=== PATIENT | male | born 1940 | race Caucasian/White ===

== ENCOUNTER → 2017-03-25 | Outpatient (CLI) | payer MEDICARE, MEDICAID ==
[~2017-03-25] MED LIST: ADVAIR 250/501 EA INH; AMLODIPINE BESY10 MG PO; AZITHROMYCIN500 M2 PO; B12100 MC1 PO; CLARITIN10 MG PO; COMBIVENT1 AR1 INH; COMBIVENT1 ARO IH; DOXYCYCLINE100 M4 PO; FUROSEMIDE40 MG PO; INHALER; KLOR-CON 1010 ME1 PO; KLOR-CON M1010 MEQ PO; LASIX40 MG PO; LEVAQUIN500 M2 PO; LIDOCAINE VISC100 ML PO; LISINOPRIL20 MG PO; MIRALAX POWDER255 GM PO; MOTRIN800 MG PO; NORVASC5 MG PO; PHARMASSURE FO0.4 MG PO; PREDNICOT10 MG PO; PREDNICOT20 MG PO; PREDNISONE10 MG PO; PRINIVIL20 M1 PO; PROAIR HFA0.09 MG/AC INH; SLOW RELEASE I159 MG PO; STIOLTO RESPIMAT4 GM INH; SYMB160 INH; SYMBICORT1 AE1 INH; VENTOLIN H0.09 MG/AC INH; VENTOLIN HFA INH; VITAMIN D-32000 UNIT PO; ZITHROMAX Z PA250 MG PO; ZOVIRAX400 MG PO
[2017-03-25 08:49] LABS: ALBUMIN 3.3 gm/dl (3.1-4.5); CREATININE 1.92 mg/dL (0.70-1.30); PHOSPHOROUS 3.5 mg/dL (2.5-4.9); POTASSIUM 4.5 mmol/L (3.5-5.1)
== END | disposition home or self-care (01) ==
LOC: LAB 07:54 → US 12:30
PROVIDERS: Internal Medicine
DX: N18.3 Chronic kidney disease, stage 3 (moderate) (principal)

== ENCOUNTER 2017-03-26 08:04 | Inpatient (IN) | payer MEDICARE, MEDICAID ==
[~2017-03-26] VITALS: Ht 167.6 cm; Wt 69.6 kg
--- NOTE | ~2017-03-26 | PR ---
[place], [place] PROGRESS NOTE NAME: JASPER NATION UNIT #: [id number] ROOM: 522 DOCTOR: PRISCILA SALAZAR MD BIRTHDATE: [birth year] DOS: SUBJECTIVE: Jasper Nation who has been admitted to hospital with pneumonia and COPD and hypoxia. The patient is gradually feeling better. He denies any chest pain. Denies any difficulty in breathing. He is on oxygen and he is eating alright and drinking fairly good. No nausea, no vomiting and his CBC today is white count 7700, hemoglobin 7.4, hematocrit 23.6, having hypochromic anemia. Comprehensive metabolic profile today showed creatinine 1.41, GFR 94, chloride 109. Total protein 6.9, albumin 2.5. Other values are normal. OBJECTIVE: VITAL SIGNS: His blood pressure 132/62, pulse 64, respirations 18, temperature 98.2. HEART: Regular. CHEST: Having increased expiration. No crepitation. ABDOMEN: Soft. The patient is gradually improving. PRISCILA SALAZAR MD CM:PNTRANS [id number] PRISCILA SALAZAR MD 03/30/17 1519 interface
--- NOTE | ~2017-03-26 | EKG ---
[place], [place] ELECTROCARDIOGRAM REPORT NAME: JASPER WAGNER UNIT #: [id number] ROOM: 522 DOCTOR: DIPIKA VELASCO MD BIRTHDATE: [birth year] DOS: 03/26/2017 TIME: 09:20:46. RATE AND RHYTHM: Normal sinus rhythm at 97 beats per minute. RI interval 144 milliseconds. QRS duration 87 milliseconds. Corrected QT interval 413 milliseconds. QRS axis 70. IMPRESSION: 1. Normal sinus rhythm. 2. Essentially normal EKG. DIPIKA VELASCO MD CM:EKGRPT:ELECTROCARDIOGRAM REPORT 1000 1227 DIPIKA VELASCO MD
--- NOTE | ~2017-03-26 | PR ---
[place], [place] PROGRESS NOTE NAME: JASPER WAGNER UNIT #: [id number] ROOM: 522 DOCTOR: SARIKA RAMESH MD BIRTHDATE: [birth year] DOS: 03/29/2017 SUBJECTIVE: The patient was seen and examined. He is awake and alert. He is on nasal cannula. He states he is having productive cough and had some shortness of breath last night. He looked fairly comfortable when I had seen him today. He was eating his lunch. He currently denies nausea, vomiting, chest pain or shortness of breath. PHYSICAL EXAMINATION: VITAL SIGNS: Showed temperature of 97.4, pulse 84, respiratory rate 18, blood pressure 140/64. HEENT: Shows no JVD. LUNGS: With diminished breath sounds with occasional rhonchi. HEART: Normal S1, S2. No rub, thrill or gallop. ABDOMEN: Soft, nontender. There is no organomegaly. EXTREMITIES: Showed no edema. SKIN: Showed no rash. LABORATORY DATA: Hemoglobin 8.2, white count of 9.2, platelets of 285. BUN 24, creatinine 1.67, sodium 140, potassium 4.2, CO2 of 21, calcium 8.5, albumin 2.5. Blood cultures from the 25th showed no growth to date. ASSESSMENT AND PLAN: 1. Acute on chronic kidney disease. The patient has a baseline creatinine that appears to be in the middle to upper ones range. His renal function has improved and at baseline. Dose medications for current creatinine clearance. Would avoid nephrotoxic agents. He currently is on an ASHWIN inhibitor. Since his renal function has improved, this is acceptable from a renal standpoint. 2. Anemia. Follow H and H. Transfuse as needed. 3. Hypertension. As mentioned, he is on an ASHWIN inhibitor. This can certainly continue at this point since his creatinine is at baseline. 4. Questionable pneumonia/chronic obstructive pulmonary disease exacerbation. He is on antibiotics per the primary service. Dose for current creatinine clearance. 5. Deep venous thrombosis prophylaxis. Would not recommend Lovenox with chronic kidney disease. Would change to subcutaneous heparin. At this point, there is nothing more to add from renal standpoint. I recommend renal followup as an outpatient in our office with Dr. Miner. We will be available for questions if needed. He is acceptable for discharge at this point from a renal standpoint. [place], [place] PROGRESS NOTE NAME: JASPER WAGNER UNIT #: [id number] ROOM: 522 DOCTOR: DOMITILA BURK,SARIKA Barbosa BIRTHDATE: [birth year] SARIKA RAMESH MD CM:PNTRANS 1232 [id number] SARIKA RAMESH MD 03/29/17 1413 interface
--- NOTE | ~2017-03-26 | PR ---
[place], [place] PROGRESS NOTE [id number] #: [id number] ROOM: 522 DOCTOR: PRISCILA SALAZAR MD BIRTHDATE: [birth year] DOS: SUBJECTIVE: The patient has been admitted to the hospital with pneumonia and sepsis with difficulty in breathing. He is a known case of COPD with emphysema. The patient is feeling fairly good now. He does not have any chest pain. He is on oxygen and he is coughing, still has some cough. There is no pain in the abdomen. No nausea. No vomiting. Eating fairly satisfactorily. His sputum culture and sensitivity showed many white blood cells and epithelial cells, but culture reports so far show normal rl. CBC showed hemoglobin 8.2, hematocrit 25.6, indicating hypochromic anemia. Comprehensive metabolic profile showed creatinine 1.67, GFR 40 and indicating some renal failure. He has been seen by television presenter and cleared for any acute intervention. His stools for guaiac are negative. OBJECTIVE: VITAL SIGNS: His blood pressure is 140/64, pulse 84, respirations 18, temperature 97.4. PRISCILA SALAZAR MD CM:PNTRANS 1253 151 PRISCILA SALAZAR MD 03/29/17 1510 interface
[2017-03-26 08:04] VITALS: BP 123/60
[~2017-03-26 08:04] MED LIST changes: -AZITHROMYCIN500 M2 PO; -SLOW RELEASE I159 MG PO; -STIOLTO RESPIMAT4 GM INH; -SYMB160 INH; -VENTOLIN HFA INH; -VITAMIN D-32000 UNIT PO
[2017-03-26 08:39] LABS: BASO # 0.1 10*3/uL (0.0-0.1); BASO % 0.4 % (0.0-1.0); EOS % 0.1 % (1.0-4.0); HEMATOCRIT 25.8 % (42.0-52.0); LYMPH # 0.7 10*3/uL (1.3-4.4); LYMPH % 3.8 % (27.0-41.0); MEAN CELL VOLUME 92.1 fl (80.0-94.0); MEAN CORPUSCULAR HGB 28.6 pg (27.0-31.0); MEAN PLATELET VOLUME 9.7 fl (9.6-12.3); MONO # 1.3 10*3/uL (0.1-1.0); MONO % 6.7 % (3.0-9.0); NEUT # 17.1 10*3/uL (2.3-7.9); NEUT % 88.1 % (47.0-73.0); PLATELET COUNT AUTOMATED 272 10*3/uL (130-400); RED CELL DISTRI WIDTH 13.5 % (0-14.5); WHITE BLOOD COUNT 19.4 10*3/uL (4.8-10.8)
[2017-03-26 08:48] LABS: ACT PARTIAL THROMBO TIME 30.9 SECONDS (20.8-31.5)
[2017-03-26 08:53] LABS: ALBUMIN 3.1 gm/dl (3.1-4.5); ALKALINE PHOSPHATASE 121 U/L (45-117); BUN 27 mg/dl (7-24); CHLORIDE 104 mmol/L (98-107); CREATININE 2.36 mg/dL (0.70-1.30); LIPASE 67 U/L (73-393); POTASSIUM 4.4 mmol/L (3.5-5.1); SGOT/AST 10 IU/L (3-35); SGPT/ALT 15 U/L (12-78); SODIUM 136 mmol/L (136-145); TOTAL PROTEIN 8.3 gm/dL (6.4-8.2)
[2017-03-26 08:56] LABS: TROPONIN I < 0.015 ng/ml (<0.045)
--- NOTE | 2017-03-26 09:00 | NUR ---
PT ASSISSTED TO SHOWER AND PROVIDED PERMETHRIN CREAM FOR THE MITES.
[2017-03-26 10:50] VITALS: BP 120/50
[2017-03-26 11:00] VITALS: BP 117/42
--- NOTE | 2017-03-26 11:00 | NUR ---
Time: 1100 A 76 year old MALE admitted to 5E under services of DR. KRISTA BURK,DIPIKA. Pt. arrived via stretcher from ER. Chief complaint: ROZ. TREASURE HOLLIS
[2017-03-26] MEDS ORDERED: SYMB160 INH (11:38)
[2017-03-26] MEDS ORDERED: VENTOLIN HFA INH (11:38)
[2017-03-26] MEDS ORDERED: STIOLTO RESPIMAT4 GM INH (11:41)
[2017-03-26] MEDS ORDERED: VITAMIN D-32000 UNIT PO (11:41)
--- NOTE | 2017-03-26 11:47 | NUR ---
MED REC UPDATED AND CORRECTED BY INFORMATION FROM [facility]
[2017-03-26 16:00] VITALS: BP 111/64
[2017-03-26 16:01] LABS: BILIRUBIN NEGATIVE (NEGATIVE); BLOOD TRACE-LYSED (NEGATIVE); CLARITY CLEAR (CLEAR); COLOR YELLOW (YELLOW); GLUCOSE NEGATIVE (NEGATIVE); KETONE NEGATIVE (NEGATIVE); LEUKO ESTERASE NEGATIVE (NEGATIVE); NITRITE NEGATIVE (NEGATIVE); UROBILINOGEN 0.2 E.U./dl (0.2-1.0)
[2017-03-26 16:21] LABS: MUCOUS TRACE; RBC 0-2 rbc/hpf (0-2)
[2017-03-26 20:00] VITALS: BP 124/61
[2017-03-27] VITALS (11 sets, daily range): BP systolic 104–119; BP diastolic 55–65
--- NOTE | 2017-03-27 02:08 | NUR ---
PATIENT RESTING IN BED WITH EYES CLOSED. NO SIGNS OR SYMPTOMS OF DISTRESS NOTED. AROUSES TO VERBAL STIMULI. DENIES COMPLAINTS OF PAIN AT THIS TIME. WILL CONTINUE TO MONITOR. CALL LIGHT IN REACH.
[2017-03-27 06:11] LABS: HEMOGLOBIN 6.2 g/dl (14.0-18.0); MEAN CELL VOLUME 92.2 fl (80.0-94.0); MEAN CORPUSCULAR HGB 28.6 pg (27.0-31.0); MEAN PLATELET VOLUME 10.8 fl (9.6-12.3); PLATELET COUNT AUTOMATED 222 10*3/uL (130-400); RED BLOOD COUNT 2.17 10*6/uL (4.50-5.90); RED CELL DISTRI WIDTH 13.8 % (0-14.5)
[2017-03-27 06:37] LABS: TOTAL CELLS COUNTED 100 #CELLS
[2017-03-27 06:38] LABS: PLATELET SUFFICIENCY NORMAL (NORMAL); POLYCHROMASIA SLIGHT
[2017-03-27 06:46] LABS: ALBUMIN 2.3 gm/dl (3.1-4.5); CREATININE 2.16 mg/dL (0.70-1.30); POTASSIUM 4.5 mmol/L (3.5-5.1); TOTAL PROTEIN 6.1 gm/dL (6.4-8.2)
--- NOTE | 2017-03-27 08:00 | NUR ---
PT RESTING IN BED. RESP-EASY AND REGULAR. PT VOICED USING INCENTIVE SPIROMETER AND FLUTTER. NO C/O AT HTIS TIME. CALL LIGHT IN REACH. SEE SHIFT ASSESSMENT.
--- NOTE | 2017-03-27 08:30 | NUR ---
Technical Translator in to talk to patient. Patient states lives at HOME with HIS GIRLFRIEND. There are 0 steps in the home. Physician: DR VELASCO Pharmacy: [facility] Home health services: NONE Patient's level of ADLs: INDEPENDENT Patient has working utilities: YES DME: NONE Follow-up physician's appointment after d/c: PREFERS TO MAKE HIS OWN APPT Does patient want to access PORTAL?: Discharge plan HOME. JAYLYN PERALTA
--- NOTE | 2017-03-27 08:49 | NUR ---
CALLED DR. RUIZ MADE AWARE PT H&H THIS AM.
--- NOTE | 2017-03-27 10:00 | NUR ---
RESTING IN BED. RESP-EASY AND REGULAR. NO C/O AT THIS TIME. CALL LIGHT IN REACH.
--- NOTE | 2017-03-27 10:30 | NUR ---
PT RESTING IN BED. RESP-EASY AND REGULAR. BLOOD INITIATED CONSENT SIGNED. CALL LIGHT IN REACH.
--- NOTE | 2017-03-27 13:20 | NUR ---
BLOOD INFUSED WITH NO PROBLEM. VSS. NO C/O AT THIS TIME. CALL LIGHT IN REACH.
--- NOTE | 2017-03-27 13:29 | NUR ---
SPOKE WITH DR. VILLALPANDO OFFICE GIRL THEY WILL NOTIFY HIM OF CONSULT.
--- NOTE | 2017-03-27 15:27 | NUR ---
DR. VILLALPANDO CALLED REGARDING CONSULT AWARE.
--- NOTE | 2017-03-27 15:31 | NUR ---
AMBULATORY IN HALLWAY.
[2017-03-27 15:43] LABS: RETICULOCYTE % 1.32 % (0.50-2.50)
[2017-03-27 15:56] LABS: IRON 53 ug/dL (65-175); TOTAL IRON BINDING CAPACITY 223 ug/dl (250-450)
--- NOTE | 2017-03-27 16:00 | NUR ---
PT RESTING IN BED. RESP-EASY AND REGULAR. NO C/O AT THIS TIME. CALL LIGHT IN REACH.
--- NOTE | 2017-03-27 16:31 | NUR ---
DR. OSEI IN TO SEE PT.
[2017-03-28] VITALS: BP 109/52
[2017-03-28 07:17] LABS: BASO % 0.2 % (0.0-1.0); EOS % 0.3 % (1.0-4.0); HEMATOCRIT 24.9 % (42.0-52.0); LYMPH # 1.3 10*3/uL (1.3-4.4); LYMPH % 8.7 % (27.0-41.0); MEAN CELL VOLUME 91.5 fl (80.0-94.0); MEAN CORPUSCULAR HGB 29.4 pg (27.0-31.0); MEAN CORPUSCULAR HGB CONC 32.1 g/dl (33.0-37.0); MEAN PLATELET VOLUME 10.4 fl (9.6-12.3); MONO # 0.9 10*3/uL (0.1-1.0); MONO % 6.4 % (3.0-9.0); NEUT # 12.1 10*3/uL (2.3-7.9); NEUT % 83.4 % (47.0-73.0); NUCLEATED RED BLOOD CELL 0.1 % (0.0-0.0); PLATELET COUNT AUTOMATED 264 10*3/uL (130-400); RED BLOOD COUNT 2.72 10*6/uL (4.50-5.90); RED CELL DISTRI WIDTH 14.5 % (0-14.5); WHITE BLOOD COUNT 14.5 10*3/uL (4.8-10.8)
[2017-03-28 07:48] LABS: ALBUMIN 2.5 gm/dl (3.1-4.5); CREATININE 1.92 mg/dL (0.70-1.30); POTASSIUM 4.2 mmol/L (3.5-5.1); TOTAL PROTEIN 6.8 gm/dL (6.4-8.2)
[2017-03-28 08:00] VITALS: BP 121/61
--- NOTE | 2017-03-28 09:40 | NUR ---
PT STATES HE DOES NOT NORMALLY WEAR OXYGEN, CURRENTLY ON 2L NC O2 SAT 98%, REMOVED PT'S OXYGEN TO SEE HOW HE TOLERATES ON ROOM AIR, PT O2 SAT 97% ON ROOM AIR. DENIES ANY DISTRESS.
--- NOTE | 2017-03-28 10:09 | NUR ---
O2 SAT REMAINS AT 96-97% ON ROOM AIR.
--- NOTE | 2017-03-28 10:47 | NUR ---
PT UP AMBULATING IN HALLS. NO DISTRESS NOTED.
--- NOTE | 2017-03-28 11:15 | NUR ---
IV SITE LEAKING, NEW IV STARTED IN LEFT FOREARM. PT TOLERATED WELL.
--- NOTE | 2017-03-28 15:45 | NUR ---
PT UP AMBULATING IN SESAY, NO DISTRESS NOTED.
[2017-03-28 16:00] VITALS: BP 119/67
[2017-03-28 20:00] VITALS: BP 124/61
--- NOTE | 2017-03-28 20:50 | NUR ---
IN BED AWAKE ALERT AND ORIENTED X3, PLEASANT NO S/S OF DISTRESS. DENIES C/O. WILL CONT TO MONITOR. CALL LIGHT IN REACH.
[2017-03-29] VITALS: BP 130/70
--- NOTE | 2017-03-29 04:18 | NUR ---
IN BED RESTING QUIETLY AT THIS TIME. NOT AWAKENED PER POLICY. WILL CONT TO MONITOR. CALL LIGHT IN REACH.
[2017-03-29 06:27] LABS: BASO % 0.4 % (0.0-1.0); EOS # 0.1 10*3/uL (0.0-0.4); EOS % 1.3 % (1.0-4.0); HEMATOCRIT 25.6 % (42.0-52.0); HEMOGLOBIN 8.2 g/dl (14.0-18.0); LYMPH # 1.4 10*3/uL (1.3-4.4); LYMPH % 15.1 % (27.0-41.0); MEAN CELL VOLUME 92.1 fl (80.0-94.0); MEAN CORPUSCULAR HGB 29.5 pg (27.0-31.0); MEAN PLATELET VOLUME 10.4 fl (9.6-12.3); MONO % 10.4 % (3.0-9.0); NEUT # 6.6 10*3/uL (2.3-7.9); NEUT % 71.2 % (47.0-73.0); PLATELET COUNT AUTOMATED 285 10*3/uL (130-400); RED BLOOD COUNT 2.78 10*6/uL (4.50-5.90); RED CELL DISTRI WIDTH 14.2 % (0-14.5); WHITE BLOOD COUNT 9.2 10*3/uL (4.8-10.8)
[2017-03-29 07:03] LABS: POTASSIUM 4.2 mmol/L (3.5-5.1)
[2017-03-29 07:12] LABS: ALBUMIN 2.5 gm/dl (3.1-4.5); CREATININE 1.67 mg/dL (0.70-1.30); TOTAL PROTEIN 6.9 gm/dL (6.4-8.2)
[2017-03-29 08:00] VITALS: BP 140/64
--- NOTE | 2017-03-29 08:40 | NUR ---
PT STATEING, I WANT HOME OXYGEN,I"LL BUY IT MYSELF , I JUST KNOW THAT I NEED IT. POX 96 ON ROOM AIR WHILE TALKING
[2017-03-29 16:00] VITALS: BP 130/62
[2017-03-30] VITALS: BP 133/63
[2017-03-30 06:26] LABS: BASO # 0.1 10*3/uL (0.0-0.1); BASO % 0.6 % (0.0-1.0); EOS # 0.2 10*3/uL (0.0-0.4); EOS % 1.9 % (1.0-4.0); HEMATOCRIT 23.6 % (42.0-52.0); HEMOGLOBIN 7.4 g/dl (14.0-18.0); LYMPH # 1.4 10*3/uL (1.3-4.4); MEAN CELL VOLUME 91.8 fl (80.0-94.0); MEAN CORPUSCULAR HGB 28.8 pg (27.0-31.0); MEAN CORPUSCULAR HGB CONC 31.4 g/dl (33.0-37.0); MEAN PLATELET VOLUME 10.5 fl (9.6-12.3); MONO # 0.9 10*3/uL (0.1-1.0); MONO % 11.4 % (3.0-9.0); NEUT # 5.2 10*3/uL (2.3-7.9); NEUT % 66.9 % (47.0-73.0); PLATELET COUNT AUTOMATED 279 10*3/uL (130-400); RED BLOOD COUNT 2.57 10*6/uL (4.50-5.90); RED CELL DISTRI WIDTH 14.4 % (0-14.5); WHITE BLOOD COUNT 7.7 10*3/uL (4.8-10.8)
[2017-03-30 06:57] LABS: ALBUMIN 2.5 gm/dl (3.1-4.5); CREATININE 1.41 mg/dL (0.70-1.30); TOTAL PROTEIN 6.2 gm/dL (6.4-8.2)
[2017-03-30 08:00] VITALS: BP 132/62
--- NOTE | 2017-03-30 11:28 | NUR ---
DR SALAZAR IN TO SEE PT, PT AMBULATORY IN HALLS.
[2017-03-30 16:00] VITALS: BP 127/62
[2017-03-31] VITALS: BP 127/62
--- NOTE | 2017-03-31 04:09 | NUR ---
PT. SLEEPING AT THIS TIME, RESPIRATIONS EASY, NON-LABORED; NO SIGNS OF DISTRESS.
[2017-03-31 06:31] LABS: BASO % 0.5 % (0.0-1.0); EOS # 0.2 10*3/uL (0.0-0.4); EOS % 2.9 % (1.0-4.0); HEMATOCRIT 25.5 % (42.0-52.0); LYMPH # 1.4 10*3/uL (1.3-4.4); LYMPH % 17.4 % (27.0-41.0); MEAN CELL VOLUME 93.1 fl (80.0-94.0); MEAN CORPUSCULAR HGB 29.2 pg (27.0-31.0); MEAN CORPUSCULAR HGB CONC 31.4 g/dl (33.0-37.0); MONO # 0.9 10*3/uL (0.1-1.0); MONO % 10.6 % (3.0-9.0); NEUT # 5.4 10*3/uL (2.3-7.9); NEUT % 66.6 % (47.0-73.0); PLATELET COUNT AUTOMATED 292 10*3/uL (130-400); RED BLOOD COUNT 2.74 10*6/uL (4.50-5.90); RED CELL DISTRI WIDTH 14.2 % (0-14.5); WHITE BLOOD COUNT 8.2 10*3/uL (4.8-10.8)
[2017-03-31 07:01] LABS: ALBUMIN 2.6 gm/dl (3.1-4.5); POTASSIUM 4.5 mmol/L (3.5-5.1)
[2017-03-31 07:04] LABS: CREATININE 1.47 mg/dL (0.70-1.30); TOTAL PROTEIN 6.8 gm/dL (6.4-8.2)
--- NOTE | 2017-03-31 07:40 | NUR ---
Alert and oriented x3. Lungs diminished and clear throughout. O2 intact at 2l. Cough noted and productive for white sputum. Denies pain. Ambulatory in room.
[2017-03-31 08:00] VITALS: BP 111/75
[2017-03-31] MEDS ORDERED: AZITHROMYCIN500 M2 PO (12:37)
[2017-03-31] MEDS ORDERED: SLOW RELEASE I159 MG PO (12:37)
--- NOTE | 2017-03-31 13:23 | NUR ---
Discharge instructions reviewed with patient. Patient receptive and verbalizes understanding. Follow-up care arranged. Written instructions given to patient. IAN CALHOUN
--- NOTE | 2017-03-31 13:30 | NUR ---
PT LEFT VIA AMBULATORY WITH DC INSTRUCTIONS AND FOLLOW UP INSTRUCTIONS. AWARE TO FOOD AND NUTRITION PROFESSOR NEW MEDS AT PHARMACY IN [place].
== END 2017-03-31 13:30 | disposition home or self-care (01) | DRG 871 ==
LOC: ED 08:04 → EDHOLD 09:38 → 5E 09:38
PROVIDERS: Family Medicine; Internal Medicine Hospice and Palliative Medicine; ADMIT Internal Medicine
PROC: 30233N1 Transfusion of Nonautologous Red Blood Cells into Peripheral Vein, Percutaneous Approach (ICD-10-PCS; principal; 2017-03-27)
DX: A41.9 Sepsis, unspecified organism (principal); N17.0 Acute kidney failure with tubular necrosis; E87.2 Acidosis; J18.1 Lobar pneumonia, unspecified organism; N18.3 Chronic kidney disease, stage 3 (moderate); F17.210 Nicotine dependence, cigarettes, uncomplicated; D50.9 Iron deficiency anemia, unspecified; J44.0 Chronic obstructive pulmonary disease with (acute) lower respiratory infection; R09.02 Hypoxemia; R65.20 Severe sepsis without septic shock; R73.9 Hyperglycemia, unspecified; R74.8 Abnormal levels of other serum enzymes; N40.0 Benign prostatic hyperplasia without lower urinary tract symptoms; I12.9 Hypertensive chronic kidney disease with stage 1 through stage 4 chronic kidney disease, or unspecified chronic kidney disease; E55.9 Vitamin D deficiency, unspecified; Z71.6 Tobacco abuse counseling; Z98.42 Cataract extraction status, left eye; Z98.41 Cataract extraction status, right eye; Z80.9 Family history of malignant neoplasm, unspecified; Z79.899 Other long term (current) drug therapy

== ENCOUNTER → 2017-04-08 | Outpatient (CLI) | payer MEDICARE, MEDICAID ==
[~2017-04-08] MED LIST changes: +AZITHROMYCIN500 M2 PO; +SLOW RELEASE I159 MG PO; +STIOLTO RESPIMAT4 GM INH; +SYMB160 INH; +VENTOLIN HFA INH; +VITAMIN D-32000 UNIT PO
== END ==
LOC: LAB 15:54
DX: R19.7 Diarrhea, unspecified (principal)

== ENCOUNTER 2017-04-25 19:28 | Inpatient (IN) | payer MEDICARE, MEDICAID ==
[~2017-04-25] VITALS: Ht 188 cm; Wt 67.4 kg
--- NOTE | ~2017-04-25 | CON ---
[place], [place] REPORT OF CONSULTATION NAME: JASPER WAGNER UNIT #: [id number] ROOM: [facility] DOCTOR: JESSICA STRANGE MD,MARGOT BIRTHDATE: [birth year] DOS: 04/29/2017 PULMONARY CRITICAL CARE CONSULTATION EVALUATION The patient was not seen and transferred to another hospital prior to the assessment. MARGOT LOPEZ MD CM:CONSTR:REPORT OF CONSULTATION 1239 04/30/17 2337 interface
--- NOTE | ~2017-04-25 | PR ---
[place], [place] PROGRESS NOTE NAME: JASPER WAGNER UNIT #: [id number] ROOM: [facility] DOCTOR: YAW LENZ DO BIRTHDATE: [birth year] DOS: 04/29/2017 PROCEDURE: Endotracheal intubation. PROCEDURE NOTE: This is a 76-year-old male currently admitted on Dr. Nowak's service and being treated for C. diff colitis. His condition deteriorated and I was consulted by the primary team to assist in emergently intubating the patient to secure his airway. The procedure was performed by resident physician, Dr. Dave Young under my direct supervision. Rapid sequence intubation was performed using succinylcholine and etomidate. A size 7.5 endotracheal tube was inserted in the trachea with direct visualization of the vocal cords. There was good color change on the CO2 detector. Breath sounds were equal bilateral. Chest x-ray was ordered for tube confirmation. There were no complications during the procedure. YAW LENZ DO CM:PNTRANS 1347 1431 YAW LENZ DO 04/29/17 1432 interface
--- NOTE | ~2017-04-25 | PR ---
[place], [place] PROGRESS NOTE NAME: JASPER WAGNER UNIT #: [id number] ROOM: [facility] DOCTOR: DIPIKA VELASCO MD BIRTHDATE: [birth year] DOS: 04/29/2017 SUBJECTIVE: The patient was admitted on 04/25/2017 and was found to have C. diff colitis and sepsis. The patient was being treated for that. He was also found to have pneumonitis. He was being treated with Levaquin and Solu-Medrol. He does have underlying COPD. The patient was under care of hospitalist as I was away. Yesterday in the afternoon, Dr. Syed Cazares called me and told me about the patient that he is stable and he is being treated for C. diff colitis. Today morning, the patient had to be transferred to ICU because suddenly his white blood cell count went from 24,000 to 53,000. Yesterday, I reviewed nurse's notes and the resident had consulted Dr. Barnes yesterday at 3:[address] Tal Franklin, CLAUDIA specialist because her blood pressure had dropped afternoon yesterday. He received a total of about 13 bags of fluid so far as told to me by nurse, Herber. I did review note of Dr. Tal Franklin, CLAUDIA specialist and she had recommended stopping Levaquin and Solu-Medrol. The patient was put on IV Flagyl and p.o. vancomycin. Dr. Trejo saw the patient today morning at 8:00. We did have a detailed discussion on the patient with Dr. Trejo. ____ the resident was also present and Dr. Trejo did not think that patient has toxic megacolon at this point and he did not think he needs surgery. He told us that 50% of such patients might need surgery. Mortality continues to be very high in such cases due to underlying immunocompromised status and also advanced age. The patient has not been making urine and the patient is on IV fluids. A bolus of IV fluids was given as soon as the patient was started on Levophed to keep the mean arterial pressure above 70. The Levophed was going at 10 mcg when last checked. The patient's blood pressure is holding good. He has still not made urine. I was updated on the patient by Joyce in the morning and I reviewed the CAT scan also, which does not show any toxic megacolon. The CAT scan shows pronounced concentric wall thickening of the length of the colon with associated surrounding inflammatory change and moderate abdominal ascites. The overall appearance is worse compared to the prior study. Findings suggest C. diff pseudomembranous colitis in the appropriate clinical setting, small bilateral pleural effusions were also noted. Reviewing the patient's notes, the patient was having some anxiety and also shortness of breath on exertion when he went for CAT scan. He was given Ativan, which relieved his anxiety, but his shortness of breath could be explained from the pleural effusion and also because of the moderate abdominal ascites. I saw the patient at around between 10:45-11:00 and the patient to me looked very sick. The patient was pleasantly confused at this point, but he was able to tell me about his , Trinity Cruz, who is in a prison. It is not possible to talk to his because she is almost deaf on the telephone, we cannot talk to her because she is deaf. Dr. Trejo did recommend 2 units of blood transfusion, which will be given as soon as they are available. [place] 69984, his hemoglobin 9.5 and his platelets 236. ____and he had immature cells in the blood, monocytes, [place], [place] PROGRESS NOTE NAME: JASPER WAGNER UNIT #: [id number] ROOM: [facility] DOCTOR: DIPIKA VELASCO MD BIRTHDATE: [birth year] metamyelocytes. They are all consistent with underlying C. diff colitis. At this point, the patient is being closely observed. His last blood pressure has been above 100, last blood pressure was 100/55 and mean arterial pressure is being maintained over 70. His Villalobos catheter is in place, but there was no urine detected in the Villalobos catheter. All labs and reports were reviewed. H and P was also reviewed. Please see this note in addition to the note already being typed and written by the resident. Please see these notes together. DIPIKA VELASCO MD CM:PNTRANS 1144 1353 DIPIKA VELASCO MD 04/29/17 1354 interface
[2017-04-25 19:58] VITALS: BP 77/34
[2017-04-25 20:22] VITALS: BP 99/50
[2017-04-25 21:03] LABS: ACT PARTIAL THROMBO TIME 26.3 SECONDS (20.8-31.5)
[2017-04-25 21:05] LABS: ALBUMIN 2.4 gm/dl (3.1-4.5); ALKALINE PHOSPHATASE 86 U/L (45-117); BUN 19 mg/dl (7-24); CHLORIDE 105 mmol/L (98-107); CREATININE 2.81 mg/dL (0.70-1.30); POTASSIUM 3.6 mmol/L (3.5-5.1); SGOT/AST 7 IU/L (3-35); SGPT/ALT 7 U/L (12-78); SODIUM 139 mmol/L (136-145); TOTAL PROTEIN 6.4 gm/dL (6.4-8.2)
[2017-04-25 21:12] LABS: TROPONIN I < 0.015 ng/ml (<0.045)
[2017-04-25 21:31] VITALS: BP 100/53
[2017-04-25 22:01] LABS: HEMATOCRIT 31.2 % (42.0-52.0); HEMOGLOBIN 9.4 g/dl (14.0-18.0); MEAN CORPUSCULAR HGB 28.9 pg (27.0-31.0); MEAN CORPUSCULAR HGB CONC 30.1 g/dl (33.0-37.0); MEAN PLATELET VOLUME 10.7 fl (9.6-12.3); PLATELET COUNT AUTOMATED 260 10*3/uL (130-400); RED BLOOD COUNT 3.25 10*6/uL (4.50-5.90); RED CELL DISTRI WIDTH 14.6 % (0-14.5); WHITE BLOOD COUNT 14.5 10*3/uL (4.8-10.8)
[2017-04-25 22:12] LABS: BILIRUBIN NEGATIVE (NEGATIVE); BLOOD 1+ (NEGATIVE); CLARITY SL CLOUDY (CLEAR); COLOR YELLOW (YELLOW); GLUCOSE NEGATIVE (NEGATIVE); KETONE NEGATIVE (NEGATIVE); LEUKO ESTERASE NEGATIVE (NEGATIVE); NITRITE NEGATIVE (NEGATIVE); SPECIFIC GRAVITY >= 1.030 (1.005-1.030); UROBILINOGEN 0.2 E.U./dl (0.2-1.0)
[2017-04-25 22:18] LABS: BACTERIA 4+; HYALINE CAST TNTC; MUCOUS TRACE; WBC 16-20 wbc/hpf (0-5)
[2017-04-25 23:05] VITALS: BP 112/58
--- NOTE | 2017-04-25 23:31 | NUR ---
REPORT GIVEN TO LEEANN CASTILLO
--- NOTE | 2017-04-25 23:36 | NUR ---
MRSA SWAB SENT
[2017-04-25 23:40] VITALS: BP 107/56
--- NOTE | 2017-04-25 23:40 | NUR ---
A 76, admitted to ICCU, under the services of TIARA Wisdom DO with a diagnosis of UTI, ATN, SEVERE SEPSIS, HYPOTENSION. Chief complaint is SOB, WEAKNESS, DIZZINESS, LEGS FEELING HOT, DIARRHEA, AND FALL AT HOME. Patient arrived via stretcher from ER. Monitor applied. Initial assessment completed. Vital signs taken and recorded. TIARA WISDOM DO notified of admission to the unit. Orders received. See assessment for past medical history, medications and allergies. Patient and/or family oriented to unit. [facility] ICCU visitation policy reviewed. Clothing/patient valuable form completed. MANSI BERNARDO
[2017-04-26] MEDS ORDERED: COMBIVENT RESPIM4 GM INH (00:02)
[2017-04-26 02:35] LABS: HEMOGLOBIN 7.8 g/dl (14.0-18.0); MEAN CORPUSCULAR HGB 29.2 pg (27.0-31.0); MEAN CORPUSCULAR HGB CONC 31.6 g/dl (33.0-37.0); MEAN PLATELET VOLUME 10.8 fl (9.6-12.3); PLATELET COUNT AUTOMATED 231 10*3/uL (130-400); RED BLOOD COUNT 2.67 10*6/uL (4.50-5.90); RED CELL DISTRI WIDTH 14.8 % (0-14.5); WHITE BLOOD COUNT 11.1 10*3/uL (4.8-10.8)
[2017-04-26 02:44] LABS: HEMATOCRIT 24.7 % (42.0-52.0); MEAN CELL VOLUME 92.5 fl (80.0-94.0)
[2017-04-26 02:46] LABS: ACT PARTIAL THROMBO TIME 26.7 SECONDS (20.8-31.5)
[2017-04-26 02:55] LABS: ALBUMIN 2.1 gm/dl (3.1-4.5); CREATININE 2.76 mg/dL (0.70-1.30); PHOSPHOROUS 3.4 mg/dL (2.5-4.9); POTASSIUM 3.6 mmol/L (3.5-5.1); TOTAL PROTEIN 5.7 gm/dL (6.4-8.2)
[2017-04-26 02:56] LABS: FREE T4 1.1 ng/dl (0.76-1.46)
[2017-04-26 03:00] LABS: THYROID STIM HORMONE (HS) 0.666 uIU/ml (0.358-4.75)
[2017-04-26 03:10] LABS: BASOPHILS 1 % (0-1); MICROCYTOSIS SLIGHT; PLATELET SUFFICIENCY NORMAL (NORMAL); TOTAL CELLS COUNTED 100 #CELLS
[2017-04-26 03:23] LABS: VITAMIN D, 25-HYDROXY 25.8 ng/mL (30-100)
[2017-04-26 04:00] VITALS: BP 119/59
--- NOTE | 2017-04-26 07:19 | NUR ---
Shift chart check completed.
[2017-04-26 08:00] VITALS: BP 122/60
--- NOTE | 2017-04-26 09:35 | NUR ---
DR FREITAS MADE ROUNDS.
[2017-04-26 12:00] VITALS: BP 109/52
[2017-04-26 16:00] VITALS: BP 106/56
--- NOTE | 2017-04-26 17:00 | NUR ---
PT HAS REFUSED KENDRA WALDRON & MELISSA HE IS AFRAID OF FALLING. ACEPTED LOVENOX
[2017-04-26 20:00] VITALS: BP 123/60
--- NOTE | 2017-04-26 20:01 | NUR ---
STOOL PSPECIMENS SENT FOR TESTING PER ORDERS. PATIENT SAID HE MAY HAVE HAD SCOPES BEFORE BUT HE ISN'T SURE WHERE OR WITH WHO.
--- NOTE | 2017-04-26 22:26 | NUR ---
PATIENT HAD ANOTHER VERY SMALL BLACK TARRY STOOL. COUGH LOOSER THAN EARLIER AND BECOMING MORE FREQUENT. SLIGHTLY TACHY @ 100.
[2017-04-27] VITALS: BP 107/55
--- NOTE | 2017-04-27 01:47 | NUR ---
PATIENT REFUSING BATH.
[2017-04-27 04:00] VITALS: BP 108/57
[2017-04-27 05:53] LABS: CREATININE 2.41 mg/dL (0.70-1.30); PHOSPHOROUS 3.1 mg/dL (2.5-4.9); POTASSIUM 3.5 mmol/L (3.5-5.1)
[2017-04-27 06:03] LABS: BASO % 0.1 % (0.0-1.0); HEMATOCRIT 24.5 % (42.0-52.0); HEMOGLOBIN 7.8 g/dl (14.0-18.0); LYMPH # 0.3 10*3/uL (1.3-4.4); LYMPH % 2.4 % (27.0-41.0); MEAN CELL VOLUME 91.8 fl (80.0-94.0); MEAN CORPUSCULAR HGB 29.2 pg (27.0-31.0); MEAN CORPUSCULAR HGB CONC 31.8 g/dl (33.0-37.0); MEAN PLATELET VOLUME 11.2 fl (9.6-12.3); MONO # 1.1 10*3/uL (0.1-1.0); NEUT # 12.4 10*3/uL (2.3-7.9); NEUT % 89.3 % (47.0-73.0); PLATELET COUNT AUTOMATED 244 10*3/uL (130-400); RED BLOOD COUNT 2.67 10*6/uL (4.50-5.90); RED CELL DISTRI WIDTH 14.8 % (0-14.5); WHITE BLOOD COUNT 13.9 10*3/uL (4.8-10.8)
--- NOTE | 2017-04-27 07:26 | NUR ---
Shift chart check completed.
[2017-04-27 08:00] VITALS: BP 119/64
--- NOTE | 2017-04-27 08:28 | NUR ---
PATIENT UP IN CHAIR & LINEN CHANGED. IVF INFUSING.
--- NOTE | 2017-04-27 08:36 | NUR ---
PATIENT REFUSING KENDRA & SCD HE IS AFRAID OF GETTING TAGNGLED & TRIPPING. LOVENOX ACCEPTED & UP TO BSC & CHAIR FREQ. MOVING LEGS CONTINUING
--- NOTE | 2017-04-27 09:46 | NUR ---
DR FREITAS MADE AWARE OF URINE OUTPUT/ + FOBI & C-DIFF/ AM LABS
--- NOTE | 2017-04-27 10:16 | NUR ---
DR PASTRANA HERE - NO GI CONSULT D/T C-DIFF. MEDICAL TREATMENT ORDERED
[2017-04-27 11:32] VITALS: BP 123/58
--- NOTE | 2017-04-27 14:56 | NUR ---
TRANSFERRED TO 427 VIA RECLINER. REPORT GIVEN
[2017-04-27 16:00] VITALS: BP 111/54
[2017-04-27 20:00] VITALS: BP 101/73
[2017-04-28] VITALS: BP 104/68
[2017-04-28 06:06] LABS: HEMATOCRIT 29.8 % (42.0-52.0); HEMOGLOBIN 9.3 g/dl (14.0-18.0); MEAN CELL VOLUME 92.8 fl (80.0-94.0); MEAN CORPUSCULAR HGB CONC 31.2 g/dl (33.0-37.0); MEAN PLATELET VOLUME 11.3 fl (9.6-12.3); NUCLEATED RED BLOOD CELL 0.1 10*3/uL (0.0-0.0); NUCLEATED RED BLOOD CELL 0.3 % (0.0-0.0); PLATELET COUNT AUTOMATED 292 10*3/uL (130-400); RED BLOOD COUNT 3.21 10*6/uL (4.50-5.90); WHITE BLOOD COUNT 24.2 10*3/uL (4.8-10.8)
[2017-04-28 06:31] LABS: CREATININE 2.77 mg/dL (0.70-1.30); PHOSPHOROUS 4.2 mg/dL (2.5-4.9); TOTAL PROTEIN 5.4 gm/dL (6.4-8.2)
[2017-04-28 07:00] LABS: BURR CELLS FEW; PLATELET SUFFICIENCY NORMAL (NORMAL); POLYCHROMASIA SLIGHT; TOTAL CELLS COUNTED 100 #CELLS
--- NOTE | 2017-04-28 07:08 | NUR ---
Shift chart check completed.
[2017-04-28 08:00] VITALS: BP 131/74
--- NOTE | 2017-04-28 10:38 | NUR ---
Forklift Truck Mechanic in to talk to patient. Patient states lives at home with girlfriend. There are 0 steps in the home. Physician: Dr. Nowak Pharmacy: [facility] Home health services: no Patient's level of ADLs: MINIMAL ASSIST Patient has working utilities: yes DME: cane Follow-up physician's appointment after d/c: will be made by hospitalist nurse director upon discharge Does patient want to access PORTAL?: no Discharge plan home. TERESITA MCMAHAN
[2017-04-28 11:58] VITALS: BP 104/61
--- NOTE | 2017-04-28 14:02 | NUR ---
ECHO AT BEDSIDE
--- NOTE | 2017-04-28 15:39 | NUR ---
NOTIFIED DR VILLALPANDO ANSWERING SERVICE OF NEW CONSULT.
--- NOTE | 2017-04-28 15:42 | NUR ---
NOTIFIED DR HUTCHINSON ANSWERING SERVICE OF NEW CONSULT.
[2017-04-28 16:00] VITALS: BP 99/51
--- NOTE | 2017-04-28 16:08 | NUR ---
DR. HUTCHINSON IN TO SEE PATIENT
--- NOTE | 2017-04-28 16:08 | NUR ---
PHYSICAL THERAPY Pnt undergoing resp therapy treatment on arrival for PT eval this pm. Will attempt eval again tomorrow. Dolores Simmons, PT
--- NOTE | 2017-04-28 16:22 | NUR ---
ASSESSMENT COMPLETE. PT STATE ZOFRAN SOMEWHAT EFFECTIVE. STILL CONTINUES TO COMPLAIN OF ABDOMEN BEING UNCOMFORTABLE, VOMITING HAS STOPPED, DIARRHEA CONTINUES AND NOW HAS SOME BRIGHT RED BLOOD IN STOOL PER PATIENT. ABDOMEN DISTENDED/MORE FIRM SINCE PREVIOUS ASSESSMENT. IV FLUIDS CHANGED TO 1/2 NS. PT STATES NO NEEDS AT THIS TIME. WILL CONTINUE TO MONITOR
--- NOTE | 2017-04-28 19:30 | NUR ---
ASSUMED CARE OF PT AT THIS TIME, RESPS EASY AND NONLABORED WITH NO S/S OF DISTRESS CALL LIGHT WITH IN REACH
[2017-04-28 20:00] VITALS: BP 71/46
--- NOTE | 2017-04-28 21:28 | NUR ---
PT C/O TROUBLE SLEEPING ADN REQUESTED SOMETHING TO HELP WITH SLEEP, ADMINSITERED RESTORIL 15MG PO PRN PER ORDERS WILL MONITOR EFFECTS
--- NOTE | 2017-04-28 21:30 | NUR ---
PT C/O SOB, O2 INTACT, PULSE OX 97-99% PT DENIES CHEST PAIN AT THIS TIME, DENIES N/V, CALL LIGHT WITH IN REACH PALMER CONTINUE TO MONITOR
[2017-04-28 22:09] VITALS: BP 92/56
--- NOTE | 2017-04-28 22:30 | NUR ---
PT RESTING IN BED AT THIS TIME, PT IS AWAKE STATING THAT HE CANT SLEEP, REQUESTING A FAN TO ASSIST WITH SLEEP, FAN LOCATED AT TAKEN TO PTS ROOM
[2017-04-29] VITALS (34 sets, daily range): BP systolic 66–114; BP diastolic 39–94
--- NOTE | 2017-04-29 01:27 | NUR ---
PT C/O BACK PAIN RATING 12/09, REQUESTING ADN ADMINISTERED NORCO PO PRN PER ORDERS. WILL MONITOR EFFECTS, CALL LIGHT WITH IN REACH
--- NOTE | 2017-04-29 03:08 | NUR ---
RESTING IN BED WITH EYES CLOSED RESPS EASY AND NONLABORED WITH NO S/S OF DISTRESS CALL LIGHT WITH IN REACH
--- NOTE | 2017-04-29 04:00 | NUR ---
PT HAVING INCREASED ANXIETY REPORTS DIFFICULTY BREATHING AND INCREASED RESTLESSNESS, 1 X DOSE ATIVAN ORDERED AND ADMINISTERED IVP, WILL MONITOR EFFECTS
--- NOTE | 2017-04-29 04:30 | NUR ---
PT WAS BEING CLEANED UP
[2017-04-29 06:01] LABS: HEMATOCRIT 33.4 % (42.0-52.0); HEMOGLOBIN 10.1 g/dl (14.0-18.0); MEAN CORPUSCULAR HGB 28.1 pg (27.0-31.0); MEAN CORPUSCULAR HGB CONC 30.2 g/dl (33.0-37.0); MEAN PLATELET VOLUME 11.2 fl (9.6-12.3); NUCLEATED RED BLOOD CELL 0.6 10*3/uL (0.0-0.0); NUCLEATED RED BLOOD CELL 1.2 % (0.0-0.0); PLATELET COUNT AUTOMATED 252 10*3/uL (130-400); RED BLOOD COUNT 3.59 10*6/uL (4.50-5.90); RED CELL DISTRI WIDTH 15.4 % (0-14.5)
[2017-04-29 06:10] LABS: CREATININE 4.15 mg/dL (0.70-1.30)
[2017-04-29 06:26] LABS: POTASSIUM 5.5 mmol/L (3.5-5.1)
[2017-04-29 06:29] LABS: BURR CELLS MANY; PLATELET SUFFICIENCY NORMAL (NORMAL); POLYCHROMASIA SLIGHT; TOTAL CELLS COUNTED 100 #CELLS; TOXIC GRANULATION SLIGHT
[2017-04-29 06:30] LABS: WHITE BLOOD COUNT 54.3 10*3/uL (4.8-10.8)
--- NOTE | 2017-04-29 06:41 | NUR ---
CALL PLACED TO DR. PIÑA R/T CRITICAL WBC COUNT, NO NEW ORDERS AT THIS TIME
--- NOTE | 2017-04-29 06:47 | NUR ---
ATIVAN SOMEWHAT EFFECTIVE, PT NO LONGER REPORTS TROUBLE WITH BREATHING, PT STILL HAVING SOME FIDGETING IN BED
--- NOTE | 2017-04-29 06:57 | NUR ---
CALL PLACED TO R/T CONSULT FOR INCREASED WBCS
--- NOTE | 2017-04-29 07:20 | NUR ---
PT RECEIVED IN CCU#[address] SCAN.COLOR POOR.VILLA.02 INTACT. REPORT RECEIVED FROM 4E RN. ABD DISTENDED FIRM.SEE INTERVENTION SCREEN FOR VS.
--- NOTE | 2017-04-29 07:30 | NUR ---
RECEIVED INTO ICCU [address] SCAN. MOANING IN PAIN. ABDOMEN FIRM AND DISTENDED. BP 82/50. PLACED ON 4L NASAL CANNULA. RECTAL TEMP 94. PLACED ON BEAR HUGGER. IV STARTED IN ABELARDO. #16 CYMRAES COUDE PLACED WITH A DROP OF URINE NOTED. 1 LITER NS GIVEN OPEN WIDE.
--- NOTE | 2017-04-29 08:00 | NUR ---
DR CHAVIRA IN TO SEE PT. NEW ORDERS RECEIVED FOR IVFS ,LEVOPHED GTT AND PRBCS. WILL CLOSELY MONITOR.
--- NOTE | 2017-04-29 08:15 | NUR ---
LEVOPHED GTT STARTED AT 4MCG/MIN TO KEEP MAP >70. NO URINE OUTPT NOTED IN TIJERINA CATHETER. IV BOLUS OF FLUIDS INFUSING.
--- NOTE | 2017-04-29 08:44 | NUR ---
PHYSICAL THERAPY PAtient with medical complications and transferred to ICCU, will require new PT orders when appropriate. Thank you fopr this referral. Ariadna reddy,PT
--- NOTE | 2017-04-29 09:00 | NUR ---
LEVOPHED GTT INCREASED TO 6MCG/MIN DUE TO MAP OF ONLY 63.
--- NOTE | 2017-04-29 09:36 | NUR ---
PT CONTINUES TO HAVE ONLY SCANT AMOUNT OF URINE IN TIJERINA. CATHETER IRRIGATED FOR PATENCY. DR SEVILLA IN TO SEE PT AND ORDER FOR ANOTHER IV BOLUS TO BE GIVEN. LEVOPHED GTT CONTINUES AT 6MCG/MIN.
--- NOTE | 2017-04-29 10:02 | NUR ---
Bobcat Driver/Labor in to see patient. Discharge plan undeterminable at this time.
--- NOTE | 2017-04-29 10:04 | NUR ---
DR CHAVIRA IN TO SEE PT. I MADE HIM AWARE OF PT CONTINUING TO HAVE NO URINE OUTPT. BP 86/55 MAP OF 62. LEVOPHED GTT INCREASED TO 8MCG/MIN. BOLUS OF NORMAL SALINE INFUSING.
[2017-04-29 10:25] LABS: HEMATOCRIT 30.1 % (42.0-52.0); HEMOGLOBIN 9.5 g/dl (14.0-18.0); MEAN CELL VOLUME 92.9 fl (80.0-94.0); MEAN CORPUSCULAR HGB 29.3 pg (27.0-31.0); MEAN CORPUSCULAR HGB CONC 31.6 g/dl (33.0-37.0); MEAN PLATELET VOLUME 11.2 fl (9.6-12.3); NUCLEATED RED BLOOD CELL 0.7 10*3/uL (0.0-0.0); NUCLEATED RED BLOOD CELL 1.2 % (0.0-0.0); PLATELET COUNT AUTOMATED 236 10*3/uL (130-400); RED BLOOD COUNT 3.24 10*6/uL (4.50-5.90); RED CELL DISTRI WIDTH 15.3 % (0-14.5)
[2017-04-29 10:28] LABS: WHITE BLOOD COUNT 61.1 10*3/uL (4.8-10.8)
--- NOTE | 2017-04-29 10:31 | NUR ---
DR SEVILLA MADE AWARE OF CRITICAL LAB OF WBC 61.1
[2017-04-29 10:43] LABS: TOTAL CELLS COUNTED 100 #CELLS
[2017-04-29 10:44] LABS: BURR CELLS MANY; PLATELET SUFFICIENCY NORMAL (NORMAL); POLYCHROMASIA SLIGHT; TOXIC GRANULATION SLIGHT; VACUOLATION OF NEUTROPHILS SLIGHT
--- NOTE | 2017-04-29 10:55 | NUR ---
PT'S BLOOD PRESSURE 76/40 WITH MAP OF 52. IV BOLUS INFUSING. LEVOPHED GTT TITRATED UP TO 10MCG/MIN. DR VELASCO AND DR SEVILLA NOTIFIED. DR LOPEZ AND DR VILLALPANDO NOTIFIED OF NEW CONSULTS.
--- NOTE | 2017-04-29 11:12 | NUR ---
DR RODRIGUEZ OFFICE MADE AWARE OF NEW CONSULT STATED THEY WILL HAVE HIM CALL ME BACK.
--- NOTE | 2017-04-29 11:17 | NUR ---
MESSAGE LEFT ON ANSWERING MACHINE OF NEXT OF KIN MIRLANDE MORENO AT [phone] TO CALL US BACK MAHAMED REGARDING PT'S CONDITION.
--- NOTE | 2017-04-29 11:22 | NUR ---
PT STATES HIS NEXT OF KIN MIRLANDE MORENO IS A PT AT [facility]. I CALLED TO TRY TO SPEAK WITH HER BUT THERE WAS NO ANSWER IN HER ROOM.
--- NOTE | 2017-04-29 11:57 | NUR ---
PT'S NIECE MITZY CALLED IN AND WAS GIVEN UPDATE ON PT'S CONDITION. STATED SHE WILL BE IN TO SEE HIM.
--- NOTE | 2017-04-29 12:17 | NUR ---
DR MATA WHOSE IS WORKING WITH NEPHROLOGY IN TO SEE PT AT THIS TIME.
[2017-04-29 12:40] LABS: ABG HCO3 10.2 mmol/l (22-26); ABG O2 SATURATION 93.5 % (95-97); ARTERIAL BLOOD GAS PCO2 28.3 mmHg (35-45); ARTERIAL BLOOD GAS PO2 73.4 mmHg (80-90)
[2017-04-29 12:42] LABS: ABG BASE EXCESS -17.5 mmol/L (-2.0-2.0)
--- NOTE | 2017-04-29 12:45 | NUR ---
DR HUTCHINSON IN TO SEE PT.
[2017-04-29 12:47] LABS: ARTERIAL BLOOD GAS PH 7.169 (7.35-7.45)
--- NOTE | 2017-04-29 13:15 | NUR ---
Infomed consent obtained from family by Dr. SEVILLA for elective intubation. Patient intubated with 7 Bulgarian endotracheal tube X 1 attempts. Patient sedated with ETOMADATE, SUCCIN Respiratory therapy at bedside. Crash cart with emergency drugs available. Endotracheal tube inflated with 8cc's. Lungs auscultated for equality of breath sounds. Tube secured with Tube tamer at 23cm's. at level of LIP. Patient tolerated procedure WELL. Portable chest X-ray obtained and reviewed for tube placement. Patient connected to ventilator CMV mode, 650 tidal volume, 50 FIO2, 7 PEEP, and 0 pressure support. DAIN COPELAND
--- NOTE | 2017-04-29 14:39 | NUR ---
BP 66 SYSTOLIC WITH MAP OF 48. NEOSYNEPHRINE GTT STARTED ALONG WITH LEVOPHED GTT PER DR LOPEZ ORDER. DR SEVILLA PLACING [facility] [place] AT THIS TIME. DR CHAVIRA IN TO SEE PT AND ARRANGEMENTS TO BE MADE TO TRANSFER [facility].
--- NOTE | 2017-04-29 14:56 | NUR ---
RIGHT IJ MLC PLACED BY DR SEVILLA.
[2017-04-29 16:31] LABS: MEAN CELL VOLUME 91.8 fl (80.0-94.0); MEAN CORPUSCULAR HGB 29.9 pg (27.0-31.0); MEAN CORPUSCULAR HGB CONC 32.6 g/dl (33.0-37.0); MEAN PLATELET VOLUME 10.9 fl (9.6-12.3); NUCLEATED RED BLOOD CELL 1.2 10*3/uL (0.0-0.0); NUCLEATED RED BLOOD CELL 1.8 % (0.0-0.0); PLATELET COUNT AUTOMATED 213 10*3/uL (130-400); RED BLOOD COUNT 4.01 10*6/uL (4.50-5.90); RED CELL DISTRI WIDTH 15.3 % (0-14.5)
[2017-04-29 16:32] LABS: HEMATOCRIT 36.8 % (42.0-52.0)
[2017-04-29 16:54] LABS: BURR CELLS MANY; POLYCHROMASIA SLIGHT; TOTAL CELLS COUNTED 100 #CELLS; VACUOLATION OF NEUTROPHILS SLIGHT
[2017-04-29 16:55] LABS: PLATELET SUFFICIENCY NORMAL (NORMAL); TOXIC GRANULATION SLIGHT
[2017-04-29 16:57] LABS: WHITE BLOOD COUNT 64.9 10*3/uL (4.8-10.8)
--- NOTE | 2017-04-29 17:24 | NUR ---
[facility] HERE TO TRANSPORT PT TO [facility]. REPORT GIVEN TO JENSEN AT [facility] AND PT GOING TO [facility] ICU. PT'S MARIANA FORRESTER HERE AT TIME OF TRANSFER AND AWARE OF PT GOING.
== END 2017-04-29 17:24 | disposition short-term general hospital (02) | DRG 871 ==
LOC: ED 19:28 → EDHOLD 22:32 → 4E 22:32 → ICCU 22:50 → 4E 04-27 14:43 → ICCU 04-29 07:08
PROVIDERS: Hospitalist; Internal Medicine; Internal Medicine Critical Care Medicine; Internal Medicine Nephrology; Student in an Organized Health Care Education/Training Program; ADMIT Internal Medicine
PROC: 02HV33Z Insertion of Infusion Device into Superior Vena Cava, Percutaneous Approach (ICD-10-PCS; principal; 2017-04-29)
PROC: B548ZZA Ultrasonography of Superior Vena Cava, Guidance (ICD-10-PCS; principal; 2017-04-29)
PROC: 30233N1 Transfusion of Nonautologous Red Blood Cells into Peripheral Vein, Percutaneous Approach (ICD-10-PCS; principal; 2017-04-29)
PROC: 5A1935Z Respiratory Ventilation, Less than 24 Consecutive Hours (ICD-10-PCS; 2017-04-29)
PROC: 0BH17EZ Insertion of Endotracheal Airway into Trachea, Via Natural or Artificial Opening (ICD-10-PCS; 2017-04-29)
DX: A41.9 Sepsis, unspecified organism (principal); J18.9 Pneumonia, unspecified organism; N17.0 Acute kidney failure with tubular necrosis; E43 Unspecified severe protein-calorie malnutrition; R65.21 Severe sepsis with septic shock; G93.41 Metabolic encephalopathy; A04.72 Enterocolitis due to Clostridium difficile, not specified as recurrent; I13.0 Hypertensive heart and chronic kidney disease with heart failure and stage 1 through stage 4 chronic kidney disease, or unspecified chronic kidney disease; I50.32 Chronic diastolic (congestive) heart failure; J44.0 Chronic obstructive pulmonary disease with (acute) lower respiratory infection; J44.1 Chronic obstructive pulmonary disease with (acute) exacerbation; N39.0 Urinary tract infection, site not specified; Z68.1 Body mass index [BMI] 19.9 or less, adult; N40.0 Benign prostatic hyperplasia without lower urinary tract symptoms; E53.8 Deficiency of other specified B group vitamins; E55.9 Vitamin D deficiency, unspecified; I95.9 Hypotension, unspecified; D50.9 Iron deficiency anemia, unspecified; E86.0 Dehydration; W18.39XA Other fall on same level, initial encounter; N18.3 Chronic kidney disease, stage 3 (moderate); Z72.0 Tobacco use; Z71.6 Tobacco abuse counseling; Z98.42 Cataract extraction status, left eye; Z98.41 Cataract extraction status, right eye; Z80.9 Family history of malignant neoplasm, unspecified; Z83.6 Family history of other diseases of the respiratory system; Z79.899 Other long term (current) drug therapy; Y92.099 Unspecified place in other non-institutional residence as the place of occurrence of the external cause; Y93.89 Activity, other specified; Y99.8 Other external cause status

== ENCOUNTER 2017-05-12 08:25 | Inpatient (IN) | payer MEDICARE, MEDICAID ==
[~2017-05-12] VITALS: Ht 187.9 cm; Wt 70.4 kg
--- NOTE | ~2017-05-12 | PR ---
[place], [place] PROGRESS NOTE NAME: JASPER WAGNER UNIT #: [id number] ROOM: [facility] DOCTOR: JESSICA STRANGE MD,MARGOT BIRTHDATE: [birth year] DOS: 05/19/2017 SUBJECTIVE: He has been noted much more comfortable at this time, resting on the bed. The patient denies symptoms of chest pain. Oxygen supplementation has been currently noted 2 liters nasal cannula. OBJECTIVE: VITAL SIGNS: For the patient this morning, normal temperature, respiratory rate 17, heart rate 86, blood pressure 125/77. Intake for the patient at 1745, the output 1100 mL. Pulse oxygen saturation recorded on nasal cannula 2 liters as 95% saturation. HEENT: No acute change. NECK: Supple. CARDIOVASCULAR: S1, S2 audible. LUNGS: Noted without any wheeze or crackles. ABDOMEN: Soft, nontender. IMPRESSION: The patient with resolving bilateral pleural fluid overload, congestive heart failure, hypoalbuminemia and multiple other causes. PLAN OF MANAGEMENT: Continuation of current therapy, plan of management. Continue nephrology services followup, cardiology followup as well. Physical therapy and occupation therapy. MARGOT LOPEZ MD CM:ALEXANDRU [id number] MARGOT STRANGE MD 05/20/17 0036 interface
--- NOTE | ~2017-05-12 | PR ---
[place], [place] PROGRESS NOTE [id number] UNIT #: [id number] ROOM: 518 DOCTOR: JESSICA STRANGE MD,MARGOT BIRTHDATE: [birth year] DOS: 05/15/2017 SUBJECTIVE: The patient has been noted comfortable at this time without any acute distress. He has not been noted any symptoms of chest pain. The patient's shortness of breath has been noted partially decreased from previous examination. He denies any coughing or any acute chest pain. OBJECTIVE: VITAL SIGNS: Normal temperature, respirations 18, heart rate 96, blood pressure 93/51. Pulse oxygen saturation of 94% saturation recorded. HEENT: Showed no new change. NECK: Supple. CARDIOVASCULAR: S1, S2 audible. LUNGS: Without any wheeze or crackles at present time. ABDOMEN: Soft and nontender. EXTREMITIES: Without any new changes. Edema of the lower extremity was seen. LABORATORY DATA: The ultrasound of the bilateral lower extremity was completed yesterday. It does not show evidence of deep venous thrombosis. CBC: Hemoglobin 7.9, hematocrit 24.7, and platelet count was normal today. CMP this morning, BUN 14 and creatinine 1.40. Sodium 133, potassium 3.4, and chloride 93. CT scan of the chest that was done yesterday was personally reviewed, shows evidence of bilateral moderate-size pleural fluid, area of compression atelectasis secondary to pleural fluid. Trace pericardial effusion was noted. The patient was also noted with significant changes of centrilobular emphysema bilaterally. ____ also reported in the upper portion of the abdomen by the Radiology services. IMPRESSION: 1. The patient who has been currently treated in the hospital. The patient noted with acute congestive heart failure, bilateral pleural effusion as well as hypoalbuminemia protein-calorie malnutrition was also suspected. Compression atelectasis noted. There was no evidence of acute pneumonia noted on the current CT scan of the chest and with current clinical assessment. ____ debility as well. 2. The patient with chronic obstructive pulmonary disease, noted at this time without any acute exacerbation. PLAN OF MANAGEMENT: Treat the patient conservatively with diuretic therapy. If necessary, thoracentesis will be done with ultrasound guidance in case of failure of conservative treatment. Continuation of the bronchodilators at this time. Usual care. All other supportive therapy, plan of management. Continue medical management of C. diff colitis, which seems to be resolving progressively. [place], [place] PROGRESS NOTE NAME: JASPER WAGNER UNIT #: [id number] ROOM: 518 DOCTOR: MARGOT MCKEON MD BIRTHDATE: [birth year] MARGOT LOPEZ MD CM:PNTRANS [id number] MARGOT STRANGE MD 05/15/17 1254 interface
--- NOTE | ~2017-05-12 | PR ---
[place], [place] PROGRESS NOTE NAME: JASPER WAGNER UNIT #: [id number] ROOM: 522 DOCTOR: JESSICA STRANGE MD,MARGOT BIRTHDATE: [birth year] DOS: 05/20/2017 SUBJECTIVE: He has been noted comfortable at this time, transferred to the medical floor. He remains awake and alert at this time. Denies symptoms of chest pain. Shortness of breath has been gradually improving. OBJECTIVE: VITAL SIGNS: For the patient which has been recorded showed the temperature as normal. The respiratory rate of the patient recorded as 18, heart rate 84, blood pressure 132/82. The pulse oxygen saturation of the patient recorded as 95% on 2 liters nasal cannula. HEENT: No acute change. NECK: Supple. CARDIOVASCULAR: S1, S2 audible. LUNGS: Noted without any wheeze or crackles. ABDOMEN: Soft, nontender. LABORATORY DATA: CMP today, BUN 14, creatinine 1.92. IMPRESSION: 1. The patient with gradual and progressive resolution of the acute hypoxic respiratory failure with the pleural fluid as well. 2. Improving acute kidney injury as well. 3. Severe protein-calorie malnutrition status. PLAN OF MANAGEMENT: Continue current conservative treatment at this time as previously in progress. All other supportive therapy, plan of management and care. Usual treatment, other supportive care and therapies. Additional treatment changes made based on progression of illness. MARGOT LOPEZ MD CM:PNTRANS [id number] MARGOT STRANGE MD 05/20/17 1357 interface
--- NOTE | ~2017-05-12 | EKG ---
[place], [place] ELECTROCARDIOGRAM REPORT NAME: JASPER WAGNER UNIT #: [id number] ROOM: 518 DOCTOR: JESSICA STRANGE MD,MARGOT BIRTHDATE: [birth year] DOS: 05/12/2017 ELECTROCARDIOGRAM The electrocardiogram was done on 05/12/2017 at 8:44 a.m. Normal sinus rhythm noted. Heart rate of 93 beats per minute. Otherwise, normal EKG. MARGOT LOPEZ MD CM:EKGRPT:ELECTROCARDIOGRAM REPORT [id number] MARGOT STRANGE MD
--- NOTE | ~2017-05-12 | CON ---
[place], [place] REPORT OF CONSULTATION NAME: JASPER WAGNER UNIT #: [id number] ROOM: [facility] DOCTOR: RADHA HOLLY MD BIRTHDATE: [birth year] DOS: 05/16/2017 HISTORY OF PRESENT ILLNESS: This is a 76-year-old patient who has presented with a chief complaint of anemia and rectal bleed that I have been called for. 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 His white blood cell was 9. His H and H was 9.8 and 30. His C. diff was negative. His INR was 1.1. Comprehensive metabolic panel, electrolyte balance, and liver function tests were normal. C-reactive protein 9.15. BNP 800. He was hypotensive; therefore transferred to ICU. PAST MEDICAL HISTORY: Associated with renal insufficiency, COPD, C. diff history, protein-calorie malnutrition, hypertension history, and congestive heart failure history. PAST SURGICAL HISTORY: Total abdominal colectomy, ileostomy, and cataract. SOCIAL HISTORY: Smoker and nonalcohol user. FAMILY HISTORY: Noncontributory. ALLERGIES: Allergies to no known medications. MEDICATIONS: List has been reviewed. Iron supplementation, metronidazole, vancomycin q. 6 hours, ____ IV form. Other medications reviewed. REVIEW OF SYSTEMS: HEENT: Denies double vision and blurred vision. RESPIRATORY: Denies acute shortness of breath. CARDIOVASCULAR: Denies chest pain. DIGESTIVE SYSTEM: As above RECTAL: Bleed, mucusy jelly. PHYSICAL EXAMINATION: VITAL SIGNS: Stable. HEENT: Head normocephalic and nontraumatic. Mouth and buccal mucosa benign. NECK: Supple. No thyromegaly, no cervical lymphadenopathy. CHEST: Symmetric anatomy, equal expansion, COPD pattern. HEART: Normal sinus rhythm. No gallop, no murmur. ABDOMEN: Soft. No hepato-organomegaly. Green stool in the ileostomy. Bowel sounds present. EXTREMITIES: No cyanosis, no pedal edema. NEUROLOGIC: Alert, oriented to time, place, person. IMPRESSION: Rectal bleed. C. diff negativity status post total colectomy, status post ileostomy, otherwise chronic obstructive pulmonary disease, hypotension, anemia, nicotine dependency, protein malnutrition, congestive heart failure history, otherwise dictated in paragraph of past medical and surgical history. His latest H and H are 7.8 and 24. He is for transfusion of 2 units packed cells. His platelet count is 219. Ultrasound of the abdomen completed, [place], [place] REPORT OF CONSULTATION NAME: JASPER WAGNER UNIT #: [id number] ROOM: [facility] DOCTOR: AVNI BURK,RADHA BIRTHDATE: [birth year] [id number] abdominal ascites in the right and left upper quadrants. The patient is anemic, hemoglobin of 7, 8, and 24. He is for transfusion of 2 units. He is on vancomycin and Flagyl. He has ascites fluid in the right upper quadrant. This could be postop residuals still and could be also multifactorial with his history of complex medical issues. PLAN AND DISCUSSION: Since his C. diff is negative, since he does not have leukocytosis, we are going to treat the rectum with hydrocortisone suppositories 25 mg 1 every day for the next 6 days, and we are continuing supportive management and postop care as far as his hypotension is concerned. I trust that the transfusion blood is going to be also useful in this matter and he is going to be advised to abstain from smoking, and I doubt he is going to be compliant with. His records have been reviewed. Labs reviewed. CT scan of the chest without contrast has been reviewed; pericardial effusion, underlying emphysematous changes, partial abdominal ascites, pleural effusion, all have been recognized. At this stage, supportive management. He is already status post total colectomy and his ileostomy ____ are green. RADHA HOLLY MD CM:CONSTR:REPORT OF CONSULTATION 1539 05/17/17 0008 interface
--- NOTE | ~2017-05-12 | PR ---
[place], [place] PROGRESS NOTE NAME: [facility]AGNER [id number] UNIT #: [id number] ROOM: 518 DOCTOR: JESSICA STRANGE MD,MARGOT BIRTHDATE: [birth year] DOS: 05/16/2017 SUBJECTIVE: He has been sitting on the chair this morning, still complaining of some pain and tingling sensation of the lower extremities, which has been noted better this morning as the patient's SCDs were taken of his extremities. He denies any chest pain, shortness of breath has been noted partially decreased. OBJECTIVE: VITAL SIGNS: They are were noted low grade fever this morning at 8 o'clock 100.4 degree Fahrenheit, respiratory rate 20, heart rate 86, blood pressure 114/48 to 93/50. Intake was 1280, output 503 mL. Pulse oxygen saturation on 3 liters nasal cannula was 97% saturation recorded. HEENT: Examination shows no acute change. NECK: Supple. CARDIOVASCULAR: S1, S2 audible in the lung noted. Decreased breath sounds in the lungs bilaterally. ABDOMEN: Soft, nontender. EXTREMITIES: Shows chronic changes. LABORATORY DATA: The patient has ultrasound of the abdomen done which shows [id number] amount of ascites seen in the right and left upper quadrants. CBC this morning, hemoglobin 7.8, hematocrit 24.3, platelet count normal. WBC count, normal. CMP this morning, BUN 9, creatinine 1.35, CO2 of 34. Potassium 3.2. Albumin 2.5, total protein 5.6. The stool for discharge C. diff toxin yesterday repeated again and that remains negative. IMPRESSION: 1. Bilateral pleural fluid was noted related congestive heart failure or other etiologies multifactorial remain in consideration. Shortness of breath and other symptom were related to that. 2. Severe protein-calorie malnutrition status was noted with physical assessment as well. 3. Status post surgical intervention and total colectomy for the colitis with current ileostomy. PLAN OF MANAGEMENT: Maximum nutrition support. Anemia was noted. The patient might require blood transfusion and the hemoglobin and hematocrit continue to decrease. Conservative management will be continued. The patient's diuretics and the pleural fluid. The etiology ascites may be related to hypoalbuminemia as well or any liver disorder. Other supportive therapy, plan of management and care. Usual treatment and therapies. [place], [place] PROGRESS NOTE NAME: JASPER WAGNER UNIT #: [id number] ROOM: 518 DOCTOR: MARGOT MCKEON MD BIRTHDATE: [birth year] MARGOT LOPEZ MD CM:ALEXANDRU [id number] MARGOT STRANGE MD 05/16/17 1337 interface
--- NOTE | ~2017-05-12 | PR ---
[place], [place] PROGRESS NOTE NAME: JASPER WAGNER UNIT #: [id number] ROOM: [facility] DOCTOR: JESSICA STRANGE MD,MARGOT BIRTHDATE: [birth year] DOS: 05/18/2017 SUBJECTIVE: The patient has been noted comfortable at this time, resting on the bed. Shortness of breath has been continued and gradually improving. There were no symptoms of chest pain or hemoptysis. The patient denies any symptoms of pain of the lower extremities. OBJECTIVE: VITAL SIGNS: For the patient which has been recorded shows the temperature recorded normal, respiratory rate 26-16, heart rate of 96-87, blood pressure 124/73-122/73. Intake for the patient recorded 1200 and output 2150 mL. The output for the patient ____ with 750 mL of urine. A pulse oxygen saturation on 2 liters nasal cannula at 95% saturation recorded. HEENT: Showed no acute change. NECK: Supple. CARDIOVASCULAR: S1, S2 audible. LUNGS: The patient was noted with decreased breaths in the lower portion of the lungs with questionable crackles. There was no wheezing. ABDOMEN: Soft, nontender. EXTREMITIES: Remains unchanged. LABORATORY DATA: Blood cultures, which were done for the patient on 05/12/2017, all reported no bacterial growth. The CMP of this morning, BUN and creatinine was normal. Sodium 134, potassium 2.9, CO2 of 35. CBC this morning, hemoglobin 9.7 and hematocrit 26.6, platelet count was normal. Ultrasound of the chest was personally performed at bedside shows a very small pleural fluid noted in the left side and a small to possible medium pleural fluid was noted in the right pleural space. The lung was noted moving into the field as the fluid was assessed. IMPRESSION: 1. The patient who has been noted with resolving bilateral pleural fluid clinically and radiologic assessment with area of some compression atelectasis lower lungs, there was no evidence of pneumonia. 2. The patient with possible gastrointestinal bleeding. 3. Resolved Clostridium difficile colitis. 4. Severe debility, muscle deconditioning and protein-calorie malnutrition. PLAN OF MANAGEMENT: No changes in the therapy for the patient at this time needs to be done. It would not be safe to do thoracentesis of the right side because of the description as I stated in the ultrasound assessment. The patient is responding to current conservative treatment, diuretic therapy and ____ albumin treatment. Usual care in the meantime to be continued. Supportive therapy, plan of management and other medical treatment, continue to be optimized. [place], [place] PROGRESS NOTE NAME: JASPER WAGNER UNIT #: [id number] ROOM: [facility] DOCTOR: JESSICA STRANGE MD,MARGOT BIRTHDATE: [birth year] MARGOT LOPEZ MD CM:PNWILFRIDO [id number] MARGOT STRANGE MD 05/18/17 1753 interface
--- NOTE | ~2017-05-12 | CON ---
[place], [place] REPORT OF CONSULTATION [id number] UNIT #: [id number] ROOM: 518 DOCTOR: DALLAS MCKEON MDULAM BIRTHDATE: [birth year] DOS: 05/14/2017 The patient was requested by Dr. Harini Nowak. REASON FOR CONSULTATION: To assess the patient for shortness of breath. HISTORY OF PRESENT ILLNESS: This is a 76-year-old white male who had been admitted in this hospital recently. The patient has been hospitalized in 04/2017 and noted with severe sepsis as with the C. diff colitis. He was also noted toxic megacolon, was sent to [facility]. The patient underwent total colectomy with ileostomy performed. The patient in [facility]. The patient has been receiving the vancomycin and other medications orally for the medical management of C. diff colitis. He has been admitted to the hospital. The patient was reporting symptoms of having increased shortness of breath. He was also reported symptoms of productive cough. The sputum expectoration described to be white. The patient was noted very poor historian, unable to give any history. He has been currently lying in the bed. Denies any symptoms of acute shortness of breath. Denies symptoms of coughing, chest pain or hemoptysis. Most of the questions as per the patient could not be answered by the patient. All the history remaining has been obtained for the patient from the past documentation and the current documentation, medical records by the primary care attending and the other physician consults. The patient was also reported as edema of the lower extremity, which has been noted gradual and progressive. He has not been reported any symptoms of fever or chills. There has not been any symptom described for the abdominal pain, nausea, vomiting. The patient has been receiving the IV Lasix. The dose was increased yesterday of the patient to help improve the edema of the lower extremity and suspected congestive heart failure. PAST MEDICAL HISTORY: 1. Noted with a chronic kidney disease with possible superimposed disease. The patient with acute tubular necrosis. 2. Recent Clostridium difficile colitis with toxic megacolon, status post total colectomy. 3. Chronic kidney disease stage 3. 4. History of chronic obstructive pulmonary disease. 5. Congestive heart failure, diastolic dysfunction. 6. Essential hypertension. 7. History of tobacco use for this patient as well. PAST SURGICAL HISTORY: Reported as total abdominal colectomy with ileostomy that was done for this patient in beginning of May 2017 in [facility] for ____ toxic megacolon/pseudomembranous colitis. SOCIAL HISTORY: The patient has been noted living at home. He has been reported history of tobacco use for the patient with the duration described as 60 years. The exact quantity of the tobacco use by the patient was unknown. The patient stated that he is and has 2 children. He denies any work in the ____ or [employer]. [place], [place] REPORT OF CONSULTATION NAME: JASPER WAGNER UNIT #: [id number] ROOM: 518 DOCTOR: MARGOT MCKEON MD BIRTHDATE: [birth year] FAMILY HISTORY: Both parents have been for this patient, exact illnesses for the patient and the ages were not known. The patient at the time of the . HOME MEDICATIONS: The patient reported use of Proventil HFA inhaler, Norvasc, azithromycin, Symbicort, vitamin D, ferrous sulfate, Combivent, Respimat, lisinopril, oral metronidazole and the vancomycin. DRUG ALLERGIES: The drug allergy history was noted no known drug allergies. PHYSICAL EXAMINATION: GENERAL: A 76-year-old male who has been noted quite malnourished, lying in the bed, use of oxygen supplementation 2 liters cannula. Height was recorded as 6 feet 2 inches, weight of 170 pounds, BMI 21.9. VITAL SIGNS: Which are recorded showed the temperature ranges between 99.7 degree Fahrenheit to normal temperature, respiratory rate range between 18-22, heart rate 81, blood pressure 105/59. The pulse oxygen saturation on 4 liter nasal cannula was recorded 98%, previously on 2 liters to 4 liters was recorded 95-97% saturation. HEENT: Head was atraumatic. Loss of muscle mastication. NECK: Supple. CARDIOVASCULAR: S1, S2 audible. LUNGS: The patient was noted with general reduction in the breath sounds bilaterally with scattered expiratory crackles. ABDOMEN: Noted soft. It was flat. Bowel sounds present. Ileostomy present. EXTREMITIES: Extremity was noted with edema. SKIN: Shows no lesions or rashes. MUSCULOSKELETAL: No deformities. CENTRAL NERVOUS SYSTEMS: Cannot be clearly assessed, however, overall reduction of the general strength was noted. LABORATORY DATA: Lactic acid on 05/12/2017 was normal. CBC of the patient on 05/12/2017, hemoglobin 9.8, hematocrit 30.8, platelet count was normal. The PT/INR and PTT normal. CMP on 05/12/2017, BUN and creatinine was normal. ProBNP 847. The albumin was noted as 2.0. Total protein of 5.3 and the LFTs. Troponin 3 sets on the were noted as normal. CBC on 05/13/2017, hemoglobin 7.8, hematocrit 24.2, platelet count normal. WBC count, normal. CMP, BUN and creatinine was normal. Potassium 3.3. The INR were noted as 1.2. Stool for C. diff toxin was noted as negative. These were done to different specimen and . The CBC that was done this morning, hemoglobin 7.9, hematocrit 24.5, WBC count and platelet normal. BMP, normal BUN and creatinine. Sodium 135, potassium 3.4, albumin of 2.3. The review of the radiology data: The chest x-ray was done on admission shows evidence of bilateral pleural effusion was noted with area of basilar atelectasis. The chest x-ray which was done 2-view yesterday was personally reviewed. Changes of hyperinflation noted. Evidence of bilateral pleural fluid was also noted. The chest x-ray, which was done yesterday, 2-view was personally reviewed and it shows evidence of atelectasis, partial of the right lower lobe with associated pleural effusions. Changes of COPD, was still present. [place], [place] REPORT OF CONSULTATION NAME: JASPER WAGNER UNIT #: [id number] ROOM: 518 DO[facility] BIR[facility]: [birth year] IMPRESSION: 1. The patient who has been currently admitted to the hospital noted with symptoms of shortness of breath, most likely related to the current combination of partial atelectasis. The patient's right lower lobe for this patient as well as pleural fluid. Etiology of pleural fluid for the patient would be considered most likely related to the congestive heart failure, muscle deconditioning and currently suspected significant protein-calorie malnutrition status. 2. History of long-term nicotine abuse as well. PLAN OF MANAGEMENT: The patient will be started on incentive spirometry. Continue bronchodilators. There was no suspicion of pneumonia. Continue diuretic therapy with albumin and use to help improve the diuresis. Maximize the respiratory management as well. Repeat chest x-ray in the next couple of days to reassess. Consider bronchoscopy if necessary for further assessment. The endobronchial tree to help maximize his respiratory status management remove any mucus impaction of the major airways. Thank you for allowing me to participate in the care of this patient. MARGOT LOPEZ MD CM:CONSTR:REPORT OF CONSULTATION 0845 05/14/17 1339 interface
--- NOTE | ~2017-05-12 | PR ---
[place], [place] PROGRESS NOTE NAME: JASPER WAGNER UNIT #: [id number] ROOM: [facility] DOCTOR: MARGOT MCKEON MD BIRTHDATE: [birth year] DOS: 05/17/2017 SUBJECTIVE: The patient had been comfortable at this time. The patient transferred to the Intensive Care Unit because the patient developed mild hypertension, also suspected with GI bleeding. He has not been noted symptoms of hemoptysis or any chest pain. OBJECTIVE: VITAL SIGNS: Show normal temperature, respiratory rate of 16-24, heart rate 86, blood pressure of patient recorded as 92/50-102/59. The pulse oxygen saturation of the patient recorded on 2 liters nasal cannula 99% saturation. HEENT: Examination shows no new change. NECK: Supple. CARDIOVASCULAR: S1, S2 audible. LUNGS: Without any wheeze or crackles at this time. Breaths are noted decreased lower portion of the lungs bilaterally. ABDOMEN: Soft, nontender. Ileostomy. EXTREMITIES: The patient was noted without any significant edema. LABORATORY: The patient's CBC today, hemoglobin 8.5 and hematocrit 25.7. The WBC count and platelet count were normal. The BMP of the patient this morning, BUN and creatinine remains normal, potassium 3.3, CO2 33. IMPRESSION: 1. Bilateral pleural fluid for the patient suboptimal diuresis was noted at this time. 2. Anemia. The patient's possibility of gastrointestinal bleeding. 3. Past resolution of Clostridium difficile colitis and also required a total colectomy for this patient at [facility] a few recently. PLAN OF MANAGEMENT: Diuretic therapy to be continued. Assess the patient tomorrow morning with ultrasound for this patient for the pleural fluid progression. The pleural fluid will be noted large enough. If necessary, thoracentesis would be done at the bedside. In the meantime, continue other supportive therapy, plan of management. [place], [place] PROGRESS NOTE NAME: JASPER WAGNER UNIT #: [id number] ROOM: [facility] DOCTOR: MARGOT MCKEON MD BIRTHDATE: [birth year] MARGOT LOPEZ MD CM:PNTRANS [id number] MARGOT STRANGE MD 05/17/17 1539 interface
--- NOTE | ~2017-05-12 | O ---
[place], [place] OPERATIVE NOTE NAME: JASPER WAGNER UNIT #: [id number] ROOM: [facility] DOCTOR: AVNI BURK,RADHA BIRTHDATE: [birth year] DOS: 05/19/2017 INDICATIONS: A 76-year-old patient who presented with chief complaint of persistent rectal bleed, status post total colectomy, status post ileostomy. The patient has been for past several days having yellow-bloody matters per rectum, was concerned if there is a new necrotic segment or fistulization. PROCEDURE: Therefore, today's procedure part of investigation is flexible sigmoidoscopy plus biopsy and photographic series. PREMEDICATION: None. REPORT: After putting the patient in left lateral position and application of lubricant to rectal pouch and digital examination, scope was introduced. Thereafter, under direct visualization, I advanced to about 18 cm. There is yellow matter admixed with blood and ulceration and necrosis in the rectal pouch with a significant concern. Yellow matter of discharge from the rectum was collected and sent for C. diff again and biopsies obtained. Photographic series obtained. Intense proctitis and ulcerations noticed. The patient extubated, tolerated procedure well. IMPRESSION: Flexible sigmoidoscopy plus biopsy. 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 PLAN AND DISCUSSION: I have done a few days of hydrocortisone suppositories. Apparently, it has not been that effective. I am going to use Canasa suppositories 1000 mg 1 b.i.d. while we are waiting for C. diff results. If so, we are going to continue for 2 weeks at least on the same regimen. DIET: Regular. RADHA HOLLY MD CM:OPRECORD:OPERATIVE NOTE [phone] RADHA HOLLY MD 05/19/172238 interface
--- NOTE | ~2017-05-12 | PR ---
[place], [place] PROGRESS NOTE [id number] UN[facility] #: [id number] ROOM: [facility] DOCTOR: MARIE BURK,PRISCILA Patterson BIRTHDATE: [birth year] DOS: SUBJECTIVE: The patient has been admitted to the hospital with sepsis, heart failure, bilateral leg bed, SIRS without infective organ dysfunction, severe protein malnutrition, COPD, essential hypertension and congestive heart failure, C. diff colitis, anemia of chronic disease, BPH, tobacco abuses, COPD with emphysema and vitamin D deficiency. The patient is slowly improving. He is not in any distress. The patient's CBC today showed white count of 7300, hemoglobin 8.6, hematocrit 25.7. Comprehensive metabolic profile shows sodium 135, potassium 3.3, chloride 93, calcium 7.9, total protein 5.2, albumin 2.3. His blood pressure 102/59, pulse is 86, respirations 29, temperature 98.6. The patient has been seen by Dr. Rangel, newswriter, to evaluate for his chronic anemia and possible rectal bleed. IMPRESSION: The patient is having C. diff negative, status post ileostomy, having chronic obstructive pulmonary disease, hypotension, anemia, nicotine dependency, protein malnutrition, congestive heart failure. Otherwise, the patient is stable according to him. The patient has received 2 units of blood transfusion of packed cells. PLAN OF TREATMENT: He is going to treat the patient with rectal hydrocortisone suppositories 25 mg daily for 6 days and continue supportive treatment. PRISCILA SALAZAR MD CM:PNTRANS [id number] PRISCILA SALAZAR MD 05/17/17 1336 interface
[2017-05-12 08:25] VITALS: BP 131/74
[~2017-05-12 08:25] MED LIST changes: +COMBIVENT RESPIM4 GM INH
[2017-05-12 08:55] VITALS: BP 128/76
[2017-05-12 09:16] LABS: BASO % 0.3 % (0.0-1.0); EOS # 0.1 10*3/uL (0.0-0.4); EOS % 0.6 % (1.0-4.0); HEMATOCRIT 30.8 % (42.0-52.0); HEMOGLOBIN 9.8 g/dl (14.0-18.0); LYMPH # 0.6 10*3/uL (1.3-4.4); LYMPH % 6.1 % (27.0-41.0); MEAN CELL VOLUME 92.5 fl (80.0-94.0); MEAN CORPUSCULAR HGB 29.4 pg (27.0-31.0); MEAN CORPUSCULAR HGB CONC 31.8 g/dl (33.0-37.0); MEAN PLATELET VOLUME 11.2 fl (9.6-12.3); MONO # 0.7 10*3/uL (0.1-1.0); MONO % 6.9 % (3.0-9.0); NEUT # 8.3 10*3/uL (2.3-7.9); NEUT % 85.4 % (47.0-73.0); PLATELET COUNT AUTOMATED 291 10*3/uL (130-400); RED BLOOD COUNT 3.33 10*6/uL (4.50-5.90); RED CELL DISTRI WIDTH 17.3 % (0-14.5); WHITE BLOOD COUNT 9.7 10*3/uL (4.8-10.8)
[2017-05-12 09:24] LABS: INTERNATIONAL NORM RATIO 1.1 (2.0-3.5)
[2017-05-12 09:30] LABS: ALKALINE PHOSPHATASE 56 U/L (45-117); BUN 12 mg/dl (7-24); CHLORIDE 103 mmol/L (98-107); CREATININE 1.02 mg/dL (0.70-1.30); LIPASE 381 U/L (73-393); POTASSIUM 3.7 mmol/L (3.5-5.1); SGOT/AST 20 IU/L (3-35); SGPT/ALT 19 U/L (12-78); SODIUM 138 mmol/L (136-145); TOTAL PROTEIN 5.3 gm/dL (6.4-8.2)
[2017-05-12 09:34] LABS: TROPONIN I < 0.015 ng/ml (<0.045)
[2017-05-12 10:38] VITALS: BP 136/74
--- NOTE | 2017-05-12 10:41 | NUR ---
REPORT TO ANNA SOSA AT THIS TIME. PT STABLE AND READY FOR TRANSPORT TO [facility]
[2017-05-12 10:58] VITALS: BP 127/65
--- NOTE | 2017-05-12 10:58 | NUR ---
A 76, admitted to , under the services of Dr. KRISTA BURK[facility] with a diagnosis of ACUTE HEART FAILURE. Chief complaint is SHORTNESS OF BREATH . Patient arrived via stretcher from ER. Monitor applied. Initial assessment completed. Vital signs taken and recorded. See assessment for past medical history, medications and allergies. Patient and/or family oriented to unit. [facility] reviewed. IAN CALHOUN
--- NOTE | 2017-05-12 11:02 | NUR ---
PT STABLE AND WAS TRANSPORTED TO INPATIENT ROOM #518.
[2017-05-12] MEDS ORDERED: NORVASC10 MG PO (11:10)
[2017-05-12] MEDS ORDERED: AZITHROMYCIN500 M2 PO (11:11)
[2017-05-12] MEDS ORDERED: VITAMIN D-32000 UNI1 PO (11:12)
[2017-05-12] MEDS ORDERED: FLAGYL500 MG PO (11:15)
[2017-05-12] MEDS ORDERED: SLOW RELEASE I168 MG PO (11:16)
[2017-05-12] MEDS ORDERED: PROVENTIL HFA6.7 GM INH (11:17)
[2017-05-12] MEDS ORDERED: SYMB160 INH (11:18)
[2017-05-12] MEDS ORDERED: COMBIVENT RESPIM4 GM INH (11:21)
[2017-05-12] MEDS ORDERED: LISINOPRIL20 MG PO (11:22)
[2017-05-12] MEDS ORDERED: VANCOMYCIN250 MG/2.5 R (11:23)
--- NOTE | 2017-05-12 11:30 | NUR ---
I notified Dr. Jimenez that pt had a recent hx of c-diff and that med rec is updated.
--- NOTE | 2017-05-12 12:50 | NUR ---
Dr. Nowak and Dr. Jimenez in and saw pt. I notified them of pt redness to groin area and need for orders.
--- NOTE | 2017-05-12 13:12 | NUR ---
OFFICE STAFF WAS NOTIFIED OF DR. JASPER FAYE. RESPONSE OF NOTIFICATION WAS STATES THEY WILL PAGE THE IAN CRUZ
[2017-05-12 16:00] VITALS: BP 116/67
[2017-05-12 20:00] VITALS: BP 108/54
--- NOTE | 2017-05-12 20:30 | NUR ---
[employer] PER NURSING MEASURE.
--- NOTE | 2017-05-12 23:30 | NUR ---
IN TO SEE PT, PT ALERT ORIENTED AND PLEASANT. NO S/S OF PAIN OR DISTRESS AT THIS TIME. ALL MEDICATIONS TAKEN WITH EASE. ALL NEEDS CURRENTLY MET, ENCOURAGED USE OF CALL LIGHT.
[2017-05-13] VITALS: BP 104/57
--- NOTE | 2017-05-13 02:55 | NUR ---
24 HR chart check completed.
--- NOTE | 2017-05-13 04:00 | NUR ---
PT NOT AWAKENED PER POLICY, RESTING PEACEFULLY IN BED, RESPIRATIONS 20. NO S/S OF PAIN OR DISTRESS. HRR PER CM.
--- NOTE | 2017-05-13 06:00 | NUR ---
AM MEDICATIONS TAKEN WITH EASE. NO S/S OF DISTRESS. IV ALBUMIN RUNNING WITH EASE. IV SITE PATENT, DRESSING DRY AND IN TACT. ENCOURAGED USE OF CALL LIGHT.
[2017-05-13 07:26] LABS: BASO % 0.3 % (0.0-1.0); EOS # 0.1 10*3/uL (0.0-0.4); EOS % 0.7 % (1.0-4.0); HEMOGLOBIN 7.8 g/dl (14.0-18.0); LYMPH # 0.7 10*3/uL (1.3-4.4); MEAN CORPUSCULAR HGB 29.3 pg (27.0-31.0); MEAN CORPUSCULAR HGB CONC 32.2 g/dl (33.0-37.0); MEAN PLATELET VOLUME 11.3 fl (9.6-12.3); MONO # 0.7 10*3/uL (0.1-1.0); MONO % 9.7 % (3.0-9.0); NEUT # 6.1 10*3/uL (2.3-7.9); NEUT % 79.8 % (47.0-73.0); PLATELET COUNT AUTOMATED 241 10*3/uL (130-400); RED BLOOD COUNT 2.66 10*6/uL (4.50-5.90); RED CELL DISTRI WIDTH 17.5 % (0-14.5); WHITE BLOOD COUNT 7.6 10*3/uL (4.8-10.8)
[2017-05-13 07:28] LABS: HEMATOCRIT 24.2 % (42.0-52.0)
--- NOTE | 2017-05-13 07:30 | NUR ---
PT VITALS STABLE. MATT. RESPS:22 MOUTH BREATHING, NON-LABORED. SPO2: 93% ON 3L N/C. HEART SOUNDS ARE NORMAL. LUNGS ARE CLEAR AND DIMINISHED. ABDOMEN IS SOFT-NON DISTENDED WITH BS X4. ILLEOSTOMY SITE DRY AND INTACT. STOMA IS BEEFY RED AND NO SIGNS OF INFECTION AT THIS TIME. CHEF BROILER OR FRY ARE EQUAL BILATERAL AND STRONG. POSITIVE PEDAL PULSES. VERTICAL ABDOMINAL STAPLED INCISION DRY AND INTACT WITH PINK AREAS AROUND MARK AND HAS NO SIGNS OF INFECTION. IV SITE IN LEFT ARM IS INTACT AND PATENT. PITTING EDEMA +3 BILALTERALLY IN LEGS AND FEET AROUND THE ANKLES. SKIN TURGOR IS GOOD. CAPILLARY REFILL<3 SEC. SKIN IS DRY AND INTACT. PT HAS NO COMPLAINTS AT THIS TIME. PLEASANT AND COOPERATIVE. WILL CONTINUE TO ASSESS. [facility]
[2017-05-13 07:39] LABS: CHLORIDE 104 mmol/L (98-107); POTASSIUM 3.3 mmol/L (3.5-5.1); SODIUM 140 mmol/L (136-145)
[2017-05-13 07:53] LABS: ALKALINE PHOSPHATASE 46 U/L (45-117); BUN 11 mg/dl (7-24); CHOLESTEROL 56 mg/dL (<200); CREATININE 1.14 mg/dL (0.70-1.30); HDL CHOLESTEROL 29 mg/dl (40-60); LDL CHOLESTEROL 12 mg/dL (9-159); PHOSPHOROUS 2.9 mg/dL (2.5-4.9); PREALBUMIN 8 mg/dl (20-40); SGOT/AST 12 IU/L (3-35); SGPT/ALT 14 U/L (12-78); TOTAL PROTEIN 4.9 gm/dL (6.4-8.2); TRIGLYCERIDES 73 mg/dl (<150); VLDL CHOLESTEROL 15 mg/dL (6-40)
[2017-05-13 08:00] VITALS: BP 99/61
--- NOTE | 2017-05-13 08:00 | NUR ---
RESTING QUIETLY IN BED, NO C/O NO DISTRESS NOTED. BEING CARED FOR BY STUDENT MOUNTER FLUTES AND PICCOLOS TODAY. WILL CONTINUE TO MONITOR.
[2017-05-13 08:27] LABS: INTERNATIONAL NORM RATIO 1.2 (2.0-3.5)
--- NOTE | 2017-05-13 08:30 | NUR ---
DIRECTOR OF SLEEP VS. PT COMES FROM SNF STAY AT [facility]. WILL CHECK FOR RETURN NEEDS.
[2017-05-13 09:56] LABS: VITAMIN D, 25-HYDROXY 19.5 ng/mL (30-100)
--- NOTE | 2017-05-13 10:00 | NUR ---
HEEL PROTECTORS REAPPLIED AT THIS TIME. PT COMPLAINS OF BEING WORN OUT AND TIRED. PT IS RESTING COMFORTABLY. PLEASANT AND COOPERATIVE. CALL LIGHT IS IN REACH. WILL CONTINUE TO ASSESS. [facility]
--- NOTE | 2017-05-13 10:34 | NUR ---
JASPER WAGNER [id number] Please refer to the physician's history and physical for past medical history, comorbid conditions, and allergies. Diagnosis: ACUTE HEART FAILURE Allen Score: 13,MODERATE RISK WOUND DESCRIPTIONS: Location of the wound: midline abdomen Type of wound: surgical Thickness: Partial Size: 21.0cm x 0.1cm x <0.1cm Tunneling: none Undermining: none Sinus Tract: none Presence of Exudate: Amount: None Color: Red Odor: None Periwound Skin Appearance: Normal Wound edges: approximated with 26 theresa. Theresa are to be removed on 05/15/17. Patient has an appointment with [facility] on 05/15/17. Pain (associated with wound): none at time of assessment How does patient state this happened? Patient stated I had surgery last month. Surface the patient is resting on: Position Pro SKIN PREVENTION RECOMMENDATION: 1. Pressure redistribution support surface as appropriate 2. Elevate heels 3. Remove boots/TEDS every shift and reapply 4. Head of bed 30 degrees as tolerated 5. Assess nutrition and hydration 6. Manage moisture 7. Avoid the use of containment devices while in bed 8. Use absorptive products on surfaces limit layers of linens on bed 9. Turn and reposition every 1-2 hours in bed and every 1 hour in chair as tolerated 10. Weight shifts every 15 minutes while up in chair 11. Offloading with pillows or device to keep heels elevated off bed 12. Monitor skin at least every shift 13. Inspect under medical devices twice a day WOUND TREATMENT RECOMMENDATIONS: Cleanse midline abdomen incision with NSS and apply dsd daily. If patient is still here wound recommend surgery consult for removal of theresa on 05/15/17. Spoke with Dr. Jimenez regarding wound care recommendations.
[2017-05-13 12:00] VITALS: BP 130/57
--- NOTE | 2017-05-13 12:20 | NUR ---
PHYSICAL THERAPY PAtient requests no PT this date. " My legs are too swollen and I will shit all over the floor." Will attempt at a later date as requested. Thank you for this referral. Ariadna Markham,PT
--- NOTE | 2017-05-13 13:11 | NUR ---
PT TAKEN DOWN FOR CHEST X RAY. PT IS STABLE. WILL CONTINUE TO ASSESS. [facility]
--- NOTE | 2017-05-13 13:30 | NUR ---
DR LOPEZ NOTIFIED OF CONSULT.
--- NOTE | 2017-05-13 13:30 | NUR ---
PT CAME BACK FROM CHEST X RAY. PT IS STABLE. RESTING COMFORTABLY. [facility]
[2017-05-13 16:00] VITALS: BP 102/51
[2017-05-13 20:00] VITALS: BP 116/51
[2017-05-14] VITALS: BP 104/53
--- NOTE | 2017-05-14 01:01 | NUR ---
PATIENT RESTING IN BED WITH EYES CLOSED. NO SIGNS OR SYMPTOMS OF DISTRESS NOTED. AROUSES TO VERBAL STIMULI. WILL CONTINUE TO MONITOR. CALL LIGHT IN REACH.
--- NOTE | 2017-05-14 07:30 | NUR ---
MEDICATED PO NORCO FOR C/O PAIN. RATES PAIN 4/10. WILL CONTINUE TO MONITOR. ILEOSTOMY INTACT AND DRAINING DARK LIQUID STOOL. 3RD STOOL FOR CDIFF COLLECTED AND SENT TO LAB. DRESSING TO MID ABDOMEN SURGICAL SITE DRY AND INTACT. SEE SHIFT ASSESSMENT
[2017-05-14 07:52] LABS: BASO % 0.1 % (0.0-1.0); EOS # 0.1 10*3/uL (0.0-0.4); EOS % 1.2 % (1.0-4.0); HEMATOCRIT 24.5 % (42.0-52.0); HEMOGLOBIN 7.9 g/dl (14.0-18.0); LYMPH # 0.8 10*3/uL (1.3-4.4); LYMPH % 11.9 % (27.0-41.0); MEAN CELL VOLUME 92.1 fl (80.0-94.0); MEAN CORPUSCULAR HGB 29.7 pg (27.0-31.0); MEAN CORPUSCULAR HGB CONC 32.2 g/dl (33.0-37.0); MEAN PLATELET VOLUME 11.3 fl (9.6-12.3); MONO # 0.6 10*3/uL (0.1-1.0); MONO % 8.9 % (3.0-9.0); NEUT # 5.3 10*3/uL (2.3-7.9); NEUT % 77.3 % (47.0-73.0); PLATELET COUNT AUTOMATED 243 10*3/uL (130-400); RED BLOOD COUNT 2.66 10*6/uL (4.50-5.90); RED CELL DISTRI WIDTH 17.6 % (0-14.5); WHITE BLOOD COUNT 6.9 10*3/uL (4.8-10.8)
[2017-05-14 08:00] VITALS: BP 108/59
[2017-05-14 08:01] LABS: ALBUMIN 2.3 gm/dl (3.1-4.5); BUN 9 mg/dl (7-24); CHLORIDE 97 mmol/L (98-107); CREATININE 1.24 mg/dL (0.70-1.30); PHOSPHOROUS 3.2 mg/dL (2.5-4.9); POTASSIUM 3.4 mmol/L (3.5-5.1); SGOT/AST 11 IU/L (3-35); SGPT/ALT 14 U/L (12-78); SODIUM 135 mmol/L (136-145)
[2017-05-14 08:02] LABS: ALKALINE PHOSPHATASE 43 U/L (45-117)
--- NOTE | 2017-05-14 08:30 | NUR ---
NO FURTHER C/O OFFERED. RESTING QUIETLY.
--- NOTE | 2017-05-14 11:28 | NUR ---
MEDICATED PO NORCO FOR C/O ABDOMINAL INCISION PAIN.
[2017-05-14 12:00] VITALS: BP 112/64
--- NOTE | 2017-05-14 12:30 | NUR ---
NO FURTHER C/O OFFERED.
--- NOTE | 2017-05-14 14:02 | NUR ---
PHYSICAL THERAPY PAtient evaluated on 5, full evaluation to follow. Continue with PT as per plan of care with fall, max(A) x 2, significant weakness (B)LE, abdominal surgeical inicions, C DIff and acute debility precautions. Will require LTAC versus SNF for impaired mobility. PArient is high complexity via chart review, tests and evalaution: [id number]. Thank you for this rfeferral. Ariadna Combs,PT
--- NOTE | 2017-05-14 14:15 | NUR ---
TO US FOR US LEGS.
[2017-05-14 16:00] VITALS: BP 103/66
--- NOTE | 2017-05-14 16:00 | NUR ---
RESTING QUIETLY NO DISTRESS NOTED. HAD US OF BILATERAL LEGS, WHICH WAS NEGATIVE FOR DVT. WILL CONTINUE TO MONITOR.
[2017-05-14 20:00] VITALS: BP 111/66
--- NOTE | 2017-05-14 23:55 | NUR ---
PATIENT MEDICATED WITH NORCO FOR COMPLAINTS OF BACK PAIN. WILL MONITOR FOR EFFECTIVENESS. CALL LIGHT IN REACH.
[2017-05-15] VITALS: BP 102/56
--- NOTE | 2017-05-15 01:17 | NUR ---
NORCO EFFECTIVE AT THIS TIME. PATIENT RESTING IN BED WITH EYES CLOSED. AROUSES TO VERBAL STIMULI. NO SIGNS OR SYMPTOMS OF DISTRESS NOTED. WILL CONTINUE TO MONITOR. CALL LIGHT IN REACH.
[2017-05-15 07:39] LABS: BASO % 0.2 % (0.0-1.0); EOS # 0.1 10*3/uL (0.0-0.4); EOS % 1.8 % (1.0-4.0); HEMATOCRIT 24.7 % (42.0-52.0); HEMOGLOBIN 7.9 g/dl (14.0-18.0); LYMPH # 0.7 10*3/uL (1.3-4.4); LYMPH % 11.6 % (27.0-41.0); MEAN CELL VOLUME 90.5 fl (80.0-94.0); MEAN CORPUSCULAR HGB 28.9 pg (27.0-31.0); MEAN PLATELET VOLUME 10.7 fl (9.6-12.3); MONO # 0.5 10*3/uL (0.1-1.0); MONO % 8.6 % (3.0-9.0); NEUT # 4.9 10*3/uL (2.3-7.9); NEUT % 77.3 % (47.0-73.0); PLATELET COUNT AUTOMATED 226 10*3/uL (130-400); RED BLOOD COUNT 2.73 10*6/uL (4.50-5.90); RED CELL DISTRI WIDTH 17.2 % (0-14.5); WHITE BLOOD COUNT 6.3 10*3/uL (4.8-10.8)
[2017-05-15 08:00] VITALS: BP 136/69; BP 93/51
[2017-05-15 08:06] LABS: ALBUMIN 2.5 gm/dl (3.1-4.5); POTASSIUM 3.4 mmol/L (3.5-5.1)
[2017-05-15 08:10] LABS: CREATININE 1.4 mg/dL (0.70-1.30); TOTAL PROTEIN 5.5 gm/dL (6.4-8.2)
--- NOTE | 2017-05-15 10:33 | NUR ---
PAIN MED FOR BELLY PAIN
[2017-05-15 12:00] VITALS: BP 102/54
--- NOTE | 2017-05-15 14:44 | NUR ---
PHYSICAL THERAPY Patient was treated at 9:22 am. Patient performed seated ther ex x 15 reps each LE in all planes of movement. Patient said he was too weak to stand or walk. Patient demonstrated decreased endurance while performing ther ex. Patient was left in seated position with call light within reach. SAVAGE LEMA ORE MINER
[2017-05-15 16:00] VITALS: BP 120/60
--- NOTE | 2017-05-15 17:14 | NUR ---
pain pill for ongoing abd pain
[2017-05-15 20:00] VITALS: BP 108/53
[2017-05-16] VITALS (8 sets, daily range): BP systolic 90–129; BP diastolic 48–70
--- NOTE | 2017-05-16 03:55 | NUR ---
RESTING IN BED WITH EYES CLOSED. NO SIGNS OR SYMPTOMS OF DISTRESS NOTED. AROUSES TO VERBAL STIMULI. WILL CONTINUE TO MONITOR. CALL LIGHT IN REACH.
--- NOTE | 2017-05-16 06:47 | NUR ---
MEDICATED WITH NORCO FOR COMPLAINTS OF ABDOMINAL PAIN. WILL MONITOR FOR EFFECTIVENESS. CALL LIGHT IN REACH.
[2017-05-16 07:35] LABS: BASO % 0.3 % (0.0-1.0); EOS # 0.1 10*3/uL (0.0-0.4); HEMATOCRIT 24.3 % (42.0-52.0); HEMOGLOBIN 7.8 g/dl (14.0-18.0); LYMPH # 0.5 10*3/uL (1.3-4.4); LYMPH % 8.7 % (27.0-41.0); MEAN CELL VOLUME 88.7 fl (80.0-94.0); MEAN CORPUSCULAR HGB 28.5 pg (27.0-31.0); MEAN CORPUSCULAR HGB CONC 32.1 g/dl (33.0-37.0); MEAN PLATELET VOLUME 10.8 fl (9.6-12.3); MONO # 0.5 10*3/uL (0.1-1.0); MONO % 7.8 % (3.0-9.0); NEUT # 4.8 10*3/uL (2.3-7.9); NEUT % 81.7 % (47.0-73.0); PLATELET COUNT AUTOMATED 219 10*3/uL (130-400); RED BLOOD COUNT 2.74 10*6/uL (4.50-5.90); WHITE BLOOD COUNT 5.9 10*3/uL (4.8-10.8)
[2017-05-16 07:55] LABS: ALBUMIN 2.5 gm/dl (3.1-4.5); ALKALINE PHOSPHATASE 49 U/L (45-117); BUN 9 mg/dl (7-24); CHLORIDE 92 mmol/L (98-107); CREATININE 1.35 mg/dL (0.70-1.30); POTASSIUM 3.2 mmol/L (3.5-5.1); SGOT/AST 12 IU/L (3-35); SGPT/ALT 13 U/L (12-78); SODIUM 134 mmol/L (136-145); TOTAL PROTEIN 5.6 gm/dL (6.4-8.2)
--- NOTE | 2017-05-16 08:57 | NUR ---
Patient from [facility] skilled stay, can go when medically stable for discharge.
--- NOTE | 2017-05-16 10:11 | NUR ---
PATIENT'S ORTHOSTATIC BP RESULTS GIVEN TO . PATIENT VERY SOB AT THIS TIME. PATIENT IN RECLINER WITH FEET ELEVATED AT THIS TIME, ALARM ACTIVE.
--- NOTE | 2017-05-16 13:20 | NUR ---
DR BEE NOTIFIED ABOUT BLOODY MUCOUS COMING FROM RECTUM. TOLD TO MONITOR HIM CLOSELY.
--- NOTE | 2017-05-16 13:46 | NUR ---
DR HOLLY CALLED AND MADE AWARE OF HIS CONSULT FOR BLOOD FROM PATIENTS [facility].
--- NOTE | 2017-05-16 14:11 | NUR ---
PHYSICAL THERAPY Jasper seen this AM and said no therapy and jay got my food coming. Will check back later today. JASPER MEDINA TUBE TRAILER FILLER.
--- NOTE | 2017-05-16 14:14 | NUR ---
PHYSICAL THERAPY Stopped back this PM and Jasper just got back in bed, said that he is done for the night and not going to get up. That was at 1:50 PM. JASPER MEDINA CASE PICKER.
--- NOTE | 2017-05-16 14:55 | NUR ---
RECIEVED FROM [facility] VIA BED AND REPORT RECIEVED FROM [facility] NURSES.
--- NOTE | 2017-05-16 15:03 | NUR ---
PATIENT TRANSFERRED TO ICU BED 6. REPORT GIVEN TO NURSE.
--- NOTE | 2017-05-16 15:05 | NUR ---
PHYSICAL THERAPY PAtient transferred to ICCU, will require new orders when medically apprprpiate. Thank you. Ariadna Hartman,PT PHYSICAL THERAPY CO-SIGN I approve of the Phyical Therapy notes written above. ARIADNA HARTMAN PT
[2017-05-16 21:29] LABS: BASO % 0.3 % (0.0-1.0); EOS # 0.1 10*3/uL (0.0-0.4); EOS % 1.4 % (1.0-4.0); HEMATOCRIT 25.7 % (42.0-52.0); HEMOGLOBIN 8.6 g/dl (14.0-18.0); LYMPH # 0.8 10*3/uL (1.3-4.4); LYMPH % 11.4 % (27.0-41.0); MEAN CELL VOLUME 87.7 fl (80.0-94.0); MEAN CORPUSCULAR HGB 29.4 pg (27.0-31.0); MEAN CORPUSCULAR HGB CONC 33.5 g/dl (33.0-37.0); MEAN PLATELET VOLUME 10.1 fl (9.6-12.3); MONO # 0.8 10*3/uL (0.1-1.0); MONO % 10.3 % (3.0-9.0); NEUT # 5.6 10*3/uL (2.3-7.9); NEUT % 76.2 % (47.0-73.0); PLATELET COUNT AUTOMATED 205 10*3/uL (130-400); RED BLOOD COUNT 2.93 10*6/uL (4.50-5.90); RED CELL DISTRI WIDTH 16.4 % (0-14.5); WHITE BLOOD COUNT 7.3 10*3/uL (4.8-10.8)
[2017-05-17] VITALS (7 sets, daily range): BP systolic 92–128; BP diastolic 50–72
--- NOTE | 2017-05-17 03:30 | NUR ---
PATIENT HAD COMPLAINT OF HIS BACK HURTING AND MAKING IT HARDER FOR HIM TO BREATH. PATIENT WAS ADJUSTED FOR COMFORT, REFUSED PAIN PILL. PATIENT ALSO DUE FOR BREATHING TX, WILL AWAIT RESP FOR TX AND REASSESS PATIENT. AT THIS TIME PATIENT IS MORE COMFORTABLE, BREATHING EASIER. WILL CONTINUE TO MONITOR.
--- NOTE | 2017-05-17 05:00 | NUR ---
PATIENT HAS COMPLAINT OF BACK PAIN, NORCO WAS GIVEN. WILL MONITOR AND REASSESS.
[2017-05-17 06:04] LABS: BASO % 0.3 % (0.0-1.0); EOS # 0.1 10*3/uL (0.0-0.4); EOS % 2.2 % (1.0-4.0); HEMATOCRIT 25.7 % (42.0-52.0); HEMOGLOBIN 8.5 g/dl (14.0-18.0); LYMPH # 0.8 10*3/uL (1.3-4.4); LYMPH % 13.7 % (27.0-41.0); MEAN CORPUSCULAR HGB 29.1 pg (27.0-31.0); MEAN CORPUSCULAR HGB CONC 33.1 g/dl (33.0-37.0); MEAN PLATELET VOLUME 11.2 fl (9.6-12.3); MONO # 0.7 10*3/uL (0.1-1.0); MONO % 11.5 % (3.0-9.0); NEUT # 4.2 10*3/uL (2.3-7.9); NEUT % 71.8 % (47.0-73.0); PLATELET COUNT AUTOMATED 217 10*3/uL (130-400); RED BLOOD COUNT 2.92 10*6/uL (4.50-5.90); RED CELL DISTRI WIDTH 16.7 % (0-14.5); WHITE BLOOD COUNT 5.8 10*3/uL (4.8-10.8)
[2017-05-17 06:16] LABS: ALBUMIN 2.3 gm/dl (3.1-4.5); ALKALINE PHOSPHATASE 49 U/L (45-117); BUN 11 mg/dl (7-24); CHLORIDE 93 mmol/L (98-107); CREATININE 1.16 mg/dL (0.70-1.30); POTASSIUM 3.3 mmol/L (3.5-5.1); SGOT/AST 14 IU/L (3-35); SGPT/ALT 12 U/L (12-78); SODIUM 135 mmol/L (136-145); TOTAL PROTEIN 5.2 gm/dL (6.4-8.2)
--- NOTE | 2017-05-17 07:44 | NUR ---
Shift chart check completed.24 HR chart check completed.
--- NOTE | 2017-05-17 07:44 | NUR ---
Shift chart check completed.24 HR chart check completed.
--- NOTE | 2017-05-17 09:12 | NUR ---
DR HOLLY CALLED, UPDATED ON RED MUCOUS/TISSUE DRAINAGE FROM [facility] AND CURRENT H/H. NO NEW ORDERS RECEIVED.
--- NOTE | 2017-05-17 09:46 | NUR ---
ON ASSESSMENT PATIENT IS ALERT, ORIENTED BUT LISTLESS. HE C/O OF A SORE MOUTH. HE ATE CHOCOLATE PUDDING ONLY FOR BREAKFAST. HE IS INCONTINENT OF URINE AT ALL TIMES AND HE HAD RED MUCUS/TISSUE FROM RECTUM. HIS ILEOSTOMY HAS DARK GREEN/BROWN STOOL IN THE BAG.
--- NOTE | 2017-05-17 12:02 | NUR ---
DR SALAZAR IN TO VISIT. EARLIER A CONDOM CATHETER WAS APPLIED TO TRY TO CONTAIN URINE AND THIS HAS BEEN EFFECTIVE.
--- NOTE | 2017-05-17 15:22 | NUR ---
COLOSTOMY BAG BURPED FOR LARGE AMOUNT OF AIR AND EXPLANATIONS TO PT ABOUT "HOW DOES THAT HAPPEN?"
--- NOTE | 2017-05-17 18:23 | NUR ---
PT TURNED, REPOSITIONED TO EAT. LARGE AMOUNT OF BLOODY MUCUS/TISSUE FOUND IN DIAPER. CONDOM CATHETER REAPPLIED.
--- NOTE | 2017-05-18 00:10 | NUR ---
RESTORIL AT 2115 PER PT REQUEST FOR SLEEP APPEARS SOMEWHAT EFFECTIVE...PT DOZING AT INTERVALS. AWAKE NOW WATCHING TV.
--- NOTE | 2017-05-18 02:40 | NUR ---
NORCO GIVEN AT 0120 FOR GENERALIZED PAIN NOT EFFECTIVE. PT WANTED UP TO RECLINER CHAIR. UP WITH ASSIST OF 2... PT DID VERY WELL WITH TRANSFER TO CHAIR. BELONGINGS AND CALL LIGHT IN REACH.
[2017-05-18 03:39] VITALS: BP 119/69
[2017-05-18 04:42] LABS: BASO % 0.5 % (0.0-1.0); EOS # 0.2 10*3/uL (0.0-0.4); EOS % 2.7 % (1.0-4.0); HEMATOCRIT 29.6 % (42.0-52.0); HEMOGLOBIN 9.7 g/dl (14.0-18.0); LYMPH # 0.9 10*3/uL (1.3-4.4); LYMPH % 14.8 % (27.0-41.0); MEAN CELL VOLUME 89.2 fl (80.0-94.0); MEAN CORPUSCULAR HGB 29.2 pg (27.0-31.0); MEAN CORPUSCULAR HGB CONC 32.8 g/dl (33.0-37.0); MEAN PLATELET VOLUME 10.6 fl (9.6-12.3); MONO # 0.6 10*3/uL (0.1-1.0); NEUT # 4.3 10*3/uL (2.3-7.9); NEUT % 71.5 % (47.0-73.0); PLATELET COUNT AUTOMATED 251 10*3/uL (130-400); RED BLOOD COUNT 3.32 10*6/uL (4.50-5.90); RED CELL DISTRI WIDTH 16.6 % (0-14.5)
[2017-05-18 05:10] LABS: ALBUMIN 2.7 gm/dl (3.1-4.5); ALKALINE PHOSPHATASE 58 U/L (45-117); BUN 10 mg/dl (7-24); CHLORIDE 91 mmol/L (98-107); CREATININE 1.25 mg/dL (0.70-1.30); POTASSIUM 2.9 mmol/L (3.5-5.1); SGOT/AST 12 IU/L (3-35); SGPT/ALT 14 U/L (12-78); SODIUM 134 mmol/L (136-145); TOTAL PROTEIN 6.1 gm/dL (6.4-8.2)
--- NOTE | 2017-05-18 06:33 | NUR ---
CONDOM CATHETER CONTINUES TO WORK AND BRIEF IS DRY. PT REMAINS UP IN RECLINER.
--- NOTE | 2017-05-18 07:26 | NUR ---
Shift chart check completed.
--- NOTE | 2017-05-18 07:44 | NUR ---
PATIENT COMPLAINING OF BLADDER PAIN - CATHETER DRAINING WELL. NORCO GIVEN FOR DISCOMFORT
[2017-05-18 08:00] VITALS: BP 122/73
--- NOTE | 2017-05-18 08:37 | NUR ---
RETURNED FROM RADIOLOGY WITH NURSE
--- NOTE | 2017-05-18 08:50 | NUR ---
PATIENT REFUSING KENDRA/SCD AT THIS TIME. HEP LOCK SECURE & PATENT. PATIENT BACK TO BED AFTER RETURNING FROM RADIOLOGY PER HIS REQUEST. NC3L IN PLACE.
--- NOTE | 2017-05-18 10:12 | NUR ---
[place] CATHETER SECURE DRAINING STRAW URINE. ILEOSTOMY BAG HAS GREEN/BROWN DRAINAGE.
--- NOTE | 2017-05-18 10:33 | NUR ---
DR SALAZAR CALLED AND MESSAGE LEFT. DIAPER CHANGED AFTER NASTY BLOODY/MUCOUSY/SLIMEY DRAINAGE. GAULDING CONTINUES. HYYDROGUARD INFUSING.
--- NOTE | 2017-05-18 10:55 | NUR ---
DR SALAZAR HERE AND ORDERS RECEIVED. DR SALAZAR UNABLE TO PUT ORDERS IN SO ORDERS ENTERED FOR HIM.
[2017-05-18 12:00] VITALS: BP 124/72
--- NOTE | 2017-05-18 14:02 | NUR ---
DIAPER AGAIN CHANGED AFTER INCONTINENT OF URINE. GAULDING IMPROVED BUT REMAINS TO BILAT INNER GROIN & BUTTOCK AREA.
[2017-05-18 16:00] VITALS: BP 126/74
--- NOTE | 2017-05-18 16:36 | NUR ---
NO CHNAGES TO MED REC - PATIENT UNAWARE OF ANY OF HIS MEDS STILL REFUSING KENDRA WALDRON/SCD
--- NOTE | 2017-05-18 18:00 | NUR ---
DIAPER CHANGED AFTER WET. SCANT DRAINAGE FROM RECTAL STUMP. PER THE PATIENT THERE HAS BEEN NO FURTHER PELVIC OR BACK PAIN SINCE THE CONDOM CATHETER WAS REMOVED/FELL OFF. HEP LOCK REMAINS SECURE & PATENT TO [facility].
--- NOTE | 2017-05-18 18:21 | NUR ---
PATIENT ENCOURAGED TO WEAR SCD ONLY FOR A WHILE BUT HE DEMANDS THEY BE REMOVED BEFORE BED OR MAYBE SOONER.
--- NOTE | 2017-05-18 18:51 | NUR ---
PATIENT CALLED NURSE IN TO SAY HE WAS TOO HOT & WANTED COVERS REMOVED. RN ENCOURAGED HIM TO PUSH THE COVERS TO THE SIDE. AGAIN REMINDED HIM THAT IF HE WANTS TO GO HOME HE WILL HAVE TO WORK TO BECOME INDEPENDENT. PT REQUESTED PAIN PILL FOR LOWER PELVIC & BACK PAIN. MEDICATED WITH NORCO. THEN THE PATIENT WANTED PULLED UP 2 RN'S PULLED HIM UP IN BED. THEN PATIENT DEMANDED SCD BE REMOVED. EDEMA VISIBLY PRESENT
[2017-05-18 20:00] VITALS: BP 123/70
--- NOTE | 2017-05-18 20:21 | NUR ---
Shift chart check completed.24 HR chart check completed. On assessment patient alert, oriented, states "I'm getting better". He is watching TV. I offered him a bath and/or to get out of bed and he declined both. His brief is intact. Urinal in reach. Water and call light in reach. Ileostomy bag patent drk green/brown drainage and gas.
--- NOTE | 2017-05-18 23:44 | NUR ---
PT MEDICATED WITH RESTORIL FOR SLEEP PER HIS REQUEST. TURNED, INCONTINENT BRIEF CHANGED WITH ARGENIS CARE. STILL IRRITATED. SCROTUM SMALLER THAN YESTERDAY. POSITIONED FOR COMFORT.
[2017-05-19] VITALS (7 sets, daily range): BP systolic 96–129; BP diastolic 50–77
--- NOTE | 2017-05-19 00:44 | NUR ---
EYES CLOSED, RESPIRATIONS EASY. APPEARS TO BE SLEEPING SINCE EARLIER RESTORIL.
[2017-05-19 05:35] LABS: ALBUMIN 2.7 gm/dl (3.1-4.5); BUN 9 mg/dl (7-24); CHLORIDE 92 mmol/L (98-107); CREATININE 1.37 mg/dL (0.70-1.30); POTASSIUM 3.7 mmol/L (3.5-5.1); SGOT/AST 12 IU/L (3-35); SGPT/ALT 14 U/L (12-78); SODIUM 134 mmol/L (136-145); TOTAL PROTEIN 5.7 gm/dL (6.4-8.2)
[2017-05-19 05:36] LABS: ALKALINE PHOSPHATASE 64 U/L (45-117)
[2017-05-19 06:38] LABS: BASO % 0.6 % (0.0-1.0); EOS # 0.2 10*3/uL (0.0-0.4); EOS % 3.1 % (1.0-4.0); HEMATOCRIT 26.3 % (42.0-52.0); HEMOGLOBIN 8.7 g/dl (14.0-18.0); LYMPH # 0.7 10*3/uL (1.3-4.4); LYMPH % 12.4 % (27.0-41.0); MEAN CELL VOLUME 89.8 fl (80.0-94.0); MEAN CORPUSCULAR HGB 29.7 pg (27.0-31.0); MEAN CORPUSCULAR HGB CONC 33.1 g/dl (33.0-37.0); MEAN PLATELET VOLUME 10.5 fl (9.6-12.3); MONO # 0.7 10*3/uL (0.1-1.0); MONO % 12.4 % (3.0-9.0); NEUT # 3.8 10*3/uL (2.3-7.9); NEUT % 71.1 % (47.0-73.0); PLATELET COUNT AUTOMATED 255 10*3/uL (130-400); RED BLOOD COUNT 2.93 10*6/uL (4.50-5.90); RED CELL DISTRI WIDTH 16.4 % (0-14.5); WHITE BLOOD COUNT 5.4 10*3/uL (4.8-10.8)
--- NOTE | 2017-05-19 07:33 | NUR ---
Shift chart check completed.
--- NOTE | 2017-05-19 09:13 | NUR ---
NORCO GIVEN FOR GEN BACK PAIN. UP TO CHAIR USING WALKER AND PATIENT DID MUCH BETTER THAN YESTERDAY. NC2L IN PLACE AFTER UP TO CHAIR. PULSE OX DROPPED TO 90% WITH JUST GETTING UP TO THE CHAIR & MORE WINDED BUT SATS BACK TO 93% ON NC2L. STILL REFUSING BATH & KENDRA/SCD. WILL ATTEMPT AGAIN LATER
--- NOTE | 2017-05-19 09:39 | NUR ---
DR JESSICA KRISHNAN.
--- NOTE | 2017-05-19 10:15 | NUR ---
BACK TO BED PER PT REQUEST AFTER FEELING DIZZY BUT BLOOD PRESSURE STABLE. LISINOPRIL HELD PRESSURE IS LOWER THAN PRIOR. REFUSING KENDRA/SCD.
--- NOTE | 2017-05-19 11:15 | NUR ---
PHYSICAL THERAPY Jasper seen this AM 1:1 for his physical therapy session. Jasper said that he just got back in bed from being up in his bedside chair, didnot want back up right now. Talked pt into act Ex to bilateral LE of SLR, heel slides, quad sets, ankle pumps, hip ABD/ADD, working to Pt tolerance cueing for each Ex, Pt on 2 L o2 at this time. Well stop back after lunch and get in transfer and gait with wheeled walker. JASPER MEDINA LEASE ADMINISTRATION ANALYST.
--- NOTE | 2017-05-19 14:59 | NUR ---
PATIENT HAD ANOTHER VERY ALRGE DISCHARGE OF RED, SLIMEY, STRINGY SOMETHING FROM RECTAL STUMP. CALL PLACED TO DR HOLLY.
--- NOTE | 2017-05-19 15:13 | NUR ---
PHYSICAL THERAPY Patient was seen 1:1 for therapy visit this pm supine in bed with continuos O2-2L via NC and c/o's mild abdominal discomfort that comes and goes throughtout the day. Patient needed a little encouragement for active participation and transfered sup to sit EOB Mod A x 1. Patient tolerated EOB sit , SBA x 1 prior to completing several sit to stand transfers with use of wh walker support, tolerating 30-45 seconds prior to quick onset of fatigue with R UE shakes. Patient also ambulated with wh walker 5-6 steps along bedside, Min A x 1, demonstrating Poor upright posture and c/o of increased dizziness. Patient returned to supine in bed and remained with call light, tray table and telephone. Patient educated on benefits of sitting upright in bedside chair for all meals and agreed to with nursing assist as able. Will continue per POC to improve functional mobility as tolerated, with total treatment time 20 minutes. Myles Hobson, GRAIN MILLER HELPER
--- NOTE | 2017-05-19 17:46 | NUR ---
PATIENT IS IN SURGERY FOR RECTAL STUMP EXAM WITH THE SCOPE.
--- NOTE | 2017-05-19 17:59 | NUR ---
SPOKE WITH DR HOLLY S/P SCOPE - PATIENT RETURNED VIA BED
--- NOTE | 2017-05-19 18:11 | NUR ---
PATIENT EATING DINNER S/P SCOPE - POST OP ORDERS RECEIVED FROM DR HOLLY
--- NOTE | 2017-05-19 19:40 | NUR ---
Shift chart check completed.24 HR chart check completed.
--- NOTE | 2017-05-19 20:19 | NUR ---
ON ASSESSMENT PATIENT HAD BEEN SLEEPING, EASILY AROUSED. NO VOICED COMPLAINTS OF PAIN. ENCOURAGED TO EAT NUTRITIOUS SNACKS. OFFERED BATH/SCD'S AND HE DECLINED. ASSISTED HIM TO A COMFORTABLE POSITION. ILEOSTOMY INTACT WITH GREEN/BROWN MUSHY BM/GAS. DRESSING INTACT TO MIDLINE INCISION. BILATERAL LOWER LEG EDEMA CONTINUES. SEE ALL APPROPRIATE INTERVENTIONS.
--- NOTE | 2017-05-19 22:37 | NUR ---
PT REQUESTED MEDS AND "GO TO SLEEP". RESTORIL FOR SLEEP AND HIS 0000 MEDS GIVEN. ARGENIS CARE/DRY BRIEF APPLIED. NOTHING FROM RECTAL STUMP IN DIAPER. ATTEMPTED SOME EDUCATION ABOUT SELF ILEOSTOMY CARE. HE SAID "I HAVE PEOPLE TO TAKE CARE OF THAT". ASSISTED TO POSITION OF COMFORT.
--- NOTE | 2017-05-19 23:28 | NUR ---
EYES CLOSED, RESPIRATIONS UNLABORED, APPEARS TO BE SLEEPING SINCE EARLIER RESTORIL.
[2017-05-20] VITALS: BP 101/60
--- NOTE | 2017-05-20 06:11 | NUR ---
TURNED, ARGENIS CARE, NEW BRIEF APPLIED.
[2017-05-20 06:15] LABS: BASO % 0.4 % (0.0-1.0); EOS # 0.2 10*3/uL (0.0-0.4); EOS % 4.3 % (1.0-4.0); HEMATOCRIT 26.6 % (42.0-52.0); HEMOGLOBIN 8.6 g/dl (14.0-18.0); LYMPH # 0.8 10*3/uL (1.3-4.4); LYMPH % 15.1 % (27.0-41.0); MEAN CELL VOLUME 90.5 fl (80.0-94.0); MEAN CORPUSCULAR HGB 29.3 pg (27.0-31.0); MEAN CORPUSCULAR HGB CONC 32.3 g/dl (33.0-37.0); MEAN PLATELET VOLUME 10.4 fl (9.6-12.3); MONO # 0.6 10*3/uL (0.1-1.0); MONO % 11.7 % (3.0-9.0); NEUT # 3.5 10*3/uL (2.3-7.9); NEUT % 67.7 % (47.0-73.0); PLATELET COUNT AUTOMATED 254 10*3/uL (130-400); RED BLOOD COUNT 2.94 10*6/uL (4.50-5.90); RED CELL DISTRI WIDTH 16.5 % (0-14.5); WHITE BLOOD COUNT 5.2 10*3/uL (4.8-10.8)
[2017-05-20 06:21] LABS: ALBUMIN 2.8 gm/dl (3.1-4.5); CREATININE 1.92 mg/dL (0.70-1.30); TOTAL PROTEIN 6.1 gm/dL (6.4-8.2)
--- NOTE | 2017-05-20 06:57 | NUR ---
TRANSFERRED IN STABLE CONDITION VIA BED, ON TELEMETRY TO 522. TEACHER'S AIDE AWARE HE IS THERE, WITH CALL LIGHT IN REACH. WILL GIVE REPORT TO DAYLIGHT SHIFT AFTER 7AM.
--- NOTE | 2017-05-20 07:29 | NUR ---
Patient came from [facility], can return when medically stable for discharge
--- NOTE | 2017-05-20 07:30 | NUR ---
ALERT AND ORIENTED X3. VITAL SIGNS STABLE. MATT. LUNG SOUNDS DIMINISHED, OTHER SINGLETARY CLEAR. HEART SOUNDS NORMAL. SKIN TURGOR GOOD, CAPILLARY REFILL LESS THAN 3. ABDOMEN SOFT, NON TENDER. BOWEL SOUNDS X4. WOUND DRESSING TO ABDOMEN CLEAN DRY AND INTACT, IV SITE LEFT ANTECUBITAL CLEAN DRY AND INTACT. ILIOSTOMY CLEAN, DRY AND INTACT. WILL CONTINUE TO ASSESS. [facility]ET FELIX [facility]
[2017-05-20 08:00] VITALS: BP 132/82
--- NOTE | 2017-05-20 09:30 | NUR ---
CHANGED ILIOSTOMY BAG DUE TO DRAINAGE, CLEANED WITH WARM SOAPY WATER. STOMA RED AND BEEFY. BAG HAD MEDIUM AMOUNT OF GREEENISH/BROWN MUSHY BM. PATIENT TOLERATED WELL. CHANGED ABDOMINAL DRESSING, CLEANED WITH NORMAL SALINE USING ASEPTIC TECHNIQUE, APPLIED DRESSING. PATIENT TOLERATED WELL. HARPREET FELIX [facility]
--- NOTE | 2017-05-20 11:13 | NUR ---
PT OFF FLOOR...SATX NOT GIVEN AT THIS TIME
--- NOTE | 2017-05-20 11:21 | NUR ---
PT STILL OFF FLOOR...SA NOT GIVEN
--- NOTE | 2017-05-20 11:42 | NUR ---
PATIENT COMPLAINT OF BACK PAIN RATING PAIN AN 8 ON SCALE OF 1 TO 10. ADMINISTERED NORCO 5/325MG 1 TAB P0. WILL CONTINUE TO ASSESS. [facility]
[2017-05-20 12:00] VITALS: BP 110/60
[2017-05-20] MEDS ORDERED: VANCOMYCIN250 MG/2.5 R (12:40)
[2017-05-20] MEDS ORDERED: MIDODRINE HCL5 M1 PO (12:40)
[2017-05-20] MEDS ORDERED: CANASA1000 MG R (12:40)
[2017-05-20] MEDS ORDERED: NATURE'S BLEND F1 MG PO (12:40)
--- NOTE | 2017-05-20 12:59 | NUR ---
PHYSICAL THERAPY Jasper was seen this AM 1:1 for his physical therapy session. Pt moved out of ICCU to 522-1 now. Pt supine in bed this visit. Transfer supine/sit MIN A X 1, sitting balance CG X 1, X 4 min no LOB. Sit/stand and up on wheeled walker for standing balance and marching in place X 2, wit one sitting rest, MOD A X 1. Then sit/stand and pivot into his bedside chair MOD A X 1, and was SOB with this. Pt on 2 L o2 and HR 108 when sitting, Pt with call light and his phone. Went over Ex to bilateral LE in sitting and Jasper said that he is doing them. JASPER MEDINA GAS ENGINE OPERATOR COMPRESSORS.
--- NOTE | 2017-05-20 13:05 | NUR ---
PHYSICAL THERAPY Back this PM to see Mr Nation, Pt was up in his bedside chair and said that he wanted to get back in bed, that his back was hurting him. Transfer sit/stand and up on the count on three with MOD A X 1, and up on wheeled walker for standing balance MOD A X 1, then pivot and stand at bedside to tolerance and getting SOB with this. Jasper back supine in bed on 2 L o2 and just wanting to rest. JASPER MEDINA ROOMING HOUSE INSPECTOR.
--- NOTE | 2017-05-20 13:28 | NUR ---
REPORT CALLED TO MARTI NORMAN LPN AT [facility]. [facility]
--- NOTE | 2017-05-20 13:52 | NUR ---
Patient is being discharged to [facility] transportation scheduled for 2:30 with [facility]. NH and nursing notified.
[2017-05-20] MEDS ORDERED: VANCOMYCIN250 MG/2.5 PO ×2 (14:01→14:02)
--- NOTE | 2017-05-20 14:06 | NUR ---
PATIENT AWAITING DISCHARGE TO [facility] BY [facility], REPORT WAS CALLED TO THE RECEIVING NURSE AT THE FACILITY BY PSYCHIATRIC CLINICAL NURSE SPECIALIST. PAINTING TECHNICIAN SCHEDULED FOR 30 MIN. FROM NOW.
--- NOTE | 2017-05-20 14:52 | NUR ---
PATIENT DISCHARGED TO [facility].
--- NOTE | 2017-05-21 09:29 | NUR ---
PHYSICAL THERAPY PATIENT DISCHARGED YESTERDAY TO [facility]. SAVAGE LEMA NEUROBIOLOGIST
--- NOTE | 2017-05-22 17:13 | NUR ---
PHYSICAL THERAPY CO-SIGN I approve of the Phyical Therapy notes written above. DAYAN LAZARO
== END 2017-05-20 15:04 | disposition other institution (70) | DRG 871 ==
LOC: ED 08:25 → EDHOLD 09:49 → 5E 09:49 → ICCU 09:49 → 5E 10:01 → ICCU 05-16 14:04 → 5E 05-20 06:42
PROVIDERS: Emergency Medicine; Hospitalist; ADMIT Internal Medicine
PROC: 30233N1 Transfusion of Nonautologous Red Blood Cells into Peripheral Vein, Percutaneous Approach (ICD-10-PCS; principal; 2017-05-16)
PROC: 0DBP8ZX Excision of Rectum, Via Natural or Artificial Opening Endoscopic, Diagnostic (ICD-10-PCS; 2017-05-19)
DX: A41.9 Sepsis, unspecified organism (principal); E43 Unspecified severe protein-calorie malnutrition; J96.01 Acute respiratory failure with hypoxia; J81.1 Chronic pulmonary edema; I50.31 Acute diastolic (congestive) heart failure; A04.72 Enterocolitis due to Clostridium difficile, not specified as recurrent; E87.3 Alkalosis; N17.9 Acute kidney failure, unspecified; J90 Pleural effusion, not elsewhere classified; K51.211 Ulcerative (chronic) proctitis with rectal bleeding; I13.0 Hypertensive heart and chronic kidney disease with heart failure and stage 1 through stage 4 chronic kidney disease, or unspecified chronic kidney disease; E88.09 Other disorders of plasma-protein metabolism, not elsewhere classified; R73.9 Hyperglycemia, unspecified; E87.6 Hypokalemia; E55.9 Vitamin D deficiency, unspecified; E53.8 Deficiency of other specified B group vitamins; N18.3 Chronic kidney disease, stage 3 (moderate); J44.9 Chronic obstructive pulmonary disease, unspecified; D63.8 Anemia in other chronic diseases classified elsewhere; N40.0 Benign prostatic hyperplasia without lower urinary tract symptoms; Z72.0 Tobacco use; Z93.2 Ileostomy status; Z79.2 Long term (current) use of antibiotics; Z79.899 Other long term (current) drug therapy; Z98.42 Cataract extraction status, left eye; Z98.41 Cataract extraction status, right eye; Z83.6 Family history of other diseases of the respiratory system; Z80.9 Family history of malignant neoplasm, unspecified; Z90.49 Acquired absence of other specified parts of digestive tract; Z68.21 Body mass index [BMI] 21.0-21.9, adult

== ENCOUNTER 2017-05-22 11:01 | Emergency (ER) | payer MEDICARE, MEDICAID ==
[~2017-05-22] VITALS: Ht 187.9 cm; Wt 68.0 kg
[~2017-05-22 11:01] MED LIST changes: +CANASA1000 MG R; +FLAGYL500 MG PO; +MIDODRINE HCL5 M1 PO; +NATURE'S BLEND F1 MG PO; +NORVASC10 MG PO; +PROVENTIL HFA6.7 GM INH; +SLOW RELEASE I168 MG PO; +VANCOMYCIN250 MG/2.5 PO; +VANCOMYCIN250 MG/2.5 R; +VITAMIN D-32000 UNI1 PO
[2017-05-22 11:40] LABS: BASO % 0.8 % (0.0-1.0); EOS # 0.2 10*3/uL (0.0-0.4); EOS % 3.2 % (1.0-4.0); HEMATOCRIT 28.1 % (42.0-52.0); HEMOGLOBIN 8.9 g/dl (14.0-18.0); LYMPH # 0.8 10*3/uL (1.3-4.4); LYMPH % 16.1 % (27.0-41.0); MEAN CELL VOLUME 92.7 fl (80.0-94.0); MEAN CORPUSCULAR HGB 29.4 pg (27.0-31.0); MEAN CORPUSCULAR HGB CONC 31.7 g/dl (33.0-37.0); MEAN PLATELET VOLUME 9.8 fl (9.6-12.3); MONO # 0.5 10*3/uL (0.1-1.0); MONO % 9.7 % (3.0-9.0); NEUT # 3.3 10*3/uL (2.3-7.9); NEUT % 69.4 % (47.0-73.0); PLATELET COUNT AUTOMATED 322 10*3/uL (130-400); RED BLOOD COUNT 3.03 10*6/uL (4.50-5.90); RED CELL DISTRI WIDTH 16.2 % (0-14.5); WHITE BLOOD COUNT 4.7 10*3/uL (4.8-10.8)
[2017-05-22 11:57] LABS: ALBUMIN 2.9 gm/dl (3.1-4.5); CREATININE 1.73 mg/dL (0.70-1.30); POTASSIUM 4.1 mmol/L (3.5-5.1); TOTAL PROTEIN 6.6 gm/dL (6.4-8.2)
== END 2017-05-22 15:09 | disposition home or self-care (01) ==
LOC: ED 11:01
PROVIDERS: Physician Assistant
DX: Z48.01 Encounter for change or removal of surgical wound dressing (principal); Z79.899 Other long term (current) drug therapy; Z90.49 Acquired absence of other specified parts of digestive tract

== ENCOUNTER 2017-05-23 19:59 | Inpatient (IN) | payer MEDICARE, MEDICAID ==
[~2017-05-23] VITALS: Ht 188 cm; Wt 70.5 kg
--- NOTE | ~2017-05-23 | EKG ---
[place], [place] ELECTROCARDIOGRAM REPORT NAME: JASPER WAGNER UNIT #: [id number] ROOM: 425 DOCTOR: PELON BURK,MITCH BIRTHDATE: [birth year] DOS: 05/23/2017 TIME: 2028 hours. IMPRESSION: 1. Sinus rhythm. 2. Short ND interval. MITCH BIRD MD CM:EKGRPT:ELECTROCARDIOGRAM REPORT 1022 [id number] MITCH BIRD MD
[2017-05-23 20:18] VITALS: BP 104/74
[2017-05-23 20:28] LABS: BASO % 0.5 % (0.0-1.0); EOS # 0.1 10*3/uL (0.0-0.4); EOS % 2.2 % (1.0-4.0); LYMPH # 1.1 10*3/uL (1.3-4.4); LYMPH % 19.2 % (27.0-41.0); MEAN CELL VOLUME 92.7 fl (80.0-94.0); MEAN CORPUSCULAR HGB 28.8 pg (27.0-31.0); MEAN PLATELET VOLUME 9.1 fl (9.6-12.3); MONO # 0.5 10*3/uL (0.1-1.0); MONO % 9.1 % (3.0-9.0); NEUT % 68.1 % (47.0-73.0); PLATELET COUNT AUTOMATED 321 10*3/uL (130-400); RED BLOOD COUNT 3.13 10*6/uL (4.50-5.90); RED CELL DISTRI WIDTH 16.2 % (0-14.5); WHITE BLOOD COUNT 5.8 10*3/uL (4.8-10.8)
[2017-05-23 20:38] LABS: ACT PARTIAL THROMBO TIME 24.2 SECONDS (20.8-31.5)
[2017-05-23 20:45] LABS: ALBUMIN 2.9 gm/dl (3.1-4.5); ALKALINE PHOSPHATASE 108 U/L (45-117); BUN 13 mg/dl (7-24); CHLORIDE 97 mmol/L (98-107); CREATININE 1.37 mg/dL (0.70-1.30); POTASSIUM 3.9 mmol/L (3.5-5.1); SGOT/AST 14 IU/L (3-35); SGPT/ALT 16 U/L (12-78); SODIUM 134 mmol/L (136-145); TOTAL PROTEIN 6.8 gm/dL (6.4-8.2)
[2017-05-23 20:46] LABS: TROPONIN I < 0.015 ng/ml (<0.045)
[2017-05-23 22:04] VITALS: BP 140/57
[2017-05-23 22:14] LABS: BILIRUBIN NEGATIVE (NEGATIVE); BLOOD NEGATIVE (NEGATIVE); CLARITY SL CLOUDY (CLEAR); COLOR YELLOW (YELLOW); GLUCOSE NEGATIVE (NEGATIVE); KETONE NEGATIVE (NEGATIVE); LEUKO ESTERASE NEGATIVE (NEGATIVE); NITRITE NEGATIVE (NEGATIVE); PH 5.5 (5.0-9.0); UROBILINOGEN 0.2 E.U./dl (0.2-1.0)
[2017-05-23 22:21] LABS: BACTERIA TRACE; RBC 0-2 rbc/hpf (0-2); WBC 0-2 wbc/hpf (0-5)
--- NOTE | 2017-05-23 23:26 | NUR ---
REPORT CALLED TO FOURTH FLOOR
[2017-05-23 23:36] VITALS: BP 124/87
--- NOTE | 2017-05-23 23:36 | NUR ---
A 76, admitted to , under the services of YAW Ramon DO with a diagnosis of COPD EXACERBATION, SEPSIS, PNEUMONIA. Chief complaint is SHORTNESS OF BREATH WHILE LAYING DOWN AT HOME. Patient arrived via ambulance from ER. Monitor applied. Initial assessment completed. Vital signs taken and recorded. YAW RAMON DO notified of admission to the unit. Orders received. See assessment for past medical history, medications and allergies. Patient and/or family oriented to unit. [facility] visitation policy reviewed. Clothing/patient valuable form completed. JULI GUERRERO
[2017-05-24] VITALS: BP 124/87
--- NOTE | 2017-05-24 01:20 | NUR ---
NOTIFIED OF PTS INCOMPLETE MED REC AND WOUNDS/RASH. SAID HE WOULD PUT ORDERS IN FOR WOUNDS/RASH.
--- NOTE | 2017-05-24 02:00 | NUR ---
WOUND DRESSING APPLIED PER ORDERS. PT TOLERATED WELL.
--- NOTE | 2017-05-24 03:37 | NUR ---
TALKED TO REGARDING NEED FOR TIJERINA ORDER. SAID HE WOULD PUT AN ORDER IN FOR IT.
--- NOTE | 2017-05-24 05:04 | NUR ---
24HR CHART CHECK COMPLETED.
--- NOTE | 2017-05-24 06:30 | NUR ---
PT IN BED, LIGHTS ON, WATCHING TV. TIJERINA INTACT. FLUIDS GOING. NO DISTRESS NOTED. PT VOICES NO COMPLAINTS AT THIS TIME. VITALS STABLE. CALL LIGHT WITHIN REACH.
[2017-05-24 07:07] LABS: BASO % 0.3 % (0.0-1.0); HEMOGLOBIN 7.9 g/dl (14.0-18.0); LYMPH # 0.3 10*3/uL (1.3-4.4); LYMPH % 9.6 % (27.0-41.0); MEAN CELL VOLUME 92.6 fl (80.0-94.0); MEAN CORPUSCULAR HGB 29.3 pg (27.0-31.0); MEAN CORPUSCULAR HGB CONC 31.6 g/dl (33.0-37.0); MONO # 0.1 10*3/uL (0.1-1.0); MONO % 1.7 % (3.0-9.0); NEUT # 2.6 10*3/uL (2.3-7.9); NEUT % 87.7 % (47.0-73.0); PLATELET COUNT AUTOMATED 304 10*3/uL (130-400); WHITE BLOOD COUNT 2.9 10*3/uL (4.8-10.8)
[2017-05-24 07:14] LABS: ACT PARTIAL THROMBO TIME 24.1 SECONDS (20.8-31.5)
[2017-05-24 07:37] LABS: ALBUMIN 2.5 gm/dl (3.1-4.5); ALKALINE PHOSPHATASE 98 U/L (45-117); BUN 13 mg/dl (7-24); CHLORIDE 98 mmol/L (98-107); POTASSIUM 3.6 mmol/L (3.5-5.1); SODIUM 136 mmol/L (136-145)
[2017-05-24 07:39] LABS: CREATININE 1.33 mg/dL (0.70-1.30); PHOSPHOROUS 3.2 mg/dL (2.5-4.9); SGOT/AST 13 IU/L (3-35); SGPT/ALT 16 U/L (12-78); TOTAL PROTEIN 5.8 gm/dL (6.4-8.2)
[2017-05-24 08:00] VITALS: BP 124/64
--- NOTE | 2017-05-24 08:00 | NUR ---
RESTING QUIETLY NO C/O NO DISTRESS NOTED. STATES HE FEELS BETTER. SEE SHIFT ASSESSMENT.
[2017-05-24] MEDS ORDERED: TRAMADOL HCL50 MG PO (09:06)
[2017-05-24] MEDS ORDERED: LASIX20 MG PO (09:06)
--- NOTE | 2017-05-24 09:36 | NUR ---
JASPER WAGNER [id number] Please refer to the physician's history and physical for past medical history, comorbid conditions, and allergies. Diagnosis: COPD EXAC SEPSIS PNEUMONITIS Allen Score: 20,LOW OR NO RISK WOUND DESCRIPTIONS: Location of the wound: MID ABDOMEN Thickness: Partial Size: 1.5CM X 1.3CM X 0.1CM Tunneling: NONE Undermining: NONE Sinus Tract: NONE Presence of Exudate: Serous Amount: Light Color: Red Odor: None Periwound Skin Appearance: Normal Wound edges: APPROXIMATED Pain (associated with wound): PATIENT DENIED AT TIME OF ASSESSMENT How does patient state this happened? PATIENT IS UNSURE HOW THIS HAPPENED. PATIENT STATES HE HAS HAD THIS AREA "MAYBE A MONTH IF THAT." PATIENT STATES HE JUST WANTS IT COVERED AND TO LET IT HEAL ON ITS OWN. DISCUSSED TREATMENT WITH PATIENT AND PATIENT AGREED WITH RECOMMENDATIONS BELOW. Surface the patient is resting on: Isoflex SKIN PREVENTION RECOMMENDATION: 1. Pressure redistribution support surface as appropriate 2. Elevate heels 3. Remove boots/TEDS every shift and reapply 4. Head of bed 30 degrees as tolerated 5. Assess nutrition and hydration 6. Manage moisture 7. Avoid the use of containment devices while in bed 8. Use absorptive products on surfaces limit layers of linens on bed 9. Turn and reposition every 1-2 hours in bed and every 1 hour in chair as tolerated 10. Weight shifts every 15 minutes while up in chair 11. Offloading with pillows or device to keep heels elevated off bed 12. Monitor skin at least every shift 13. Inspect under medical devices twice a day WOUND TREATMENT RECOMMENDATIONS: CLEANSE ABD WOUND WITH NS. APPLY SUREPREP TO PERIWOUND AND ALLOW TO DRY. COVER WITH 2X2 AND SECURE WITH TAPE. DR. REED MADE AWARE OF WOUND CARE RECOMMENDATION
--- NOTE | 2017-05-24 11:00 | NUR ---
UP IN CHAIR IN ROOM, TOLERATED WELL.
[2017-05-24 12:00] VITALS: BP 128/72
--- NOTE | 2017-05-24 14:00 | NUR ---
BACK TO BED WITH ONE ASSIST. TOLERATED WELL.
[2017-05-24 16:00] VITALS: BP 124/86
--- NOTE | 2017-05-24 16:09 | NUR ---
MEDICATED TYLENOL 2 TABS FOR C/O GENERALIZED DISCOMFORT.
[2017-05-25] VITALS: BP 127/79
[2017-05-25 06:50] LABS: HEMATOCRIT 23.9 % (42.0-52.0); HEMOGLOBIN 7.7 g/dl (14.0-18.0); LYMPH # 0.6 10*3/uL (1.3-4.4); LYMPH % 8.2 % (27.0-41.0); MEAN CELL VOLUME 90.2 fl (80.0-94.0); MEAN CORPUSCULAR HGB 29.1 pg (27.0-31.0); MEAN CORPUSCULAR HGB CONC 32.2 g/dl (33.0-37.0); MEAN PLATELET VOLUME 9.8 fl (9.6-12.3); MONO # 0.2 10*3/uL (0.1-1.0); MONO % 2.4 % (3.0-9.0); NEUT # 6.7 10*3/uL (2.3-7.9); NEUT % 88.5 % (47.0-73.0); PLATELET COUNT AUTOMATED 330 10*3/uL (130-400); RED BLOOD COUNT 2.65 10*6/uL (4.50-5.90); RED CELL DISTRI WIDTH 16.3 % (0-14.5); WHITE BLOOD COUNT 7.6 10*3/uL (4.8-10.8)
[2017-05-25 07:18] LABS: BUN 17 mg/dl (7-24); CHLORIDE 100 mmol/L (98-107); CREATININE 1.31 mg/dL (0.70-1.30); PHOSPHOROUS 3.3 mg/dL (2.5-4.9); POTASSIUM 3.7 mmol/L (3.5-5.1); SODIUM 137 mmol/L (136-145)
[2017-05-25 08:00] VITALS: BP 128/64
--- NOTE | 2017-05-25 08:00 | NUR ---
RESTING QUIETLY NO C/O NO DISTRESS NOTED. STATES HE FEELS MUCH BETTER. ILEOSTOMY INTACT WITH MUSHY STOOL. TIJERINA PATENT FOR YELLOW URINE. SEE SHIFT ASSESSMENT.
[2017-05-25 12:00] VITALS: BP 119/81
[2017-05-25 16:00] VITALS: BP 126/72
[2017-05-25 20:00] VITALS: BP 139/66
--- NOTE | 2017-05-25 20:00 | NUR ---
ASSUMED CARE OF PATIENT. ASSESSMENT COMPLETE. RESTING IN BED. NO VOICED COMPLAINTS. CALL LIGHT IN REACH. WILL CONTINUE TO MONITOR.
--- NOTE | 2017-05-25 23:43 | NUR ---
MEDICATED WITH PRN RESTORIL FOR HELP TO SLEEP.
[2017-05-26] VITALS: BP 143/70
--- NOTE | 2017-05-26 02:41 | NUR ---
SLEEPING. RESO EASY AND NONLABORED ON ROOM AIR. NO DISTRESS NOTED. CM INTACT. CALL LIGHT IN REACH. WILL CONTINUE TO MONITOR.
[2017-05-26 06:15] LABS: HEMATOCRIT 24.7 % (42.0-52.0); HEMOGLOBIN 7.7 g/dl (14.0-18.0); MEAN CELL VOLUME 90.1 fl (80.0-94.0); MEAN CORPUSCULAR HGB 28.1 pg (27.0-31.0); MEAN CORPUSCULAR HGB CONC 31.2 g/dl (33.0-37.0); MEAN PLATELET VOLUME 9.9 fl (9.6-12.3); PLATELET COUNT AUTOMATED 351 10*3/uL (130-400); RED BLOOD COUNT 2.74 10*6/uL (4.50-5.90); RED CELL DISTRI WIDTH 16.7 % (0-14.5); WHITE BLOOD COUNT 9.2 10*3/uL (4.8-10.8)
[2017-05-26 06:22] LABS: BUN 20 mg/dl (7-24); CHLORIDE 102 mmol/L (98-107); CREATININE 1.26 mg/dL (0.70-1.30); PHOSPHOROUS 2.6 mg/dL (2.5-4.9); POTASSIUM 3.8 mmol/L (3.5-5.1); SODIUM 139 mmol/L (136-145)
[2017-05-26 06:56] LABS: PLATELET SUFFICIENCY NORMAL (NORMAL); TOTAL CELLS COUNTED 100 #CELLS
[2017-05-26 08:00] VITALS: BP 138/89
--- NOTE | 2017-05-26 08:30 | NUR ---
Patient resting quietly with no c/o discomfort. Respirations easy and regular. Vital signs stable. No overt distress. ALONDRA REAVES R
[2017-05-26] MEDS ORDERED: PREDNISONE10 MG PO (11:47)
[2017-05-26] MEDS ORDERED: LEVOFLOXACIN500 MG PO (11:47)
[2017-05-26 12:00] VITALS: BP 136/71
--- NOTE | 2017-05-26 12:41 | NUR ---
TIJERINA REMOVED PER ORDERS.
--- NOTE | 2017-05-26 12:49 | NUR ---
PT REFUSED PNEUMONIA VACCINE.
--- NOTE | 2017-05-26 13:09 | NUR ---
REPORT CALLED TO CATHERINE HARTMAN [facility].
--- NOTE | 2017-05-26 13:12 | NUR ---
REFUSED WOUND DISCHARGE PHOTO.
--- NOTE | 2017-05-26 13:32 | NUR ---
Discharge instructions reviewed with patient/family. Patient receptive and verbalizes understanding. Follow-up care arranged. Written instructions given to patient/family. ALONDRA REAVES
== END 2017-05-26 13:32 | disposition home or self-care (01) | DRG 871 ==
LOC: ED 19:59 → EDHOLD 22:16 → 4E 22:39
PROVIDERS: Family Medicine; Internal Medicine Nephrology; Student in an Organized Health Care Education/Training Program; ADMIT Emergency Medicine
DX: A41.9 Sepsis, unspecified organism (principal); J18.9 Pneumonia, unspecified organism; E43 Unspecified severe protein-calorie malnutrition; I13.0 Hypertensive heart and chronic kidney disease with heart failure and stage 1 through stage 4 chronic kidney disease, or unspecified chronic kidney disease; E87.8 Other disorders of electrolyte and fluid balance, not elsewhere classified; I50.32 Chronic diastolic (congestive) heart failure; N13.30 Unspecified hydronephrosis; E87.1 Hypo-osmolality and hyponatremia; R18.8 Other ascites; J44.0 Chronic obstructive pulmonary disease with (acute) lower respiratory infection; J44.1 Chronic obstructive pulmonary disease with (acute) exacerbation; N13.4 Hydroureter; Z68.1 Body mass index [BMI] 19.9 or less, adult; J98.11 Atelectasis; N18.3 Chronic kidney disease, stage 3 (moderate); D72.810 Lymphocytopenia; E55.9 Vitamin D deficiency, unspecified; D50.9 Iron deficiency anemia, unspecified; E53.8 Deficiency of other specified B group vitamins; N40.1 Benign prostatic hyperplasia with lower urinary tract symptoms; R33.8 Other retention of urine; Z93.2 Ileostomy status; Z90.49 Acquired absence of other specified parts of digestive tract; Z98.42 Cataract extraction status, left eye; Z98.41 Cataract extraction status, right eye; Z87.891 Personal history of nicotine dependence; Z82.5 Family history of asthma and other chronic lower respiratory diseases; Z79.899 Other long term (current) drug therapy

== ENCOUNTER 2017-05-27 15:41 | Inpatient (IN) | payer MEDICARE, MEDICAID ==
[~2017-05-27] VITALS: Ht 188 cm; Wt 71.2 kg
--- NOTE | ~2017-05-27 | CON ---
[place], [place] REPORT OF CONSULTATION NAME: JASPER WAGNER UNIT #: [id number] ROOM: 522 DOCTOR: MITCH BIRD MD BIRTHDATE: [birth year] DOS: 05/27/2017 REASON FOR VISIT: Borderline elevation of troponin. HISTORY OF PRESENT ILLNESS: The patient is a 76-year-old gentleman with history of COPD, anemia, chronic kidney disease, colostomy, presented to the Emergency Room for shortness of breath with exertion as well as foreign body in the rectum. He noted a sudden onset shortness of breath and felt all over the body, inside the chest wall and the lungs. He was in the hospital, recently was discharged for similar symptoms. He denied any chest pain, palpitations or dizziness. No nausea, vomiting, diarrhea. No constipation, no fever or chills, no headaches, no neurologic symptoms. No blurry vision or double vision. No hematuria or dysuria. REVIEW OF SYSTEMS: Review of the 8 systems negative except as mentioned above. PAST MEDICAL HISTORY: Chronic kidney disease, anemia, BPH, hypertension, diastolic heart failure, vitamin D deficiency. PAST SURGICAL HISTORY: History of colectomy with ileostomy and cataract surgery. SOCIAL HISTORY: The patient does not drink and does not use illicit drugs. He was a former smoker, quit recently. FAMILY HISTORY: Father from unknown causes. Mother from unknown causes and age. ALLERGIES: No known drug allergies. HOME MEDICATIONS: Reviewed. PHYSICAL EXAMINATION: VITAL SIGNS: Blood pressure 128/73, pulse 98, respirations 20. Weight 68.2 kilos. BMI 19.3. GENERAL: Alert, comfortable, in no acute distress. HEENT: Pupils are round and equal. No jaundice. Tongue was moist and pharynx was clear. NECK: Supple. No distended neck veins. No carotid bruit. CHEST: Symmetrical, nontender. LUNGS: Few scattered rhonchi, diminished at bases. HEART: Regular rhythm, no S3, grade 1/6 systolic murmur. ABDOMEN: Bowel sounds normal. The patient has ileostomy in the right lower quadrant. RECTAL: Deferred. EXTREMITIES: Showed no edema. Distal pulses are palpable. SKIN: Warm and dry. No cyanosis, no clubbing. REVIEW OF THE DIAGNOSTIC TESTS: EKG showed normal sinus rhythm, supraventricular ectopy. Hemoglobin 8.3. Creatinine 1.24, potassium 3.8. [place], [place] REPORT OF CONSULTATION NAME: JASPER WAGNER UNIT #: [id number] ROOM: 522 DOCTOR: PELON BURK,MITCH BIRTHDATE: [birth year] Troponins are 0.1, 0.10, 0.11. BNP 847. IMPRESSION: 1. Borderline elevation of troponin, possibly due to underlying chronic kidney disease and also chronic obstructive pulmonary disease exacerbation. The patient denies any chest pain. EKG showed no ischemic changes. 2. Chronic diastolic heart failure. 3. Chronic kidney disease. 4. Anemia. 5. Chronic obstructive pulmonary disease. 6. History of colectomy with ileostomy. 7. Mild mitral regurgitation. 8. Small pericardial effusion. Echo from ____ reviewed. RECOMMENDATIONS: Blood pressure and heart rate are stable. He denies any chest pain. His breathing is much better. Continue his current cardiac medications including aspirin and beta blockers. Consider adding statins. Clinically, does not look like CHF, hence hold on any diuresis at this time. No further cardiac testing at this time. Consider outpatient stress test versus stress test prior to discharge. There is no family at bedside at the time of my examination. The patient is asking if he can get physical therapy to improve his strength in the lower extremities. MITCH BIRD MD CM:CONSTR:REPORT OF CONSULTATION 0115 05/30/17 0600 interface
--- NOTE | ~2017-05-27 | EKG ---
[place], [place] ELECTROCARDIOGRAM REPORT NAME: JASPER WAGNER UNIT #: [id number] ROOM: 522 DOCTOR: PELON BURK,MITCH BIRTHDATE: [birth year] DOS: 05/27/2017 TIME: 1630 hours. IMPRESSION: 1. Sinus rhythm. 2. Supraventricular ectopy. 3. Normal QT interval. MITCH BIRD MD CM:EKGRPT:ELECTROCARDIOGRAM REPORT 1350 1544 MITCH BIRD MD
[~2017-05-27 15:41] MED LIST changes: +LASIX20 MG PO; +LEVOFLOXACIN500 MG PO; +TRAMADOL HCL50 MG PO
[2017-05-27 15:50] VITALS: BP 149/94
[2017-05-27 16:53] LABS: BASO % 0.1 % (0.0-1.0); EOS % 0.3 % (1.0-4.0); LYMPH # 1.2 10*3/uL (1.3-4.4); LYMPH % 12.2 % (27.0-41.0); MEAN CELL VOLUME 90.7 fl (80.0-94.0); MEAN PLATELET VOLUME 9.6 fl (9.6-12.3); MONO % 10.8 % (3.0-9.0); NEUT # 7.1 10*3/uL (2.3-7.9); NEUT % 74.2 % (47.0-73.0); PLATELET COUNT AUTOMATED 381 10*3/uL (130-400); RED BLOOD COUNT 3.55 10*6/uL (4.50-5.90); RED CELL DISTRI WIDTH 16.7 % (0-14.5); WHITE BLOOD COUNT 9.6 10*3/uL (4.8-10.8)
[2017-05-27 16:55] LABS: HEMATOCRIT 32.2 % (42.0-52.0); HEMOGLOBIN 10.3 g/dl (14.0-18.0)
[2017-05-27 16:56] VITALS: BP 150/87
[2017-05-27 17:08] LABS: ALBUMIN 3.2 gm/dl (3.1-4.5); ALKALINE PHOSPHATASE 152 U/L (45-117); BUN 24 mg/dl (7-24); CHLORIDE 99 mmol/L (98-107); CREATININE 1.32 mg/dL (0.70-1.30); LIPASE 469 U/L (73-393); POTASSIUM 3.9 mmol/L (3.5-5.1); SGOT/AST 51 IU/L (3-35); SGPT/ALT 54 U/L (12-78); SODIUM 136 mmol/L (136-145); TOTAL PROTEIN 7.4 gm/dL (6.4-8.2)
[2017-05-27 17:14] LABS: ACT PARTIAL THROMBO TIME 21.1 SECONDS (20.8-31.5)
[2017-05-27 17:51] VITALS: BP 160/88
[2017-05-27 19:51] LABS: BILIRUBIN NEGATIVE (NEGATIVE); BLOOD 3+ (NEGATIVE); CLARITY SL CLOUDY (CLEAR); COLOR YELLOW (YELLOW); GLUCOSE NEGATIVE (NEGATIVE); KETONE NEGATIVE (NEGATIVE); LEUKO ESTERASE NEGATIVE (NEGATIVE); NITRITE NEGATIVE (NEGATIVE); UROBILINOGEN 0.2 E.U./dl (0.2-1.0)
[2017-05-27 19:58] LABS: BACTERIA 2+; EPITHELIAL CELLS 0-2; RBC TNTC rbc/hpf (0-2)
[2017-05-27 22:00] VITALS: BP 143/81
[2017-05-27 22:10] VITALS: BP 158/74
[2017-05-28] VITALS: BP 127/64
[2017-05-28 06:19] LABS: HEMATOCRIT 26.5 % (42.0-52.0); HEMOGLOBIN 8.3 g/dl (14.0-18.0); MEAN CELL VOLUME 90.4 fl (80.0-94.0); MEAN CORPUSCULAR HGB 28.3 pg (27.0-31.0); MEAN CORPUSCULAR HGB CONC 31.3 g/dl (33.0-37.0); MEAN PLATELET VOLUME 10.1 fl (9.6-12.3); PLATELET COUNT AUTOMATED 318 10*3/uL (130-400); RED BLOOD COUNT 2.93 10*6/uL (4.50-5.90); RED CELL DISTRI WIDTH 16.7 % (0-14.5); WHITE BLOOD COUNT 5.6 10*3/uL (4.8-10.8)
[2017-05-28 06:43] LABS: CHLORIDE 103 mmol/L (98-107); POTASSIUM 3.8 mmol/L (3.5-5.1); SODIUM 138 mmol/L (136-145)
[2017-05-28 06:48] LABS: ACT PARTIAL THROMBO TIME 22.1 SECONDS (20.8-31.5)
[2017-05-28 06:53] LABS: ALBUMIN 2.6 gm/dl (3.1-4.5); ALKALINE PHOSPHATASE 130 U/L (45-117); BUN 26 mg/dl (7-24); CREATININE 1.24 mg/dL (0.70-1.30); PHOSPHOROUS 3.2 mg/dL (2.5-4.9); SGOT/AST 35 IU/L (3-35); SGPT/ALT 42 U/L (12-78); TOTAL PROTEIN 6.1 gm/dL (6.4-8.2)
[2017-05-28 07:08] LABS: TOTAL CELLS COUNTED 100 #CELLS
[2017-05-28 07:09] LABS: PLATELET SUFFICIENCY NORMAL (NORMAL); POLYCHROMASIA SLIGHT
[2017-05-28 08:00] VITALS: BP 128/73
[2017-05-28 12:00] VITALS: BP 125/57
[2017-05-28 16:00] VITALS: BP 131/70
[2017-05-28 20:00] VITALS: BP 133/70
[2017-05-29] VITALS: BP 110/77
[2017-05-29 08:00] VITALS: BP 128/62
[2017-05-29 12:00] VITALS: BP 117/68
[2017-05-29] MEDS ORDERED: PREDNISONE10 MG PO (16:22)
[2017-05-29] MEDS ORDERED: DOXYCYCLINE100 M3 PO (16:22)
[2017-05-29] MEDS ORDERED: TRAMADOL HCL50 MG PO ×2 (16:22→16:36)
[2017-05-29] MEDS ORDERED: METOPROLOL SUCC25 M2 PO (16:22)
[2017-05-29] MEDS ORDERED: LISINOPRIL10 M1 PO (16:22)
[2017-05-29] MEDS ORDERED: OXYGEN NAS (16:28)
== END 2017-05-29 18:56 | disposition home or self-care (01) | DRG 190 ==
LOC: ED 15:41 → 5E 20:12 → EDHOLD 20:12 → 5E 20:44
PROVIDERS: Emergency Medicine; Family Medicine
DX: J44.1 Chronic obstructive pulmonary disease with (acute) exacerbation (principal); E43 Unspecified severe protein-calorie malnutrition; I31.3 Pericardial effusion (noninflammatory); I50.32 Chronic diastolic (congestive) heart failure; N13.30 Unspecified hydronephrosis; I13.0 Hypertensive heart and chronic kidney disease with heart failure and stage 1 through stage 4 chronic kidney disease, or unspecified chronic kidney disease; T18.5XXA Foreign body in anus and rectum, initial encounter; Z68.1 Body mass index [BMI] 19.9 or less, adult; D50.9 Iron deficiency anemia, unspecified; N40.0 Benign prostatic hyperplasia without lower urinary tract symptoms; E55.9 Vitamin D deficiency, unspecified; E53.8 Deficiency of other specified B group vitamins; X58.XXXA Exposure to other specified factors, initial encounter; R74.0 Nonspecific elevation of levels of transaminase and lactic acid dehydrogenase [LDH]; I34.0 Nonrheumatic mitral (valve) insufficiency; Z51.5 Encounter for palliative care; Z66 Do not resuscitate; N18.3 Chronic kidney disease, stage 3 (moderate); Z98.42 Cataract extraction status, left eye; Z90.49 Acquired absence of other specified parts of digestive tract; Z98.41 Cataract extraction status, right eye; Z87.891 Personal history of nicotine dependence; Z80.9 Family history of malignant neoplasm, unspecified; Z83.6 Family history of other diseases of the respiratory system; Z93.2 Ileostomy status; Z84.89 Family history of other specified conditions; Z79.899 Other long term (current) drug therapy; Y93.89 Activity, other specified; Y92.89 Other specified places as the place of occurrence of the external cause; Y99.8 Other external cause status; Z93.3 Colostomy status

== ENCOUNTER 2017-06-12 15:32 | Emergency (ER) | payer MEDICARE, MEDICAID ==
[~2017-06-12] VITALS: Ht 187.9 cm; Wt 68.0 kg
[~2017-06-12 15:32] MED LIST changes: +DOXYCYCLINE100 M3 PO; +LISINOPRIL10 M1 PO; +METOPROLOL SUCC25 M2 PO; +OXYGEN NAS
== END 2017-06-12 16:22 | disposition left against medical advice (07) ==
LOC: ED 15:32
DX: Z53.21 Procedure and treatment not carried out due to patient leaving prior to being seen by health care provider (principal)

== ENCOUNTER → 2017-06-13 | Outpatient (CLI) | payer MEDICARE, MEDICAID ==
[2017-06-13] VITALS (10 sets, daily range): BP systolic 103–162; BP diastolic 63–89
[2017-06-13 14:42] LABS: HEMATOCRIT 26.1 % (42.0-52.0); HEMOGLOBIN 8.1 g/dl (14.0-18.0)
== END | disposition home or self-care (01) ==
LOC: TRNFUSION 13:30
PROVIDERS: Internal Medicine
DX: I11.0 Hypertensive heart disease with heart failure (principal); I50.33 Acute on chronic diastolic (congestive) heart failure; J44.1 Chronic obstructive pulmonary disease with (acute) exacerbation; J15.9 Unspecified bacterial pneumonia; D50.9 Iron deficiency anemia, unspecified; N18.9 Chronic kidney disease, unspecified

== ENCOUNTER 2017-06-21 14:17 | Inpatient (IN) | payer MEDICARE, MEDICAID ==
[~2017-06-21] VITALS: Ht 188 cm; Wt 63.6 kg
[2017-06-21] VITALS (9 sets, daily range): BP systolic 89–136; BP diastolic 51–106
--- NOTE | ~2017-06-21 | EKG ---
[place], [place] ELECTROCARDIOGRAM REPORT NAME: JASPER WAGNER UNIT #: [id number] ROOM: 529 DOCTOR: PELON BURK,MITCH BIRTHDATE: [birth year] DOS: 06/21/2017 TIME: 1433. IMPRESSION: 1. Sinus rhythm. 2. Right atrial enlargement. 3. Borderline ST-T changes. 4. Normal QT interval. MITCH BIRD MD CM:EKGRPT:ELECTROCARDIOGRAM REPORT 1508 2348 MITCH BIRD MD
--- NOTE | ~2017-06-21 | WRIGHTHP ---
[place], [place] PATIENT HISTORY AND PHYSICAL EXAM NAME: JASPER WAGNER [facility] #: [id number] UNIT #: [id number] ROOM: 529 DOCTOR: PRISCILA SALAZAR MD BIRTHDATE: [birth year] DOS: 06/21/2017 HISTORY OF PRESENT ILLNESS: The patient is a resident of the [facility] and having severe COPD with emphysema and depending on oxygen continuous and he developed some difficulty in breathing yesterday and was brought to emergency department from where he is admitted to hospital and he has also developed renal failure. PAST MEDICAL HISTORY: The patient has a past history of acute COPD, depended on oxygen, anemia, BPH, C. 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 PAST SURGICAL HISTORY: The patient has past history of cataract surgery and total colectomy. SOCIAL HISTORY: The patient is single. He used to smoke quite excessively before, but does not smoke now and he does not drink any alcohol. MEDICATIONS: He is at present taking Ultram 50 mg 8 hours p.r.n., oxygen, ____ 5 mg every 8 hour and folic acid 1 mg daily. ALLERGIES: There is no known allergy. CODE STATUS: Do not resuscitate. The patient has been seen by clinical academic allergist today because his chronic renal failure is getting worse. According to his suggestion, patient's acute kidney injury on chronic kidney disease due to renal ischemia, severe hyperkalemia, metabolic acidosis and hypertension. He has advised hold and closely monitor blood pressure and hold his amiodarone. PHYSICAL EXAMINATION: GENERAL: At present, the patient is feeling quite comfortable, conscious, alert and oriented, not in any distress. VITAL SIGNS: His blood pressure 124/54, pulse 93, respirations 22, temperature 98.3 and his oxygen with O2 is 96%. HEENT: His ENT examination unremarkable. No glandular enlargement. NECK: Trachea is central. NECK: Veins are not distended. HEART: Regular, no murmur. LUNGS: Increased expiration with occasional wheezing. No crepitation. ABDOMEN: Soft. Liver and spleen not enlarged. No area of tenderness, ____ ileostomy function very well. EXTREMITIES: No edema of leg. NEUROLOGIC: No neurological deficit observed. LABORATORY DATA: His CBC showed hemoglobin 10.8, hematocrit 33.6 showing [place], [place] PATIENT HISTORY AND PHYSICAL EXAM NAME: JASPER WAGNER UNIT #: [id number] ROOM: 529 DOCTOR: PRISCILA SALAZAR MD BIRTHDATE: [birth year] hypochromic anemia, which is due to chronic kidney disease. Lactic acid is normal. Comprehensive metabolic profile shows glucose 110, BUN 86, creatinine 4.05. GFR 15 indicating renal failure. Sodium 133, potassium 7.6 and chloride 109. The patient has already been seen by clinical academic allergist, Dr. Hale and has advised changes some of his statement. Chest x-ray is normal. Urine examination is showing 1+ bacteria, otherwise normal. CT of the abdomen shows diffuse bladder wall thickening. This may indicate cystitis correlate clinical and consider other evaluation and urine culture did not grow any bacteria. The patient is being treated at present with folic acid and vitamin D 2000 units daily, IV fluid, aerosol treatment with albuterol, tramadol 50 mg 8 hours p.r.n., lactated ringer IV solution, zolpidem 5 mg daily, ____ 1 gram daily and the patient is showing improvement. 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 PRISCILA SALAZAR MD CM:HISPHYS:PATIENT HISTORY AND PHYSICAL EXAMINATION 1200 1459 PRISCILA SALAZAR MD 06/23/17 0644 interface
[2017-06-21 14:35] LABS: BASO # 0.1 10*3/uL (0.0-0.1); BASO % 0.6 % (0.0-1.0); EOS # 0.6 10*3/uL (0.0-0.4); HEMATOCRIT 33.6 % (42.0-52.0); HEMOGLOBIN 10.8 g/dl (14.0-18.0); LYMPH # 1.1 10*3/uL (1.3-4.4); LYMPH % 11.7 % (27.0-41.0); MEAN CELL VOLUME 93.3 fl (80.0-94.0); MEAN CORPUSCULAR HGB CONC 32.1 g/dl (33.0-37.0); MEAN PLATELET VOLUME 9.8 fl (9.6-12.3); MONO # 1.1 10*3/uL (0.1-1.0); MONO % 11.4 % (3.0-9.0); NEUT # 6.7 10*3/uL (2.3-7.9); NEUT % 69.9 % (47.0-73.0); PLATELET COUNT AUTOMATED 315 10*3/uL (130-400); RED CELL DISTRI WIDTH 17.6 % (0-14.5); WHITE BLOOD COUNT 9.5 10*3/uL (4.8-10.8)
[2017-06-21 14:53] LABS: ALBUMIN 3.3 gm/dl (3.1-4.5); ALKALINE PHOSPHATASE 140 U/L (45-117); BUN 86 mg/dl (7-24); CHLORIDE 109 mmol/L (98-107); CREATININE 4.05 mg/dL (0.70-1.30); SGOT/AST 13 IU/L (3-35); SGPT/ALT 17 U/L (12-78); SODIUM 133 mmol/L (136-145)
[2017-06-21 15:01] LABS: POTASSIUM 7.6 mmol/L (3.5-5.1); TROPONIN I < 0.015 ng/ml (<0.045)
[2017-06-21 16:16] LABS: BILIRUBIN NEGATIVE (NEGATIVE); BLOOD 2+ (NEGATIVE); CLARITY CLOUDY (CLEAR); COLOR YELLOW (YELLOW); GLUCOSE NEGATIVE (NEGATIVE); KETONE NEGATIVE (NEGATIVE); LEUKO ESTERASE 3+ (NEGATIVE); NITRITE NEGATIVE (NEGATIVE); SPECIFIC GRAVITY 1.025 (1.005-1.030); UROBILINOGEN 0.2 E.U./dl (0.2-1.0)
[2017-06-21 16:28] LABS: BACTERIA 1+; WBC TNTC wbc/hpf (0-5); YEAST TRACE
[2017-06-21] MEDS ORDERED: AMBIEN5 MG PO (18:41)
[2017-06-21] MEDS ORDERED: COZAAR100 MG PO (18:41)
[2017-06-21] MEDS ORDERED: K-TAB10 MEQ PO (18:45)
[2017-06-21 20:04] LABS: CREATININE 3.64 mg/dL (0.70-1.30)
[2017-06-21 20:16] LABS: POTASSIUM 6.3 mmol/L (3.5-5.1)
[2017-06-22 04:05] VITALS: BP 93/46
[2017-06-22 06:16] LABS: ALBUMIN 2.6 gm/dl (3.1-4.5); CREATININE 3.04 mg/dL (0.70-1.30); PHOSPHOROUS 6.2 mg/dL (2.5-4.9)
[2017-06-22 08:00] VITALS: BP 124/54
[2017-06-22 12:00] VITALS: BP 112/45
[2017-06-22 16:00] VITALS: BP 102/48
[2017-06-22 20:00] VITALS: BP 109/51
[2017-06-23] VITALS: BP 93/47
[2017-06-23 08:00] VITALS: BP 115/57
[2017-06-23 09:59] LABS: ALBUMIN 2.5 gm/dl (3.1-4.5); CREATININE 1.71 mg/dL (0.70-1.30); POTASSIUM 5.2 mmol/L (3.5-5.1)
[2017-06-23 12:00] VITALS: BP 121/71
[2017-06-23 16:00] VITALS: BP 115/50
[2017-06-23 20:00] VITALS: BP 123/65
[2017-06-24] VITALS: BP 126/57
[2017-06-24 07:01] LABS: BASO # 0.1 10*3/uL (0.0-0.1); BASO % 1.2 % (0.0-1.0); EOS # 0.4 10*3/uL (0.0-0.4); EOS % 6.2 % (1.0-4.0); HEMATOCRIT 28.2 % (42.0-52.0); HEMOGLOBIN 9.2 g/dl (14.0-18.0); LYMPH # 1.5 10*3/uL (1.3-4.4); LYMPH % 21.9 % (27.0-41.0); MEAN CELL VOLUME 92.5 fl (80.0-94.0); MEAN CORPUSCULAR HGB 30.2 pg (27.0-31.0); MEAN CORPUSCULAR HGB CONC 32.6 g/dl (33.0-37.0); MEAN PLATELET VOLUME 10.7 fl (9.6-12.3); MONO # 0.9 10*3/uL (0.1-1.0); MONO % 13.4 % (3.0-9.0); NEUT # 3.8 10*3/uL (2.3-7.9); NEUT % 56.3 % (47.0-73.0); PLATELET COUNT AUTOMATED 314 10*3/uL (130-400); RED BLOOD COUNT 3.05 10*6/uL (4.50-5.90); RED CELL DISTRI WIDTH 17.6 % (0-14.5); WHITE BLOOD COUNT 6.8 10*3/uL (4.8-10.8)
[2017-06-24 07:33] LABS: POTASSIUM 4.9 mmol/L (3.5-5.1)
[2017-06-24 07:42] LABS: ALBUMIN 2.5 gm/dl (3.1-4.5); CREATININE 1.4 mg/dL (0.70-1.30); PHOSPHOROUS 2.7 mg/dL (2.5-4.9); TOTAL PROTEIN 6.2 gm/dL (6.4-8.2)
[2017-06-24 08:00] VITALS: BP 140/81
[2017-06-24 12:05] LABS: BILIRUBIN NEGATIVE (NEGATIVE); BLOOD 1+ (NEGATIVE); CLARITY SL CLOUDY (CLEAR); COLOR YELLOW (YELLOW); GLUCOSE NEGATIVE (NEGATIVE); KETONE NEGATIVE (NEGATIVE); LEUKO ESTERASE NEGATIVE (NEGATIVE); NITRITE NEGATIVE (NEGATIVE); SPECIFIC GRAVITY 1.015 (1.005-1.030); UROBILINOGEN 0.2 E.U./dl (0.2-1.0)
[2017-06-24 12:39] LABS: BACTERIA 1+; RBC 16-20 rbc/hpf (0-2); YEAST 1+
[2017-06-24 17:25] VITALS: BP 142/78
[2017-06-24 20:00] VITALS: BP 150/80
[2017-06-25] VITALS: BP 132/87
[2017-06-25 06:38] LABS: ALBUMIN 2.6 gm/dl (3.1-4.5); BUN 19 mg/dl (7-24); CHLORIDE 101 mmol/L (98-107); CREATININE 1.24 mg/dL (0.70-1.30); PHOSPHOROUS 2.9 mg/dL (2.5-4.9); POTASSIUM 4.6 mmol/L (3.5-5.1); SODIUM 138 mmol/L (136-145)
[2017-06-25 08:00] VITALS: BP 135/70
[2017-06-25 12:00] VITALS: BP 139/90
[2017-06-25 17:18] VITALS: BP 134/73
== END 2017-06-25 16:00 | disposition home or self-care (01) | DRG 871 ==
LOC: ED 14:17 → 5E 17:33 → ICCU 17:33 → 5E 06-22 13:58
PROVIDERS: Emergency Medicine; Internal Medicine; Internal Medicine Nephrology
DX: A41.9 Sepsis, unspecified organism (principal); N17.0 Acute kidney failure with tubular necrosis; I50.30 Unspecified diastolic (congestive) heart failure; I13.0 Hypertensive heart and chronic kidney disease with heart failure and stage 1 through stage 4 chronic kidney disease, or unspecified chronic kidney disease; N18.4 Chronic kidney disease, stage 4 (severe); N30.00 Acute cystitis without hematuria; N28.0 Ischemia and infarction of kidney; J43.9 Emphysema, unspecified; E87.5 Hyperkalemia; R65.20 Severe sepsis without septic shock; N40.0 Benign prostatic hyperplasia without lower urinary tract symptoms; Z66 Do not resuscitate; R09.02 Hypoxemia; E78.5 Hyperlipidemia, unspecified; E86.9 Volume depletion, unspecified; Z93.2 Ileostomy status; Z79.899 Other long term (current) drug therapy; Z90.49 Acquired absence of other specified parts of digestive tract; Z98.42 Cataract extraction status, left eye; Z98.41 Cataract extraction status, right eye; Z87.891 Personal history of nicotine dependence; Z83.6 Family history of other diseases of the respiratory system; Z99.81 Dependence on supplemental oxygen; Z82.49 Family history of ischemic heart disease and other diseases of the circulatory system

== ENCOUNTER → 2017-09-23 | Outpatient (CLI) | payer MEDICARE, MEDICAID ==
[~2017-09-23] MED LIST changes: +AMBIEN5 MG PO; +COZAAR100 MG PO; +K-TAB10 MEQ PO
[2017-09-23 10:33] LABS: BASO # 0.1 10*3/uL (0.0-0.1); BASO % 1.2 % (0.0-1.0); EOS # 0.3 10*3/uL (0.0-0.4); EOS % 4.2 % (1.0-4.0); HEMATOCRIT 39.9 % (42.0-52.0); HEMOGLOBIN 12.7 g/dl (14.0-18.0); LYMPH # 1.4 10*3/uL (1.3-4.4); LYMPH % 18.5 % (27.0-41.0); MEAN CELL VOLUME 96.6 fl (80.0-94.0); MEAN CORPUSCULAR HGB 30.8 pg (27.0-31.0); MEAN CORPUSCULAR HGB CONC 31.8 g/dl (33.0-37.0); MEAN PLATELET VOLUME 10.4 fl (9.6-12.3); MONO # 0.8 10*3/uL (0.1-1.0); NEUT % 65.7 % (47.0-73.0); PLATELET COUNT AUTOMATED 269 10*3/uL (130-400); RED BLOOD COUNT 4.13 10*6/uL (4.50-5.90); RED CELL DISTRI WIDTH 13.1 % (0-14.5); WHITE BLOOD COUNT 7.6 10*3/uL (4.8-10.8)
[2017-09-23 10:59] LABS: CREATININE 1.54 mg/dL (0.70-1.30); POTASSIUM 4.3 mmol/L (3.5-5.1)
== END | disposition home or self-care (01) ==
LOC: LAB 09:12
DX: E43 Unspecified severe protein-calorie malnutrition (principal); D64.9 Anemia, unspecified; Z90.49 Acquired absence of other specified parts of digestive tract

== ENCOUNTER → 2017-09-29 | Day surgery (SDC) | payer MEDICARE, MEDICAID ==
[2017-09-23 10:00] VITALS: BP 122/76
[~2017-09-29] VITALS: Ht 185.4 cm; Wt 68.0 kg
[~2017-09-29] MED LIST changes: +MORPHINE SU2 MG/1 M1 IJ; +PROAIR HFA8.5 GM INH; +TPN; +WOUND VAC; +[UNRECOGNIZED DRUG - REMARK]
[2017-09-29 07:46] VITALS: BP 169/82
[2017-09-29 08:15] VITALS: BP 107/74
[2017-09-29 08:30] VITALS: BP 160/90
[2017-09-29 08:44] VITALS: BP 162/85
== END | disposition home or self-care (01) ==
LOC: SDC 09-23 09:30
DX: A04.72 Enterocolitis due to Clostridium difficile, not specified as recurrent (principal); Z90.49 Acquired absence of other specified parts of digestive tract; D64.9 Anemia, unspecified; J44.9 Chronic obstructive pulmonary disease, unspecified; E43 Unspecified severe protein-calorie malnutrition; I50.30 Unspecified diastolic (congestive) heart failure; F17.210 Nicotine dependence, cigarettes, uncomplicated; Z79.899 Other long term (current) drug therapy; I13.0 Hypertensive heart and chronic kidney disease with heart failure and stage 1 through stage 4 chronic kidney disease, or unspecified chronic kidney disease; N18.9 Chronic kidney disease, unspecified; K64.8 Other hemorrhoids; Z93.3 Colostomy status

== ENCOUNTER 2017-10-07 02:29 | Inpatient (IN) | payer MEDICARE, MEDICAID ==
[2017-10-03 08:29] VITALS: BP 124/66
[2017-10-03 09:41] LABS: BASO # 0.1 10*3/uL (0.0-0.1); BASO % 1.3 % (0.0-1.0); EOS # 0.4 10*3/uL (0.0-0.4); EOS % 5.6 % (1.0-4.0); HEMOGLOBIN 11.9 g/dl (14.0-18.0); LYMPH # 1.4 10*3/uL (1.3-4.4); LYMPH % 17.1 % (27.0-41.0); MEAN CELL VOLUME 97.7 fl (80.0-94.0); MEAN CORPUSCULAR HGB 30.6 pg (27.0-31.0); MEAN CORPUSCULAR HGB CONC 31.3 g/dl (33.0-37.0); MEAN PLATELET VOLUME 10.5 fl (9.6-12.3); MONO % 12.2 % (3.0-9.0); NEUT % 63.3 % (47.0-73.0); PLATELET COUNT AUTOMATED 242 10*3/uL (130-400); RED BLOOD COUNT 3.89 10*6/uL (4.50-5.90); RED CELL DISTRI WIDTH 12.8 % (0-14.5); WHITE BLOOD COUNT 7.9 10*3/uL (4.8-10.8)
[2017-10-03 10:06] LABS: CREATININE 1.45 mg/dL (0.70-1.30); POTASSIUM 4.4 mmol/L (3.5-5.1)
[2017-10-03 15:30] VITALS: BP 137/69
[2017-10-07] VITALS (11 sets, daily range): BP systolic 94–207; BP diastolic 50–104
[~2017-10-07] VITALS: Ht 187.9 cm; Wt 74.8 kg
--- NOTE | ~2017-10-07 | PR ---
[place], [place] PROGRESS NOTE NAME: JASPER WAGNER UNIT #: [id number] ROOM: [facility] DOCTOR: PRISCILA SALAZAR MD BIRTHDATE: [birth year] DOS: 10/27/2017 SUBJECTIVE: The patient has been admitted to ICU and has been there for many days due to disruption of the abdominal wound with leakage of the intestinal anastomosis. The patient is recovering very slowly, but yesterday when they turned overall around, he had a lot of pussy discharge come in the wound VAC and having some pain in the belly and he will be seen by surgeon today to assess about that. His comprehensive metabolic profile today shows glucose 114, BUN 31, calcium 8.2, magnesium 2.2, total protein 6.2, albumin 1.4, alkaline phosphatase 303, albumin is 14. CBC showed white count 10,600, hemoglobin 8.9, hematocrit 28.8. Urine culture shows E. coli infection, which is sensitive to med and the patient is on this medicine right now. Blood culture and sensitivity did not grow any bacteria. OBJECTIVE: VITAL SIGNS: His blood pressure is 132/74, pulse 86, respirations 18, temperature is 98.7. CHEST: Clear. No crepitation. HEART: Regular. ABDOMEN: Somewhat tender. PRISCILA SALAZAR MD CM:PNTRANS [phone] PRISCILA SALAZAR MD 11/20/17 0741 interface
--- NOTE | ~2017-10-07 | PR ---
[place], [place] PROGRESS NOTE NAME: JASPER WAGNER UNIT #: [id number] ROOM: 411 DOCTOR: PRISCILA SALAZAR MD BIRTHDATE: [birth year] DOS: SUBJECTIVE: The patient has been admitted to hospital for reversal of ileostomy. He is progressing, getting better. He has passed some flatus, but he has not passed any bowel movement. He is not having any pain in abdomen, tolerating liquids fairly good. No distention of the abdomen. Bowel sounds are present. OBJECTIVE: CHEST: Clear. HEART: Regular. VITAL SIGNS: Temperature 98.2, pulse 88, respirations 18, blood pressure is 161/77, pulse oximetry is 97. PLAN: The patient is encouraged to be little bit ambulatory, more active, which will help his bowel movement and he is progressing satisfactorily. PRISCILA SALAZAR MD CM:PNTRANS [phone] PRISCILA SALAZAR MD 10/13/17 0143 interface
--- NOTE | ~2017-10-07 | PROC NOTE ---
[place], [place] PROCEDURE NOTE NAME: JASPER WAGNER UNIT #: [id number] ROOM: [facility] [place] DOCTOR: JESSICA STRANGE MD,MARGOT BIRTHDATE: [birth year] DOS: 10/16/2017 BRONCHOSCOPY PROCEDURE: Bronchoscopy. PREOPERATIVE DIAGNOSIS: Pneumonia. POSTOPERATIVE DIAGNOSES: Copious amount of thick purulent secretion present with mucus impaction in the left endobronchial tree. The right endobronchial tree noted clear. PROCEDURE DESCRIPTION: Consent was obtained from the patient and family members. The patient was already sedated with intravenous Diprivan. Procedure was performed in negative pressure room in the Intensive Care Unit. Addition 5 mg Versed for the patient noted for sedation. The oxygen supplementation increased to 100% during the procedure. The fiberoptic bronchoscope was advanced to the endotracheal tube lower part of trachea, which was noted with endotracheal tube about 3 cm above the everett level. Mild redness of the lower portion of trachea noted. Right upper, right middle, right lower bronchi noted are patent. The patient noted moderate amount of thick secretion, which was also noted purulent in the left main stem bronchus and lower lobe bronchi. Mucous impaction noted in the left lower lobe bronchi. All secretions were suctioned out with the help of normal saline wash, sent for culture. Procedure well tolerated by the patient without difficulty. Postoperative findings will be discussed with patient's family members once the patient recovers the effect of acute sedation. No immediate changes in the treatment of this patient would be needed. MARGOT LOPEZ MD CM:PROCNOTE:PROCEDURE NOTE [id number] MARGOT STRANGE MD
--- NOTE | ~2017-10-07 | PR ---
[place], [place] PROGRESS NOTE NAME: JASPER WAGNER UNIT #: [id number] ROOM: [facility] DOCTOR: JESSICA STRANGE MD,MARGOT BIRTHDATE: [birth year] DOS: 10/20/2017 PULMONARY FOLLOWUP SUBJECTIVE: He has been noted comfortable at this time using the BiPAP and the use of the BiPAP has been decreased from yesterday. He has been maintaining good oxygen saturation nasal cannula. This morning, noted off the BiPAP. Using oxygen supplementation. Denies symptoms of chest pain. He has not reported any abdominal pain. Still noted edema of lower extremity. He was started Lasix yesterday as well. REVIEW OF SYSTEMS: Limited review of systems could be performed. At this time, current overall status. He has been getting TPN administration for the nutrition support and he kept n.p.o. otherwise. PHYSICAL EXAMINATION: VITAL SIGNS: Low grade fever noted as 100.4 degree Fahrenheit. Respiratory rate range between 17-21, heart rate of 97-91, blood pressure 100/47-115/56. Pulse oxygen saturation recorded the BiPAP on 3 liters nasal cannula 98% saturation. Intake is 3167 mL, output was total of 2590 mL with a fluid balance of 577 mL. Urinary output noted as oral 1600 mL. HEENT: Head was atraumatic. Eyes nonicterus. NG tube in place. NECK: Supple. CARDIOVASCULAR: S1, S2 audible. LUNGS: Noted [id number] decreased breath sounds in the lungs bilaterally. ABDOMEN: Soft, status post surgery. EXTREMITIES: Still show 1-2+ pitting edema of upper and lower extremities. MUSCULOSKELETAL: No acute deformities. CENTRAL NERVOUS SYSTEM: The patient currently appeared to be nonfocal. Generalized weakness and fatigue. IMPRESSION: 1. Acute pneumonia with gram-negative infection. The patient is currently treated with antibiotics. 2. Peripheral edema secondary to hypoalbuminemia and protein calorie malnutrition. 3. Resolving acute postoperative hypoxic respiratory failure gradually. 4. Status post abdominal surgery. The patient with further medical management of the anastomosis dehiscence and reanastomosis with exploratory laparotomy. 5. Peripheral edema. 6. Hypoalbuminemia. PLAN OF MANAGEMENT: Continuation of the bronchodilators, oxygen supplementation. Nutrition support for the TPN. Continue current antibiotics. Usual care, all other supportive plan of management to be continued. Bedside physical therapy. Other supportive plan of treatment and care. Usual medical management and the plan of care. [place], [place] PROGRESS NOTE NAME: JASPER WAGNER UNIT #: [id number] ROOM: [facility] DOCTOR: JESSICA STRANGE MD,MARGOT BIRTHDATE: [birth year] MARGOT LOPEZ MD CM:PNTRANS [id number] MARGOT STRANGE MD 10/21/17 0410 interface
--- NOTE | ~2017-10-07 | PR ---
[place], [place] PROGRESS NOTE NAME: JASPER WAGNER UNIT #: [id number] ROOM: [facility] DOCTOR: JESSICA STRANGE MD,MARGOT BIRTHDATE: [birth year] DOS: 10/17/2017 SUBJECTIVE: The patient remains on mechanical ventilation at this time. He has been planned for wound VAC placement to be done by Dr. Trejo today. He has been continued on mechanical ventilation at this time. The patient has not been reported any symptoms of hemodynamic instability. The abdominal drain for the patient noted drainage of the fluid. He has not been noted any respiratory changes, continue mechanical ventilation, assist control, volume control, sedation was continued for the patient with use of the Diprivan and combination with Versed. The patient sedation has been decreased, the patient has been noted to be awake. The patient nodding his head gently with some questions, but not noted with the fully following vocal commands. He has been started on CPAP of 5, pressure support of 10, on mechanical ventilation, tidal volume for the patient recorded at the bedside about 450-550 mL, rate of about 12-18. The patient was continued with current mechanical ventilator support and sedation was completely discontinued later on as well. OBJECTIVE: VITAL SIGNS: For the patient, which were recorded showed low grade fever of 100.3-99.8 degree Fahrenheit, respiratory 12-17, heart rate 102-93, blood pressure 144/87-123/58. The pulse oxygen saturation of the patient recorded on 30% oxygen, 96% saturation. HEENT: Head was atraumatic. Eyes nonicterus. The patient remained orally intubated, orogastric NG tube in place. NECK: Supple. CARDIOVASCULAR: S1, S2 audible. LUNGS: Noted without any wheezing or crackles at present time. ABDOMEN: Noted soft, status post surgery. EXTREMITIES: The patient noted without any acute edema. MUSCULOSKELETAL: Noted without any acute deformities. CENTRAL NERVOUS SYSTEM: For the patient noted at this time, awake. SKIN: Visible skin: No lesions or rashes. LABORATORY DATA: Culture of the endotracheal aspirate for the patient noted with a growth of Enterobacter cloacae for this patient and Citrobacter species. Both were noted sensitive to the Rocephin. The Gram stain of the bronchial washing yesterday, many white blood cells, many gram-negative bacilli, few gram-positive cocci with heavy gram-negative bacilli growth noted 2 different species, pending identification and sensitivity mostly suspected the same as they were noted in the recent endotracheal aspirate culture from 10/15/2017. The arterial blood gas today, pH of 7.42, pCO2 of 36, pO2 98.7 on 30% oxygen. CMP of this morning for the patient's glucose 116, BUN normal, creatinine normal. Albumin of 1.3. Total protein of 5.4. IMPRESSION: 1. The patient with acute respiratory failure, which has been noted with 2 gram-negative isolation with strong consideration for the acute pneumonia involving the left lower lobe will be considered based on the bronchial washing assessment, purulent secretion noted in the left lower lobe. 2. Status post revision of the previous anastomosis, which has been noted [place], [place] PROGRESS NOTE NAME: JASPER WAGNER UNIT #: [id number] ROOM: [facility] DOCTOR: JESSICA STRANGE MD,MARGOT BIRTHDATE: [birth year] dehiscence. 3. The patient with protein calorie malnutrition as well. 4. Mild tachycardia for the patient as well. 5. Status post blood, past history of Clostridium difficile colitis with subtotal colectomy as well. 4. The patient with history of chronic obstructive pulmonary disease, which does not seem to have an acute exacerbation at the present time. PLAN OF MANAGEMENT: Proceed with the placement of the wound VAC. Continue the patient with CPAP for the patient as tolerated. Once the wound VAC was completed, the patient could be done with sedation switching the patient, assist control mode, he will be started back on CPAP. If the patient tolerated that he will be continued on that mode of mechanical ventilation for 2 hours. Possible consideration of liberation from mechanical ventilation. Antibiotic, the patient has been already started on Rocephin, which should get a coverage for the patient current gram-negative infection. However, the dose for the patient will be changed to 2 gram for patient because treated for infection. Got a good serum level coverage. The bronchodilator for the patient to be continued as well. Usual treatment with supportive plan of therapy, DVT prophylaxis as well. Nutrition support with TPN as well. All other supportive plan of management, surgical followup for the postsurgical care for the patient has already done by Dr. Trejo. Total time in pulmonary critical care evaluation and management was 36 minutes. MARGOT LOPEZ MD CM:PNTRANS [phone] MARGOT STRANGE MD 10/18/17 0152 interface
--- NOTE | ~2017-10-07 | PR ---
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 His vital signs are stable. He has history of hypertension, COPD, emphysema and had cancer and he is improving, but very, very slowly. PRISCILA SALAZAR MD CM:PNTRANS 22 [phone] PRISCILA SALAZAR MD 10/18/172134 interface
--- NOTE | ~2017-10-07 | PR ---
[place], [place] PROGRESS NOTE NAME: JASPER WAGNER UNIT #: [id number] ROOM: [facility] DOCTOR: JESSICA STRANGE MD,MARGOT BIRTHDATE: [birth year] DOS: 10/26/2017 PULMONARY PROGRESS NOTE SUBJECTIVE: The patient has been noted comfortable, complaining of some insomnia at night time would like to have some sleeping pill ordered. Denies symptoms of coughing, sputum expectoration, or chest pain. The wound VAC remains in place. PHYSICAL EXAMINATION: VITAL SIGNS: The temperature of the patient noted normal in the last 24 hours, respiratory rate 14-16, heart rate 87-80, and blood pressure 140/60-132/60. Pulse oxygen saturation noted on 3 liters is 95% saturation. HEENT: On examination, no acute change. NECK: Supple. CARDIOVASCULAR: S1, S2 is audible. LUNGS: Noted without any wheeze or crackles. ABDOMEN: Soft, nontender. EXTREMITIES: No edema. LABORATORY DATA: Culture of the blood noted no bacterial growth. Urine culture, 50,000 colonies forming units were noted with VRE. IMPRESSION AND PLAN: 1. Vancomycin-resistant Enterococcus isolation from the urine, most likely colonization rather to infection. There were signs of acute sepsis at this time. 2. Acute pneumonia, which has been improving. 3. Gram-negative infection, treated with Rocephin with 2 more days of antibiotic will be initiated after today. MARGOT LOPEZ MD CM:PNTRANS [phone] MARGOT STRANGE MD 10/27/17 0133 interface
--- NOTE | ~2017-10-07 | PR ---
[place], [place] PROGRESS NOTE NAME: JASPER WAGNER UNIT #: [id number] ROOM: [facility] DOCTOR: JESSICA STRANGE MD,MARGOT BIRTHDATE: [birth year] DOS: 10/31/2017 SUBJECTIVE: The patient has been noted comfortable at this time, stable without any acute distress. Denies symptoms of chest pain, coughing or any sputum expectoration. He has not reported any symptoms of abdominal pain. His wound VAC has been changed today by Dr. Trejo. He denies symptoms of hemoptysis. Denies any pain of the lower extremities. Denies any symptoms of nausea or vomiting today. The remaining review of systems were reviewed. They were noted all negative. OBJECTIVE: VITAL SIGNS: For the patient, which was recorded shows the temperature noted as normal, respiratory rate 16, heart rate 80, blood pressure 110/60. Pulse oxygen saturation of the patient recorded on 2 liters nasal cannula 97% saturation. HEENT: Examination shows head was atraumatic. Eyes nonicterus. NECK: Supple. CARDIOVASCULAR: S1, S2 is audible. LUNGS: The patient with noted decreased breath sounds in the right lower portion of the lung. ABDOMEN: Soft, status post surgery. Bowel sounds present. EXTREMITIES: The patient noted without any acute edema visible. SKIN: No lesions or rashes. MUSCULOSKELETAL SYMPTOMS: Without any acute deformities. LABORATORY DATA: CBC of the patient this morning, WBC count normal, hemoglobin 8.0, hematocrit 25.6, platelet count 479,000. Urine culture showed moderate growth of yeast. CMP for this patient was noted with BUN 30, creatinine was normal, potassium was normal. The chest x-ray of the patient 1 view, which was done this morning for the patient was reviewed and it shows improving pleural fluid, which was noted smaller. At the left side, there were no pleural fluid noted. The right pleural fluid seemed to be decreased. IMPRESSION: 1. The patient noted with good response with the use of diuretic with stable acute respiratory failure at this time. 2. Status post abdominal surgery for the patient and currently has a wound in the abdomen, which has been managed as well by Dr. Trejo. 3. Improving protein-calorie malnutrition. PLAN OF THERAPY: Continuation of current plan of management. The patient on bronchodilators. The patient has been currently monitored closely for nutrition support by Dr. Trejo and adjustment of the TPN will be done since the patient has been ordered the oral fluid intake. [place], [place] PROGRESS NOTE NAME: JASPER WAGNER UNIT #: [id number] ROOM: [facility] DOCTOR: JESSICA STRANGE MD,MARGOT BIRTHDATE: [birth year] MARGOT LOPEZ MD CM:PNTRANS [phone] MARGOT STRANGE MD 10/31/17 1320 interface
--- NOTE | ~2017-10-07 | PR ---
[place], [place] PROGRESS NOTE NAME: JASPER WAGNER UNIT #: [id number] ROOM: [facility] DOCTOR: MARGOT MCKEON MD BIRTHDATE: [birth year] DOS: 10/27/2017 SUBJECTIVE: He has been noted comfortable at this time without any acute distress. Denies symptoms of coughing, sputum expectoration, and shortness of breath. Denies symptoms of chest pain or any hemoptysis. OBJECTIVE: VITAL SIGNS: For the patient which were recorded, showed the temperature noted as normal. The respiratory recorded as 18, heart rate of 86, blood pressure 123/74. HEENT: Examination shows head was atraumatic. Eyes nonicterus. NECK: Supple. CARDIOVASCULAR: S1, S2 is audible. LUNGS: The patient was noted without any wheezing or crackles at the present time. ABDOMEN: Soft, status post-surgery. EXTREMITIES: The patient without any acute edema. LABORATORY DATA: The patient's CBC today, hemoglobin 8.9, hematocrit 28.8, WBC count normal and platelets of 472,000. CMP this morning, the patient BUN 31, creatinine was normal. Prealbumin of 14. IMPRESSION: 1. The patient with improving protein calorie malnutrition with stable acute respiratory failure with current oxygen supplementation. 2. Status post abdominal surgery for dehiscence of the previous anastomosis repair. PLAN OF MANAGEMENT: No changes from the pulmonary standpoint, the patient has been noted stable. Continue oxygen supplementation with the current level to maintain pulse ox 92% or greater. Other postoperative care for this patient as well. Incentive spirometry as tolerated. Usual care and other medical management. [place], [place] PROGRESS NOTE NAME: JASPER WAGNER UNIT #: [id number] ROOM: [facility] DOCTOR: MARGOT MCKEON MD BIRTHDATE: [birth year] MARGOT LOPEZ MD CM:PNTRANS [phone] MARGOT STRANGE MD 10/27/17 2326 interface
--- NOTE | ~2017-10-07 | PR ---
[place], [place] PROGRESS NOTE NAME: JASPER WAGNER UNIT #: [id number] ROOM: [facility] DOCTOR: JESSICA STRANGE MD,MARGOT BIRTHDATE: [birth year] DOS: 10/22/2017 SUBJECTIVE: The patient has been noted comfortable at this time, has not used the BiPAP. He has been using the oxygen supplementation this morning nasal cannula, couple of liters, noted fully awake and alert. Denies symptoms of coughing, sputum expectoration. Edema of the extremities has been improving. OBJECTIVE: VITAL SIGNS: Temperature low grade 100.6-99.2 degrees Fahrenheit, respirations 17-18, heart rate 98, blood pressure 142/68. The pulse oxygen saturation with the patient on 2 L is 95% saturation. HEENT: Head was atraumatic. Eyes nonicterus. NECK: Supple. CARDIOVASCULAR: S1, S2 is audible. LUNGS: The patient was noted without any wheezing or crackles. ABDOMEN: Soft, nontender. Bowel sounds present. EXTREMITIES: Noted without any acute edema, clubbing, or cyanosis. LABORATORY DATA: Prealbumin level of the patient noted as 10 today. IMPRESSION: The patient is improving, protein calorie malnutrition improving, edema is improving progressively. PLAN OF MANAGEMENT: Discontinue the BiPAP since the patient is not using it. His respiratory status is improving. Continue management of the acute pneumonia for the patient with antibiotics for gram-negative infection. MARGOT LOPEZ MD CM:PNTRANS [phone] MARGOT STRANGE MD 10/23/17 0219 interface
--- NOTE | ~2017-10-07 | PR ---
[place], [place] PROGRESS NOTE NAME: JASPER WAGNER UNIT #: [id number] ROOM: [facility]- DOCTOR: PRISCILA SALAZAR MD BIRTHDATE: [birth year] DOS: 10/11/2017 SUBJECTIVE: The patient has been admitted to hospital for closure of his colostomy and this is his 5th day. He has not passed his bowel movement. He denies having any flatus, but on examination, his abdomen seems to be soft and he is having very good bowel sounds. OBJECTIVE: CHEST: Clear. HEART: Regular. ABDOMEN: Soft. VITAL SIGNS: Stable. Otherwise, he is feeling fairly good. PLAN: I am going to give him some Fleet anemia, may be that will have to move his bowels since he has not had any bowel movement for the last 5 days. PRISCILA SALAZAR MD CM:PNTRANS [id number] PRISCILA SALAZAR MD 11/20/17 0739 interface
--- NOTE | ~2017-10-07 | PR ---
[place], [place] PROGRESS NOTE NAME: JASPER WAGNER UNIT #: [id number] ROOM: [facility] DOCTOR: JESSICA STRANGE MD,MARGOT BIRTHDATE: [birth year] DOS: 10/19/2017 PULMONARY FOLLOWUP SUBJECTIVE: He has been noted comfortable at this time, successfully liberated from mechanical ventilator, starting the BiPAP that has been used by the patient most of the time. TPN was continued for the patient as well for the main nutritional support. He is n.p.o. after the current surgery in the abdomen. The patient has been monitored closely by Dr. Trejo for that. He was noted with persistent peripheral edema. OBJECTIVE: VITAL SIGNS: Normal temperature, respiratory rate 18, heart rate 97, blood pressure 153/80. Pulse oxygen saturation on 30% oxygen 98% saturation. HEENT: Head was atraumatic. Eyes nonicterus. NECK: Supple. CARDIOVASCULAR: S1, S2 is audible. LUNGS: The patient was noted without any wheezing or crackles at the present time. ABDOMEN: Soft, status post surgery. EXTREMITIES: Shows edema. LABORATORY DATA: BMP today: BUN 23, creatinine was normal. Albumin of 1.1. The arterial blood gas on CPAP; pH of 7.41, pCO2 37, pO2 145, 40% oxygen prior to liberation from mechanical ventilation. IMPRESSION: 1. The patient with acute pneumonia with 2 gram-negative infections, which is responding to treatment with use of intravenous Rocephin. 2. Acute postoperative respiratory failure, status post successful liberation from mechanical ventilator. 3. Acute pneumonia as well. 4. Status post abdominal surgery. 5. Peripheral edema. PLAN OF MANAGEMENT: The patient will be started on Lasix 40 mg daily for the next 3 days. Monitoring the electrolytes closely. Continue other supportive therapy, plan of management and care. Additional treatment changes will be made based on progression of illness. The BiPAP could be used intermittently during the day, couple hours on and couple hours off for this patient and continue at nighttime. Continue abdominal wound management for this patient and postsurgical care by Dr. Trejo. Continue TPN. [place], [place] PROGRESS NOTE NAME: JASPER WGANER UNIT #: [id number] ROOM: [facility] DOCTOR: MARGOT MCKEON MD BIRTHDATE: [birth year] MARGOT LOPEZ MD CM:ALEXANDRU [id number] MARGOT STRANGE MD 10/19/17 2239 interface
--- NOTE | ~2017-10-07 | PR ---
[place], [place] PROGRESS NOTE NAME: JASPER WAGNER UNIT #: [id number] ROOM: [facility] DOCTOR: JESSICA STRANGE MD,MARGOT BIRTHDATE: [birth year] DOS: 10/23/2017 SUBJECTIVE: He has been noted comfortable at this time, but noted with acute distress. The patient this morning with an anxiety attack and panic attacks resulting in tachycardia and uncontrolled hypertension. The patient was given some pain medication and other resulting in resolution of the current acute symptoms evaluation, palpation and tachycardia. His oxygen supplementation noted from 2-4 L nasal cannula this morning. Low grade fever was noted. He has not noted any symptoms of chest pain, coughing or sputum expectoration. The patient has not noted symptoms of abdominal pain. There are symptoms of nausea or vomiting. The patient has been noted with current wound VAC on the abdomen. The patient with recent surgery as well. He has not reported any symptoms of hemoptysis. There were no symptoms of pain or edema of the lower extremities. The remaining systems were reviewed, they were noted all negative. OBJECTIVE: VITAL SIGNS: For the patient was noted at temperature as normal. The respiratory rate of 21 noted 37 previously, high of 46. Blood pressure 189/110, 8 a.m. and then later on noted blood pressure of 107/56. Heart rate went down to 83 and respiratory rate was recorded as 18. The pulse oxygen saturation of the patient was noted on 4 L nasal cannula 96%, saturation on 3 L was noted as 86% earlier. HEENT: Examination shows head was atraumatic. Eyes nonicterus. NECK: Supple. CARDIOVASCULAR: S1, S2 is audible. LUNGS: The patient was noted without any wheeze or crackles at the present time. ABDOMEN: Soft, nontender. Status post surgery. EXTREMITIES: Without any acute edema. MUSCULOSKELETAL: No acute deformities. CENTRAL NERVOUS SYSTEM: Nonfocal. LABORATORY DATA: Arterial blood gas this morning 4 L, pH of 7.38, pCO2 of 46, pO2 of 119 was noted this morning. Chest x-ray was also done for this patient, left lung appeared to be clear. Area of some atelectasis interval development in the right lower lobe as a new finding. IMPRESSION: 1. The patient was noted with current acute worsening of the respiratory status with acute respiratory failure with area of atelectasis noted at the right lower lobe, with possibility of mucus impaction would be considered likely. 2. Current panic attack resultant tachycardia seemed to be better as well. 3. Status post abdominal surgery for the medical management dehiscence of the previous anastomosis after reversal of ileostomy was noted stable. 4. Acute pneumonia, which has been treated, in the lungs with gram-negative infection, with the use of the Rocephin. PLAN OF TREATMENT: Continue TPN for the patient, bronchodilators, oxygen supplementation and the intravenous antibiotic. The patient had Rocephin, close monitor for interval development of any new infection including pneumonia if it [place], [place] PROGRESS NOTE NAME: JASPER WAGNER UNIT #: [id number] ROOM: [facility] DOCTOR: JESSICA STRANGE MD,MARGOT BIRTHDATE: [birth year] developed would be monitored. Continue conservative treatment with incentive spirometer for medical management of current atelectasis. If the symptoms are noted progressive or worsening of the respiratory status, certainly consider fiberoptic bronchoscopy as well. MARGOT LOPEZ MD CM:PNTRANS [id number] MARGOT STRANGE MD 10/23/17 1406 interface
--- NOTE | ~2017-10-07 | PR ---
[place], [place] PROGRESS NOTE NAME: JASPER WAGNER UNIT #: [id number] ROOM: [facility] DOCTOR: JESSICA STRANGE MD,MARGOT BIRTHDATE: [birth year] DOS: 10/21/2017 SUBJECTIVE: The patient was noted comfortable at this time using the oxygen supplementation this morning, using the BiPAP as ordered for the patient at nighttime. The patient has not been reported any symptoms of chest pain. Cough has been noted at that time for the patient, which is minimal. He does not have any major episodes of coughing post-liberation from mechanical ventilator. He has not been noted any edema or pain of the lower extremity. Edema of the lower extremity and the upper extremities are noted decreased for this patient with diuretics. The patient denies symptoms of headache. He was noted bed bound. Remaining systems were reviewed, they were noted all negative. PHYSICAL EXAMINATION: VITAL SIGNS: For the patient temperature noted to gradual afebrile status. The patient with a high temperature 99 degree Fahrenheit, respiration 18-20, heart rate 94-89, blood pressure is 147/68-133/64. The pulse oxygen saturation 3 liters nasal cannula 97% saturation with the BiPAP with the same saturation of oxygen. HEENT: Examination shows head was atraumatic. Eyes nonicterus. NECK: Supple. CARDIOVASCULAR: S1, S2 is audible. LUNGS: Noted [id number] decreased breath sounds bilaterally. ABDOMEN: Status post surgery. MUSCULOSKELETAL: Without any deformities. EXTREMITIES: Noted resolving edema of the lower extremities. VISIBLE SKIN: No abnormal lesions or rashes. LABORATORY DATA: CBC today: WBC count 10.9, hemoglobin 8.7 and hematocrit 28.2, platelet count 285,000. The CMP of the patient this morning, BUN 23, creatinine was normal, glucose 111. Total protein of 3.3. IMPRESSION: Status post abdominal surgery with wound dehiscence, currently getting TPN for nutritional support resolving acute respiratory failure, status post liberation from mechanical ventilator, acute pneumonia. The patient with gram-negative infection as well. Protein-calorie malnutrition as well. PLAN OF MANAGEMENT:. Continue TPN and diuretic as needed. Monitoring any peripheral edema. Repeat prealbumin level tomorrow for the patient to assess the improvement in nutritional status. Continue oxygen supplementation, bronchodilators and others plan of management as well. Continue postoperative surgical management with Dr. Trejo. In general, the patient has been noted stable at the present time. [place], [place] PROGRESS NOTE NAME: JASPER WAGNER UNIT #: [id number] ROOM: [facility] DOCTOR: JESSICA STRANGE MD,MARGOT BIRTHDATE: [birth year] MARGOT LOPEZ MD CM:ALEXANDRU [id number] MARGOT STRANGE MD 10/22/17 1032 interface
--- NOTE | ~2017-10-07 | PR ---
[place], [place] PROGRESS NOTE NAME: JASPER WAGNER UNIT #: [id number] ROOM: [facility] DOCTOR: JESSICA STRANGE MD,MARGOT BIRTHDATE: [birth year] DOS: 10/16/2017 SUBJECTIVE: The patient is seen and examined on 10/16/2009. Remains on mechanical ventilator, sedated with the use of intravenous Diprivan and p.r.n. use of Versed, which was also given intravenous push for this patient x 5 mg q.1h. He has not been noted any acute hemodynamic instability. The endotracheal secretions noted small amount for this patient, which has been suctioned out by the respiratory and the nursing staff. The patient was planned for bronchoscopy done today as well. He had not been noted any coughing after the current intubation and mechanical ventilation. The fever was noted low grade in the last 24 hours. He has been getting TPN administration for surgery as well. OBJECTIVE: VITAL SIGNS: Which has been recorded patient last 12 hours shows the high temperature noted as 100.5 degree Fahrenheit, respiratory rate of 12-16, heart rate of 92-101. The blood pressure of 94/42-115/49. HEENT: The patient remains orally intubated. The NG tube was noted in place. NECK: Supple. CARDIOVASCULAR: S1, S2 is audible. LUNGS: The patient was noted without any wheezing or crackle. Breaths are noted [id number] decreased bilaterally. ABDOMEN: Soft, status post surgery. Bowel sounds absent. CENTRAL NERVOUS SYSTEM: Currently, the patient sedated. SKIN: No lesions or rashes. MUSCULOSKELETAL: Not noted any acute deformities. LABORATORY DATA: CMP of the patient that was done for the patient on 10/16/2017, glucose 114, BUN normal, creatinine was normal. Prealbumin noted as 7. Albumin 1.3, total protein of 5.8. The culture of the endotracheal aspirate of the patient from yesterday noted heavy growth of gram-negative bacilli. Gram stain showed many white blood cells, moderate epithelial cells, many gram-negative bacilli and gram-positive cocci in clusters. CBC, WBC count was 12.7. Hemoglobin 8, hematocrit of 25.8 with normal platelets. Chest x-ray of the patient that was done this morning was reviewed. Endotracheal tube was noted appropriately positioned. No acute pulmonary infiltration was noted at the present time. The arterial blood gas that was done this morning of the patient assist control, volume control mechanical ventilation 35% oxygen, pH of 7.38, BUN 37, creatinine of 115. IMPRESSION: 1. The patient ____ status post exploratory laparotomy for the management decision of his previous anastomosis. The patient has been noted worsening of the ileostomy. 2. Gram-negative bacilli isolation with acute tracheobronchitis noted. There was no gross evidence of pneumonia noted in the chest x-ray. Low grade fever noted for the patient secondary to current acute infection. 3. The patient with history of chronic obstructive pulmonary disease without any acute exacerbation. 4. Severe protein-calorie malnutrition. [place], [place] PROGRESS NOTE NAME: JASPER WAGNER UNIT #: [id number] ROOM: [facility] DOCTOR: MARGOT MCKEON MD BIRTHDATE: [birth year] PLAN OF TREATMENT: Continue TPN administration with the nutrition support for close monitoring of the patient. Fluid overload for the patient will be given because of the TPN administration and other fluids administration. Continuation of the bronchodilator. Proceed with fibrobronchoscopy. Continue sedation and pain management. Usual care. Surgical followup of the patient to be continued as well per Dr. Trejo. Other supportive therapy, plan of management ____ patient to be made based on the progression of the illness and after bronchoscopy. Total time for pulmonary critical evaluation and management excluding any billable procedure was 33 minutes. MARGOT LOPEZ MD CM:PNTRANS [id number] MARGOT STRANGE MD 10/16/17 1723 interface
--- NOTE | ~2017-10-07 | PR ---
[place], [place] PROGRESS NOTE NAME: JASPER WAGNER UNIT #: [id number] ROOM: [facility] DOCTOR: PRISCILA SALAZAR MD BIRTHDATE: [birth year] DOS: 10/19/2017 SUBJECTIVE: The patient has been admitted to the ICU for complication of his surgery. He is progressively getting better and he is on BiPAP now. He is alert today and he is talking to me and expressing desire home, but I explained it will take time before he will be able to go home because he is very weak and he is on wound VAC and also on respirator but he is stable and improving. OBJECTIVE: HEART: Sounds are normal. LUNGS: Showing occasional wheeze. No crepitation. ABDOMEN: With wound VAC and he is having small amount of discharge coming out of it and he is having NG tube suction, which shows 50 mL drainage not too much and his bowel sounds are absent and he has not passed any bowel movement. VITAL SIGNS: His blood pressure 100/50, oxygen on BiPAP is 99, respiration is 18 and his heart rate is 95. The patient is showing slow progress. LABORATORY DATA: His comprehensive metabolic profile today shows glucose 110, calcium 7.8, magnesium 2.3, total protein 4.8, albumin 1.1 and alkaline phosphatase 130. It is quite satisfactory. His arterial blood gases show pH of 7.4, pCO2 of 37.6, pO2 is 145, O2 saturation 98.8. Blood culture did not grow any bacteria. PRISCILA SALAZAR MD CM:PNTRANS [phone] [id number] PRISCILA SALAZAR MD 11/20/17 0737 interface
--- NOTE | ~2017-10-07 | PR ---
[place], [place] PROGRESS NOTE NAME: JASPER WAGNER UNIT #: [id number] ROOM: [facility] DOCTOR: MARIE BURK,PRISCILA Patterson BIRTHDATE: [birth year] DOS: 10/26/2017 SUBJECTIVE: The patient is admitted to ICU and has been there for many days due to dehiscence of the abdominal wound. His wound dressing was changed yesterday under analgesia and the wound is closing slowly, but it is much improved as compared to before. The patient is very active and alert today. He is talking to me very nicely. His diet has been increased to clear liquid diet and he is needing breathing treatment regularly. Urine culture and sensitivity did grow moderate gram-positive cocci and comprehensive metabolic profile shows BUN 30, calcium 7.9, total protein 5.8, albumin 1.3, alkaline phosphatase is 261. The patient is on hyperalimentation and he is showing some progress for improvement. OBJECTIVE: VITAL SIGNS: Blood pressure 128/58, pulse 60, respirations 14, temperature 99. PRISCILA SALAZAR MD CM:PNTRANS [id number] PRISCILA SALAZAR MD 11/20/17 0740 interface
--- NOTE | ~2017-10-07 | PR ---
[place], [place] PROGRESS NOTE NAME: JASPER WAGNER UNIT #: [id number] ROOM: [facility] DOCTOR: MARGOT MCKEON MD BIRTHDATE: [birth year] DOS: 10/24/2017 SUBJECTIVE: He has been noted comfortable at this time, resting in the bed, using oxygen supplementation with 4 liters nasal cannula. The patient was noted with low-grade fever. He has not been noted with any symptoms of chest pain, coughing or any sputum expectoration. He was still getting the intravenous Rocephin with previously diagnosed acute pneumonia with a gram-negative infection. OBJECTIVE: VITAL SIGNS: Temperature 100.7 degrees fahrenheit, T-max noted, respiratory 19-28, heart rate 87-75, blood pressure 130/64-134/66. The pulse oxygen saturation on 3 liters nasal cannula was recorded 97% saturation. HEENT: Head was atraumatic. Eyes nonicterus. NECK: Supple. CARDIOVASCULAR: S1, S2 is audible. LUNGS: The patient was noted without any wheezing. Crackles best noted mildly diminished bilaterally. ABDOMEN: Soft, nontender. LABORATORY DATA: Catheter tip, which was removed yesterday was noted no bacterial growth at this time. CMP: BUN 30, creatinine was normal. CBC; normal WBC count, hemoglobin 8.1, platelet count was normal. Chest x-ray that was done yesterday was noted with right internal jugular vein in place. The patient noted with [id number] right pleural fluid. IMPRESSION: 1. Right pleural fluid with area of atelectasis with a stable acute respiratory failure with hypoxia. 2. Abdominal wound with recent surgery of the wound, dehiscence of the anastomosis of the colon. PLAN OF MANAGEMENT: No changes in the plan of management. Continue to monitor the respiratory status closely with all other supportive plan of therapy to be continued as in progress. Usual care, other supportive plan of treatment and care. [place], [place] PROGRESS NOTE NAME: JASPER WAGNER UNIT #: [id number] ROOM: [facility] DOCTOR: MARGOT MCKEON MD BIRTHDATE: [birth year] MARGOT LOPEZ MD CM:PNTRANS 1626 MARGOT STRANGE MD 10/25/17 0016 interface
--- NOTE | ~2017-10-07 | PR ---
[place], [place] PROGRESS NOTE NAME: JASPER WAGNER UNIT #: [id number] ROOM: [facility] DOCTOR: JESSICA STRANGE MD,MARGOT BIRTHDATE: [birth year] DOS: 10/28/2017 SUBJECTIVE: The patient noted comfortable at this time without any acute distress. He has been comfortably resting on the bed. Using oxygen supplementation nasal cannula. Denies symptoms of coughing or sputum expectoration. OBJECTIVE: VITAL SIGNS: For the patient, which have been recorded shows normal temperature, respiratory rate of 24, heart rate 91, blood pressure 163/87, pulse oxygen saturation on 2 liters nasal cannula 97% saturation. HEENT: No acute change. CARDIOVASCULAR: S1, S2 audible. LUNGS: Without any wheeze or crackles. ABDOMEN: Status post surgery, wound VAC in place. EXTREMITIES: Without any acute edema. IMPRESSION: The patient was stable with the respiratory status at this time with oxygen supplementation, requiring 2 liters, status post surgery, is doing well at the present time. PLAN OF MANAGEMENT: No changes from the pulmonary standpoint. Titrate oxygen supplementation to maintain pulse oxygen saturation 90% or greater. Continue nutrition support for the patient, status post postsurgical care. The patient does not require any use of the BiPAP at the present time or other intervention. MARGOT LOPEZ MD CM:PNTRANS [id number] MARGOT STRANGE MD 10/28/17 1431 interface
--- NOTE | ~2017-10-07 | PR ---
[place], [place] PROGRESS NOTE NAME: JASPER WAGNER UNIT #: [id number] ROOM: [facility] DOCTOR: JESSICA STRANGE MD,MARGOT BIRTHDATE: [birth year] DOS: 10/18/2017 PULMONARY CRITICAL CARE, EVALUATION, AND MANAGEMENT SUBJECTIVE: The patient did not tolerate the CPAP motor mechanical ventilation after the patient was started sedation for the insertion of the wound VAC. The patient was switched back to assist control, volume control, and mechanical ventilation that was continued for the next 24 hours. The TPN was continued intravenously for the nutritional support. Sedation has been discontinued. Again this morning, patient noted to be awake, opening his eyes, and only nodding his head with the vocal commands. He has been not noted with any excessive secretion production from endotracheal tube. Hemodynamically, the patient remains stable as well. The mechanical ventilation was continued with the same amount of oxygen supplementation as previously as 30% of oxygen. No changes in the oxygen was noted as well. The patient was kept n.p.o. after current surgery of the dehiscence of the anastomosis and reexploration of exploratory laparotomy. PHYSICAL EXAMINATION: VITAL SIGNS: Vital signs of the patient was noted with a temperature of 99.5 degree Fahrenheit, normal temperature, respiratory rate 20, heart rate 106-87, and blood pressure 141/87-140/69. Intake for the patient was recorded as intake of 5,220 mL and output was 4,250 mL. The first drain output was noted as 1,250 mL and the drain output was 200 mL. ____ 975 mL recorded. The pulse ox saturation on 30% oxygen is 98% saturation noted initially on the CPAP motor mechanical ventilation, currently later on the T-Bar. HEENT: On examination, the patient remained orally intubated. Head was atraumatic. Eyes nonicterus. NECK: Supple. NG tube in place. CARDIOVASCULAR SYSTEM: S1, S2 is audible. LUNGS: The patient was noted without any wheezing or crackles at present time. Breaths are noted mildly diminished bilaterally. ABDOMEN: Noted soft and nontender. EXTREMITIES: The patient was noted with mild edema. CENTRAL NERVOUS SYSTEM: The patient was noted awake. MUSCULOSKELETAL: Without acute deformities. SKIN: No lesions or rashes. LABORATORY DATA: The culture of the bronchial washing of the patient of 10/16/2017 was noted with Citrobacter freundii as well as Citrobacter and other species Amalonaticus, both were noted sensitive to the Rocephin, which is already being administered. The CMP for the patient that was done this morning, BUN 20 and creatinine was normal. Sodium 135. Alkaline phosphatase 131. CBC of the patient this morning, hemoglobin 8.5 and hematocrit 26.0, WBC count normal. Platelet count was normal. Blood culture, no bacterial growth. The arterial blood gas for this morning, pH of 7.51, pCO2 of 27, pO2 of 95 on pressure control mechanical ventilation with 30% oxygen. IMPRESSION: 1. The patient who has been noted with acute pneumonia, gram-negative infection [place], [place] PROGRESS NOTE NAME: JASPER WAGNER UNIT #: [id number] ROOM: [facility] DOCTOR: JESSICA STRANGE MD,MARGOT BIRTHDATE: [birth year] at this time. 2. Status post ____ of the abdomen. Further medical management of the current dehiscence of the previous anastomosis after the previous ileostomy. 3. Acute pneumonia as well. 4. Severe protein-calorie malnutrition status as well. 5. History of chronic obstructive pulmonary disease without evidence of acute exacerbation. 6. Finding of some fluid overload as well. PLAN OF MANAGEMENT: The patient was started on T-Bar try for 30 minutes. At this time, the patient was noted currently stable without any distress or tachypnea currently; but, try will be continued for additional 30 minutes with arterial blood gas repeated. If they noted adequate, the patient will be considered liberation of mechanical ventilation and use his BiPAP after that. Continuation of the bronchodilators and oxygen supplementation. Consider limiting the fluid use at this time as well. Diuretic will be added for fluid accumulation of edema. Continue postoperative surgical care. Continue current antibiotics Rocephin 2 gram IV daily for medical and gram-negative infection and pneumonia. Usual care, other supportive therapy, plan of management, and other treatments. Additional treatment changes will be made based on progression of the illness. Total time in pulmonary critical evaluation and management today was noted as 40 minutes. MARGOT LOPEZ MD CM:PNTRANS 1520 [id number] MARGOT STRANGE MD 10/19/17 0025 interface
--- NOTE | ~2017-10-07 | PR ---
[place], [place] PROGRESS NOTE NAME: JASPER WAGNER UNIT #: [id number] ROOM: [facility] DOCTOR: MARIE BURK,PRISCILA Patterson BIRTHDATE: [birth year] DOS: SUBJECTIVE: The patient has been admitted to the hospital and is having complication of destruction due to the leak in the anastomoses and he is having very protracted and slow healing of his abdominal wall disruption and he is having wound VAC in place. 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 He having some right pleural effusion, abdominal wound with recent surgery and wound dehiscence of the anastomosis of the colon. His CBC today showed white count 9400, hemoglobin 8.5, hematocrit 2.86. His routine culture from the catheter tip did not grow any bacteria. Comprehensive metabolic profile shows BUN 30, calcium 7.9, total protein 5.8, albumin 1.3, alkaline phosphatase 61. He is on hyperalimentation and is showing good progress with nutrition. OBJECTIVE: VITAL SIGNS: Blood pressure 155/87, pulse 95, respirations 28, temperature 98.8. ASSESSMENT: The patient is showing slow recovery. PRISCILA SALAZAR MD CM:PNTRANS [id number] PRISCILA SALAZAR MD 10/25/17 2009 interface
--- NOTE | ~2017-10-07 | PR ---
[place], [place] PROGRESS NOTE NAME: JASPER WAGNER UNIT #: [id number] ROOM: [facility] DOCTOR: MARGOT MCKEON MD BIRTHDATE: [birth year] DOS: 10/25/2017 SUBJECTIVE: He has been noted comfortable, resting on the bed with conscious sedation. The patient's wound VAC was changed today by Dr. Trejo. The patient has not been noted any symptoms of acute chest pain or distress. The oxygen supplementation continued with nasal cannula. OBJECTIVE: VITAL SIGNS: For the patient this morning, normal temperature, respiratory rate 24, heart rate 83, blood pressure 156/79. Pulse ox saturation on 3 liters nasal cannula 99% saturation recorded. HEENT: No new change. NECK: Supple. CARDIOVASCULAR: S1, S2 audible. LUNGS: Noted without any wheeze or crackles. ABDOMEN: Soft, status post surgery, wound VAC in place. EXTREMITIES: Without any acute edema. LABORATORY DATA: BMP: BUN 30, creatinine was normal. The cultures of the tip of the catheter were noted negative for any bacterial growth. CBC: Normal WBC count and platelet count mildly elevated 408 and hemoglobin 8.5. IMPRESSION: 1. Acute pneumonia, which has been improving clinically and progressively, received 7 days of IV Rocephin. 2. Question of urinary tract infection was colonization of gram-positive organisms. 3. Status post abdominal surgery. 4. Acute respiratory failure, which has been improving. PLAN AND MANAGEMENT: Additional 3 days of antibiotic will be used for the patient for the current acute pneumonia with gram-negative organism. Continue with the therapy, plan of management and care. Additional treatment changes to be made based on progression of the illness. [place], [place] PROGRESS NOTE NAME: JASPER WAGNER UNIT #: [id number] ROOM: [facility] DOCTOR: MARGOT MCKEON MD BIRTHDATE: [birth year] MARGOT LOPEZ MD CM:PNTRANS [id number] 36 MARGOT STRANGE MD 10/25/172235 interface
--- NOTE | ~2017-10-07 | CON ---
[place], [place] REPORT OF CONSULTATION NAME: JASPER WAGNER UNIT #: [id number] ROOM: [facility] DOCTOR: JESSICA STRANGE MD,MARGOT BIRTHDATE: [birth year] DOS: 10/15/2017 PULMONARY CRITICAL CARE EVALUATION AND MANAGEMENT REASON FOR CONSULTATION: To assess the patient for current acute postoperative respiratory failure and coughing. 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 The patient has been admitted to the hospital. The patient was treated for COPD and other problems previously as well. He has been noted reversal of the colostomy that was done by Dr. Trejo previously. The patient's surgery was completed. He has been noted with dehiscence of the wound with feculent drainage from the previous incisions. The patient has been taken back to the surgery again yesterday. The patient has been noted with excessive coughing, which resulted in the wound dehiscence and the disruption of the anastomosis. Surgery was completed, exploratory laparotomy. The patient has peritoneal lavage done, repair of the small bowel, transection in the distal ileum as well as bilateral rectus release, component separation for abdominal wall, repair of the incision for dehiscence, and sigmoidoscopy was completed. The patient has been kept on mechanical ventilator because of severe coughing noted previously to prevent recurrence of the dehiscence of the wound with current surgery. The patient has been currently noted on mechanical ventilation and was hospitalized since 10/07/2017. The patient has been noted some secretion production, which was taken to the endotracheal tube. He was continued on assist control, volume control mechanical ventilation post-surgery. He had not been able to give me history. All the history record is actually review of the medical record of the current hospitalization as well as my past review of the medical record, which was noted from previous admission and hospitalization. The patient was last time assessed during admission in 05/2017. PAST MEDICAL HISTORY: Noted for: 1. History of chronic kidney disease stage 3. 2. 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 3. History of acute kidney injury, resolved previously. 4. Chronic obstructive pulmonary disease. 5. Congestive heart failure with diastolic dysfunction. 6. Essential hypertension. 7. Past tobacco use. PAST SURGICAL HISTORY: 1. Total abdominal colectomy with ileostomy in 05/2017. 2. Reversal of the ileostomy, which was done during this admission in 09/2017. 3. Wound dehiscence requiring reexploration of the abdomen and repair of the anastomosis and multiple other interventions done on 10/14/2017. SOCIAL HISTORY: The patient lived at home previously. He has never been noted [place], [place] REPORT OF CONSULTATION NAME: JASPER WAGNER UNIT #: [id number] ROOM: [facility] DOCTOR: MARGOT MCKEON MD BIRTHDATE: [birth year] history of alcohol use or illicit drug use. He has noted past tobacco use for 60 years. He is and has 2 children. FAMILY HISTORY: Both parents have been . The details were unknown. CURRENT MEDICATIONS: Administered noted use of TPN, DuoNeb q. 4 hours, Reglan, lactated Ringer's solution, midazolam 5 mg q. 1 hour p.r.n. for sedation, and Diprivan infusion. DRUG ALLERGIES: The patient noted no known drug allergies. PHYSICAL EXAMINATION: GENERAL: A 76-year-old male who has been currently intubated on mechanical ventilator. Height is 6 feet 2 inches, weight of 165 pounds, BMI 21. VITAL SIGNS: Normal temperature, respiratory rate recorded as 12-14 at this time, heart rate 90-85, blood pressure 100/51-90/45. The intake for the patient was recorded as 3900 mL, output of 1675 mL. Total urine output 975 mL. The drain #1 with 500 mL output and NG tube 160 mL. Pulse oxygen saturation noted on 30% oxygen at 98% saturation. HEENT: The patient orally intubated. NG tube in place. Head was atraumatic. NECK: Supple. CARDIOVASCULAR: S1 and S2 were audible. LUNGS: Noted with [id number] decreased breath sounds bilaterally. There were no wheezing or crackles. Breaths are noted generally diminished bilaterally. ABDOMEN: Status post surgery. Bowel sounds are absent. CENTRAL NERVOUS SYSTEM: The patient is currently sedated. MUSCULOSKELETAL: No current deformities. LABORATORY DATA: Chest x-ray done yesterday shows endotracheal tube noted about 6 cm above the everett level. NG tube were noted in the stomach. The multilumen catheter was noted in place with the right internal jugular venous approach with the tip in the superior vena cava. There was no acute pulmonary infiltration or pleural fluid that was seen. IMPRESSION: 1. The patient has been noted with excessive coughing, most likely related to underlying chronic obstructive pulmonary disease with bronchitis and mucous impaction very likely. 2. Wound dehiscence was also noted, which has been currently treated. 3. History of ____ protein-calorie malnutrition. 4. Status post reversal of the ileostomy as well. 5. Relatively high riding endotracheal tube. 6. Mild respiratory acidosis secondary to chronic obstructive pulmonary disease. PLAN OF TREATMENT: Continue bronchodilators at this time. Steroids not be needed. Continue TPN administration. Other surgical intervention. Ventilator bundle management. Start Peridex rinse for the ventilator bundle management. Other supportive therapy, plan of management and care as in progress would be [place], [place] REPORT OF CONSULTATION NAME: JASPER WAGNER UNIT #: [id number] ROOM: [facility] DOCTOR: MARGOT MCKEON MD BIRTHDATE: [birth year] continued. Usual treatment, all other supportive plan of therapy and care as well. Additional treatment changes to be made for this patient based on the progression of the illness. Usual care, other therapy, plan of management. Optimize the nutrition status. Obtain the prealbumin level in the morning. Endotracheal tube will be ____ 2.5 cm to keep it at the appropriate level of positioning. Keep the patient n.p.o. Other supportive therapy, plan of management at this time as well as in progress. Usual care. Additional treatment changes will be made based on progression of the illness. Assessment and management was discussed with Dr. Trejo. Total time pulmonary critical care evaluation and management was 32 minutes. MARGOT LOPEZ MD CM:CONSTR:REPORT OF CONSULTATION 1572 10/15/17 529 interface
--- NOTE | ~2017-10-07 | PR ---
[place], [place] PROGRESS NOTE NAME: JASPER WAGNER UNIT #: [id number] ROOM: [facility] DOCTOR: JESSICA STRANGE MD,MARGOT BIRTHDATE: [birth year] DOS: 10/29/2017 PULMONARY PROGRESS NOTE SUBJECTIVE: The patient was noted at this time lying in the bed, using oxygen supplementation with nasal cannula. Denies symptoms of chest pain. Denies any symptoms of cough. The patient does not report any symptoms of shortness of breath at rest. Denies symptoms of hemoptysis. He has been noted with intermittent vomiting, which has been reported since last night. He has not been able to eat any food. The patient denies symptoms of abdominal pain. Denies any pain of the lower extremities. The remaining systems were reviewed, they were noted all negative. OBJECTIVE: VITAL SIGNS: For the patient which have been recorded showed the temperature noted as normal at 99.6 degrees Fahrenheit, respiratory rate 20-24, heart rate 89-100, blood pressure 157/78-169/82. Pulse oxygen saturation of the patient on 4-liter nasal cannula is 95% saturation. HEENT: Head was atraumatic. Eyes nonicterus. NECK: Supple. CARDIOVASCULAR: S1, S2 is audible. LUNGS: Decreased breaths are noted in the lower portion of the lungs. There were no wheezes or crackles heard. ABDOMEN: Status post surgery. EXTREMITIES: Without acute edema. MUSCULOSKELETAL: Without any acute deformities. CENTRAL NERVOUS SYSTEM: No focal deficit. LABORATORY DATA: CBC this morning: WBC count 12.2, hemoglobin 9.2, hematocrit 29.7, platelet count was 585,000. CMP this morning: BUN 32, creatinine was normal. AST was 36, alkaline phosphatase of 316. IMAGING DATA: Chest x-ray that I ordered for the patient this morning, personally reviewed, shows evidence of bilateral pleural fluid with a large pleural fluid in the right and smaller on the left side. Multi-lumen catheter tip was noted in the superior vena cava. There was no evidence of gross consolidation or infiltration. An infiltration if present with the current pleural fluid right side cannot be completely excluded. IMPRESSION: 1. The patient with acute hypoxic respiratory failure, interval development of bilateral pleural fluid, multifactorial secondary to hypoalbuminemia with protein-calorie malnutrition, use of TPN with fluid overload. 2. Low-grade fever. 3. 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 Possibility of colonization has been considered. PLAN OF THERAPY: No changes in the plan of care from pulmonary standpoint, except starting the patient on Lasix 40 mg daily for the next 3 days to help improve the current fluid retention. Continue oxygen supplementation to [place], [place] PROGRESS NOTE NAME: JASPER WAGNER UNIT #: [id number] ROOM: [facility] DOCTOR: JESSICA STRANGE MD,MARGOT BIRTHDATE: [birth year] maintain pulse ox at 92% or greater. Continue post-surgical care. Other supportive plan of therapy and care management. Usual treatment, other supportive plan of care. MARGOT LOPEZ MD CM:PNTRANS [id number] MARGOT STRANGE MD 10/29/17 1443 interface
--- NOTE | ~2017-10-07 | PR ---
[place], [place] PROGRESS NOTE NAME: JASPER WAGNER UNIT #: [id number] ROOM: [facility]- DOCTOR: JESSICA STRANGE MD,MARGOT BIRTHDATE: [birth year] DOS: 10/30/2017 SUBJECTIVE: The patient was noted comfortable at this time without acute distress, resting on the bed. He was ordered Lasix yesterday. The patient was noted with adequate diuresis. He had not been noted any symptoms of chest pain, cough or wheezing. OBJECTIVE: VITAL SIGNS: Normal temperature, respiratory rate 18, heart rate 93, blood pressure 143/68. Pulse oxygen saturation on 3 liters 97% saturation. HEENT: Head was atraumatic. Eye nonicterus. NECK: Supple. CARDIOVASCULAR: S1, S2 audible. LUNGS: Decreased breaths in the lower portion of the lungs. There was no wheezing. ABDOMEN: Status post surgery. EXTREMITIES: Without acute edema. LABORATORY DATA: CMP this morning noted with BUN 31, creatinine was normal. CBC this morning, WBC count 11.5, hemoglobin ____, platelet 138,000. IMPRESSION: 1. Bilateral pleural fluid overload, currently treated with the Lasix. 2. Stable acute respiratory failure, decreased oxygen requirement. PLAN OF TREATMENT: Continue diuretic for the next couple of days. Bronchodilator to be continued. Repeat chest x-ray in the morning. Other supportive therapy, plan of management and care plan. Usual treatment, other supportive plan of therapy and care. MARGOT LOPEZ MD CM:PNTRANS [id number] MARGOT STRANGE MD 10/30/17 1235 interface
[~2017-10-07 02:29] MED LIST changes: -MORPHINE SU2 MG/1 M1 IJ; -PROAIR HFA8.5 GM INH; -TPN; -WOUND VAC; -[UNRECOGNIZED DRUG - REMARK]
[2017-10-07 16:15] LABS: BASO % 0.4 % (0.0-1.0); EOS % 0.1 % (1.0-4.0); HEMATOCRIT 38.2 % (42.0-52.0); HEMOGLOBIN 12.2 g/dl (14.0-18.0); LYMPH # 0.6 10*3/uL (1.3-4.4); LYMPH % 5.4 % (27.0-41.0); MEAN CELL VOLUME 95.5 fl (80.0-94.0); MEAN CORPUSCULAR HGB 30.5 pg (27.0-31.0); MEAN CORPUSCULAR HGB CONC 31.9 g/dl (33.0-37.0); MEAN PLATELET VOLUME 10.6 fl (9.6-12.3); MONO # 0.6 10*3/uL (0.1-1.0); MONO % 5.5 % (3.0-9.0); NEUT % 88.3 % (47.0-73.0); PLATELET COUNT AUTOMATED 222 10*3/uL (130-400); RED CELL DISTRI WIDTH 12.7 % (0-14.5); WHITE BLOOD COUNT 11.3 10*3/uL (4.8-10.8)
[2017-10-07 16:24] LABS: ACT PARTIAL THROMBO TIME 26.5 SECONDS (20.8-31.5); INTERNATIONAL NORM RATIO 0.9 (2.0-3.5)
[2017-10-07 16:31] LABS: ALBUMIN 2.8 gm/dl (3.1-4.5); CREATININE 1.43 mg/dL (0.70-1.30); PHOSPHOROUS 3.8 mg/dL (2.5-4.9); TOTAL PROTEIN 6.8 gm/dL (6.4-8.2)
[2017-10-07] MEDS ORDERED: NATURE'S BLEND F1 MG PO (17:54)
[2017-10-07] MEDS ORDERED: SYMB160 INH (17:58)
[2017-10-07] MEDS ORDERED: VITAMIN D-32000 UNIT PO (17:59)
[2017-10-07] MEDS ORDERED: TRAMADOL HCL50 MG PO (17:59)
[2017-10-07] MEDS ORDERED: AMBIEN5 MG PO (18:00)
[2017-10-07] MEDS ORDERED: PROAIR HFA8.5 GM INH (18:03)
[2017-10-07] MEDS ORDERED: COMBIVENT RESPIM4 GM INH (18:05)
[2017-10-07 18:42] LABS: BILIRUBIN NEGATIVE (NEGATIVE); BLOOD TRACE-INTACT (NEGATIVE); CLARITY CLEAR (CLEAR); COLOR YELLOW (YELLOW); GLUCOSE NEGATIVE (NEGATIVE); KETONE NEGATIVE (NEGATIVE); LEUKO ESTERASE NEGATIVE (NEGATIVE); NITRITE NEGATIVE (NEGATIVE); PH 5.5 (5.0-9.0); UROBILINOGEN 0.2 E.U./dl (0.2-1.0)
[2017-10-07 19:02] LABS: BACTERIA TRACE
[2017-10-08] VITALS: BP 112/49
[2017-10-08 04:00] VITALS: BP 116/48
[2017-10-08 04:27] LABS: BASO % 0.1 % (0.0-1.0); HEMOGLOBIN 10.6 g/dl (14.0-18.0); LYMPH # 0.9 10*3/uL (1.3-4.4); MEAN CELL VOLUME 96.2 fl (80.0-94.0); MEAN CORPUSCULAR HGB 30.9 pg (27.0-31.0); MEAN CORPUSCULAR HGB CONC 32.1 g/dl (33.0-37.0); MEAN PLATELET VOLUME 9.9 fl (9.6-12.3); MONO # 1.2 10*3/uL (0.1-1.0); MONO % 6.5 % (3.0-9.0); NEUT # 16.6 10*3/uL (2.3-7.9); NEUT % 88.1 % (47.0-73.0); PLATELET COUNT AUTOMATED 217 10*3/uL (130-400); RED BLOOD COUNT 3.43 10*6/uL (4.50-5.90); WHITE BLOOD COUNT 18.8 10*3/uL (4.8-10.8)
[2017-10-08 04:56] LABS: ALBUMIN 2.4 gm/dl (3.1-4.5); CREATININE 1.46 mg/dL (0.70-1.30); PHOSPHOROUS 4.2 mg/dL (2.5-4.9)
[2017-10-08 04:57] LABS: POTASSIUM 5.2 mmol/L (3.5-5.1)
[2017-10-08 08:00] VITALS: BP 118/54
[2017-10-08 11:57] VITALS: BP 134/66
[2017-10-08 16:00] VITALS: BP 137/92
[2017-10-08 20:00] VITALS: BP 141/65
[2017-10-09] VITALS: BP 136/80
[2017-10-09 04:00] VITALS: BP 132/60
[2017-10-09 05:11] LABS: BASO # 0.1 10*3/uL (0.0-0.1); BASO % 0.5 % (0.0-1.0); EOS # 0.1 10*3/uL (0.0-0.4); EOS % 0.6 % (1.0-4.0); HEMATOCRIT 30.9 % (42.0-52.0); HEMOGLOBIN 9.5 g/dl (14.0-18.0); LYMPH # 1.1 10*3/uL (1.3-4.4); LYMPH % 9.4 % (27.0-41.0); MEAN CELL VOLUME 97.8 fl (80.0-94.0); MEAN CORPUSCULAR HGB 30.1 pg (27.0-31.0); MEAN CORPUSCULAR HGB CONC 30.7 g/dl (33.0-37.0); MEAN PLATELET VOLUME 10.6 fl (9.6-12.3); MONO # 0.9 10*3/uL (0.1-1.0); MONO % 7.5 % (3.0-9.0); NEUT # 9.2 10*3/uL (2.3-7.9); NEUT % 81.5 % (47.0-73.0); PLATELET COUNT AUTOMATED 207 10*3/uL (130-400); RED BLOOD COUNT 3.16 10*6/uL (4.50-5.90); RED CELL DISTRI WIDTH 13.1 % (0-14.5); WHITE BLOOD COUNT 11.3 10*3/uL (4.8-10.8)
[2017-10-09 06:44] LABS: ALBUMIN 2.3 gm/dl (3.1-4.5); ALKALINE PHOSPHATASE 92 U/L (45-117); BUN 19 mg/dl (7-24); CHLORIDE 110 mmol/L (98-107); CREATININE 1.29 mg/dL (0.70-1.30); PHOSPHOROUS 2.8 mg/dL (2.5-4.9); SGOT/AST 15 IU/L (3-35); SGPT/ALT 6 U/L (12-78); SODIUM 141 mmol/L (136-145); TOTAL PROTEIN 5.7 gm/dL (6.4-8.2)
[2017-10-09 06:53] LABS: POTASSIUM 4.1 mmol/L (3.5-5.1)
[2017-10-09 08:00] VITALS: BP 145/72
[2017-10-09 12:00] VITALS: BP 129/73
[2017-10-09 16:00] VITALS: BP 158/86
[2017-10-09 20:00] VITALS: BP 157/74
[2017-10-10] VITALS: BP 139/69
[2017-10-10 05:34] LABS: BUN 12 mg/dl (7-24); CHLORIDE 109 mmol/L (98-107); CREATININE 0.99 mg/dL (0.70-1.30); PHOSPHOROUS 2.4 mg/dL (2.5-4.9); POTASSIUM 3.8 mmol/L (3.5-5.1); SGOT/AST 15 IU/L (3-35); SGPT/ALT 9 U/L (12-78); SODIUM 141 mmol/L (136-145); TOTAL PROTEIN 5.7 gm/dL (6.4-8.2)
[2017-10-10 05:35] LABS: ALKALINE PHOSPHATASE 86 U/L (45-117)
[2017-10-10 06:10] LABS: BASO # 0.1 10*3/uL (0.0-0.1); BASO % 0.7 % (0.0-1.0); EOS # 0.4 10*3/uL (0.0-0.4); HEMATOCRIT 29.5 % (42.0-52.0); HEMOGLOBIN 8.9 g/dl (14.0-18.0); LYMPH % 11.9 % (27.0-41.0); MEAN CELL VOLUME 99.3 fl (80.0-94.0); MEAN CORPUSCULAR HGB CONC 30.2 g/dl (33.0-37.0); MEAN PLATELET VOLUME 10.9 fl (9.6-12.3); MONO # 0.7 10*3/uL (0.1-1.0); NEUT # 5.9 10*3/uL (2.3-7.9); NEUT % 73.2 % (47.0-73.0); PLATELET COUNT AUTOMATED 200 10*3/uL (130-400); RED BLOOD COUNT 2.97 10*6/uL (4.50-5.90); RED CELL DISTRI WIDTH 13.3 % (0-14.5)
[2017-10-10 08:00] VITALS: BP 149/72
[2017-10-10 12:00] VITALS: BP 151/77
[2017-10-10 16:00] VITALS: BP 115/60
[2017-10-10 20:00] VITALS: BP 143/73
[2017-10-11] VITALS: BP 124/58
[2017-10-11 06:19] LABS: BASO % 0.6 % (0.0-1.0); EOS # 0.4 10*3/uL (0.0-0.4); EOS % 5.5 % (1.0-4.0); HEMATOCRIT 31.4 % (42.0-52.0); HEMOGLOBIN 9.8 g/dl (14.0-18.0); LYMPH # 0.7 10*3/uL (1.3-4.4); LYMPH % 10.7 % (27.0-41.0); MEAN CELL VOLUME 97.2 fl (80.0-94.0); MEAN CORPUSCULAR HGB 30.3 pg (27.0-31.0); MEAN CORPUSCULAR HGB CONC 31.2 g/dl (33.0-37.0); MEAN PLATELET VOLUME 10.5 fl (9.6-12.3); MONO # 0.6 10*3/uL (0.1-1.0); MONO % 9.2 % (3.0-9.0); NEUT # 5.1 10*3/uL (2.3-7.9); NEUT % 73.6 % (47.0-73.0); PLATELET COUNT AUTOMATED 226 10*3/uL (130-400); RED BLOOD COUNT 3.23 10*6/uL (4.50-5.90); RED CELL DISTRI WIDTH 13.2 % (0-14.5); WHITE BLOOD COUNT 6.9 10*3/uL (4.8-10.8)
[2017-10-11 06:27] LABS: BUN 7 mg/dl (7-24); CHLORIDE 106 mmol/L (98-107); POTASSIUM 3.3 mmol/L (3.5-5.1); SODIUM 138 mmol/L (136-145)
[2017-10-11 06:32] LABS: ALKALINE PHOSPHATASE 93 U/L (45-117); PHOSPHOROUS 2.3 mg/dL (2.5-4.9); SGOT/AST 9 IU/L (3-35); TOTAL PROTEIN 6.1 gm/dL (6.4-8.2)
[2017-10-11 06:55] LABS: SGPT/ALT 7 U/L (12-78)
[2017-10-11 12:00] VITALS: BP 152/78
[2017-10-11 16:00] VITALS: BP 134/91
[2017-10-11 20:00] VITALS: BP 152/80
[2017-10-12] VITALS: BP 152/74
[2017-10-12 08:00] VITALS: BP 161/77
[2017-10-12 12:00] VITALS: BP 150/78
[2017-10-12 16:00] VITALS: BP 153/74
[2017-10-12 20:00] VITALS: BP 164/73
[2017-10-13] VITALS: BP 125/86
[2017-10-13 08:00] VITALS: BP 172/80
[2017-10-13 12:00] VITALS: BP 152/82
[2017-10-13 16:00] VITALS: BP 147/70
[2017-10-13 20:00] VITALS: BP 92/55
[2017-10-14 00:36] VITALS: BP 156/86
[2017-10-14 06:56] LABS: BASO % 0.6 % (0.0-1.0); EOS # 0.2 10*3/uL (0.0-0.4); EOS % 3.2 % (1.0-4.0); HEMATOCRIT 30.9 % (42.0-52.0); HEMOGLOBIN 9.9 g/dl (14.0-18.0); LYMPH # 0.7 10*3/uL (1.3-4.4); MEAN CELL VOLUME 94.8 fl (80.0-94.0); MEAN CORPUSCULAR HGB 30.4 pg (27.0-31.0); MEAN PLATELET VOLUME 10.4 fl (9.6-12.3); MONO # 0.5 10*3/uL (0.1-1.0); MONO % 10.4 % (3.0-9.0); NEUT # 3.6 10*3/uL (2.3-7.9); NEUT % 72.6 % (47.0-73.0); PLATELET COUNT AUTOMATED 260 10*3/uL (130-400); RED BLOOD COUNT 3.26 10*6/uL (4.50-5.90); RED CELL DISTRI WIDTH 12.8 % (0-14.5)
[2017-10-14 07:26] LABS: ALKALINE PHOSPHATASE 125 U/L (45-117); BUN 6 mg/dl (7-24); CHLORIDE 101 mmol/L (98-107); CREATININE 0.97 mg/dL (0.70-1.30); PHOSPHOROUS 2.2 mg/dL (2.5-4.9); SGOT/AST 20 IU/L (3-35); SGPT/ALT 8 U/L (12-78); SODIUM 138 mmol/L (136-145); TOTAL PROTEIN 5.6 gm/dL (6.4-8.2)
[2017-10-14 08:00] VITALS: BP 129/74
[2017-10-14 12:30] VITALS: BP 190/100
[2017-10-14 13:20] LABS: ABG BASE EXCESS -1.3 mmol/L (-2.0-2.0); ABG HCO3 25.2 mmol/l (22-26); ABG O2 SATURATION 97.9 % (95-97); ARTERIAL BLOOD GAS PCO2 50.9 mmHg (35-45); ARTERIAL BLOOD GAS PH 7.31 (7.35-7.45)
[2017-10-14 16:00] VITALS: BP 109/59
[2017-10-14 17:08] LABS: ABG BASE EXCESS -0.6 mmol/L (-2.0-2.0); ABG HCO3 24.9 mmol/l (22-26); ABG O2 SATURATION 98.2 % (95-97); ARTERIAL BLOOD GAS PCO2 46.3 mmHg (35-45); ARTERIAL BLOOD GAS PH 7.347 (7.35-7.45)
[2017-10-14 20:00] VITALS: BP 114/60
[2017-10-14 22:00] VITALS: BP 108/56
[2017-10-15] VITALS (15 sets, daily range): BP systolic 89–119; BP diastolic 45–60
[2017-10-15 05:36] LABS: ALBUMIN 1.5 gm/dl (3.1-4.5); BILIRUBIN, DIRECT 0.1 mg/dL (0.0-0.2); BUN 13 mg/dl (7-24); CHLORIDE 104 mmol/L (98-107); CREATININE 1.09 mg/dL (0.70-1.30); PHOSPHOROUS 1.8 mg/dL (2.5-4.9); POTASSIUM 3.6 mmol/L (3.5-5.1); SGOT/AST 12 IU/L (3-35); SODIUM 136 mmol/L (136-145); TOTAL PROTEIN 4.8 gm/dL (6.4-8.2)
[2017-10-15 05:38] LABS: ALKALINE PHOSPHATASE 93 U/L (45-117); PREALBUMIN 7 mg/dl (20-40)
[2017-10-15 05:46] LABS: SGPT/ALT < 6 U/L (12-78)
[2017-10-15 05:55] LABS: HEMATOCRIT 28.9 % (42.0-52.0); HEMOGLOBIN 9.1 g/dl (14.0-18.0); MEAN CORPUSCULAR HGB 30.2 pg (27.0-31.0); MEAN CORPUSCULAR HGB CONC 31.5 g/dl (33.0-37.0); MEAN PLATELET VOLUME 10.8 fl (9.6-12.3); PLATELET COUNT AUTOMATED 253 10*3/uL (130-400); RED BLOOD COUNT 3.01 10*6/uL (4.50-5.90); RED CELL DISTRI WIDTH 12.8 % (0-14.5)
[2017-10-15 06:47] LABS: PLATELET SUFFICIENCY NORMAL (NORMAL); TOTAL CELLS COUNTED 100 #CELLS
[2017-10-15 07:35] LABS: ABG HCO3 24.1 mmol/l (22-26); ABG O2 SATURATION 97.9 % (95-97); ARTERIAL BLOOD GAS PCO2 44.5 mmHg (35-45); ARTERIAL BLOOD GAS PH 7.353 (7.35-7.45)
[2017-10-16] VITALS (12 sets, daily range): BP systolic 91–136; BP diastolic 42–70
[2017-10-16 06:12] LABS: ALBUMIN 1.3 gm/dl (3.1-4.5); ALKALINE PHOSPHATASE 92 U/L (45-117); BUN 19 mg/dl (7-24); CHLORIDE 109 mmol/L (98-107); CREATININE 1.06 mg/dL (0.70-1.30); PHOSPHOROUS 3.1 mg/dL (2.5-4.9); PREALBUMIN 7 mg/dl (20-40); SGOT/AST 17 IU/L (3-35); SGPT/ALT 7 U/L (12-78); TOTAL PROTEIN 4.8 gm/dL (6.4-8.2)
[2017-10-16 06:16] LABS: SODIUM 137 mmol/L (136-145)
[2017-10-16 06:19] LABS: POTASSIUM 4.8 mmol/L (3.5-5.1)
[2017-10-16 06:33] LABS: BASO % 0.3 % (0.0-1.0); EOS # 0.3 10*3/uL (0.0-0.4); EOS % 2.5 % (1.0-4.0); HEMATOCRIT 25.8 % (42.0-52.0); LYMPH # 1.1 10*3/uL (1.3-4.4); LYMPH % 8.8 % (27.0-41.0); MEAN CELL VOLUME 96.3 fl (80.0-94.0); MEAN CORPUSCULAR HGB 29.9 pg (27.0-31.0); MEAN PLATELET VOLUME 10.6 fl (9.6-12.3); MONO # 1.2 10*3/uL (0.1-1.0); MONO % 9.6 % (3.0-9.0); NEUT # 9.8 10*3/uL (2.3-7.9); NEUT % 77.3 % (47.0-73.0); PLATELET COUNT AUTOMATED 261 10*3/uL (130-400); RED BLOOD COUNT 2.68 10*6/uL (4.50-5.90); RED CELL DISTRI WIDTH 13.2 % (0-14.5); WHITE BLOOD COUNT 12.7 10*3/uL (4.8-10.8)
[2017-10-16 07:54] LABS: ABG BASE EXCESS -2.2 mmol/L (-2.0-2.0); ABG HCO3 21.7 mmol/l (22-26); ABG O2 SATURATION 98.5 % (95-97); ARTERIAL BLOOD GAS PCO2 37.3 mmHg (35-45); ARTERIAL BLOOD GAS PH 7.387 (7.35-7.45)
[2017-10-16 16:16] LABS: ABG BASE EXCESS -2.1 mmol/L (-2.0-2.0); ABG HCO3 22.6 mmol/l (22-26); ABG O2 SATURATION 98.5 % (95-97); ARTERIAL BLOOD GAS PCO2 41.5 mmHg (35-45); ARTERIAL BLOOD GAS PH 7.357 (7.35-7.45)
[2017-10-17] VITALS (17 sets, daily range): BP systolic 88–144; BP diastolic 40–95
[2017-10-17 06:41] LABS: BASO % 0.2 % (0.0-1.0); EOS # 0.3 10*3/uL (0.0-0.4); EOS % 2.5 % (1.0-4.0); HEMATOCRIT 25.8 % (42.0-52.0); HEMOGLOBIN 8.1 g/dl (14.0-18.0); LYMPH # 1.1 10*3/uL (1.3-4.4); LYMPH % 7.9 % (27.0-41.0); MEAN CELL VOLUME 95.9 fl (80.0-94.0); MEAN CORPUSCULAR HGB 30.1 pg (27.0-31.0); MEAN CORPUSCULAR HGB CONC 31.4 g/dl (33.0-37.0); MEAN PLATELET VOLUME 10.8 fl (9.6-12.3); MONO # 1.1 10*3/uL (0.1-1.0); MONO % 7.9 % (3.0-9.0); NEUT # 11.1 10*3/uL (2.3-7.9); NEUT % 79.9 % (47.0-73.0); PLATELET COUNT AUTOMATED 255 10*3/uL (130-400); RED BLOOD COUNT 2.69 10*6/uL (4.50-5.90); RED CELL DISTRI WIDTH 13.6 % (0-14.5); WHITE BLOOD COUNT 13.9 10*3/uL (4.8-10.8)
[2017-10-17 06:54] LABS: ALBUMIN 1.3 gm/dl (3.1-4.5); ALKALINE PHOSPHATASE 126 U/L (45-117); BUN 21 mg/dl (7-24); CHLORIDE 105 mmol/L (98-107); CREATININE 1.11 mg/dL (0.70-1.30); PHOSPHOROUS 3.4 mg/dL (2.5-4.9); POTASSIUM 4.9 mmol/L (3.5-5.1); SGOT/AST 17 IU/L (3-35); SODIUM 137 mmol/L (136-145); TOTAL PROTEIN 5.3 gm/dL (6.4-8.2)
[2017-10-17 06:57] LABS: SGPT/ALT < 6 U/L (12-78)
[2017-10-17 07:24] LABS: ABG BASE EXCESS -0.5 mmol/L (-2.0-2.0); ABG HCO3 23.2 mmol/l (22-26); ABG O2 SATURATION 98.3 % (95-97); ARTERIAL BLOOD GAS PCO2 36.1 mmHg (35-45); ARTERIAL BLOOD GAS PH 7.424 (7.35-7.45); ARTERIAL BLOOD GAS PO2 98.7 mmHg (80-90)
[2017-10-17 16:08] LABS: ACID FAST SPEC PROCESSING Concentration (.)
[2017-10-18] VITALS (9 sets, daily range): BP systolic 100–164; BP diastolic 50–87
[2017-10-18 05:47] LABS: BASO % 0.3 % (0.0-1.0); EOS # 0.3 10*3/uL (0.0-0.4); EOS % 2.6 % (1.0-4.0); HEMOGLOBIN 8.5 g/dl (14.0-18.0); LYMPH % 9.5 % (27.0-41.0); MEAN CORPUSCULAR HGB CONC 32.7 g/dl (33.0-37.0); MEAN PLATELET VOLUME 10.4 fl (9.6-12.3); MONO # 0.9 10*3/uL (0.1-1.0); MONO % 8.7 % (3.0-9.0); NEUT % 77.4 % (47.0-73.0); NUCLEATED RED BLOOD CELL 0.2 % (0.0-0.0); PLATELET COUNT AUTOMATED 262 10*3/uL (130-400); RED BLOOD COUNT 2.83 10*6/uL (4.50-5.90); RED CELL DISTRI WIDTH 13.8 % (0-14.5); WHITE BLOOD COUNT 10.3 10*3/uL (4.8-10.8)
[2017-10-18 06:04] LABS: ALBUMIN 1.2 gm/dl (3.1-4.5); ALKALINE PHOSPHATASE 131 U/L (45-117); BUN 20 mg/dl (7-24); CHLORIDE 103 mmol/L (98-107); CREATININE 1.05 mg/dL (0.70-1.30); PHOSPHOROUS 3.9 mg/dL (2.5-4.9); POTASSIUM 4.4 mmol/L (3.5-5.1); SGOT/AST 20 IU/L (3-35); SODIUM 135 mmol/L (136-145); TOTAL PROTEIN 5.1 gm/dL (6.4-8.2)
[2017-10-18 06:09] LABS: MEAN CELL VOLUME 91.9 fl (80.0-94.0)
[2017-10-18 06:30] LABS: SGPT/ALT < 6 U/L (12-78)
[2017-10-18 08:00] LABS: ABG BASE EXCESS -0.7 mmol/L (-2.0-2.0); ABG HCO3 21.6 mmol/l (22-26); ARTERIAL BLOOD GAS PCO2 27.2 mmHg (35-45); ARTERIAL BLOOD GAS PH 7.511 (7.35-7.45); ARTERIAL BLOOD GAS PO2 95.9 mmHg (80-90)
[2017-10-18 13:53] LABS: ABG BASE EXCESS -0.5 mmol/L (-2.0-2.0); ABG HCO3 23.3 mmol/l (22-26); ABG O2 SATURATION 98.8 % (95-97); ARTERIAL BLOOD GAS PCO2 37.6 mmHg (35-45); ARTERIAL BLOOD GAS PH 7.412 (7.35-7.45)
[2017-10-19] VITALS (8 sets, daily range): BP systolic 107–153; BP diastolic 50–80
[2017-10-19 05:47] LABS: ALBUMIN 1.1 gm/dl (3.1-4.5); ALKALINE PHOSPHATASE 130 U/L (45-117); BUN 23 mg/dl (7-24); CHLORIDE 104 mmol/L (98-107); CREATININE 0.88 mg/dL (0.70-1.30); PHOSPHOROUS 3.3 mg/dL (2.5-4.9); POTASSIUM 3.5 mmol/L (3.5-5.1); SGOT/AST 17 IU/L (3-35); SODIUM 139 mmol/L (136-145); TOTAL PROTEIN 4.8 gm/dL (6.4-8.2)
[2017-10-19 05:49] LABS: SGPT/ALT < 6 U/L (12-78)
[2017-10-20] VITALS (15 sets, daily range): BP systolic 102–149; BP diastolic 47–75
[2017-10-20 06:11] LABS: BASO # 0.1 10*3/uL (0.0-0.1); BASO % 0.6 % (0.0-1.0); EOS # 0.4 10*3/uL (0.0-0.4); HEMATOCRIT 24.8 % (42.0-52.0); HEMOGLOBIN 7.6 g/dl (14.0-18.0); LYMPH # 0.8 10*3/uL (1.3-4.4); LYMPH % 8.9 % (27.0-41.0); MEAN CELL VOLUME 95.8 fl (80.0-94.0); MEAN CORPUSCULAR HGB 29.3 pg (27.0-31.0); MEAN CORPUSCULAR HGB CONC 30.6 g/dl (33.0-37.0); MEAN PLATELET VOLUME 10.4 fl (9.6-12.3); MONO # 0.9 10*3/uL (0.1-1.0); MONO % 10.3 % (3.0-9.0); NEUT # 6.3 10*3/uL (2.3-7.9); NEUT % 73.8 % (47.0-73.0); PLATELET COUNT AUTOMATED 285 10*3/uL (130-400); RED BLOOD COUNT 2.59 10*6/uL (4.50-5.90); WHITE BLOOD COUNT 8.6 10*3/uL (4.8-10.8)
[2017-10-20 06:47] LABS: CHLORIDE 101 mmol/L (98-107); POTASSIUM 3.3 mmol/L (3.5-5.1); SODIUM 139 mmol/L (136-145)
[2017-10-20 06:54] LABS: ALKALINE PHOSPHATASE 272 U/L (45-117); BILIRUBIN, DIRECT 0.2 mg/dL (0.0-0.2); BUN 20 mg/dl (7-24); PHOSPHOROUS 3.5 mg/dL (2.5-4.9); SGOT/AST 43 IU/L (3-35); SGPT/ALT 21 U/L (12-78)
[2017-10-21] VITALS (12 sets, daily range): BP systolic 114–149; BP diastolic 44–73
[2017-10-21 06:01] LABS: BASO # 0.1 10*3/uL (0.0-0.1); BASO % 0.5 % (0.0-1.0); EOS # 0.4 10*3/uL (0.0-0.4); EOS % 3.7 % (1.0-4.0); HEMATOCRIT 28.2 % (42.0-52.0); HEMOGLOBIN 8.7 g/dl (14.0-18.0); LYMPH % 8.7 % (27.0-41.0); MEAN CELL VOLUME 95.6 fl (80.0-94.0); MEAN CORPUSCULAR HGB 29.5 pg (27.0-31.0); MEAN CORPUSCULAR HGB CONC 30.9 g/dl (33.0-37.0); MEAN PLATELET VOLUME 10.6 fl (9.6-12.3); MONO # 1.2 10*3/uL (0.1-1.0); MONO % 11.4 % (3.0-9.0); NEUT # 8.2 10*3/uL (2.3-7.9); NEUT % 74.7 % (47.0-73.0); PLATELET COUNT AUTOMATED 285 10*3/uL (130-400); RED BLOOD COUNT 2.95 10*6/uL (4.50-5.90); WHITE BLOOD COUNT 10.9 10*3/uL (4.8-10.8)
[2017-10-21 06:20] LABS: ALBUMIN 1.1 gm/dl (3.1-4.5); ALKALINE PHOSPHATASE 308 U/L (45-117); BUN 23 mg/dl (7-24); CHLORIDE 103 mmol/L (98-107); CREATININE 0.96 mg/dL (0.70-1.30); PHOSPHOROUS 3.3 mg/dL (2.5-4.9); POTASSIUM 3.3 mmol/L (3.5-5.1); SGOT/AST 37 IU/L (3-35); SGPT/ALT 26 U/L (12-78); SODIUM 141 mmol/L (136-145); TOTAL PROTEIN 5.2 gm/dL (6.4-8.2)
[2017-10-22] VITALS (12 sets, daily range): BP systolic 130–156; BP diastolic 63–80
[2017-10-22 05:52] LABS: BASO # 0.1 10*3/uL (0.0-0.1); BASO % 0.5 % (0.0-1.0); EOS # 0.6 10*3/uL (0.0-0.4); EOS % 5.8 % (1.0-4.0); HEMATOCRIT 30.3 % (42.0-52.0); HEMOGLOBIN 9.4 g/dl (14.0-18.0); LYMPH # 0.9 10*3/uL (1.3-4.4); LYMPH % 7.9 % (27.0-41.0); MEAN CELL VOLUME 96.8 fl (80.0-94.0); MEAN PLATELET VOLUME 10.4 fl (9.6-12.3); MONO # 0.9 10*3/uL (0.1-1.0); MONO % 8.4 % (3.0-9.0); NEUT # 8.4 10*3/uL (2.3-7.9); NEUT % 76.3 % (47.0-73.0); PLATELET COUNT AUTOMATED 332 10*3/uL (130-400); RED BLOOD COUNT 3.13 10*6/uL (4.50-5.90); RED CELL DISTRI WIDTH 13.9 % (0-14.5)
[2017-10-22 06:57] LABS: ALBUMIN 1.2 gm/dl (3.1-4.5); ALKALINE PHOSPHATASE 322 U/L (45-117); BUN 24 mg/dl (7-24); CHLORIDE 100 mmol/L (98-107); POTASSIUM 3.6 mmol/L (3.5-5.1); SGOT/AST 51 IU/L (3-35); SGPT/ALT 33 U/L (12-78); SODIUM 146 mmol/L (136-145); TOTAL PROTEIN 5.7 gm/dL (6.4-8.2)
[2017-10-23] VITALS (12 sets, daily range): BP systolic 107–189; BP diastolic 48–110
[2017-10-23 05:31] LABS: ALBUMIN 1.2 gm/dl (3.1-4.5); ALKALINE PHOSPHATASE 286 U/L (45-117); BUN 28 mg/dl (7-24); CHLORIDE 105 mmol/L (98-107); CREATININE 0.78 mg/dL (0.70-1.30); PHOSPHOROUS 2.9 mg/dL (2.5-4.9); POTASSIUM 3.9 mmol/L (3.5-5.1); SGOT/AST 31 IU/L (3-35); SGPT/ALT 29 U/L (12-78); SODIUM 140 mmol/L (136-145); TOTAL PROTEIN 5.4 gm/dL (6.4-8.2)
[2017-10-23 06:20] LABS: BASO # 0.1 10*3/uL (0.0-0.1); BASO % 0.6 % (0.0-1.0); EOS # 0.4 10*3/uL (0.0-0.4); EOS % 4.2 % (1.0-4.0); HEMATOCRIT 28.1 % (42.0-52.0); HEMOGLOBIN 8.6 g/dl (14.0-18.0); LYMPH # 0.9 10*3/uL (1.3-4.4); LYMPH % 8.3 % (27.0-41.0); MEAN CELL VOLUME 96.6 fl (80.0-94.0); MEAN CORPUSCULAR HGB 29.6 pg (27.0-31.0); MEAN CORPUSCULAR HGB CONC 30.6 g/dl (33.0-37.0); MEAN PLATELET VOLUME 11.1 fl (9.6-12.3); MONO # 0.9 10*3/uL (0.1-1.0); MONO % 8.2 % (3.0-9.0); NEUT # 8.1 10*3/uL (2.3-7.9); NEUT % 77.5 % (47.0-73.0); PLATELET COUNT AUTOMATED 334 10*3/uL (130-400); RED BLOOD COUNT 2.91 10*6/uL (4.50-5.90); RED CELL DISTRI WIDTH 13.7 % (0-14.5); WHITE BLOOD COUNT 10.4 10*3/uL (4.8-10.8)
[2017-10-23 07:53] LABS: ABG BASE EXCESS 2.1 mmol/L (-2.0-2.0); ABG HCO3 26.8 mmol/l (22-26); ABG O2 SATURATION 98.1 % (95-97); ARTERIAL BLOOD GAS PCO2 46.4 mmHg (35-45); ARTERIAL BLOOD GAS PH 7.384 (7.35-7.45)
[2017-10-23 18:48] LABS: BILIRUBIN NEGATIVE (NEGATIVE); BLOOD TRACE-INTACT (NEGATIVE); CLARITY SL CLOUDY (CLEAR); COLOR YELLOW (YELLOW); GLUCOSE NEGATIVE (NEGATIVE); KETONE NEGATIVE (NEGATIVE); LEUKO ESTERASE NEGATIVE (NEGATIVE); NITRITE NEGATIVE (NEGATIVE); PH 6.5 (5.0-9.0); UROBILINOGEN 0.2 E.U./dl (0.2-1.0)
[2017-10-23 19:03] LABS: BACTERIA TRACE
[2017-10-24] VITALS (11 sets, daily range): BP systolic 104–162; BP diastolic 45–79
[2017-10-24 05:23] LABS: BASO # 0.1 10*3/uL (0.0-0.1); BASO % 0.6 % (0.0-1.0); EOS # 0.3 10*3/uL (0.0-0.4); EOS % 3.4 % (1.0-4.0); HEMOGLOBIN 8.1 g/dl (14.0-18.0); LYMPH % 10.4 % (27.0-41.0); MEAN CELL VOLUME 95.9 fl (80.0-94.0); MEAN CORPUSCULAR HGB 29.9 pg (27.0-31.0); MEAN CORPUSCULAR HGB CONC 31.2 g/dl (33.0-37.0); MEAN PLATELET VOLUME 11.3 fl (9.6-12.3); MONO % 10.4 % (3.0-9.0); NEUT # 7.2 10*3/uL (2.3-7.9); NEUT % 74.1 % (47.0-73.0); PLATELET COUNT AUTOMATED 356 10*3/uL (130-400); RED BLOOD COUNT 2.71 10*6/uL (4.50-5.90); WHITE BLOOD COUNT 9.8 10*3/uL (4.8-10.8)
[2017-10-24 05:52] LABS: ALBUMIN 1.2 gm/dl (3.1-4.5); ALKALINE PHOSPHATASE 282 U/L (45-117); BUN 30 mg/dl (7-24); CHLORIDE 107 mmol/L (98-107); CREATININE 0.82 mg/dL (0.70-1.30); PHOSPHOROUS 2.9 mg/dL (2.5-4.9); POTASSIUM 3.9 mmol/L (3.5-5.1); SGOT/AST 45 IU/L (3-35); SGPT/ALT 41 U/L (12-78); SODIUM 141 mmol/L (136-145); TOTAL PROTEIN 5.3 gm/dL (6.4-8.2)
[2017-10-25] VITALS (12 sets, daily range): BP systolic 121–156; BP diastolic 58–87
[2017-10-25 06:03] LABS: BASO # 0.1 10*3/uL (0.0-0.1); BASO % 0.7 % (0.0-1.0); EOS # 0.7 10*3/uL (0.0-0.4); EOS % 7.3 % (1.0-4.0); HEMATOCRIT 27.2 % (42.0-52.0); HEMOGLOBIN 8.5 g/dl (14.0-18.0); LYMPH # 1.2 10*3/uL (1.3-4.4); LYMPH % 12.3 % (27.0-41.0); MEAN CELL VOLUME 97.1 fl (80.0-94.0); MEAN CORPUSCULAR HGB 30.4 pg (27.0-31.0); MEAN CORPUSCULAR HGB CONC 31.3 g/dl (33.0-37.0); MEAN PLATELET VOLUME 11.6 fl (9.6-12.3); MONO % 10.3 % (3.0-9.0); NEUT # 6.4 10*3/uL (2.3-7.9); PLATELET COUNT AUTOMATED 408 10*3/uL (130-400); WHITE BLOOD COUNT 9.4 10*3/uL (4.8-10.8)
[2017-10-25 06:38] LABS: ALBUMIN 1.3 gm/dl (3.1-4.5); BUN 30 mg/dl (7-24); CHLORIDE 106 mmol/L (98-107); POTASSIUM 4.3 mmol/L (3.5-5.1); SODIUM 140 mmol/L (136-145)
[2017-10-25 06:43] LABS: ALKALINE PHOSPHATASE 261 U/L (45-117); CREATININE 0.74 mg/dL (0.70-1.30); PHOSPHOROUS 3.7 mg/dL (2.5-4.9); SGOT/AST 33 IU/L (3-35); SGPT/ALT 34 U/L (12-78); TOTAL PROTEIN 5.8 gm/dL (6.4-8.2)
[2017-10-26] VITALS (12 sets, daily range): BP systolic 117–146; BP diastolic 52–88
[2017-10-27] VITALS (8 sets, daily range): BP systolic 117–184; BP diastolic 51–89
[2017-10-27 06:01] LABS: BASO # 0.1 10*3/uL (0.0-0.1); BASO % 0.6 % (0.0-1.0); EOS # 0.3 10*3/uL (0.0-0.4); EOS % 3.2 % (1.0-4.0); HEMATOCRIT 28.8 % (42.0-52.0); HEMOGLOBIN 8.9 g/dl (14.0-18.0); LYMPH # 0.8 10*3/uL (1.3-4.4); LYMPH % 7.6 % (27.0-41.0); MEAN CELL VOLUME 96.3 fl (80.0-94.0); MEAN CORPUSCULAR HGB 29.8 pg (27.0-31.0); MEAN CORPUSCULAR HGB CONC 30.9 g/dl (33.0-37.0); MEAN PLATELET VOLUME 11.3 fl (9.6-12.3); MONO # 0.9 10*3/uL (0.1-1.0); MONO % 8.2 % (3.0-9.0); NEUT # 8.4 10*3/uL (2.3-7.9); PLATELET COUNT AUTOMATED 472 10*3/uL (130-400); RED BLOOD COUNT 2.99 10*6/uL (4.50-5.90); RED CELL DISTRI WIDTH 14.1 % (0-14.5); WHITE BLOOD COUNT 10.6 10*3/uL (4.8-10.8)
[2017-10-27 06:33] LABS: CHLORIDE 107 mmol/L (98-107); POTASSIUM 4.8 mmol/L (3.5-5.1); SODIUM 139 mmol/L (136-145)
[2017-10-27 06:42] LABS: ALBUMIN 1.4 gm/dl (3.1-4.5); ALKALINE PHOSPHATASE 300 U/L (45-117); BUN 31 mg/dl (7-24); CREATININE 0.81 mg/dL (0.70-1.30); PHOSPHOROUS 3.1 mg/dL (2.5-4.9); SGOT/AST 49 IU/L (3-35); SGPT/ALT 56 U/L (12-78); TOTAL PROTEIN 6.2 gm/dL (6.4-8.2)
[2017-10-27 06:56] LABS: PREALBUMIN 14 mg/dl (20-40)
[2017-10-28] VITALS: BP 133/69
[2017-10-28 04:00] VITALS: BP 144/75
[2017-10-28 06:25] LABS: BASO # 0.1 10*3/uL (0.0-0.1); BASO % 0.6 % (0.0-1.0); EOS # 0.4 10*3/uL (0.0-0.4); EOS % 4.6 % (1.0-4.0); HEMATOCRIT 27.3 % (42.0-52.0); HEMOGLOBIN 8.4 g/dl (14.0-18.0); LYMPH # 0.9 10*3/uL (1.3-4.4); LYMPH % 9.5 % (27.0-41.0); MEAN CELL VOLUME 95.8 fl (80.0-94.0); MEAN CORPUSCULAR HGB 29.5 pg (27.0-31.0); MEAN CORPUSCULAR HGB CONC 30.8 g/dl (33.0-37.0); MEAN PLATELET VOLUME 11.4 fl (9.6-12.3); MONO % 10.4 % (3.0-9.0); NEUT # 6.9 10*3/uL (2.3-7.9); NEUT % 73.6 % (47.0-73.0); PLATELET COUNT AUTOMATED 504 10*3/uL (130-400); RED BLOOD COUNT 2.85 10*6/uL (4.50-5.90); RED CELL DISTRI WIDTH 13.8 % (0-14.5); WHITE BLOOD COUNT 9.3 10*3/uL (4.8-10.8)
[2017-10-28 06:34] LABS: PHOSPHOROUS 3.2 mg/dL (2.5-4.9); POTASSIUM 4.5 mmol/L (3.5-5.1)
[2017-10-28 08:00] VITALS: BP 163/87
[2017-10-28 12:00] VITALS: BP 176/97
[2017-10-28 16:00] VITALS: BP 151/81
[2017-10-28 20:00] VITALS: BP 169/82
[2017-10-29] VITALS (7 sets, daily range): BP systolic 125–157; BP diastolic 67–78
[2017-10-29 05:02] LABS: BASO # 0.1 10*3/uL (0.0-0.1); BASO % 0.5 % (0.0-1.0); EOS # 0.1 10*3/uL (0.0-0.4); EOS % 0.8 % (1.0-4.0); HEMATOCRIT 29.7 % (42.0-52.0); HEMOGLOBIN 9.2 g/dl (14.0-18.0); LYMPH # 0.9 10*3/uL (1.3-4.4); LYMPH % 7.7 % (27.0-41.0); MEAN CELL VOLUME 95.2 fl (80.0-94.0); MEAN CORPUSCULAR HGB 29.5 pg (27.0-31.0); MEAN PLATELET VOLUME 11.3 fl (9.6-12.3); MONO # 1.1 10*3/uL (0.1-1.0); MONO % 9.1 % (3.0-9.0); NEUT # 9.8 10*3/uL (2.3-7.9); PLATELET COUNT AUTOMATED 585 10*3/uL (130-400); RED BLOOD COUNT 3.12 10*6/uL (4.50-5.90); RED CELL DISTRI WIDTH 13.9 % (0-14.5); WHITE BLOOD COUNT 12.2 10*3/uL (4.8-10.8)
[2017-10-29 05:19] LABS: ALBUMIN 1.7 gm/dl (3.1-4.5); ALKALINE PHOSPHATASE 316 U/L (45-117); BUN 32 mg/dl (7-24); CHLORIDE 105 mmol/L (98-107); CREATININE 0.95 mg/dL (0.70-1.30); PHOSPHOROUS 3.7 mg/dL (2.5-4.9); POTASSIUM 4.1 mmol/L (3.5-5.1); SGOT/AST 36 IU/L (3-35); SGPT/ALT 60 U/L (12-78); SODIUM 138 mmol/L (136-145); TOTAL PROTEIN 6.9 gm/dL (6.4-8.2)
[2017-10-29 14:56] LABS: BILIRUBIN NEGATIVE (NEGATIVE); BLOOD 1+ (NEGATIVE); CLARITY SL CLOUDY (CLEAR); COLOR YELLOW (YELLOW); GLUCOSE NEGATIVE (NEGATIVE); KETONE NEGATIVE (NEGATIVE); LEUKO ESTERASE TRACE (NEGATIVE); NITRITE NEGATIVE (NEGATIVE); UROBILINOGEN 0.2 E.U./dl (0.2-1.0)
[2017-10-29 15:48] LABS: YEAST 3+
[2017-10-30] VITALS: BP 123/75
[2017-10-30 04:00] VITALS: BP 106/50
[2017-10-30 05:03] LABS: BASO # 0.1 10*3/uL (0.0-0.1); BASO % 0.6 % (0.0-1.0); EOS # 0.1 10*3/uL (0.0-0.4); HEMOGLOBIN 8.5 g/dl (14.0-18.0); LYMPH # 0.9 10*3/uL (1.3-4.4); LYMPH % 7.6 % (27.0-41.0); MEAN CELL VOLUME 95.4 fl (80.0-94.0); MEAN CORPUSCULAR HGB CONC 31.5 g/dl (33.0-37.0); MEAN PLATELET VOLUME 10.8 fl (9.6-12.3); MONO % 9.1 % (3.0-9.0); NEUT # 9.3 10*3/uL (2.3-7.9); NEUT % 81.1 % (47.0-73.0); PLATELET COUNT AUTOMATED 538 10*3/uL (130-400); RED BLOOD COUNT 2.83 10*6/uL (4.50-5.90); RED CELL DISTRI WIDTH 13.9 % (0-14.5); WHITE BLOOD COUNT 11.5 10*3/uL (4.8-10.8)
[2017-10-30 05:21] LABS: ALBUMIN 1.6 gm/dl (3.1-4.5); ALKALINE PHOSPHATASE 267 U/L (45-117); BUN 31 mg/dl (7-24); CHLORIDE 103 mmol/L (98-107); CREATININE 0.96 mg/dL (0.70-1.30); POTASSIUM 4.2 mmol/L (3.5-5.1); SGOT/AST 26 IU/L (3-35); SGPT/ALT 45 U/L (12-78); SODIUM 138 mmol/L (136-145); TOTAL PROTEIN 6.4 gm/dL (6.4-8.2)
[2017-10-30 08:00] VITALS: BP 143/68
[2017-10-30 12:00] VITALS: BP 142/72
[2017-10-30 16:00] VITALS: BP 103/40
[2017-10-30 20:00] VITALS: BP 101/48
[2017-10-31] VITALS: BP 110/45
[2017-10-31 04:00] VITALS: BP 110/56
[2017-10-31 05:21] LABS: ALBUMIN 1.6 gm/dl (3.1-4.5); ALKALINE PHOSPHATASE 240 U/L (45-117); BUN 30 mg/dl (7-24); CHLORIDE 104 mmol/L (98-107); CREATININE 0.95 mg/dL (0.70-1.30); PHOSPHOROUS 3.3 mg/dL (2.5-4.9); POTASSIUM 3.8 mmol/L (3.5-5.1); SGOT/AST 31 IU/L (3-35); SGPT/ALT 44 U/L (12-78); SODIUM 137 mmol/L (136-145); TOTAL PROTEIN 6.2 gm/dL (6.4-8.2)
[2017-10-31 05:57] LABS: BASO # 0.1 10*3/uL (0.0-0.1); BASO % 0.7 % (0.0-1.0); EOS # 0.4 10*3/uL (0.0-0.4); EOS % 5.1 % (1.0-4.0); HEMATOCRIT 25.6 % (42.0-52.0); LYMPH # 1.6 10*3/uL (1.3-4.4); LYMPH % 18.7 % (27.0-41.0); MEAN CELL VOLUME 95.9 fl (80.0-94.0); MEAN CORPUSCULAR HGB CONC 31.3 g/dl (33.0-37.0); MEAN PLATELET VOLUME 11.8 fl (9.6-12.3); MONO # 1.1 10*3/uL (0.1-1.0); MONO % 13.5 % (3.0-9.0); NEUT # 5.1 10*3/uL (2.3-7.9); NEUT % 61.2 % (47.0-73.0); PLATELET COUNT AUTOMATED 479 10*3/uL (130-400); RED BLOOD COUNT 2.67 10*6/uL (4.50-5.90); RED CELL DISTRI WIDTH 14.1 % (0-14.5); WHITE BLOOD COUNT 8.3 10*3/uL (4.8-10.8)
[2017-10-31 08:00] VITALS: BP 110/60
[2017-10-31 12:00] VITALS: BP 118/46
[2017-10-31] MEDS ORDERED: WOUND VAC (14:02)
[2017-10-31] MEDS ORDERED: [UNRECOGNIZED DRUG - REMARK] (14:02)
[2017-10-31] MEDS ORDERED: TPN (14:24)
[2017-10-31 16:00] VITALS: BP 109/57
[2017-10-31 20:00] VITALS: BP 117/57
[2017-11-01] VITALS: BP 124/55
[2017-11-01 03:41] VITALS: BP 124/57
[2017-11-01 08:00] VITALS: BP 138/60
[2017-11-01] MEDS ORDERED: MORPHINE SU2 MG/1 M1 IJ (10:06)
[2017-11-01 12:00] VITALS: BP 124/54
[2017-11-27 12:07] LABS: ACID FAST CULTURE Negative (.)
== END 2017-11-01 12:24 | DRG 329 ==
LOC: SDC 02:29 → ICCU 10:08 → 4E 10:08 → ICCU 14:48 → 4E 10-09 21:06 → ICCU 10-14 10:44
PROVIDERS: Internal Medicine; Internal Medicine Critical Care Medicine; Obstetrics & Gynecology; Student in an Organized Health Care Education/Training Program
PROC: 0WQF0ZZ Repair Abdominal Wall, Open Approach (ICD-10-PCS; principal; 2017-10-07)
PROC: 0BH17EZ Insertion of Endotracheal Airway into Trachea, Via Natural or Artificial Opening (ICD-10-PCS; principal; 2017-10-07)
PROC: 0WJP4ZZ Inspection of Gastrointestinal Tract, Percutaneous Endoscopic Approach (ICD-10-PCS; principal; 2017-10-07)
PROC: 0DQB0ZZ Repair Ileum, Open Approach (ICD-10-PCS; principal; 2017-10-07)
PROC: 0WUF07Z Supplement Abdominal Wall with Autologous Tissue Substitute, Open Approach (ICD-10-PCS; 2017-10-14)
PROC: 0DBB0ZZ Excision of Ileum, Open Approach (ICD-10-PCS; 2017-10-14)
PROC: 0BC48ZZ Extirpation of Matter from Right Upper Lobe Bronchus, Via Natural or Artificial Opening Endoscopic (ICD-10-PCS; 2017-10-16)
PROC: 0BC78ZZ Extirpation of Matter from Left Main Bronchus, Via Natural or Artificial Opening Endoscopic (ICD-10-PCS; 2017-10-16)
PROC: 0BCB8ZZ Extirpation of Matter from Left Lower Lobe Bronchus, Via Natural or Artificial Opening Endoscopic (ICD-10-PCS; 2017-10-16)
PROC: 0BC38ZZ Extirpation of Matter from Right Main Bronchus, Via Natural or Artificial Opening Endoscopic (ICD-10-PCS; 2017-10-16)
PROC: 0BC58ZZ Extirpation of Matter from Right Middle Lobe Bronchus, Via Natural or Artificial Opening Endoscopic (ICD-10-PCS; 2017-10-16)
PROC: 0BC88ZZ Extirpation of Matter from Left Upper Lobe Bronchus, Via Natural or Artificial Opening Endoscopic (ICD-10-PCS; 2017-10-16)
PROC: 0BC68ZZ Extirpation of Matter from Right Lower Lobe Bronchus, Via Natural or Artificial Opening Endoscopic (ICD-10-PCS; 2017-10-16)
PROC: 5A1935Z Respiratory Ventilation, Less than 24 Consecutive Hours (ICD-10-PCS; 2017-10-17)
PROC: 30233N1 Transfusion of Nonautologous Red Blood Cells into Peripheral Vein, Percutaneous Approach (ICD-10-PCS; 2017-10-17)
PROC: 5A09457 Assistance with Respiratory Ventilation, 24-96 Consecutive Hours, Continuous Positive Airway Pressure (ICD-10-PCS; 2017-10-18)
PROC: 02HV33Z Insertion of Infusion Device into Superior Vena Cava, Percutaneous Approach (ICD-10-PCS; 2017-10-23)
PROC: B548ZZA Ultrasonography of Superior Vena Cava, Guidance (ICD-10-PCS; 2017-10-23)
DX: Z43.2 Encounter for attention to ileostomy (principal); E43 Unspecified severe protein-calorie malnutrition; J96.01 Acute respiratory failure with hypoxia; J15.6 Pneumonia due to other Gram-negative bacteria; K65.9 Peritonitis, unspecified; E87.2 Acidosis; I95.9 Hypotension, unspecified; E87.5 Hyperkalemia; E83.39 Other disorders of phosphorus metabolism; E87.8 Other disorders of electrolyte and fluid balance, not elsewhere classified; I13.0 Hypertensive heart and chronic kidney disease with heart failure and stage 1 through stage 4 chronic kidney disease, or unspecified chronic kidney disease; J44.0 Chronic obstructive pulmonary disease with (acute) lower respiratory infection; I50.32 Chronic diastolic (congestive) heart failure; T81.30XA Disruption of wound, unspecified, initial encounter; N18.3 Chronic kidney disease, stage 3 (moderate); E55.9 Vitamin D deficiency, unspecified; D50.9 Iron deficiency anemia, unspecified; E53.8 Deficiency of other specified B group vitamins; R31.29 Other microscopic hematuria; N40.0 Benign prostatic hyperplasia without lower urinary tract symptoms; E87.6 Hypokalemia; Y83.2 Surgical operation with anastomosis, bypass or graft as the cause of abnormal reaction of the patient, or of later complication, without mention of misadventure at the time of the procedure; B37.9 Candidiasis, unspecified; F17.201 Nicotine dependence, unspecified, in remission; E16.2 Hypoglycemia, unspecified; Z98.890 Other specified postprocedural states; Y92.89 Other specified places as the place of occurrence of the external cause; Z53.31 Laparoscopic surgical procedure converted to open procedure; Z68.21 Body mass index [BMI] 21.0-21.9, adult

== ENCOUNTER → 2017-12-11 | Outpatient (CLI) | payer MEDICARE, MEDICAID ==
[~2017-12-11] MED LIST changes: +DULE1ARO INH; +FLOMAX0.4 MG PO; +GOOD NEIGHBOR P20 MG PO; +MIRTAZAPINE7.5 MG PO; +MORPHINE SU2 MG/1 M1 IJ; +PROAIR HFA8.5 GM INH; +TPN; +WOUND VAC; +[UNRECOGNIZED DRUG - REMARK]
== END | disposition home or self-care (01) ==
LOC: WOUNDCARE 01:48
DX: T81.89XA Other complications of procedures, not elsewhere classified, initial encounter (principal); N18.4 Chronic kidney disease, stage 4 (severe); Z87.891 Personal history of nicotine dependence; Z98.49 Cataract extraction status, unspecified eye; Y83.8 Other surgical procedures as the cause of abnormal reaction of the patient, or of later complication, without mention of misadventure at the time of the procedure; Y92.89 Other specified places as the place of occurrence of the external cause

== ENCOUNTER → 2017-12-18 | Outpatient (CLI) | payer MEDICARE, MEDICAID | END | disposition home or self-care (01) | LOC: WOUNDCARE 04:05 | DX: T81.89XD Other complications of procedures, not elsewhere classified, subsequent encounter (principal); N18.4 Chronic kidney disease, stage 4 (severe); Z87.891 Personal history of nicotine dependence; Z98.49 Cataract extraction status, unspecified eye; Y83.8 Other surgical procedures as the cause of abnormal reaction of the patient, or of later complication, without mention of misadventure at the time of the procedure ==

== ENCOUNTER → 2017-12-25 | Outpatient (CLI) | payer MEDICARE, MEDICAID | END | disposition home or self-care (01) | LOC: WOUNDCARE 01:47 | DX: T81.89XD Other complications of procedures, not elsewhere classified, subsequent encounter (principal); N18.4 Chronic kidney disease, stage 4 (severe); Z87.891 Personal history of nicotine dependence; Z98.49 Cataract extraction status, unspecified eye; Y83.8 Other surgical procedures as the cause of abnormal reaction of the patient, or of later complication, without mention of misadventure at the time of the procedure ==

== ENCOUNTER → 2018-01-08 | Outpatient (CLI) | payer MEDICARE, MEDICAID | END | disposition home or self-care (01) | LOC: WOUNDCARE 04:40 | DX: T81.89XD Other complications of procedures, not elsewhere classified, subsequent encounter (principal); N18.4 Chronic kidney disease, stage 4 (severe); Z98.49 Cataract extraction status, unspecified eye; Z87.891 Personal history of nicotine dependence; Y83.8 Other surgical procedures as the cause of abnormal reaction of the patient, or of later complication, without mention of misadventure at the time of the procedure ==

== ENCOUNTER → 2018-02-05 | Outpatient (CLI) | payer MEDICARE, MEDICAID | END | disposition home or self-care (01) | LOC: WOUNDCARE 05:16 | DX: T81.89XD Other complications of procedures, not elsewhere classified, subsequent encounter (principal); N18.4 Chronic kidney disease, stage 4 (severe); E55.9 Vitamin D deficiency, unspecified; Z87.891 Personal history of nicotine dependence; Y83.8 Other surgical procedures as the cause of abnormal reaction of the patient, or of later complication, without mention of misadventure at the time of the procedure ==

== ENCOUNTER → 2018-02-12 | Outpatient (CLI) | payer MEDICARE, MEDICAID | END | disposition home or self-care (01) | LOC: WOUNDCARE 03:36 | DX: T81.89XD Other complications of procedures, not elsewhere classified, subsequent encounter (principal); E55.9 Vitamin D deficiency, unspecified; N18.4 Chronic kidney disease, stage 4 (severe); Z87.891 Personal history of nicotine dependence; Y83.8 Other surgical procedures as the cause of abnormal reaction of the patient, or of later complication, without mention of misadventure at the time of the procedure ==

== ENCOUNTER → 2018-02-19 | Outpatient (CLI) | payer MEDICARE, MEDICAID | END | disposition home or self-care (01) | LOC: WOUNDCARE 03:43 | DX: T81.89XD Other complications of procedures, not elsewhere classified, subsequent encounter (principal); L92.9 Granulomatous disorder of the skin and subcutaneous tissue, unspecified; E55.9 Vitamin D deficiency, unspecified; N18.4 Chronic kidney disease, stage 4 (severe); Z87.891 Personal history of nicotine dependence; Y83.8 Other surgical procedures as the cause of abnormal reaction of the patient, or of later complication, without mention of misadventure at the time of the procedure ==

== ENCOUNTER → 2018-02-26 | Outpatient (CLI) | payer MEDICARE, MEDICAID | END | disposition home or self-care (01) | LOC: WOUNDCARE 00:34 | DX: T81.89XD Other complications of procedures, not elsewhere classified, subsequent encounter (principal); L92.8 Other granulomatous disorders of the skin and subcutaneous tissue; E55.9 Vitamin D deficiency, unspecified; N18.4 Chronic kidney disease, stage 4 (severe); Z87.891 Personal history of nicotine dependence; Y83.8 Other surgical procedures as the cause of abnormal reaction of the patient, or of later complication, without mention of misadventure at the time of the procedure ==

== ENCOUNTER → 2018-03-05 | Outpatient (CLI) | payer MEDICARE, MEDICAID | END | disposition home or self-care (01) | LOC: WOUNDCARE 04:46 | DX: T81.89XD Other complications of procedures, not elsewhere classified, subsequent encounter (principal); L92.8 Other granulomatous disorders of the skin and subcutaneous tissue; N18.4 Chronic kidney disease, stage 4 (severe); E55.9 Vitamin D deficiency, unspecified; Z87.891 Personal history of nicotine dependence; Y83.8 Other surgical procedures as the cause of abnormal reaction of the patient, or of later complication, without mention of misadventure at the time of the procedure ==

== ENCOUNTER → 2018-03-12 | Outpatient (CLI) | payer MEDICARE, MEDICAID | END | disposition home or self-care (01) | LOC: WOUNDCARE 03:34 | DX: T81.89XD Other complications of procedures, not elsewhere classified, subsequent encounter (principal); S31.105D Unspecified open wound of abdominal wall, periumbilic region without penetration into peritoneal cavity, subsequent encounter; L92.9 Granulomatous disorder of the skin and subcutaneous tissue, unspecified; E55.9 Vitamin D deficiency, unspecified; N18.4 Chronic kidney disease, stage 4 (severe); Z87.891 Personal history of nicotine dependence; Y83.8 Other surgical procedures as the cause of abnormal reaction of the patient, or of later complication, without mention of misadventure at the time of the procedure ==

== ENCOUNTER → 2018-03-19 | Outpatient (CLI) | payer MEDICARE, MEDICAID | END | disposition home or self-care (01) | LOC: WOUNDCARE 02:45 | DX: T81.89XD Other complications of procedures, not elsewhere classified, subsequent encounter (principal); L92.9 Granulomatous disorder of the skin and subcutaneous tissue, unspecified; N18.4 Chronic kidney disease, stage 4 (severe); E55.9 Vitamin D deficiency, unspecified; Z87.891 Personal history of nicotine dependence; Y83.8 Other surgical procedures as the cause of abnormal reaction of the patient, or of later complication, without mention of misadventure at the time of the procedure ==

== ENCOUNTER → 2018-04-02 | Outpatient (CLI) | payer MEDICARE | END | disposition home or self-care (01) | LOC: WOUNDCARE 03:27 | DX: T81.89XD Other complications of procedures, not elsewhere classified, subsequent encounter (principal); L92.9 Granulomatous disorder of the skin and subcutaneous tissue, unspecified; N18.3 Chronic kidney disease, stage 3 (moderate); E55.9 Vitamin D deficiency, unspecified; Z87.891 Personal history of nicotine dependence; Y83.8 Other surgical procedures as the cause of abnormal reaction of the patient, or of later complication, without mention of misadventure at the time of the procedure ==

== ENCOUNTER → 2018-04-30 | Outpatient (CLI) | payer MEDICARE | END | disposition home or self-care (01) | LOC: WOUNDCARE 01:22 | DX: T81.89XD Other complications of procedures, not elsewhere classified, subsequent encounter (principal); L92.9 Granulomatous disorder of the skin and subcutaneous tissue, unspecified; N18.4 Chronic kidney disease, stage 4 (severe); E55.9 Vitamin D deficiency, unspecified; Z87.891 Personal history of nicotine dependence; Y83.8 Other surgical procedures as the cause of abnormal reaction of the patient, or of later complication, without mention of misadventure at the time of the procedure ==

== ENCOUNTER 2019-01-22 10:52 | Inpatient (IN) | payer MEDICARE ==
[~2019-01-22] VITALS: Ht 188 cm; Wt 72.7 kg
--- NOTE | ~2019-01-22 | PR ---
[place], [place] PROGRESS NOTE NAME: JASPER WAGNER UNIT #: [id number] ROOM: 402 DOCTOR: JESSICA STRANGE MD,MARGOT BIRTHDATE: [birth year] DOS: 01/29/2019 PULMONARY PROGRESS NOTE SUBJECTIVE: He has been doing very well at this time, continued to show reduction and improvement of respiratory symptoms, resolution of coughing, shortness of breath, and wheezing. He had been assessed for home oxygen need yesterday. Needing oxygen supplementation 2 liters nasal cannula, which has been arranged prior to discharge. OBJECTIVE: VITAL SIGNS: For the patient recorded normal temperature, respiratory rate 18, heart rate 88, blood pressure 122/67 this morning. Pulse oxygen saturation on 2 liters nasal cannula 94% saturation at rest yesterday on room air was noted 88%. HEENT: Examination shows no acute change. CARDIOVASCULAR: S1, S2 audible. LUNGS: Without any wheezing or crackle. Breath sound noted mildly diminished bilaterally. ABDOMEN: Soft, nontender. Bowel sounds present. EXTREMITIES: No new change. IMPRESSION: Stable respiratory status, resolving. The patient is progressing gradually with current medical management. PLAN OF THERAPY: No changes in the plan of care at this time will be necessary. Discharge planning has already been made for the patient. Tobacco cessation was addressed again with the patient as an outpatient. MARGOT LOPEZ MD CM:PNTRANS [phone] MARGOT STRANGE MD 01/29/19 1325 interface
--- NOTE | ~2019-01-22 | PR ---
[place], [place] PROGRESS NOTE NAME: JASPER WAGNER UNIT #: [id number] ROOM: 402 DOCTOR: MARGOT MCKEON MD BIRTHDATE: [birth year] DOS: 01/28/2019 SUBJECTIVE: The patient has been noted comfortable at this time, resting on the bed. He reporting reduction of symptoms of coughing and wheezing. Shortness of breath is still noted as the patient walked from the bed to the bathroom. He has been using oxygen supplement this morning of assessment. PHYSICAL EXAMINATION: GENERAL: The patient is comfortably resting, sitting on the bed this morning, eating his breakfast, using oxygen supplementation via nasal cannula. VITAL SIGNS: Normal temperature, respiratory rate 20, heart rate 60, blood pressure 156/89. Pulse oxygen saturation recorded as 95% saturation on 2 liters nasal cannula. HEENT: Examination shows head was atraumatic. Eyes nonicterus. NECK: Supple. CARDIOVASCULAR: S1, S2 audible. LUNGS: Decreased breath sounds, questionable wheezing, no crackles. ABDOMEN: Soft, nontender. Bowel sounds present. EXTREMITIES: No new change. LABORATORY DATA: CBC today; WBC count 12.3, hemoglobin 9.5, platelet count was normal. IMPRESSION: The patient with gradual and progressive resolution of acute hypoxic respiratory failure with exacerbation of chronic obstructive pulmonary disease, acute debility, still noted with symptoms of shortness of breath with exertion. PLAN OF MANAGEMENT: Discontinue Solu-Medrol. Start the patient on oral tapering prednisone. Assessment for the need of home oxygen supplementation prior to discharge would be recommended. The patient should also get an outpatient physical therapy and occupation therapy as well. Other additional treatment changes recommended based on progression of his illness. Tobacco cessation and abstinence was still recommended. [place], [place] PROGRESS NOTE NAME: JASPER WAGNER UNIT #: [id number] ROOM: 402 DOCTOR: MARGOT MCKEON MD BIRTHDATE: [birth year] MARGOT LOPEZ MD CM:PNTRANS [id number] MARGOT STRANGE MD 01/28/19 1007 interface
--- NOTE | ~2019-01-22 | CON ---
[place], [place] REPORT OF CONSULTATION NAME: JASPER WAGNER UNIT #: [id number] ROOM: 402 DOCTOR: JESSICA STRANGE MDMARGOT BIRTHDATE: [birth year] DOS: 01/26/2019 PULMONARY CONSULTATION, EVALUATION AND MANAGEMENT CONSULTATION REQUESTED BY: Dr. Harini Nowak. REASON FOR CONSULTATION: For assessment of acute exacerbation of COPD. HISTORY OF PRESENT ILLNESS: This is a 78-year-old white male patient with longstanding history of COPD, presented to the hospital as he has been noted with symptoms including shortness breath, which are occurring for the past 3 days. The patient has been noted with progressive increase of shortness of breath. He has contacted the ambulance for assessment. The patient has been noted with pulse ox saturation at home, has 87% and he has not noted and dependent on the oxygen in the home settings. He was brought to the hospital, started on supplemental oxygen. The patient has been assessed and currently hospitalized for the medical management of acute exacerbation of COPD. He has been also complaining of symptoms of increased chest congestion, wheezing with current symptoms with tightness in the chest. He had been currently admitted to the hospital for that. This morning was seen has been reported partial reduction of the respiratory symptoms, but still complaining of symptoms of shortness of breath with some wheezing and cough. REVIEW OF SYSTEMS: CONSTITUTIONAL: Fatigue and tiredness reported. Denies symptoms of fever or chills. EYES: Denies any burning, redness, or tenderness. EARS, NOSE, THROAT SYMPTOMS: Denies sore throat, hoarseness, otalgia, postnasal drainage or epistaxis. GASTROINTESTINAL: Denies any dysphagia, nausea, vomiting, diarrhea, abdominal pain, hematemesis, melena, hematochezia, or abnormal weight loss. CARDIOVASCULAR: Denies any pain of the lower extremities, any edema symptoms of angina. MUSCULOSKELETAL: No acute joint pain, redness, or tenderness. SKIN: No lesions or rashes reported. CENTRAL NERVOUS SYSTEM: General weakness and fatigue were noted, but there were no symptoms of seizures or tingling sensation of the extremities. Remaining systems were reviewed, they were noted all negative. PAST MEDICAL HISTORY: The patient was known with history of: 1. Known for chronic obstructive pulmonary disease. 2. Prolonged hospitalization for C. diff colitis over a year ago. 3. Previous history of pneumonia in 2018. 4. Toxic megacolon, requiring colectomy in [facility]. 5. Chronic kidney disease stage 3. 6. Acute congestive heart failure with preserved ejection fraction. 7. Essential hypertension. 8. Tobacco dependence. [place], [place] REPORT OF CONSULTATION NAME: JASPER WAGNER UNIT #: [id number] ROOM: 402 DOCTOR: MARGOT MCKEON MD BIRTHDATE: [birth year] PAST SURGICAL HISTORY: 1. Total abdominal colectomy with ileostomy in 05/2017 for toxic megacolon. 2. Reversal of ileostomy, which was done previously. 3. Wound dehiscence infection, which has resolved. 4. Therapeutic bronchoscopy. SOCIAL HISTORY: The patient lives at home. Denies any history of alcohol use or illicit drug use. , has 2 children. Tobacco use was noted as a teenager about a pack of cigarettes per day or more previously. Currently smoking half a pack of cigarettes per day. FAMILY HISTORY: The patient's both parents have been . CURRENT MEDICATIONS: Administered during this hospitalization were noted as use of amlodipine, ferrous sulfate, vitamin D, folic acid, Lovenox for DVT prophylaxis, Solu-Medrol 80 mg b.i.d., DuoNeb q. 4 hours, Lasix, Rocephin, Zithromax, and some other medications. DRUG ALLERGIES: No known drug allergies. PHYSICAL EXAMINATION: GENERAL: This is a 78-year-old male patient who has been noted currently awake and alert without any acute distress, thinly built. Height of 6 feet 2 inches, weight 160 pounds, BMI 20.5. VITAL SIGNS: Normal temperature in the last 48 hours, respiratory rate range between 18-20, heart rate of 89-97, blood pressure 151/69-135/70. Pulse oxygen saturation on 2 liters nasal cannula was 93% saturation. An 87% saturation oxygen reported upon assessment at home by the EMS. HEENT: Examination shows head was atraumatic. Eyes nonicterus. NECK: Supple. CARDIOVASCULAR: S1, S2 is audible. LUNGS: Noted diffuse general reduction of breath sound, decreased air exchange. There were no crackles, rhonchi, or wheezing. ABDOMEN: Soft, flat, nontender, and bowel sounds present. EXTREMITIES: Loss of muscle mass without any edema, clubbing or cyanosis. MUSCULOSKELETAL: Without acute deformities. SKIN: Noted dryness of the skin. CENTRAL NERVOUS SYSTEM: Cranial nerves 2-12 intact. Generalized weakness was noted. LABORATORY DATA: CBC on admission on 01/22/2019, WBC count normal, hemoglobin 8.3, platelet count normal. PT, PTT noted normal. On 01/22/2019, BMP was noted 791. CMP of 01/22/2019 as potassium 3.4. AST, ALT was normal. Lactic acid was 1.2. Arterial blood gas on 01/22/2019, pH of 7.39, pCO2 of 47, pO2 73.6. The blood culture on 01/22/2019, showed no bacterial growth. CMP in 24 hours, BUN 28, creatinine 1.50, glucose 139. Albumin 2.6. Culture of the sputum on 01/24/2019, noted normal rl. Gram stain reported as few epithelial cells, few gram-positive cocci in pairs and clusters, moderate white blood cells. CBC of this morning, WBC count 13.7, hemoglobin 9.5, platelet count recorded as 276, normal. BMP that was done yesterday, BUN 33, creatinine 1.41. Troponin on [place], [place] REPORT OF CONSULTATION NAME: JASPER WAGNER UNIT #: [id number] ROOM: [facility] DOCTOR: JESSICA STRANGE MD,[facility] BIRTHDATE: [birth year] admission, 3 sets were noted all negative. Arterial blood gas in the Emergency Room on admission 8 liters, pH of 7.39, pCO2 of 47, pO2 of 73.6. Chest x-ray does not show any acute pulmonary infiltration. CT scan of the chest done as a CTA protocol on admission was noted without any evidence of acute pulmonary embolism. There was no evidence of pulmonary embolism. Paraseptal emphysema noted in the upper lungs. In addition to that scarring noted in the upper lung and pleural thickening in both the apical areas. There were no discrete pulmonary nodules or lung masses were seen. There was no lymphadenopathy seen. Small hiatal hernia was visible. IMPRESSION: 1. The patient will be currently admitted to the hospital noted with symptoms and findings with acute hypoxemic respiratory failure resulting from acute exacerbation of chronic obstructive pulmonary disease. 2. Acute kidney injury superimposed chronic kidney disease staging intravascular volume depletion and prerenal would be considered very likely. 3. Acute bronchitis as well. There was no evidence of pneumonia. 4. Chronic nicotine dependence was also noted in the history. PLAN OF MANAGEMENT: The patient dose of Solu-Medrol will be decreased since he has been noted with symptomatic improvement at this time as well as with the physical examination. Continue the bronchodilators, which will be changed to albuterol sulfate for the medical management of COPD [place] [facility] Monitor kidney function and other illnesses. Anemia was also noted, most likely chronic disease, which has been investigated by the primary care physician. Other additional treatment changes will be made based on progression of the illness. Deep venous thrombosis prophylaxis as well. Other additional treatment changes will be recommended based on progression of illness. Counseling about tobacco cessation was done. Use of nicotine replacement patches could be utilized if necessary to overcome nicotine withdrawal. For the past 4 days of hospitalization, he had not been reporting any of such cravings. MARGOT LOPEZ MD CM:CONSTR:REPORT OF CONSULTATION 1230 01/26/19 2725 interface
--- NOTE | ~2019-01-22 | PR ---
[place], [place] PROGRESS NOTE NAME: JASPER WAGNER UNIT #: [id number] ROOM: 402 DOCTOR: MARGOT MCKEON MD BIRTHDATE: [birth year] DOS: 01/27/2019 PULMONARY PROGRESS NOTE SUBJECTIVE: The patient was seen and examined on 01/27/2019 reported reduction in symptoms of shortness of breath from yesterday. Denies symptoms of chest pain. Coughing has been subsiding. There were no symptoms of hemoptysis. There were no reported chest pain. PHYSICAL EXAMINATION: GENERAL: The patient was resting comfortably. The patient sitting on the bed this morning. VITAL SIGNS: Normal temperature, respiratory rate 16, heart rate 98, blood pressure 164/90. Pulse oxygen saturation at rest on room air was 99% saturation recorded. HEENT: Examination shows head was atraumatic. Eyes nonicterus. NECK: Supple. CARDIOVASCULAR: S1, S2 is audible. LUNGS: Noted with general reduction in the breath sounds with mild expiratory wheezing, no crackles. ABDOMEN: Soft, nontender. Bowel sounds present. EXTREMITIES: The patient was noted without any acute edema. MUSCULOSKELETAL: Without any acute deformities. LABORATORY DATA: Culture of the sputum was noted as normal rl. BMP that was done this morning, BUN 34, creatinine 1.30. IMPRESSION: Progressive resolution and improvement noted in acute hypoxic respiratory failure with improving acute exacerbation of chronic obstructive pulmonary disease. Improving acute kidney injury with history of chronic kidney disease. PLAN OF MANAGEMENT: Decrease the Solu-Medrol dose to 40 mg b.i.d. today. Consider for home discharge in the next 24 hours depending on further improvement in the respiratory status and symptoms. Discontinuation of the IV antibiotic. Switching the patient on oral antibiotics. If the symptoms persist, the patient already completed 5 days course of antibiotics. [place], [place] PROGRESS NOTE NAME: JASPER WAGNER UNIT #: [id number] ROOM: 402 DOCTOR: MARGOT MCKEON MD BIRTHDATE: [birth year] MARGOT LOPEZ MD CM:PNTRANS [id number] MARGOT STRANGE MD 01/27/19 1251 interface
--- NOTE | ~2019-01-22 | EKG ---
[place], [place] ELECTROCARDIOGRAM REPORT NAME: JASPER WAGNER UNIT #: [id number] ROOM: 402 DOCTOR: GILDA DRAFT REPORT BIRTHDATE: [birth year] [facility] [place] Test Date: 2019-01-22 Test Time: 16:40:58 Pat Name: JASPER WAGNER Department: Room: 402 Gender: M Cage Maker: Karina Snowden : 1940 Requested By: JR GAMEZ Order Number: [id number] Reading MD: Nicholas Charles Measurements Intervals [place] Rate: 93 P: 86 MT: 153 QRS: 61 QRSD: 94 T: 70 QT: 384 QTc: 478 Interpretive Statements Sinus rhythm Left atrial enlargement Borderline prolonged QT interval Baseline wander in lead(s) V6 Compared to ECG 01/27/2018 17:52:16 ST (T wave) deviation no longer present Electronically Signed On 01-23-2019 12:30:16 PDT by Nicholas Charles CM:EKGRPT:ELECTROCARDIOGRAM REPORT [id number] 1230 JR VO DRAFT REPORT JR GAMEZ MD
--- NOTE | ~2019-01-22 | EKG ---
[place], [place] ELECTROCARDIOGRAM REPORT NAME: JASPER WAGNER UNIT #: [id number] ROOM: 402 DOCTOR: GILDA DRAFT REPORT BIRTHDATE: [birth year] [facility] Test Date: 2019-01-22 Test Time: 14:01:34 Pat Name: JASPER WAGNER Department: Room: 402 Gender: M Piano Tuner: Karina Snowden : 1940 Requested By: JR GAMEZ Order Number: [id number] Reading MD: Nicholas Charles Measurements Intervals [place] Rate: 86 P: 72 CA: 183 QRS: 65 QRSD: 96 T: 72 QT: 432 QTc: 517 Interpretive Statements Sinus rhythm Consider left atrial enlargement Prolonged QT interval Compared to ECG 01/27/2018 17:52:16 Prolonged QT interval now present ST (T wave) deviation no longer present Electronically Signed On 01-23-2019 12:28:44 PDT by Nicholas Charles CM:EKGRPT:ELECTROCARDIOGRAM REPORT 1401 1228 JR VO DRAFT REPORT JR GAMEZ MD
--- NOTE | ~2019-01-22 | EKG ---
[place], [place] ELECTROCARDIOGRAM REPORT NAME: JASPER WAGNER UNIT #: [id number] ROOM: 402 DOCTOR: GILDA DRAFT REPORT BIRTHDATE: [birth year] [facility] Test Date: 2019-01-22 Test Time: 10:58:14 Pat Name: JASPER WAGNER Department: Room: 402 Gender: M Recoating Machine Operator: : 1940 Requested By: JR GAMEZ Order Number: [id number] Reading MD: Nicholas Charles Measurements Intervals [place] Rate: 91 P: 89 CT: 149 QRS: 67 QRSD: 89 T: 74 QT: 373 QTc: 459 Interpretive Statements Sinus rhythm LAE, consider biatrial enlargement Minimal ST depression, anterolateral leads Baseline wander in lead(s) V3 Compared to ECG 01/27/2018 17:52:16 No significant changes Electronically Signed On 01-23-2019 12:26:19 PDT by Nicholas Charles CM:EKGRPT:ELECTROCARDIOGRAM REPORT [id number] 1226 JR VO DRAFT REPORT JR GAMEZ MD
[2019-01-22 11:05] VITALS: BP 148/83
[2019-01-22 11:20] LABS: BASO # 0.1 10*3/uL (0.0-0.1); EOS # 0.2 10*3/uL (0.0-0.4); EOS % 2.1 % (1.0-4.0); HEMATOCRIT 27.9 % (42.0-52.0); HEMOGLOBIN 8.3 g/dl (14.0-18.0); LYMPH # 1.2 10*3/uL (1.3-4.4); LYMPH % 12.8 % (27.0-41.0); MEAN CELL VOLUME 78.8 fl (80.0-94.0); MEAN CORPUSCULAR HGB 23.4 pg (27.0-31.0); MEAN CORPUSCULAR HGB CONC 29.7 g/dl (33.0-37.0); MEAN PLATELET VOLUME 10.4 fl (9.6-12.3); MONO # 0.7 10*3/uL (0.1-1.0); MONO % 7.1 % (3.0-9.0); NEUT # 7.1 10*3/uL (2.3-7.9); NEUT % 76.7 % (47.0-73.0); PLATELET COUNT AUTOMATED 306 10*3/uL (130-400); RED BLOOD COUNT 3.54 10*6/uL (4.50-5.90); RED CELL DISTRI WIDTH 18.4 % (0-14.5); WHITE BLOOD COUNT 9.2 10*3/uL (4.8-10.8)
[2019-01-22 11:31] LABS: ACT PARTIAL THROMBO TIME 24.9 SECONDS (20.0-32.1); INTERNATIONAL NORM RATIO 0.9 (2.0-3.5)
[2019-01-22 11:39] LABS: ALBUMIN 2.9 gm/dl (3.1-4.5); ALKALINE PHOSPHATASE 131 U/L (45-117); BUN 13 mg/dl (7-24); CHLORIDE 104 mmol/L (98-107); CREATININE 1.22 mg/dL (0.70-1.30); POTASSIUM 3.4 mmol/L (3.5-5.1); SGOT/AST 11 IU/L (3-35); SGPT/ALT 11 U/L (12-78); SODIUM 139 mmol/L (136-145)
[2019-01-22 11:47] LABS: RETICULOCYTE % 1.08 % (0.50-2.50)
[2019-01-22 11:47] LABS: TROPONIN I < 0.015 ng/ml (<0.045)
[2019-01-22 11:48] LABS: ABG BASE EXCESS 3.3 mmol/L (-2.0-2.0); ABG HCO3 28.3 mmol/l (22-26); ABG O2 SATURATION 96.7 % (95-97); ARTERIAL BLOOD GAS PCO2 47.3 mmHg (35-45); ARTERIAL BLOOD GAS PH 7.392 (7.35-7.45); ARTERIAL BLOOD GAS PO2 73.6 mmHg (80-90)
[2019-01-22 11:56] VITALS: BP 148/83
[2019-01-22 12:01] LABS: IRON 16 ug/dL (65-175); TOTAL IRON BINDING CAPACITY 305 ug/dl (250-450)
[2019-01-22] MEDS ORDERED: VITAMIN D-32000 UNI1 PO (12:12)
[2019-01-22] MEDS ORDERED: AMBIEN10 M1 PO (12:12)
[2019-01-22 12:53] VITALS: BP 140/70
--- NOTE | 2019-01-22 12:53 | NUR ---
A 78, admitted to , under the services of DIPIKA Reddy MD with a diagnosis of COPD EXACERBATION. Chief complaint is SHORTNESS OF BREATH. Patient arrived via ambulance from ER. Monitor applied. Initial assessment completed. Vital signs taken and recorded. DIPIKA REDDY MD notified of admission to the unit. Orders received. See assessment for past medical history, medications and allergies. Patient and/or family oriented to unit. [facility] visitation policy reviewed. Clothing/patient valuable form completed. JULES RUST
[2019-01-22] MEDS ORDERED: COMBIVENT RESPIM4 GM INH (13:03)
--- NOTE | 2019-01-22 13:30 | NUR ---
ORDERS RECEIVED FROM DR. VELASCO TO CONTINUE HOME MEDS, WELL FOR NEW MEDS DOCUMENTED IN MEDICATIONS SCREEN AND LABS.
[2019-01-22 16:00] VITALS: BP 145/65
[2019-01-22 20:00] VITALS: BP 123/69
--- NOTE | 2019-01-22 22:00 | NUR ---
Hep Lock discontinued. Site symptomatic. Pressure applied. Sterile dressing applied. IV started left antecubital with #20 angiocath after 1 attempts. The IV site was prepped with Chloraprep. Heparin lock attached. Sterile dressing applied. Patient tolerated precedure well. Procedure performed according to [facility] policy & procedure. IAN POSADAS
[2019-01-23] VITALS (7 sets, daily range): BP systolic 117–147; BP diastolic 56–73
--- NOTE | 2019-01-23 03:42 | NUR ---
24 HR. CHART CHECK COMPLETE.
--- NOTE | 2019-01-23 19:38 | NUR ---
PATIENT IS RESTING IN BED WITH EASY AND REGULAR RESPERS ON 2L VIA NC. ASSESSMENT IS COMPLETE WITH NO C/O OR S/S OF DISTRESS NOTED AT THIS TIME. BED IS LOW, LOCKED, AND CALL LIGHT IS WITHIN REACH. WILL CONTINUE TO MONITOR.
[2019-01-24 06:52] LABS: ALBUMIN 2.6 gm/dl (3.1-4.5); CREATININE 1.5 mg/dL (0.70-1.30)
[2019-01-24 06:55] LABS: TOTAL PROTEIN 6.3 gm/dL (6.4-8.2)
[2019-01-24 08:00] VITALS: BP 138/76; BP 160/70
[2019-01-24 12:00] VITALS: BP 153/76; BP 153/78
[2019-01-24 16:00] VITALS: BP 135/87
[2019-01-24 19:09] LABS: BILIRUBIN NEGATIVE (NEGATIVE); BLOOD 1+ (NEGATIVE); CLARITY SL CLOUDY (CLEAR); COLOR YELLOW (YELLOW); GLUCOSE NEGATIVE (NEGATIVE); KETONE NEGATIVE (NEGATIVE); LEUKO ESTERASE TRACE (NEGATIVE); NITRITE NEGATIVE (NEGATIVE); SPECIFIC GRAVITY 1.025 (1.005-1.030); UROBILINOGEN 0.2 E.U./dl (0.2-1.0)
[2019-01-24 20:00] VITALS: BP 151/80
--- NOTE | 2019-01-24 23:55 | NUR ---
IV started right wrist with #22 protective cath after 1 attempts. Site prepped with Chloroprep. Sterile dressing applied. Patient tolerated procedure well. IV infusing at cc/hr. ANIYA GOODE
[2019-01-25] VITALS (19 sets, daily range): BP systolic 140–173; BP diastolic 66–90
--- NOTE | 2019-01-25 04:35 | NUR ---
NOTIFIED OF BP 170/84 MANUALLY & HR 110S PER CM. NEW ORDER RECEIVED FOR PO CLONIDINE 0.1 MG. ALSO DISCUSSED NS@100 ML/HR.
[2019-01-25 06:53] LABS: HEMATOCRIT 22.5 % (42.0-52.0); MEAN CELL VOLUME 77.6 fl (80.0-94.0); MEAN CORPUSCULAR HGB 24.1 pg (27.0-31.0); MEAN CORPUSCULAR HGB CONC 31.1 g/dl (33.0-37.0); MEAN PLATELET VOLUME 10.5 fl (9.6-12.3); PLATELET COUNT AUTOMATED 262 10*3/uL (130-400); RED CELL DISTRI WIDTH 18.6 % (0-14.5); WHITE BLOOD COUNT 15.4 10*3/uL (4.8-10.8)
[2019-01-25 07:24] LABS: POTASSIUM 4.2 mmol/L (3.5-5.1)
[2019-01-25 07:26] LABS: CREATININE 1.41 mg/dL (0.70-1.30)
[2019-01-25 07:36] LABS: PLATELET SUFFICIENCY NORMAL (NORMAL); SCHISTOCYTES FEW; TARGET CELLS FEW; TOTAL CELLS COUNTED 100 #CELLS
[2019-01-25 07:38] LABS: MICROCYTOSIS SLIGHT
--- NOTE | 2019-01-25 09:00 | NUR ---
Double Corner Cutter in to talk to patient. Patient states lives at home with his niece. There are 2 steps in the home. Physician: Dr. Foreign Nowak Pharmacy: [facility] Home health services: none Patient's level of ADLs: MINIMAL ASSIST Patient has working utilities: yes DME: cane Follow-up physician's appointment after d/c: he prefers to make his own follow up appt after discharge Does patient want to access PORTAL?: no Discharge plan discussed with patient. He lives at home with his niece. She is independent in his ADLs and ambulates with a cane. Discussed home health care services and he denies any home needs at this time. When medically stable he will be discharged to home. His niece will provide transportation on discharge. TERESITA MCMAHAN
--- NOTE | 2019-01-25 10:31 | NUR ---
PATIENT C/O SOB. POX 96% VIA 2LNC. PATIENT STATES HE WAS JUST UP IN THE BATHROOM. PT SOB WITH MINIMAL EXERTION. RESPIRATORY PAGED AT THIS TIME REGARDING BREATHING TREATMENT. WILL MONITOR. CALL LIGHT WITHIN REACH.
--- NOTE | 2019-01-25 11:00 | NUR ---
ASSUMED CARE FOR THIS PT AT THIS TIME. PT RESTING QIETLY IN BED. NO S/S OF DISTRESS NOTED. CALL LIGHT IN REACH.
--- NOTE | 2019-01-25 12:45 | NUR ---
PT HR TACHY IN 130'S. PT AMBULATED TO BR. PT STATES THAT HE GETS EXTREMELY SOB W/VERY MINIMAL EXERTION. O2 VIA NC ON AT THIS TIME. PT SITTING ON SIDE OF BED AT PRESENT TIME. DENIES NEED FOR BREATHING TX. CALL LIGHT IN REACH.
--- NOTE | 2019-01-25 12:50 | NUR ---
Dr. LOPEZ consulted for SOB W/EXERTION, COPD.. MIMI ARTEAGA
[2019-01-25 13:47] LABS: TOTAL IRON BINDING CAPACITY 284 ug/dl (250-450)
[2019-01-25 13:58] LABS: IRON 17 ug/dL (65-175)
--- NOTE | 2019-01-25 14:57 | NUR ---
BLOOD TRANSFUSION INITIATED AT THIS TIME. S/S OF TRANSFUSION REACTIONS TO NOTIFY NURSE OF REVIEWED W/PT. PT TOLERATING TRANSFUSION W/OUT DIFF AT THIS TIME. WILL CONTINUE TO MONITOR.
--- NOTE | 2019-01-25 17:08 | NUR ---
DR. VELASCO NOTIFIED OF PT'S ELEVATED BP. ADVISED TO CALL DR. VILLAVICENCIO FOR ORDERS.
--- NOTE | 2019-01-25 17:10 | NUR ---
DR. VILLAVICENCIO NOTIFIED OF PT'S ELEVATED BP. AMLODIPINE 5MG PO X1 NOW THEN DAILY AND D/C CONTINUOUS IVF.
--- NOTE | 2019-01-25 22:17 | NUR ---
PT STATES THAT HIS SOB IS MUCH IMPROVED. PT RESTING QUIETLY IN BED. NO S/S OF RESP DISTRESS NOTED.
[2019-01-26] VITALS: BP 128/68
[2019-01-26 00:29] LABS: BASO % 0.1 % (0.0-1.0); HEMATOCRIT 30.2 % (42.0-52.0); HEMOGLOBIN 9.5 g/dl (14.0-18.0); LYMPH # 0.7 10*3/uL (1.3-4.4); LYMPH % 5.2 % (27.0-41.0); MEAN CELL VOLUME 79.1 fl (80.0-94.0); MEAN CORPUSCULAR HGB 24.9 pg (27.0-31.0); MEAN CORPUSCULAR HGB CONC 31.5 g/dl (33.0-37.0); MEAN PLATELET VOLUME 10.7 fl (9.6-12.3); MONO # 0.7 10*3/uL (0.1-1.0); MONO % 4.9 % (3.0-9.0); NEUT # 12.2 10*3/uL (2.3-7.9); NEUT % 88.9 % (47.0-73.0); NUCLEATED RED BLOOD CELL 0.1 % (0.0-0.0); PLATELET COUNT AUTOMATED 276 10*3/uL (130-400); RED BLOOD COUNT 3.82 10*6/uL (4.50-5.90); RED CELL DISTRI WIDTH 17.7 % (0-14.5); WHITE BLOOD COUNT 13.7 10*3/uL (4.8-10.8)
--- NOTE | 2019-01-26 01:56 | NUR ---
24 HR chart check completed.
[2019-01-26 08:00] VITALS: BP 135/70
--- NOTE | 2019-01-26 09:00 | NUR ---
Jewelry Drilling Machine Operator in to see patient. No new needs or request at this time. He denies any home needs. When medically stable he will be discharged to home.
[2019-01-26 12:00] VITALS: BP 112/66; BP 118/78
[2019-01-26 13:15] LABS: BUN 30 mg/dl (7-24); CHLORIDE 107 mmol/L (98-107); CREATININE 1.33 mg/dL (0.70-1.30); POTASSIUM 3.8 mmol/L (3.5-5.1); SODIUM 141 mmol/L (136-145)
[2019-01-26 16:00] VITALS: BP 137/69
[2019-01-26 20:00] VITALS: BP 172/80
--- NOTE | 2019-01-26 22:43 | NUR ---
24 HOUR CHART CHECK DONE
[2019-01-27] VITALS: BP 160/82
[2019-01-27 07:04] LABS: BUN 34 mg/dl (7-24); CHLORIDE 106 mmol/L (98-107); POTASSIUM 4.3 mmol/L (3.5-5.1); SODIUM 141 mmol/L (136-145)
[2019-01-27 08:00] VITALS: BP 164/90
[2019-01-27 12:00] VITALS: BP 160/80
--- NOTE | 2019-01-27 13:21 | NUR ---
DR. VILLAVICENCIO HERE TO SEE PATIENT
[2019-01-27 16:00] VITALS: BP 154/75
[2019-01-27 20:00] VITALS: BP 153/76
[2019-01-28] VITALS: BP 156/89
--- NOTE | 2019-01-28 01:29 | NUR ---
24 HR chart check completed.
[2019-01-28 08:00] VITALS: BP 160/84
--- NOTE | 2019-01-28 08:00 | NUR ---
BEDSIDE REPORT RECIEVED. PT AWAKE ALERT AND ORIENTED. NO STATED COMPLAINTS. NO S/S OF PAIN OR DISTRESS AT THIS TIME. RESPIRATIONS EASY AND REGULAR, NO SOB NOTED ON 2L NC. BED IN LOWEST LOCKED POSITION AND CALL LIGHT WITHIN REACH. WILL CONTINUE TO MONIOR.
[2019-01-28 09:47] LABS: BASO % 0.1 % (0.0-1.0); HEMATOCRIT 31.2 % (42.0-52.0); HEMOGLOBIN 9.5 g/dl (14.0-18.0); LYMPH # 1.2 10*3/uL (1.3-4.4); LYMPH % 9.6 % (27.0-41.0); MEAN CELL VOLUME 80.8 fl (80.0-94.0); MEAN CORPUSCULAR HGB 24.6 pg (27.0-31.0); MEAN CORPUSCULAR HGB CONC 30.4 g/dl (33.0-37.0); MEAN PLATELET VOLUME 10.3 fl (9.6-12.3); MONO # 0.8 10*3/uL (0.1-1.0); MONO % 6.2 % (3.0-9.0); NEUT # 10.1 10*3/uL (2.3-7.9); NEUT % 82.7 % (47.0-73.0); NUCLEATED RED BLOOD CELL 0.2 % (0.0-0.0); PLATELET COUNT AUTOMATED 258 10*3/uL (130-400); RED BLOOD COUNT 3.86 10*6/uL (4.50-5.90); RED CELL DISTRI WIDTH 18.8 % (0-14.5); WHITE BLOOD COUNT 12.3 10*3/uL (4.8-10.8)
[2019-01-28 10:01] LABS: BUN 34 mg/dl (7-24); CHLORIDE 103 mmol/L (98-107); POTASSIUM 4.8 mmol/L (3.5-5.1); SODIUM 140 mmol/L (136-145)
[2019-01-28 12:00] VITALS: BP 155/75
--- NOTE | 2019-01-28 12:15 | NUR ---
ASSESSED FOR HOME O2 FOLLOWS: SAT 95% WITH 2L/M APPLIED AT REST HR 86 BP 149/75 SAT 88% RA AT REST SAT 91% WITH 2L/M REAPPLIED AT REST SAT 88% WITH 2L/M NC APPLIED DURING AMBULATION SAT 90-91% WITH 3L/M NC APPLIED DURING AMBULATION SAT 95% WITH 2L/M APPLIED DURING RECOVERY HR 86 BP 174/78 RN AND WILL BE INFORMED.
[2019-01-28 16:00] VITALS: BP 129/63
--- NOTE | 2019-01-28 16:31 | NUR ---
IN TO ROOM. PATIENT AWAKE, ALERT AND ORIENTED. SITTING UP IN BED RECIEVING A BREATHING TREATMENT. NO STATED COMPLAINTS AND NO REQUESTS OR NEEDS THIS TIME. NO SOB NOTED. NO S/S OF DISTRESS AND DENIES PAIN. BED IN LOWEST LOCKED POSITION AND CALL LIGHT WITHIN REACH. WILL CONTINUE TO MONITOR.
[2019-01-28] MEDS ORDERED: PREDNISONE10 MG PO (16:44)
[2019-01-28] MEDS ORDERED: OXYGEN NAS (16:45)
--- NOTE | 2019-01-28 16:50 | NUR ---
PT QUALIFIED FOR HOME OXYGEN. RT CALLED DR VELASCO AND NOTIFIED HIM OF O2 QUALIFICATION FOR PT. RT TRIED TO CALL RADHA TO SEE WHAT HOMECARE SHE WOULD PERFER AND HER PHONE WAS DISCONNECTED.
--- NOTE | 2019-01-28 19:27 | NUR ---
PATIENT WILL D/C TOMORROW AFTER ARRANGEMENTS FOR HOME O2 ARE SET UP. DR. VELASCO AWARE.
[2019-01-28 20:00] VITALS: BP 154/75
--- NOTE | 2019-01-28 23:45 | NUR ---
PATIENT RESTING IN BED. NO COMPLAINTS AT THIS TIME. 2LNC INTACT. PATIENT STATES HE STILL GETS SOB WITH EXERTION. BREATHING IS EASY AND REGULAR AT REST. DENIES ANY NEEDS. CALL LIGHT WITHIN REACH, WILL MONITOR
[2019-01-29] VITALS: BP 136/75
--- NOTE | 2019-01-29 01:26 | NUR ---
24 HR chart check completed.
[2019-01-29 08:00] VITALS: BP 122/67
[2019-01-29] MEDS ORDERED: OXYGEN NAS (09:51)
[2019-01-29 12:00] VITALS: BP 155/69
--- NOTE | 2019-01-29 13:30 | NUR ---
Discharge instructions reviewed with patient/family. Patient receptive and verbalizes understanding. Follow-up care arranged. Written instructions given to patient/family. CATALINO NUNEZ
== END 2019-01-29 13:30 | disposition home or self-care (01) | DRG 189 ==
LOC: ED 10:52 → 4E 12:12 → EDHOLD 12:12 → 4E 12:21
PROVIDERS: Emergency Medicine; Internal Medicine Nephrology; ADMIT Internal Medicine
PROC: 30233N1 Transfusion of Nonautologous Red Blood Cells into Peripheral Vein, Percutaneous Approach (ICD-10-PCS; principal; 2019-01-25)
DX: J96.01 Acute respiratory failure with hypoxia (principal); J44.1 Chronic obstructive pulmonary disease with (acute) exacerbation; N17.9 Acute kidney failure, unspecified; I13.0 Hypertensive heart and chronic kidney disease with heart failure and stage 1 through stage 4 chronic kidney disease, or unspecified chronic kidney disease; I50.32 Chronic diastolic (congestive) heart failure; J44.0 Chronic obstructive pulmonary disease with (acute) lower respiratory infection; D50.9 Iron deficiency anemia, unspecified; N40.0 Benign prostatic hyperplasia without lower urinary tract symptoms; N18.3 Chronic kidney disease, stage 3 (moderate); J20.9 Acute bronchitis, unspecified; E55.9 Vitamin D deficiency, unspecified; L98.8 Other specified disorders of the skin and subcutaneous tissue; F17.210 Nicotine dependence, cigarettes, uncomplicated; N28.1 Cyst of kidney, acquired; N14.1 Nephropathy induced by other drugs, medicaments and biological substances; T50.8X5A Adverse effect of diagnostic agents, initial encounter; Y92.238 Other place in hospital as the place of occurrence of the external cause; Z90.49 Acquired absence of other specified parts of digestive tract; Z99.81 Dependence on supplemental oxygen; Z98.42 Cataract extraction status, left eye; Z98.41 Cataract extraction status, right eye; Z80.8 Family history of malignant neoplasm of other organs or systems; Z82.5 Family history of asthma and other chronic lower respiratory diseases; Z79.899 Other long term (current) drug therapy; Z71.6 Tobacco abuse counseling; Z87.01 Personal history of pneumonia (recurrent)

== ENCOUNTER 2019-02-06 18:42 | Inpatient (IN) | payer MEDICARE ==
[~2019-02-06] VITALS: Ht 188 cm; Wt 82.6 kg
[~2019-02-06 18:42] MED LIST changes: +AMBIEN10 M1 PO
[2019-02-06 18:48] VITALS: BP 139/81
--- NOTE | 2019-02-06 18:53 | NUR ---
Pt placed on NIV 15/ per doctor's orders. Patient states he is breathing better, SPO2: 97% on 0.35 FIO2
[2019-02-06 19:09] LABS: HEMATOCRIT 32.3 % (42.0-52.0); HEMOGLOBIN 9.9 g/dl (14.0-18.0); MEAN CORPUSCULAR HGB 25.1 pg (27.0-31.0); MEAN CORPUSCULAR HGB CONC 30.7 g/dl (33.0-37.0); MEAN PLATELET VOLUME 10.5 fl (9.6-12.3); PLATELET COUNT AUTOMATED 224 10*3/uL (130-400); RED BLOOD COUNT 3.94 10*6/uL (4.50-5.90); RED CELL DISTRI WIDTH 21.1 % (0-14.5); WHITE BLOOD COUNT 26.8 10*3/uL (4.8-10.8)
--- NOTE | 2019-02-06 19:13 | NUR ---
REPORT GIVEN TO MUNICIPAL CLERK RN.
[2019-02-06 19:15] LABS: ABG BASE EXCESS 7.8 mmol/L (-2.0-2.0); ABG HCO3 31.2 mmol/l (22-26); ABG O2 SATURATION 97.2 % (95-97); ARTERIAL BLOOD GAS PCO2 39.2 mmHg (35-45); ARTERIAL BLOOD GAS PH 7.512 (7.35-7.45)
[2019-02-06 19:20] LABS: ACT PARTIAL THROMBO TIME 26.7 SECONDS (20.0-32.1)
[2019-02-06 19:36] LABS: BASOPHILS 1 % (0-1); TOTAL CELLS COUNTED 100 #CELLS
[2019-02-06 19:37] LABS: PLATELET SUFFICIENCY NORMAL (NORMAL)
[2019-02-06 19:44] VITALS: BP 105/62
[2019-02-06 19:52] LABS: ALBUMIN 2.6 gm/dl (3.1-4.5); ALKALINE PHOSPHATASE 90 U/L (45-117); BUN 17 mg/dl (7-24); CHLORIDE 98 mmol/L (98-107); CREATININE 1.26 mg/dL (0.70-1.30); POTASSIUM 3.9 mmol/L (3.5-5.1); SGOT/AST 6 IU/L (3-35); SGPT/ALT 16 U/L (12-78); SODIUM 136 mmol/L (136-145); TOTAL PROTEIN 6.3 gm/dL (6.4-8.2)
[2019-02-06 19:53] LABS: TROPONIN I < 0.015 ng/ml (<0.045)
[2019-02-06 20:31] VITALS: BP 102/60
--- NOTE | 2019-02-06 20:44 | NUR ---
Pt taken off of NIV to 3LNC, which patient wears at home. SPO2: 97% Pt has no complaints at this time.
--- NOTE | 2019-02-06 21:12 | NUR ---
MED REC UPDATED WITH PT AT BEDSIDE.
[2019-02-06 21:50] VITALS: BP 138/64; BP 156/68
--- NOTE | 2019-02-06 21:50 | NUR ---
A 78, admitted to , under the services of DIPIKA Reddy MD with a diagnosis of resp failure/hypoxia. Chief complaint is sob. Patient arrived via ambulatory from ER. Monitor applied. Initial assessment completed. Vital signs taken and recorded. DIPIKA REDDY MD notified of admission to the unit. Orders received. See assessment for past medical history, medications and allergies. Patient and/or family oriented to unit. [facility] visitation policy reviewed. Clothing/patient valuable form completed. MIMI ARTEAGA
[2019-02-06] MEDS ORDERED: AMBIEN5 MG PO (22:33)
[2019-02-07] VITALS: BP 142/70
[2019-02-07 06:17] LABS: HEMATOCRIT 28.5 % (42.0-52.0); HEMOGLOBIN 8.7 g/dl (14.0-18.0); MEAN CELL VOLUME 81.2 fl (80.0-94.0); MEAN CORPUSCULAR HGB 24.8 pg (27.0-31.0); MEAN CORPUSCULAR HGB CONC 30.5 g/dl (33.0-37.0); PLATELET COUNT AUTOMATED 212 10*3/uL (130-400); RED BLOOD COUNT 3.51 10*6/uL (4.50-5.90); RED CELL DISTRI WIDTH 21.3 % (0-14.5); WHITE BLOOD COUNT 17.1 10*3/uL (4.8-10.8)
--- NOTE | 2019-02-07 06:43 | NUR ---
24 HR chart check completed.
[2019-02-07 06:44] LABS: OVALOCYTES FEW; PLATELET SUFFICIENCY NORMAL (NORMAL); SCHISTOCYTES FEW; TOTAL CELLS COUNTED 100 #CELLS
[2019-02-07 06:46] LABS: ALBUMIN 2.2 gm/dl (3.1-4.5); ALKALINE PHOSPHATASE 82 U/L (45-117); BUN 23 mg/dl (7-24); CHLORIDE 99 mmol/L (98-107); CREATININE 1.32 mg/dL (0.70-1.30); POTASSIUM 4.2 mmol/L (3.5-5.1); SGOT/AST 8 IU/L (3-35); SGPT/ALT 14 U/L (12-78); SODIUM 137 mmol/L (136-145); TOTAL PROTEIN 5.7 gm/dL (6.4-8.2)
[2019-02-07 08:00] VITALS: BP 140/70
[2019-02-07 12:00] VITALS: BP 124/58
[2019-02-07 16:00] VITALS: BP 143/67
[2019-02-07 20:00] VITALS: BP 140/65
--- NOTE | 2019-02-07 23:00 | NUR ---
ASSUMED CARE FOR THIS PT AT THIS TIME. PT RESTING QUIETLY IN BED. PT STATES HIS SOB HAS IMPROVED GREATLY. LCTA DIMINISHED T/O. REMAINS ON 3LNC. CALL LIGHT IN REACH.
[2019-02-08] VITALS: BP 142/59
[2019-02-08 08:00] VITALS: BP 145/78
--- NOTE | 2019-02-08 09:16 | NUR ---
PHYSICAL THERAPY Nursing screen received and chart reviewed. Recommend PT evaluation if decline in functional mobility presents. Thank you. Kristine Kirby,PT,DPT.
--- NOTE | 2019-02-08 10:30 | NUR ---
Product Development Consultant in to talk to patient. Patient states lives at home with his niece. There are 2 steps in the home. Physician: Dr. Foreign Nowak Pharmacy: [facility] Home health services: none Patient's level of ADLs: MINIMAL ASSIST Patient has working utilities: yes DME: cane, O2 @ 3L nc, portable O2, c-pap, O2 supplier unknown Follow-up physician's appointment after d/c: he prefers to make his own follow up appt after discharge Does patient want to access PORTAL?: no Discharge plan discussed with patient. He lives at home with his niece. She is independent in his ADLs and ambulates with a cane. Discussed home health care services and he denies any home needs at this time. When medically stable he will be discharged to home. His niece will provide transportation on discharge. TERESITA MCMAHAN
[2019-02-08 12:00] VITALS: BP 132/50
[2019-02-08 16:00] VITALS: BP 146/72
--- NOTE | 2019-02-08 16:59 | NUR ---
PT IS SITTING UP IN BED RESTING. NO COMPLAINTS AT THIS TIME. CALL LIGHT WITHIN REACH.
[2019-02-08 20:00] VITALS: BP 147/69
[2019-02-09] VITALS: BP 133/80
[2019-02-09 06:24] LABS: HEMATOCRIT 24.3 % (42.0-52.0); HEMOGLOBIN 7.5 g/dl (14.0-18.0); MEAN CELL VOLUME 81.5 fl (80.0-94.0); MEAN CORPUSCULAR HGB 25.2 pg (27.0-31.0); MEAN CORPUSCULAR HGB CONC 30.9 g/dl (33.0-37.0); MEAN PLATELET VOLUME 11.3 fl (9.6-12.3); PLATELET COUNT AUTOMATED 222 10*3/uL (130-400); RED BLOOD COUNT 2.98 10*6/uL (4.50-5.90); RED CELL DISTRI WIDTH 21.6 % (0-14.5); WHITE BLOOD COUNT 19.5 10*3/uL (4.8-10.8)
[2019-02-09 06:34] LABS: CREATININE 1.45 mg/dL (0.70-1.30); POTASSIUM 5.4 mmol/L (3.5-5.1)
[2019-02-09 07:32] LABS: PLATELET SUFFICIENCY NORMAL (NORMAL); SCHISTOCYTES FEW; TOTAL CELLS COUNTED 100 #CELLS
[2019-02-09 08:00] VITALS: BP 160/78
--- NOTE | 2019-02-09 10:30 | NUR ---
Product Applications Scientist in to see patient. No new needs or request at this time. He denies any home needs. When medically stable he will be discharged to home.
[2019-02-09 12:00] VITALS: BP 159/83
[2019-02-09 16:00] VITALS: BP 169/78
[2019-02-09 20:00] VITALS: BP 153/84
[2019-02-10] VITALS: BP 156/76
--- NOTE | 2019-02-10 04:26 | NUR ---
24 HR chart check completed.
--- NOTE | 2019-02-10 04:34 | NUR ---
Patient sleeping. Respirations relaxed and easy. Siderails up 2. [place] on. CAROLINA KAMARA
[2019-02-10 06:11] LABS: HEMATOCRIT 24.4 % (42.0-52.0); HEMOGLOBIN 7.4 g/dl (14.0-18.0); MEAN CELL VOLUME 82.2 fl (80.0-94.0); MEAN CORPUSCULAR HGB 24.9 pg (27.0-31.0); MEAN CORPUSCULAR HGB CONC 30.3 g/dl (33.0-37.0); MEAN PLATELET VOLUME 10.9 fl (9.6-12.3); PLATELET COUNT AUTOMATED 208 10*3/uL (130-400); RED BLOOD COUNT 2.97 10*6/uL (4.50-5.90); RED CELL DISTRI WIDTH 21.6 % (0-14.5); WHITE BLOOD COUNT 12.9 10*3/uL (4.8-10.8)
[2019-02-10 06:30] LABS: CREATININE 1.27 mg/dL (0.70-1.30)
[2019-02-10 07:25] LABS: PLATELET SUFFICIENCY NORMAL (NORMAL); SCHISTOCYTES FEW; TOTAL CELLS COUNTED 100 #CELLS
[2019-02-10 08:00] VITALS: BP 154/90
--- NOTE | 2019-02-10 11:18 | NUR ---
DR. LOPEZ NOTIFIED OF CONSULT.
[2019-02-10 12:00] VITALS: BP 161/77
[2019-02-10 16:00] VITALS: BP 160/82
[2019-02-10 20:00] VITALS: BP 168/78
--- NOTE | 2019-02-10 21:56 | NUR ---
NOTIFIED DR. YOUSIF OF PATIENTS BLOOD PRESSURE,168/78. SEE NEW ORDERS.
--- NOTE | 2019-02-10 23:10 | NUR ---
Patient IV symptomatic, arm swelling. IV taken out. IV started right antecubital with #22 protective cath after 1 attempts. Site prepped with Chloroprep. Sterile dressing applied. Patient tolerated procedure well. ALONDRA VARNER
--- NOTE | 2019-02-10 23:13 | NUR ---
PATIENT BEING TAKEN DOWN FOR CT AT THIS TIME.
[2019-02-11] VITALS: BP 157/76
[2019-02-11 06:53] LABS: HEMATOCRIT 24.5 % (42.0-52.0); HEMOGLOBIN 7.6 g/dl (14.0-18.0); MEAN CELL VOLUME 81.7 fl (80.0-94.0); MEAN CORPUSCULAR HGB 25.3 pg (27.0-31.0); MEAN PLATELET VOLUME 11.1 fl (9.6-12.3); PLATELET COUNT AUTOMATED 230 10*3/uL (130-400); RED CELL DISTRI WIDTH 21.6 % (0-14.5)
[2019-02-11 07:27] LABS: PLATELET SUFFICIENCY NORMAL (NORMAL); POLYCHROMASIA SLIGHT; TOTAL CELLS COUNTED 100 #CELLS
[2019-02-11 07:28] LABS: CHLORIDE 104 mmol/L (98-107); POTASSIUM 4.5 mmol/L (3.5-5.1); SODIUM 140 mmol/L (136-145)
--- NOTE | 2019-02-11 07:30 | NUR ---
Shift chart check completed.
[2019-02-11 07:38] LABS: BUN 38 mg/dl (7-24); CREATININE 1.18 mg/dL (0.70-1.30)
[2019-02-11 12:00] VITALS: BP 147/67
[2019-02-11 16:00] VITALS: BP 130/58
[2019-02-11 20:00] VITALS: BP 157/63
--- NOTE | 2019-02-11 23:45 | NUR ---
PATIENT AWAKE, RESTING IN BED. RESPIRATIONS EASY, NON LABORED. NO COMPLAINTS VOICED AT THIS TIME. WILL CONTINUE TO MONITOR.
[2019-02-12] VITALS: BP 130/69
--- NOTE | 2019-02-12 03:45 | NUR ---
PATIENT RESTING IN BED. NO SIGNS OF DISTRESS, RESPIRATIONS EASY, NON LABORED. OXYGEN ON. BED IN LOWEST POSITON, CALL LIGHT WITHIN REACH. TWO BED RAILS UP. WILL CONTINUE TO MONITOR.
--- NOTE | 2019-02-12 03:49 | NUR ---
24 HR chart check completed.
[2019-02-12 08:00] VITALS: BP 124/60
--- NOTE | 2019-02-12 09:00 | NUR ---
It Application Support Analyst in to see patient. No new needs or request at this time. Discussed home health care services and he denies any home needs at this time. When medically stable he will be discharged to home.
[2019-02-12 12:00] VITALS: BP 118/54
[2019-02-12 16:00] VITALS: BP 105/80
[2019-02-12 20:00] VITALS: BP 133/55
[2019-02-12] MEDS ORDERED: AMBIEN5 MG PO (22:45)
[2019-02-13] VITALS: BP 138/62
[2019-02-13 08:00] VITALS: BP 130/68
[2019-02-13 12:00] VITALS: BP 148/63
[2019-02-13 16:00] VITALS: BP 130/69
[2019-02-13 20:00] VITALS: BP 146/68
[2019-02-14 00:19] VITALS: BP 140/68
[2019-02-14 06:35] LABS: CREATININE 1.27 mg/dL (0.70-1.30)
[2019-02-14 06:44] LABS: HEMATOCRIT 23.5 % (42.0-52.0); HEMOGLOBIN 7.2 g/dl (14.0-18.0); MEAN CELL VOLUME 83.3 fl (80.0-94.0); MEAN CORPUSCULAR HGB 25.5 pg (27.0-31.0); MEAN CORPUSCULAR HGB CONC 30.6 g/dl (33.0-37.0); MEAN PLATELET VOLUME 10.8 fl (9.6-12.3); PLATELET COUNT AUTOMATED 281 10*3/uL (130-400); RED BLOOD COUNT 2.82 10*6/uL (4.50-5.90); WHITE BLOOD COUNT 11.1 10*3/uL (4.8-10.8)
[2019-02-14 08:00] VITALS: BP 130/52
[2019-02-14 08:01] LABS: PLATELET SUFFICIENCY NORMAL (NORMAL); TOTAL CELLS COUNTED 100 #CELLS
[2019-02-14 08:02] LABS: POLYCHROMASIA SLIGHT
[2019-02-14 12:00] VITALS: BP 143/69
[2019-02-14 16:18] VITALS: BP 129/61
[2019-02-14 20:00] VITALS: BP 136/58
--- NOTE | 2019-02-14 20:10 | NUR ---
PT RESTING IN BED. NO C/O AT THIS TIME. CALL LIGHT IN REACH. SEE SHIFT ASSESSMENT.
--- NOTE | 2019-02-14 22:00 | NUR ---
TOLERATED ROUTINE MED WITH NO PROBLEM. REQUESTING SLEEPING PILL. MEDICATED WITH AMBIEN PO PER PRN ORDER, SEE EMAR. CALL LIGHT IN REACH.
[2019-02-15] VITALS: BP 143/63
--- NOTE | 2019-02-15 00:35 | NUR ---
SLEEPING IN BED. RESP-EASY AND REGULAR. OXYGEN IN USE. NO C/O AT THIS TIME. CALL LIGHT IN REACH. SEE SHIFT ASSESSMENT.
--- NOTE | 2019-02-15 03:27 | NUR ---
24 HR chart check completed.
--- NOTE | 2019-02-15 03:28 | NUR ---
24 HR chart check completed.
--- NOTE | 2019-02-15 04:00 | NUR ---
SLEEPING IN BED. RESP-EASY AND REGULAR. CALL LIGHT IN REACH.
--- NOTE | 2019-02-15 06:00 | NUR ---
SLEEPING IN BED. RESP-EASY AND REGULAR. CALL LIGHT IN REACH.
[2019-02-15 07:09] VITALS: BP 155/79
--- NOTE | 2019-02-15 09:59 | NUR ---
Discussed discharge planning with Dr. Nowak. Per Dr. Nowak patient "yes most likely" will be discharged today.
[2019-02-15 12:11] VITALS: BP 150/69
[2019-02-15] MEDS ORDERED: PREDNISONE10 MG PO (15:49)
[2019-02-15] MEDS ORDERED: DOXYCYCLINE100 M3 PO (15:49)
[2019-02-15] MEDS ORDERED: Nystatin 100,000 UNI PO (16:38)
--- NOTE | 2019-02-15 17:08 | NUR ---
Discharge instructions reviewed with patient/family. Patient receptive and verbalizes understanding. Follow-up care arranged. Written instructions given to patient/family. PILAR VILLASENOR
== END 2019-02-15 17:08 | disposition home or self-care (01) | DRG 871 ==
LOC: ED 18:42 → 5E 21:09 → EDHOLD 21:09 → 5E 21:42
PROVIDERS: Emergency Medicine; Emergency Medicine Emergency Medical Services; Internal Medicine; Internal Medicine Nephrology; ADMIT Internal Medicine
PROC: 5A09357 Assistance with Respiratory Ventilation, Less than 24 Consecutive Hours, Continuous Positive Airway Pressure (ICD-10-PCS; principal; 2019-02-06)
DX: A41.9 Sepsis, unspecified organism (principal); J18.1 Lobar pneumonia, unspecified organism; J96.22 Acute and chronic respiratory failure with hypercapnia; J96.21 Acute and chronic respiratory failure with hypoxia; I13.0 Hypertensive heart and chronic kidney disease with heart failure and stage 1 through stage 4 chronic kidney disease, or unspecified chronic kidney disease; J44.1 Chronic obstructive pulmonary disease with (acute) exacerbation; I50.32 Chronic diastolic (congestive) heart failure; B37.0 Candidal stomatitis; J44.0 Chronic obstructive pulmonary disease with (acute) lower respiratory infection; J98.11 Atelectasis; R65.10 Systemic inflammatory response syndrome (SIRS) of non-infectious origin without acute organ dysfunction; F51.01 Primary insomnia; N40.0 Benign prostatic hyperplasia without lower urinary tract symptoms; R10.31 Right lower quadrant pain; N18.3 Chronic kidney disease, stage 3 (moderate); D50.9 Iron deficiency anemia, unspecified; E55.9 Vitamin D deficiency, unspecified; Z90.49 Acquired absence of other specified parts of digestive tract; Z87.01 Personal history of pneumonia (recurrent); Z98.42 Cataract extraction status, left eye; Z98.41 Cataract extraction status, right eye; Z87.891 Personal history of nicotine dependence; Z80.8 Family history of malignant neoplasm of other organs or systems; Z82.5 Family history of asthma and other chronic lower respiratory diseases; Z79.899 Other long term (current) drug therapy

== ENCOUNTER 2019-03-08 12:15 | Inpatient (IN) | payer MEDICARE ==
[~2019-03-08] VITALS: Ht 187.9 cm; Wt 69.2 kg
[~2019-03-08 12:15] MED LIST changes: +Nystatin 100,000 UNI PO
[2019-03-08 12:16] VITALS: BP 133/101
[2019-03-08 12:38] LABS: BASO % 0.4 % (0.0-1.0); EOS # 0.1 10*3/uL (0.0-0.4); EOS % 0.7 % (1.0-4.0); HEMATOCRIT 29.8 % (42.0-52.0); HEMOGLOBIN 8.9 g/dl (14.0-18.0); LYMPH # 1.2 10*3/uL (1.3-4.4); LYMPH % 11.2 % (27.0-41.0); MEAN CORPUSCULAR HGB 24.8 pg (27.0-31.0); MEAN CORPUSCULAR HGB CONC 29.9 g/dl (33.0-37.0); MONO % 9.5 % (3.0-9.0); NEUT # 8.3 10*3/uL (2.3-7.9); NEUT % 76.5 % (47.0-73.0); PLATELET COUNT AUTOMATED 309 10*3/uL (130-400); RED BLOOD COUNT 3.59 10*6/uL (4.50-5.90); RED CELL DISTRI WIDTH 20.4 % (0-14.5); WHITE BLOOD COUNT 10.8 10*3/uL (4.8-10.8)
[2019-03-08 12:47] LABS: ACT PARTIAL THROMBO TIME 25.1 SECONDS (20.0-32.1); INTERNATIONAL NORM RATIO 0.9 (2.0-3.5)
[2019-03-08 12:57] LABS: ALBUMIN 3.3 gm/dl (3.1-4.5); ALKALINE PHOSPHATASE 92 U/L (45-117); BUN 20 mg/dl (7-24); CHLORIDE 97 mmol/L (98-107); CREATININE 1.62 mg/dL (0.70-1.30); POTASSIUM 3.9 mmol/L (3.5-5.1); SGOT/AST 11 IU/L (3-35); SGPT/ALT 17 U/L (12-78); SODIUM 133 mmol/L (136-145)
[2019-03-08 13:00] VITALS: BP 132/90
[2019-03-08 13:06] LABS: TROPONIN I < 0.015 ng/ml (<0.045)
[2019-03-08 14:45] VITALS: BP 122/74
[2019-03-08 15:30] VITALS: BP 155/64
--- NOTE | 2019-03-08 15:30 | NUR ---
A 78, admitted to , under the services of DIPIKA Reddy MD with a diagnosis of COPD EXACERBATION. Chief complaint is SOB. Patient arrived via bed from ER. Monitor applied. Initial assessment completed. Vital signs taken and recorded. DIPIKA REDDY MD notified of admission to the unit. Orders received. See assessment for past medical history, medications and allergies. Patient and/or family oriented to unit. [facility] visitation policy reviewed. Clothing/patient valuable form completed. JAVIER PERALTA
[2019-03-08 15:43] VITALS: BP 155/64
[2019-03-08 20:00] VITALS: BP 110/58
--- NOTE | 2019-03-08 21:32 | NUR ---
RESTORIL GIVEN PER ORDER FOR COMPLAINTS OF INSOMNIA. WILL MONITOR EFFECTIVIVENESS.
--- NOTE | 2019-03-08 22:34 | NUR ---
RESTORIL EFFECTIVE, PT SLEEPING
[2019-03-09] VITALS (9 sets, daily range): BP systolic 118–142; BP diastolic 52–75
[2019-03-09 06:28] LABS: MEAN CELL VOLUME 84.2 fl (80.0-94.0); MEAN CORPUSCULAR HGB 24.9 pg (27.0-31.0); MEAN CORPUSCULAR HGB CONC 29.6 g/dl (33.0-37.0); MEAN PLATELET VOLUME 10.8 fl (9.6-12.3); PLATELET COUNT AUTOMATED 242 10*3/uL (130-400); RED BLOOD COUNT 2.73 10*6/uL (4.50-5.90); RED CELL DISTRI WIDTH 20.4 % (0-14.5); WHITE BLOOD COUNT 5.8 10*3/uL (4.8-10.8)
--- NOTE | 2019-03-09 06:30 | NUR ---
DR MUELLER NOTIFIED OF CRITICAL HEMOGLOBIN OF 6.8.
[2019-03-09 06:31] LABS: HEMOGLOBIN 6.8 g/dl (14.0-18.0)
[2019-03-09 06:48] LABS: ALBUMIN 2.3 gm/dl (3.1-4.5); POTASSIUM 3.9 mmol/L (3.5-5.1)
[2019-03-09 06:54] LABS: CREATININE 1.58 mg/dL (0.70-1.30); PHOSPHOROUS 2.9 mg/dL (2.5-4.9)
[2019-03-09 07:11] LABS: TOTAL CELLS COUNTED 100 #CELLS
[2019-03-09 07:17] LABS: PLATELET SUFFICIENCY NORMAL (NORMAL); POLYCHROMASIA SLIGHT
--- NOTE | 2019-03-09 07:49 | NUR ---
SPOKE WITH BLOOD BANK, STATES 2 UNITS OF BLOOD ARE READY FOR PT.
--- NOTE | 2019-03-09 08:00 | NUR ---
BLOOD CONSENT SIGNED AND ON PT CHART.
--- NOTE | 2019-03-09 08:50 | NUR ---
FIRST UNIT BLOOD HUNG ORDERED
--- NOTE | 2019-03-09 11:27 | NUR ---
DR. HOLLY NOTIFIED OF CONSULT. EGD/COLO ORDERED FOR IN AM
[2019-03-09 12:08] LABS: RETICULOCYTE % 1.46 % (0.50-2.50)
--- NOTE | 2019-03-09 12:43 | NUR ---
Shaker Tender in to talk to patient. Patient states lives at HOME with MARIANA. There are OUTSIDE steps in the home. Physician: KRISTA Pharmacy: [facility] health services: NONE Patient's level of ADLs: MINIMAL ASSIST Patient has working utilities: YES DME: CANE, OXYGEN, PORTABLE TANKS Follow-up physician's appointment after d/c: PT PREFERS TO MAKE OWN APPOINTMENT AFTER DISCHARGE Does patient want to access PORTAL?: NO Discharge plan PT LIVES AT HOME WITH HIS MARIANA. STATES HE WILL RETURN HOME ON DISCHARGE WITH NO NEW NEEDS AT THIS TIME. WILL CONTINUE TO FOLLOW. WILL CASTRO VE A RIDE HOME PER PT.. MAYUR GOODE
--- NOTE | 2019-03-09 14:13 | NUR ---
Patient educated in Occupational Therapy and Occupational Therapy evaluation offered this date.Patient reports that he "can walk to bathroom and perform all self care" and that he "lives with his niece. Patient declined any further OT at this time. Discharge OT referral per patient's request. Thank you. Rajni Rueda OTR/annie
[2019-03-09 14:29] LABS: HEMATOCRIT 25.7 % (42.0-52.0)
--- NOTE | 2019-03-09 18:06 | NUR ---
PHYSICAL THERAPY PT SCREEN COMPLETED TODAY ON LEVEL 5: PATIENT IS (I) IN ROOM WITHOUT ASSISTIVE DEVICE AND NO PT SERVICES ARE INDICATED AT THIS TIME. THANK YOU FOR REFERRAL ASAF CARDENAS PT
--- NOTE | 2019-03-09 20:53 | NUR ---
WORKING ON 2ND BOTTLE OF MIRALAX AND POWERADE. LOOSE STOOLS PER PT. CURRENTLY SITTING IN BED. NO VOICED COMPLAINTS.
[2019-03-10] VITALS (8 sets, daily range): BP systolic 94–143; BP diastolic 45–83
--- NOTE | 2019-03-10 05:50 | NUR ---
PATIENT GIVEN FLEET ENEMA. TOLERATED OKAY. PATIENT USING BEDSIDE COMMODE. DARK LIQUID STOOL OUT. WILL CONTINUE TO MONITOR.
[2019-03-10 07:16] LABS: HEMATOCRIT 26.9 % (42.0-52.0); HEMOGLOBIN 8.2 g/dl (14.0-18.0); MEAN CELL VOLUME 85.9 fl (80.0-94.0); MEAN CORPUSCULAR HGB 26.2 pg (27.0-31.0); MEAN CORPUSCULAR HGB CONC 30.5 g/dl (33.0-37.0); MEAN PLATELET VOLUME 10.8 fl (9.6-12.3); PLATELET COUNT AUTOMATED 280 10*3/uL (130-400); RED BLOOD COUNT 3.13 10*6/uL (4.50-5.90); RED CELL DISTRI WIDTH 20.3 % (0-14.5); WHITE BLOOD COUNT 14.2 10*3/uL (4.8-10.8)
[2019-03-10 07:40] LABS: OVALOCYTES FEW; PLATELET SUFFICIENCY NORMAL (NORMAL); POLYCHROMASIA SLIGHT; ROULEAUX SLIGHT; SCHISTOCYTES FEW; TOTAL CELLS COUNTED 100 #CELLS
--- NOTE | 2019-03-10 07:45 | NUR ---
TAP WATER ENEMA GIVEN PER POLICY. PATIENT STILL HAVING LIQUID BROWN STOOL. WILL CONTINUE TO MONITOR.
[2019-03-10 07:55] LABS: ALBUMIN 2.6 gm/dl (3.1-4.5); ALKALINE PHOSPHATASE 70 U/L (45-117); BUN 21 mg/dl (7-24); CHLORIDE 105 mmol/L (98-107); CREATININE 1.34 mg/dL (0.70-1.30); POTASSIUM 3.8 mmol/L (3.5-5.1); SGOT/AST 12 IU/L (3-35); SGPT/ALT 15 U/L (12-78); SODIUM 138 mmol/L (136-145); TOTAL PROTEIN 6.3 gm/dL (6.4-8.2)
--- NOTE | 2019-03-10 11:54 | NUR ---
PATIENT OFF FLOOR FOR SCHEDULED PROCEDURE.
--- NOTE | 2019-03-10 12:27 | NUR ---
PT CONTINUES TO SAY HE WILL RETURN HOME WITH NEICE AND WILL HAVE NO NEEDS. WILL CONTINUE TO FOLLOW.
--- NOTE | 2019-03-10 14:33 | NUR ---
PATIENT RETURNED TO ROOM. IV ATB'S INFUSING PER ORDER.
--- NOTE | 2019-03-10 16:33 | NUR ---
IN TO SEE PATIENT.
[2019-03-11] VITALS: BP 117/54
--- NOTE | 2019-03-11 01:58 | NUR ---
Patient sleeping. Respirations relaxed and easy. No signs of distress. Siderails up . [place] on. CAROLINA KAMARA
[2019-03-11 06:41] LABS: HEMATOCRIT 25.9 % (42.0-52.0); HEMOGLOBIN 7.7 g/dl (14.0-18.0); MEAN CELL VOLUME 85.8 fl (80.0-94.0); MEAN CORPUSCULAR HGB 25.5 pg (27.0-31.0); MEAN CORPUSCULAR HGB CONC 29.7 g/dl (33.0-37.0); MEAN PLATELET VOLUME 10.4 fl (9.6-12.3); PLATELET COUNT AUTOMATED 267 10*3/uL (130-400); RED BLOOD COUNT 3.02 10*6/uL (4.50-5.90); RED CELL DISTRI WIDTH 20.7 % (0-14.5); WHITE BLOOD COUNT 9.9 10*3/uL (4.8-10.8)
[2019-03-11 06:55] LABS: ALBUMIN 2.3 gm/dl (3.1-4.5); ALKALINE PHOSPHATASE 61 U/L (45-117); BUN 21 mg/dl (7-24); CHLORIDE 110 mmol/L (98-107); CREATININE 1.34 mg/dL (0.70-1.30); POTASSIUM 3.9 mmol/L (3.5-5.1); SGOT/AST 7 IU/L (3-35); SGPT/ALT 13 U/L (12-78); SODIUM 142 mmol/L (136-145); TOTAL PROTEIN 5.5 gm/dL (6.4-8.2)
[2019-03-11 07:15] LABS: BURR CELLS FEW; OVALOCYTES FEW; PLATELET SUFFICIENCY NORMAL (NORMAL); TARGET CELLS FEW; TOTAL CELLS COUNTED 100 #CELLS
[2019-03-11 08:00] VITALS: BP 140/68
--- NOTE | 2019-03-11 08:40 | NUR ---
IN TO SEE PATIENT.
[2019-03-11 12:00] VITALS: BP 135/57
--- NOTE | 2019-03-11 13:09 | NUR ---
PT CONTINUES TO DENY NEEDS AT HOME ON DISCHARGE. WILL CONTINUE TO FOLLOW.
[2019-03-11 16:00] VITALS: BP 145/71
[2019-03-11 20:00] VITALS: BP 148/62
--- NOTE | 2019-03-11 21:12 | NUR ---
INFORMED PHARMACY THE AMBIEN 5 MG WAS NOT SCANNING.
[2019-03-12] VITALS (7 sets, daily range): BP systolic 132–161; BP diastolic 66–82
--- NOTE | 2019-03-12 01:45 | NUR ---
Patient sleeping. Respirations relaxed and easy. Siderails up . [place] on. CAROLINA KAMARA
--- NOTE | 2019-03-12 03:06 | NUR ---
24 HOUR CHART CHECK COMPLETE.
[2019-03-12 06:36] LABS: HEMATOCRIT 25.1 % (42.0-52.0); HEMOGLOBIN 7.3 g/dl (14.0-18.0); MEAN CELL VOLUME 88.7 fl (80.0-94.0); MEAN CORPUSCULAR HGB 25.8 pg (27.0-31.0); MEAN CORPUSCULAR HGB CONC 29.1 g/dl (33.0-37.0); MEAN PLATELET VOLUME 10.6 fl (9.6-12.3); NUCLEATED RED BLOOD CELL 0.3 % (0.0-0.0); PLATELET COUNT AUTOMATED 263 10*3/uL (130-400); RED BLOOD COUNT 2.83 10*6/uL (4.50-5.90); RED CELL DISTRI WIDTH 21.2 % (0-14.5); WHITE BLOOD COUNT 9.4 10*3/uL (4.8-10.8)
[2019-03-12 06:56] LABS: BUN 20 mg/dl (7-24); CHLORIDE 108 mmol/L (98-107); CREATININE 1.33 mg/dL (0.70-1.30); SODIUM 141 mmol/L (136-145)
[2019-03-12 08:08] LABS: OVALOCYTES FEW; PLATELET SUFFICIENCY NORMAL (NORMAL); SCHISTOCYTES FEW; TOTAL CELLS COUNTED 100 #CELLS
[2019-03-12 08:09] LABS: POLYCHROMASIA SLIGHT; ROULEAUX SLIGHT; TARGET CELLS FEW
--- NOTE | 2019-03-12 11:59 | NUR ---
PT STATES HE WILL RETURN HOME WITH MITZY PEÑA ON DISCHARGE. WILL CONTINUE TO FOLLOW.
[2019-03-12 12:27] LABS: BILIRUBIN NEGATIVE (NEGATIVE); BLOOD NEGATIVE (NEGATIVE); CLARITY CLEAR (CLEAR); COLOR YELLOW (YELLOW); GLUCOSE NEGATIVE (NEGATIVE); KETONE NEGATIVE (NEGATIVE); LEUKO ESTERASE NEGATIVE (NEGATIVE); NITRITE NEGATIVE (NEGATIVE); UROBILINOGEN 0.2 E.U./dl (0.2-1.0)
[2019-03-12 12:45] LABS: MUCOUS TRACE
[2019-03-12 17:57] LABS: HEMATOCRIT 32.9 % (42.0-52.0); HEMOGLOBIN 10.1 g/dl (14.0-18.0)
[2019-03-13] VITALS: BP 131/62
[2019-03-13 06:37] LABS: HEMATOCRIT 28.5 % (42.0-52.0); HEMOGLOBIN 8.8 g/dl (14.0-18.0); MEAN CORPUSCULAR HGB 26.3 pg (27.0-31.0); MEAN CORPUSCULAR HGB CONC 30.9 g/dl (33.0-37.0); MEAN PLATELET VOLUME 10.2 fl (9.6-12.3); NUCLEATED RED BLOOD CELL 0.3 % (0.0-0.0); PLATELET COUNT AUTOMATED 250 10*3/uL (130-400); RED BLOOD COUNT 3.35 10*6/uL (4.50-5.90); RED CELL DISTRI WIDTH 20.3 % (0-14.5); WHITE BLOOD COUNT 10.4 10*3/uL (4.8-10.8)
[2019-03-13 06:52] LABS: MEAN CELL VOLUME 85.1 fl (80.0-94.0)
[2019-03-13 07:05] LABS: ALBUMIN 2.3 gm/dl (3.1-4.5); ALKALINE PHOSPHATASE 67 U/L (45-117); BUN 21 mg/dl (7-24); CHLORIDE 106 mmol/L (98-107); CREATININE 1.29 mg/dL (0.70-1.30); POTASSIUM 3.5 mmol/L (3.5-5.1); SGOT/AST 5 IU/L (3-35); SGPT/ALT 17 U/L (12-78); SODIUM 140 mmol/L (136-145); TOTAL PROTEIN 5.5 gm/dL (6.4-8.2)
[2019-03-13 07:34] LABS: PLATELET SUFFICIENCY NORMAL (NORMAL); POLYCHROMASIA SLIGHT; SCHISTOCYTES FEW; TOTAL CELLS COUNTED 100 #CELLS
[2019-03-13 08:00] VITALS: BP 138/66; BP 159/80
--- NOTE | 2019-03-13 09:36 | NUR ---
RESTING IN BED WATCHING TV. RESPS EASY ON 3LNC/HD.STABLE AT THIS TIME. CALL LIGHT IN REACH.
[2019-03-13 12:00] VITALS: BP 146/60
[2019-03-13 16:00] VITALS: BP 154/72
[2019-03-13 20:00] VITALS: BP 127/57
--- NOTE | 2019-03-13 20:43 | NUR ---
PATIENT AWAKE AND ALET LAYING BED ON 3LNC. PATIENT DENIES SOB AT REST. PATIENT HAS NO COMPLAINTS AT THIS TIME. SEE ASSESSMENT. CALL LIGHT WITHIN REACH.
[2019-03-14] VITALS: BP 132/66
--- NOTE | 2019-03-14 03:06 | NUR ---
PATIENT RESTING WITH EYES CLOSED. RESPIRATIONS EASY AND UNLABORED. CALL LIGHT IN REACH. WILL MONITOR.
[2019-03-14 06:26] LABS: HEMATOCRIT 29.1 % (42.0-52.0); HEMOGLOBIN 8.8 g/dl (14.0-18.0); MEAN CELL VOLUME 86.6 fl (80.0-94.0); MEAN CORPUSCULAR HGB 26.2 pg (27.0-31.0); MEAN CORPUSCULAR HGB CONC 30.2 g/dl (33.0-37.0); MEAN PLATELET VOLUME 10.8 fl (9.6-12.3); NUCLEATED RED BLOOD CELL 0.3 % (0.0-0.0); PLATELET COUNT AUTOMATED 283 10*3/uL (130-400); RED BLOOD COUNT 3.36 10*6/uL (4.50-5.90); RED CELL DISTRI WIDTH 20.6 % (0-14.5); WHITE BLOOD COUNT 13.5 10*3/uL (4.8-10.8)
[2019-03-14 06:54] LABS: BUN 22 mg/dl (7-24); CHLORIDE 104 mmol/L (98-107); POTASSIUM 3.8 mmol/L (3.5-5.1); SODIUM 141 mmol/L (136-145)
[2019-03-14 07:02] LABS: PLATELET SUFFICIENCY NORMAL (NORMAL); POLYCHROMASIA SLIGHT; TOTAL CELLS COUNTED 100 #CELLS
[2019-03-14 08:00] VITALS: BP 132/74; BP 150/74
--- NOTE | 2019-03-14 08:30 | NUR ---
24 HR chart check completed.
--- NOTE | 2019-03-14 09:00 | NUR ---
RESTING IN BED WITH NO ACUTE DISTRESS NOTED. RESPIRATIONS EASY. LUNGS DIMINISHED, CLEAR. PULSE OX 98% 2L. CLAIMS INFREQ COUGH. CALL LIGHT WITHIN REACH. NO VOICED COMPLAINTS
[2019-03-14 12:00] VITALS: BP 156/69
--- NOTE | 2019-03-14 12:00 | NUR ---
AMBULATING WITHIN ROOM. NO DISTRESS NOTED. NO VOICED COMPLAINTS
--- NOTE | 2019-03-14 13:45 | NUR ---
DR HOLLY CALLED IN FOR UPDATE ON PATIENT CONDITION. H&H STABLE. NO NEW ORDERS RECEIVED
--- NOTE | 2019-03-14 15:30 | NUR ---
DR VELASCO HERE TO ASSESS PATIENT AND DISCUSS PLAN OF CARE
--- NOTE | 2019-03-14 15:45 | NUR ---
DR VILLAVICENCIO HERE TO ASSESS PATIENT AND DISCUSS PLAN OF CARE
[2019-03-14 16:00] VITALS: BP 156/74
--- NOTE | 2019-03-14 16:00 | NUR ---
RESTING IN BED. NO DISTRESS NOTED. RESPIRATIONS EASY. CALL LIGHT WITHIN REACH
--- NOTE | 2019-03-14 17:45 | NUR ---
VISITING WITH FAMILY
[2019-03-14 20:00] VITALS: BP 160/70
[2019-03-15] VITALS: BP 158/75
--- NOTE | 2019-03-15 01:51 | NUR ---
24 HR chart check completed.
[2019-03-15 08:00] VITALS: BP 146/74; BP 160/70
[2019-03-15 12:00] VITALS: BP 164/65
--- NOTE | 2019-03-15 12:01 | NUR ---
PT STATES HE WILL HAVE NO NEEDS ON DISCHARGE AND WILL RETURN HOME WITH NEICE WHEN MEDICALLY STABLE.
[2019-03-15] MEDS ORDERED: FERRLECIT62.5 MG/1 IV (15:21)
[2019-03-15] MEDS ORDERED: PANTOPRAZOLE SO40 MG PO (15:21)
[2019-03-15] MEDS ORDERED: PREDNISONE10 MG PO (15:21)
[2019-03-15] MEDS ORDERED: DOXYCYCLINE100 MG PO (15:21)
[2019-03-15] MEDS ORDERED: FEROSUL325 MG PO (15:21)
[2019-03-15 16:00] VITALS: BP 162/60
--- NOTE | 2019-03-15 16:00 | NUR ---
SCRIPT FOR IRON INFUSION FAXED TO [facility]. CALLED PT MARIANA PER PT REQUEST TO SEE WHAT TIME SHE COULD BRING HIM IN FOR INFUSIONS. SHE STATES SHE IS ON HER WAY OVER AND WILL TALK TO PT WHEN SHE GETS HERE AND CALL ME.
--- NOTE | 2019-03-15 16:15 | NUR ---
PT ROSEMARIEKUMAR CALLED ME AND STATES SHE WORKS SO SHE NEEDS TO BRING HIM IN AT 8AM FOR INFUSIONS BEFORE SHE GOES TO WORK. CALLED [facility]. ATTEMPTED TO CALL SURGERY, NO ANSWER. EMAILED SUPERVISORS AND TOLD THEM I WAS UNABLE TO GET A HOLD OF SURGERY TO INFORM THEM THAT PT WILL START AT 8 AM 03/16.
[2019-03-15 16:25] LABS: HEMATOCRIT 31.5 % (42.0-52.0); HEMOGLOBIN 9.6 g/dl (14.0-18.0)
--- NOTE | 2019-03-15 16:27 | NUR ---
SPOKE WITH PERLITA POLK AND INFORMED HER PT WOULD BE HERE AT 8 AM TOMORROW. SPOKE WITH ANNA BUSTOS AND ASK HER TO INFORM PT AND NEICE THEY WOULD NEED TO REGISTER BEFORE GOING TO FLOOR FOR INFUSION.
--- NOTE | 2019-03-15 17:40 | NUR ---
Discharge instructions reviewed with patient/family. Patient receptive and verbalizes understanding. Follow-up care arranged. Written instructions given to patient/family. JULI GUERRERO
== END 2019-03-15 17:41 | disposition home or self-care (01) | DRG 871 ==
LOC: ED 12:15 → EDHOLD 13:50 → 5E 13:50
PROVIDERS: Emergency Medicine; Internal Medicine; Internal Medicine Nephrology; ADMIT Internal Medicine
PROC: 30233N1 Transfusion of Nonautologous Red Blood Cells into Peripheral Vein, Percutaneous Approach (ICD-10-PCS; principal; 2019-03-09)
PROC: 0DB78ZX Excision of Stomach, Pylorus, Via Natural or Artificial Opening Endoscopic, Diagnostic (ICD-10-PCS; 2019-03-10)
PROC: 0DBP8ZZ Excision of Rectum, Via Natural or Artificial Opening Endoscopic (ICD-10-PCS; 2019-03-10)
DX: A41.9 Sepsis, unspecified organism (principal); J18.1 Lobar pneumonia, unspecified organism; N17.0 Acute kidney failure with tubular necrosis; J96.21 Acute and chronic respiratory failure with hypoxia; K29.71 Gastritis, unspecified, with bleeding; K22.11 Ulcer of esophagus with bleeding; J44.1 Chronic obstructive pulmonary disease with (acute) exacerbation; J44.0 Chronic obstructive pulmonary disease with (acute) lower respiratory infection; E87.1 Hypo-osmolality and hyponatremia; I13.0 Hypertensive heart and chronic kidney disease with heart failure and stage 1 through stage 4 chronic kidney disease, or unspecified chronic kidney disease; I50.32 Chronic diastolic (congestive) heart failure; E44.0 Moderate protein-calorie malnutrition; Z68.1 Body mass index [BMI] 19.9 or less, adult; N40.1 Benign prostatic hyperplasia with lower urinary tract symptoms; K44.9 Diaphragmatic hernia without obstruction or gangrene; K62.1 Rectal polyp; N18.3 Chronic kidney disease, stage 3 (moderate); D64.9 Anemia, unspecified; G47.00 Insomnia, unspecified; E55.9 Vitamin D deficiency, unspecified; R00.1 Bradycardia, unspecified; F17.208 Nicotine dependence, unspecified, with other nicotine-induced disorders; Z71.6 Tobacco abuse counseling; Z87.01 Personal history of pneumonia (recurrent); Z90.49 Acquired absence of other specified parts of digestive tract; Z98.42 Cataract extraction status, left eye; Z98.41 Cataract extraction status, right eye; Z82.5 Family history of asthma and other chronic lower respiratory diseases; Z80.8 Family history of malignant neoplasm of other organs or systems; Z99.81 Dependence on supplemental oxygen; Z79.899 Other long term (current) drug therapy

== ENCOUNTER → 2019-03-16 | Outpatient (CLI) | payer MEDICARE ==
[~2019-03-16] MED LIST changes: +DOXYCYCLINE100 MG PO; +FEROSUL325 MG PO; +FERRLECIT62.5 MG/1 IV; +PANTOPRAZOLE SO40 MG PO
[2019-03-16 08:46] LABS: HEMATOCRIT 31.5 % (42.0-52.0); HEMOGLOBIN 9.5 g/dl (14.0-18.0); MEAN CELL VOLUME 88.7 fl (80.0-94.0); MEAN CORPUSCULAR HGB 26.8 pg (27.0-31.0); MEAN CORPUSCULAR HGB CONC 30.2 g/dl (33.0-37.0); MEAN PLATELET VOLUME 10.6 fl (9.6-12.3); NUCLEATED RED BLOOD CELL 0.2 % (0.0-0.0); PLATELET COUNT AUTOMATED 314 10*3/uL (130-400); RED BLOOD COUNT 3.55 10*6/uL (4.50-5.90); RED CELL DISTRI WIDTH 21.5 % (0-14.5); WHITE BLOOD COUNT 12.9 10*3/uL (4.8-10.8)
[2019-03-16 09:53] LABS: OVALOCYTES FEW; POLYCHROMASIA SLIGHT; SCHISTOCYTES FEW; TARGET CELLS FEW; TOTAL CELLS COUNTED 100 #CELLS
[2019-03-16 09:54] LABS: PLATELET SUFFICIENCY NORMAL (NORMAL)
== END | disposition home or self-care (01) ==
LOC: LAB 07:52
PROVIDERS: Internal Medicine
DX: K92.2 Gastrointestinal hemorrhage, unspecified (principal)

== ENCOUNTER → 2019-03-18 | Outpatient (CLI) | payer MEDICARE ==
[2019-03-18 09:27] LABS: BUN 19 mg/dl (7-24); CHLORIDE 102 mmol/L (98-107); CREATININE 1.22 mg/dL (0.70-1.30); POTASSIUM 3.9 mmol/L (3.5-5.1); SODIUM 138 mmol/L (136-145)
[2019-03-18 09:28] LABS: HEMATOCRIT 33.7 % (42.0-52.0); MEAN CELL VOLUME 89.9 fl (80.0-94.0); MEAN CORPUSCULAR HGB 26.7 pg (27.0-31.0); MEAN CORPUSCULAR HGB CONC 29.7 g/dl (33.0-37.0); MEAN PLATELET VOLUME 10.8 fl (9.6-12.3); PLATELET COUNT AUTOMATED 279 10*3/uL (130-400); RED BLOOD COUNT 3.75 10*6/uL (4.50-5.90); RED CELL DISTRI WIDTH 21.7 % (0-14.5); WHITE BLOOD COUNT 9.3 10*3/uL (4.8-10.8)
[2019-03-18 10:39] LABS: PLATELET SUFFICIENCY NORMAL (NORMAL); POLYCHROMASIA SLIGHT; TOTAL CELLS COUNTED 100 #CELLS
== END | disposition home or self-care (01) ==
LOC: LAB 01:48
PROVIDERS: Internal Medicine Nephrology
DX: K92.2 Gastrointestinal hemorrhage, unspecified (principal)

== ENCOUNTER → 2019-03-20 | Outpatient (CLI) | payer MEDICARE ==
[2019-03-20 08:43] LABS: BASO # 0.1 10*3/uL (0.0-0.1); BASO % 0.5 % (0.0-1.0); EOS # 0.1 10*3/uL (0.0-0.4); EOS % 0.5 % (1.0-4.0); HEMATOCRIT 34.5 % (42.0-52.0); HEMOGLOBIN 10.1 g/dl (14.0-18.0); LYMPH # 2.1 10*3/uL (1.3-4.4); LYMPH % 21.3 % (27.0-41.0); MEAN CORPUSCULAR HGB 26.9 pg (27.0-31.0); MEAN CORPUSCULAR HGB CONC 29.3 g/dl (33.0-37.0); MEAN PLATELET VOLUME 10.2 fl (9.6-12.3); MONO # 0.8 10*3/uL (0.1-1.0); MONO % 8.2 % (3.0-9.0); NEUT # 6.7 10*3/uL (2.3-7.9); PLATELET COUNT AUTOMATED 227 10*3/uL (130-400); RED BLOOD COUNT 3.75 10*6/uL (4.50-5.90); RED CELL DISTRI WIDTH 22.5 % (0-14.5)
== END | disposition home or self-care (01) ==
LOC: LAB 02:16
PROVIDERS: Internal Medicine
DX: K92.2 Gastrointestinal hemorrhage, unspecified (principal)

== ENCOUNTER 2019-04-15 09:02 | Inpatient (IN) | payer MEDICARE, MEDICAID ==
[~2019-04-15] VITALS: Ht 182.9 cm; Wt 78.6 kg
--- NOTE | ~2019-04-15 | O ---
[place], [place] OPERATIVE NOTE NAME: JASPER WAGNER UNIT #: [id number] ROOM: 402 DOCTOR: AVNI BURK,RADHA BIRTHDATE: [birth year] DOS: 04/19/2019 PROCEDURE: Today's procedure part of investigation of anemia, epigastric distress, panendoscopy plus biopsy. PREMEDICATION: Propofol. SCOPE: Olympus forward-viewing gastroscope Q10 video. REPORT: After putting the patient in left lateral position and application of lubricant to the scope, the scope was introduced. Thereafter, under direct visualization, advanced through the length of esophagus without difficulty. Gastric pouch was entered. Large bezoar and retained food was identified, photographed as much as possible was detached from the greater and lesser curvature mobilized. Antral biopsy for gastritis was obtained. Duodenal patency was noticed. Air was suctioned out. The patient was extubated, tolerated the procedure well. IMPRESSION: Gastric bezoar gastritis patent, duodenum. PLAN AND RECOMMENDATIONS: We will keep the patient on full liquid diet, addition of Creon 12 one capsule with each meal for the next few days, Reglan 10 mg a.m., p.m., p.o. to assure mobilizing the gastric bezoar and then we can discontinue both of the above and continuation with Reglan 5 mg, daily along with omeprazole 20 mg daily would be sufficient enough. Thank for maintenance. Thank you very much indeed for your kind referral. RADHA HOLLY MD CM:OPRECORD:OPERATIVE NOTE [id number] RADHA HOLLY MD 04/19/19 2334 interface
--- NOTE | ~2019-04-15 | EKG ---
[place], [place] ELECTROCARDIOGRAM REPORT NAME: JASPER WAGNER UNIT #: [id number] ROOM: 402 DOCTOR: GILDA DRAFT REPORT BIRTHDATE: [birth year] [facility] Test Date: 2019-04-15 Test Time: 15:29:50 Pat Name: JASPER WAGNER Department: Room: 402 Gender: M Security Guards Dispatcher: : 1940 Requested By: YAW LENZ Order Number: [id number] Reading MD: Shabnam Hines MD Measurements Intervals [place] Rate: 92 P: 87 [place]: 189 QRS: 66 QRSD: 91 T: 71 QT: 369 QTc: 457 Interpretive Statements Sinus rhythm Right atrial enlargement Compared to ECG 03/08/2019 18:46:55 Atrial abnormality now present Electronically Signed On 04-18-2019 8:47:00 PST by Shabnam Hines MD CM:EKGRPT:ELECTROCARDIOGRAM REPORT [id number] YAW MATTA DRAFT REPORT YAW LENZ DO
--- NOTE | ~2019-04-15 | CON ---
[place], [place] REPORT OF CONSULTATION NAME: JASPER WAGNER UNIT #: [id number] ROOM: 402 DOCTOR: AVNI BURKRADHA BIRTHDATE: [birth year] DOS: 04/19/2019 GASTROENDOSCOPIC REPORT HISTORY OF PRESENT ILLNESS: A 78-year-old patient who presented with chief complaint of epigastric abdominal pain. I have been consulted for the above concern. He has been complaining of some chest distress as well, COPD has been noticed possible aspiration. Mild mediastinal adenopathy as well, has been noticed. The patient in the initial CBC: White blood cell was 14, H and H of 9 and 30. Comprehensive metabolic panel: Creatinine 1.7. Troponin 0.8, lactic acid was 1.2. D-dimer 1.2. Troponin within normal limits. PAST MEDICAL HISTORY: Associated with COPD, chronic renal insufficiency, old history of C. diff, BPH, systemic hypertension and insomnia, VRE history. PAST SURGICAL HISTORY: Reversal of ileostomy, exploratory laparotomy, total colectomy and ileostomy. SOCIAL HISTORY: Passive smoker for 62 packs. FAMILY HISTORY: Noncontributory. ALLERGIES: NONE. MEDICATIONS: List reviewed. REVIEW OF SYSTEMS: HEENT: Denies double vision, blurred vision. RESPIRATORY: Denies shortness of breath. CARDIOVASCULAR: Denies chest pain. DIGESTIVE SYSTEM: Epigastric distress, dyspepsia fullness, anemia. PHYSICAL EXAMINATION: GENERAL: Head normocephalic, nontraumatic. Mouth and buccal mucosa benign. NECK: Supple, no thyromegaly, no cervical lymphadenopathy. CHEST: COPD pattern, no wheeze. HEART: Normal sinus rhythm, no gallop, no murmur. ABDOMEN: Soft. No hepato-organomegaly. Bowel sounds present. No pulsatile mass. EXTREMITIES: No cyanosis, no pedal edema. NEUROLOGIC: Alert, oriented to time, place, person. LABORATORY DATA: Reviewed. Records reviewed. His latest CBC: H and H of 8 and 27, white blood cell 15 was noticed. Blood cultures negative. IMPRESSION: Epigastric distress, fullness, dyspepsia, history of gastroesophageal reflux, history of possible aspiration. OTHER ADJUNCTIVE DIAGNOSES: As outlined above, anemia. [place], [place] REPORT OF CONSULTATION NAME: JASPER WAGNER UNIT #: [id number] ROOM: 402 DOCTOR: AVNI BURK,RADHA BIRTHDATE: [birth year] PLAN AND DISCUSSION: We are going to proceed with panendoscopy. RADHA HOLLY MD CM:CONSTR:REPORT OF CONSULTATION 1312 04/19/19 7772 interface
--- NOTE | ~2019-04-15 | CON ---
[place], [place] REPORT OF CONSULTATION NAME: JASPER WAGNER UNIT #: [id number] ROOM: 402 DOCTOR: JESSICA STRANGE MDMARGOT BIRTHDATE: [birth year] DOS: 04/20/2019 REASON FOR CONSULTATION: Assess the patient for possible bronchoscopy nonresolving cough, other ongoing symptom with maximal medical management. HISTORY OF PRESENT ILLNESS: This is a 78-year-old white male patient who has been very well known to me. The patient has been admitted to the hospital under the care of Dr. Foreign Nowak, on the date of 04/15/2019. He has been treated with increased symptoms of coughing, chest congestion, and other symptoms. The patient has been noted with acute exacerbation of chronic obstructive pulmonary disease that has been treated. The cough has been reported [id number] nonproductive and not resolving. Denies symptoms of chest pain with those symptoms. Wheezing reported intermittently. The patient does have symptoms of shortness of breath with exertion that remains stable. REVIEW OF SYSTEMS: CONSTITUTIONAL SYMPTOMS: Fatigue and tiredness reported without any symptoms of fever or chills. EYES: Denies any burning, redness, or tenderness. EARS, NOSE, THROAT SYMPTOMS: Denies sore throat, hoarseness, otalgia, postnasal drainage, or epistaxis. CARDIOVASCULAR: Denies anginal pain, edema or pain of the lower extremities. GASTROINTESTINAL SYMPTOMS: Denies dysphagia, nausea, vomiting, diarrhea, abdominal pain, hematemesis, melena, or hematochezia. GENITOURINARY SYMPTOMS: No dysuria, suprapubic pain, or hematuria. SKIN: No lesions or rashes reported. MUSCULOSKELETAL: No joint pain, redness, or tenderness. CENTRAL NERVOUS SYSTEM: No dizziness, headache, diplopia, or syncopal episodes. Remaining systems were reviewed. They were noted all negative. PAST MEDICAL HISTORY: 1. Chronic obstructive pulmonary disease. 2. Previous history of pneumonia. 3. 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 4. Chronic kidney disease, stage 3. 5. Essential hypertension. 6. Past history of nicotine abuse, stating no smoking cigarettes since 03/2019. PAST SURGICAL HISTORY: 1. Debrided dehiscence of the wound post-surgery. 2. Complete colectomy in 05/2017 for toxic megacolon in [facility] with ileostomy that was later on reversed. 3. Therapeutic bronchoscopy. SOCIAL HISTORY: The patient denies any alcohol or illicit drug use. He has noted tobacco use since teenager up to 3 packs of cigarettes per day, not smoking cigarettes since 03/2019. [place], [place] REPORT OF CONSULTATION NAME: JASPER WAGNER UNIT #: [id number] ROOM: 402 DOCTOR: JESSICA STRANGE MD,MARGOT BIRTHDATE: [birth year] FAMILY HISTORY: Both parents were . The history was unknown. CURRENT MEDICATIONS: Currently administered has a Reglan, pancreatic enzyme oral intake, Solu-Medrol 60 mg b.i.d., ferrous sulfate 325 mg daily, folic acid 1 mg daily, Protonix 40 mg daily, Mucinex 600 mg p.o. b.i.d., DuoNeb q.4-6 hours, other p.r.n. meds. The patient is also receiving Zithromax and IV Rocephin. DRUG ALLERGIES: No known drug allergies. PHYSICAL EXAMINATION: GENERAL: This is a 78-year-old male patient who has been noted currently awake and alert without any distress. His height recorded by nursing staff as height of 6 feet, weight 164 pounds, and BMI 22. VITAL SIGNS: The patient has a normal temperature, respiratory rate 19-20, heart rate 71-83, blood pressure 149/79-166/86. Pulse oxygen saturation recorded as 3 liters nasal cannula 96% saturation at rest. HEENT: Head was atraumatic. Eyes nonicterus. NECK: Supple. CARDIOVASCULAR: S1, S2 audible. LUNGS: Moderate degree breath sounds, qakt-[id number] expiratory wheezing, no crackles. ABDOMEN: Soft, nontender. Bowel sounds present. EXTREMITIES: Without any acute edema. MUSCULOSKELETAL: Without deformity. SKIN: Dryness of the skin of the extremities. MUSCULOSKELETAL: Without any deformities. CENTRAL NERVOUS SYSTEM: Intact. LABORATORY DATA: CBC on 04/18/2019, WBC count 15.6, hemoglobin 8.2, and platelet count were normal. The BMP that was done on 04/20/2019 this morning, BUN 30, creatinine 1.26. Review of the radiology data this as well. CT scan of the chest that was done on 04/15/2019 was reviewed, shows finding of chronic obstructive pulmonary disease. There were no visible pulmonary infiltrates. IMPRESSION: 1. The patient who has been currently noted with ongoing acute exacerbation of chronic obstructive pulmonary disease, acute bronchitis, and nonproductive cough. 2. Previous history of nicotine dependence, which has been discontinued about a month ago. 3. History of past C. diff colitis, colectomy. 4. Anemia. 5. The patient was also noted to have resolution of acute kidney injury from admission. PLAN OF TREATMENT: Proceed with fibrobronchoscopy as planned for this patient today. The patient is already noted n.p.o. The patient understands the risk and benefits of procedure. Based on that, changes in recommendation in the antibiotic will be done. Continue other therapy, plan of management, care plan [place], [place] REPORT OF CONSULTATION NAME: JASPER WAGNER UNIT #: [id number] ROOM: 402 DOCTOR: MARGOT MCKEON MD BIRTHDATE: [birth year] treatment, usual therapy. Supportive care. Additional treatment changes would be recommended based on the bronchoscopy findings as necessary. MARGOT LOPEZ MD CM:CONSTR:REPORT OF CONSULTATION 1222 04/20/19 3904 interface
--- NOTE | ~2019-04-15 | EKG ---
[place], [place] ELECTROCARDIOGRAM REPORT NAME: JASPER WAGNER UNIT #: [id number] ROOM: 402 DOCTOR: GILDA DRAFT REPORT BIRTHDATE: [birth year] [facility] Test Date: 2019-04-19 Test Time: 02:57:37 Pat Name: JASPER WAGNER Department: Room: 402 2 Gender: M Reciprocating Drill Operator: : 1940 Requested By: FOREIGN VELASCO Order Number: [id number] Reading MD: Foreign Velasco MD Measurements Intervals [place] Rate: 112 P: SD: QRS: 65 QRSD: 89 T: 71 QT: 317 QTc: 433 Interpretive Statements Atrial fibrillation A FIb with RVR Electronically Signed On 04-20-2019 9:09:33 PST by Foreign Velasco MD CM:EKGRPT:ELECTROCARDIOGRAM REPORT [id number] FOREIGN VELASCO MD EPIPHANY DRAFT REPORT FOREIGN VELASCO MD
--- NOTE | ~2019-04-15 | EKG ---
[place], [place] ELECTROCARDIOGRAM REPORT NAME: JASPER WAGNER UNIT #: [id number] ROOM: 402 DOCTOR: GILDA DRAFT REPORT BIRTHDATE: [birth year] [facility] Test Date: 2019-04-15 Test Time: 09:05:04 Pat Name: JASPER WAGNER Department: Room: 402 Gender: M Medical Practitioners: : 1940 Requested By: YAW LENZ Order Number: [id number] Reading MD: Shabnam Hines MD Measurements Intervals [place] Rate: 88 P: 88 ID: [id number] QRS: 72 QRSD: 91 T: 72 QT: 370 QTc: 448 Interpretive Statements Sinus rhythm Multiple ventricular premature complexes Biatrial enlargement Minimal ST depression, anterolateral leads Compared to ECG 03/08/2019 18:46:55 Ventricular premature complex(es) now present Atrial abnormality now present ST (T wave) deviation now present Electronically Signed On 04-18-2019 8:46:29 PST by Shabnam Hines MD CM:EKGRPT:ELECTROCARDIOGRAM REPORT [id number] YAW MATTA DRAFT REPORT YAW LENZ DO
--- NOTE | ~2019-04-15 | PR ---
[place], [place] PROGRESS NOTE NAME: JASPER WAGNER UNIT #: [id number] ROOM: 402 DOCTOR: JESSICA STRANGE MD,MARGOT BIRTHDATE: [birth year] DOS: 04/21/2019 SUBJECTIVE: He has bronchoscopy done yesterday reported significant reduction in respiratory complaints. Coughing has been decreased. There were no symptoms of chest pain, fever, chills or hemoptysis. OBJECTIVE: VITAL SIGNS: Recorded this morning, normal temperature, respiratory rate 20, heart rate 81, blood pressure 150/82. Pulse oxygen saturation on 3 liters nasal cannula 100% saturation recorded. HEENT: Examination shows head was atraumatic. Eyes nonicterus. NECK: Supple. CARDIOVASCULAR: S1, S2 audible. LUNGS: Occasional wheezing, no crackles. ABDOMEN: Soft, nontender. Bowel sounds present. EXTREMITIES: No new change. LABORATORY DATA: Culture of the bronchial washing was noted normal rl, the Gram stain, many white blood cells, moderate epithelial cells, moderate gram-positive cocci in pairs, chains and clusters and few budding yeast. IMPRESSION: Resolving acute tracheobronchitis, status post bronchoscopy, improving acute exacerbation of chronic obstructive pulmonary disease, gradually and progressively. PLAN OF MANAGEMENT: No changes in plan of care, continuation of current therapy as in progress. Usual care. MARGOT LOPEZ MD CM:PNTRANS 1239 [id number] MARGOT STRANGE MD 04/21/19 1536 interface
--- NOTE | ~2019-04-15 | EKG ---
[place], [place] ELECTROCARDIOGRAM REPORT NAME: JASPER WAGNER UNIT #: [id number] ROOM: 402 DOCTOR: GILDA DRAFT REPORT BIRTHDATE: [birth year] [facility] Test Date: 2019-04-15 Test Time: 12:03:24 Pat Name: JASPER WAGNER Department: Room: 402 Gender: M Carding Supervisor: : 1940 Requested By: YAW LENZ Order Number: [id number] Reading MD: Shabnam Hines MD Measurements Intervals [place] Rate: 75 P: 86 [place]: 149 QRS: 66 QRSD: 92 T: 75 QT: 393 QTc: 439 Interpretive Statements Sinus rhythm Ventricular trigeminy Consider left atrial enlargement Baseline wander in lead(s) V4 Compared to ECG 03/08/2019 18:46:55 Ventricular premature complex(es) now present Electronically Signed On 04-18-2019 8:46:40 PST by Shabnam Hines MD CM:EKGRPT:ELECTROCARDIOGRAM REPORT [id number] YAW MATTA DRAFT REPORT YAW LENZ DO
--- NOTE | ~2019-04-15 | PROC NOTE ---
[place], [place] PROCEDURE NOTE NAME: JASPER WAGNER UNIT #: [id number] ROOM: 402 DOCTOR: JESSICA STRANGE MD,MARGOT BIRTHDATE: [birth year] DOS: 04/20/2019 PROCEDURE: bronchoscopy. PREOPERATIVE DIAGNOSES: Persistent cough, wheezing with chronic obstructive pulmonary disease exacerbation, now resolving current medical management. POSTOPERATIVE DIAGNOSES: Removal of the mucus impaction of the airways bilaterally noted. There were no endobronchial obstructive lesions. Finding of tracheobronchitis. COMPLICATIONS: None. PROCEDURE DESCRIPTION: Informed consent obtained with the patient. The patient brought to the OR and placed in a supine position. Conscious sedation administered by the Anesthesia Department. After that patient's airway introduced into the mouth. Bronchoscope advanced to airway into laryngeal area. Epiglottis and vocal cord seen. Vocal cord moving symmetrically with movements. Bronchoscope advanced vocal cord into tracheal lumen. Tracheal lumen shows moderate amount of mostly mucoid secretion with small purulent secretions suctioned out to everett level. Similar secretion present in the right upper, right middle, right lower, left upper, lingula, lower lobe bronchi and main stem bronchi, right than the left side. All secretions suctioned out. The patient had normal saline wash, sent for culture. Procedure well tolerated by the patient without difficulty. Postoperative findings will be discussed with the patient later once the patient recovered the effects of acute sedation. The culture was sent to the lab as needed. MARGOT LOPEZ MD CM:PROCNOTE:PROCEDURE NOTE 1225 1558 MARGOT STRANGE MD
--- NOTE | ~2019-04-15 | PR ---
[place], [place] PROGRESS NOTE NAME: JASPER WAGNER UNIT #: [id number] ROOM: 402 DOCTOR: TRESSA ALMANZA MD BIRTHDATE: [birth year] DOS: 04/20/2019 SUBJECTIVE: The patient just went to have a bronchoscopy done. Discussed with the nurse and reviewed the monitor. No more ventricular tachycardia. Hemodynamically, he has remained stable. OBJECTIVE: VITAL SIGNS: Blood pressure is 116/60. He is in sinus rhythm. NECK: Supple, no JVD. LUNGS: Diminished air entry, dyspnea with exertion. Positive fatigue, wheezing. HEART: Regular rate and rhythm. ABDOMEN: Soft, nontender. NEUROLOGIC: Stable. LABORATORY DATA: Shows hemoglobin 8.2, the last one in 2 days are pending. Hematocrit 27. Sodium 139, potassium 4.8, creatinine is 1.2. IMPRESSION AND PLAN: The patient with chronic obstructive pulmonary disease exacerbation, renal failure, chronic kidney disease, dyspnea and anemia. The patient to undergo bronchoscopy today. Cardiac status appears to be stable. No more ventricular tachycardia. We will follow up. TRESSA ALMANZA MD CM:PNTRANS [id number] TRESSA ALMANZA MD 04/20/19 1401 interface
[2019-04-15 09:02] VITALS: BP 117/87
[2019-04-15 09:29] LABS: BASO # 0.1 10*3/uL (0.0-0.1); BASO % 0.5 % (0.0-1.0); EOS # 0.1 10*3/uL (0.0-0.4); EOS % 0.8 % (1.0-4.0); HEMATOCRIT 30.5 % (42.0-52.0); HEMOGLOBIN 9.3 g/dl (14.0-18.0); LYMPH # 1.2 10*3/uL (1.3-4.4); LYMPH % 8.4 % (27.0-41.0); MEAN CELL VOLUME 92.7 fl (80.0-94.0); MEAN CORPUSCULAR HGB 28.3 pg (27.0-31.0); MEAN CORPUSCULAR HGB CONC 30.5 g/dl (33.0-37.0); MEAN PLATELET VOLUME 11.2 fl (9.6-12.3); MONO # 1.4 10*3/uL (0.1-1.0); MONO % 9.3 % (3.0-9.0); NEUT # 11.7 10*3/uL (2.3-7.9); NEUT % 80.5 % (47.0-73.0); PLATELET COUNT AUTOMATED 222 10*3/uL (130-400); RED BLOOD COUNT 3.29 10*6/uL (4.50-5.90); RED CELL DISTRI WIDTH 18.9 % (0-14.5); WHITE BLOOD COUNT 14.5 10*3/uL (4.8-10.8)
[2019-04-15 09:44] LABS: ALBUMIN 2.8 gm/dl (3.1-4.5); ALKALINE PHOSPHATASE 94 U/L (45-117); BUN 19 mg/dl (7-24); CHLORIDE 101 mmol/L (98-107); POTASSIUM 3.7 mmol/L (3.5-5.1); SGOT/AST 14 IU/L (3-35); SGPT/ALT 13 U/L (12-78); SODIUM 138 mmol/L (136-145); TOTAL PROTEIN 7.2 gm/dL (6.4-8.2)
[2019-04-15 09:45] LABS: ACT PARTIAL THROMBO TIME 29.3 SECONDS (20.0-32.1); INTERNATIONAL NORM RATIO 0.9 (2.0-3.5)
[2019-04-15 09:46] LABS: TROPONIN I < 0.015 ng/ml (<0.045)
[2019-04-15 10:36] VITALS: BP 130/78
[2019-04-15 12:24] VITALS: BP 130/88
[2019-04-15 12:34] VITALS: BP 169/76
[2019-04-15 16:00] VITALS: BP 140/78
[2019-04-15 20:00] VITALS: BP 161/81
[2019-04-16] VITALS: BP 131/71
[2019-04-16 06:41] LABS: ALBUMIN 2.4 gm/dl (3.1-4.5); POTASSIUM 3.6 mmol/L (3.5-5.1)
[2019-04-16 06:47] LABS: HEMATOCRIT 26.2 % (42.0-52.0); HEMOGLOBIN 8.2 g/dl (14.0-18.0); MEAN CELL VOLUME 92.3 fl (80.0-94.0); MEAN CORPUSCULAR HGB 28.9 pg (27.0-31.0); MEAN CORPUSCULAR HGB CONC 31.3 g/dl (33.0-37.0); MEAN PLATELET VOLUME 12.8 fl (9.6-12.3); PLATELET COUNT AUTOMATED 170 10*3/uL (130-400); RED BLOOD COUNT 2.84 10*6/uL (4.50-5.90); RED CELL DISTRI WIDTH 18.6 % (0-14.5); WHITE BLOOD COUNT 9.3 10*3/uL (4.8-10.8)
[2019-04-16 06:48] LABS: CREATININE 1.4 mg/dL (0.70-1.30); FREE T4 0.86 ng/dl (0.76-1.46); PHOSPHOROUS 2.3 mg/dL (2.5-4.9); THYROID STIM HORMONE (HS) 0.269 uIU/ml (0.358-4.75); TOTAL PROTEIN 6.4 gm/dL (6.4-8.2)
[2019-04-16 07:12] LABS: PLATELET SUFFICIENCY NORMAL (NORMAL); POLYCHROMASIA SLIGHT; ROULEAUX SLIGHT; TOTAL CELLS COUNTED 100 #CELLS
[2019-04-16 07:13] LABS: ACANTHOCYTES FEW; SCHISTOCYTES FEW
[2019-04-16 12:00] VITALS: BP 139/65
[2019-04-16 16:00] VITALS: BP 152/72; BP 182/72
[2019-04-16 20:00] VITALS: BP 159/80
[2019-04-17] VITALS: BP 145/67
[2019-04-17 00:25] LABS: BILIRUBIN NEGATIVE (NEGATIVE); BLOOD TRACE-INTACT (NEGATIVE); CLARITY CLEAR (CLEAR); COLOR YELLOW (YELLOW); GLUCOSE NEGATIVE (NEGATIVE); KETONE NEGATIVE (NEGATIVE); LEUKO ESTERASE NEGATIVE (NEGATIVE); NITRITE NEGATIVE (NEGATIVE); SPECIFIC GRAVITY 1.025 (1.005-1.030); UROBILINOGEN 0.2 E.U./dl (0.2-1.0)
[2019-04-17 00:32] LABS: BACTERIA 1+; EPITHELIAL CELLS 0-2; HYALINE CAST 0-2; RBC 0-2 rbc/hpf (0-2); WBC 0-2 wbc/hpf (0-5)
[2019-04-17 05:42] LABS: BUN 25 mg/dl (7-24); CHLORIDE 108 mmol/L (98-107); CREATININE 1.36 mg/dL (0.70-1.30); PHOSPHOROUS 3.2 mg/dL (2.5-4.9); SODIUM 140 mmol/L (136-145)
[2019-04-17 05:53] LABS: POTASSIUM 4.3 mmol/L (3.5-5.1)
[2019-04-17 06:15] LABS: HEMATOCRIT 24.6 % (42.0-52.0); HEMOGLOBIN 7.8 g/dl (14.0-18.0); MEAN CELL VOLUME 92.5 fl (80.0-94.0); MEAN CORPUSCULAR HGB 29.3 pg (27.0-31.0); MEAN CORPUSCULAR HGB CONC 31.7 g/dl (33.0-37.0); MEAN PLATELET VOLUME 12.7 fl (9.6-12.3); PLATELET COUNT AUTOMATED 206 10*3/uL (130-400); RED BLOOD COUNT 2.66 10*6/uL (4.50-5.90); WHITE BLOOD COUNT 19.1 10*3/uL (4.8-10.8)
[2019-04-17 06:42] LABS: PLATELET SUFFICIENCY NORMAL (NORMAL); POLYCHROMASIA SLIGHT; ROULEAUX SLIGHT; TOTAL CELLS COUNTED 100 #CELLS
[2019-04-17 06:43] LABS: OVALOCYTES FEW
[2019-04-17 12:00] VITALS: BP 158/69
[2019-04-17 16:00] VITALS: BP 141/82
[2019-04-17 20:00] VITALS: BP 142/78
[2019-04-18] VITALS: BP 148/75
[2019-04-18 12:00] VITALS: BP 162/89
[2019-04-18 15:28] LABS: HEMOGLOBIN 8.2 g/dl (14.0-18.0); MEAN CELL VOLUME 94.7 fl (80.0-94.0); MEAN CORPUSCULAR HGB 28.8 pg (27.0-31.0); MEAN CORPUSCULAR HGB CONC 30.4 g/dl (33.0-37.0); MEAN PLATELET VOLUME 11.6 fl (9.6-12.3); PLATELET COUNT AUTOMATED 219 10*3/uL (130-400); RED BLOOD COUNT 2.85 10*6/uL (4.50-5.90); RED CELL DISTRI WIDTH 19.2 % (0-14.5); WHITE BLOOD COUNT 15.6 10*3/uL (4.8-10.8)
[2019-04-18 15:46] LABS: BURR CELLS FEW; PLATELET SUFFICIENCY NORMAL (NORMAL); TOTAL CELLS COUNTED 100 #CELLS
[2019-04-18 16:00] VITALS: BP 160/74
[2019-04-18 20:00] VITALS: BP 130/106
[2019-04-19] VITALS (7 sets, daily range): BP systolic 127–159; BP diastolic 68–91
[2019-04-20] VITALS (10 sets, daily range): BP systolic 116–180; BP diastolic 64–94
[2019-04-20 06:48] LABS: HEMATOCRIT 24.6 % (42.0-52.0); HEMOGLOBIN 7.6 g/dl (14.0-18.0); MEAN CELL VOLUME 93.5 fl (80.0-94.0); MEAN CORPUSCULAR HGB 28.9 pg (27.0-31.0); MEAN CORPUSCULAR HGB CONC 30.9 g/dl (33.0-37.0); MEAN PLATELET VOLUME 12.1 fl (9.6-12.3); NUCLEATED RED BLOOD CELL 0.2 10*3/uL (0.0-0.0); NUCLEATED RED BLOOD CELL 1.3 % (0.0-0.0); PLATELET COUNT AUTOMATED 207 10*3/uL (130-400); RED BLOOD COUNT 2.63 10*6/uL (4.50-5.90); RED CELL DISTRI WIDTH 19.3 % (0-14.5); WHITE BLOOD COUNT 12.4 10*3/uL (4.8-10.8)
[2019-04-20 07:04] LABS: BUN 30 mg/dl (7-24); CHLORIDE 105 mmol/L (98-107); CREATININE 1.26 mg/dL (0.70-1.30); PHOSPHOROUS 3.4 mg/dL (2.5-4.9); POTASSIUM 4.8 mmol/L (3.5-5.1); SODIUM 139 mmol/L (136-145)
[2019-04-20 08:43] LABS: PLATELET SUFFICIENCY NORMAL (NORMAL); TOTAL CELLS COUNTED 100 #CELLS
[2019-04-20 08:44] LABS: OVALOCYTES FEW
[2019-04-20 08:45] LABS: POLYCHROMASIA SLIGHT
[2019-04-21] VITALS: BP 125/72
[2019-04-21 06:46] LABS: HEMOGLOBIN 8.8 g/dl (14.0-18.0); MEAN CELL VOLUME 93.6 fl (80.0-94.0); MEAN CORPUSCULAR HGB 29.4 pg (27.0-31.0); MEAN CORPUSCULAR HGB CONC 31.4 g/dl (33.0-37.0); MEAN PLATELET VOLUME 11.5 fl (9.6-12.3); NUCLEATED RED BLOOD CELL 0.2 10*3/uL (0.0-0.0); NUCLEATED RED BLOOD CELL 1.2 % (0.0-0.0); PLATELET COUNT AUTOMATED 257 10*3/uL (130-400); RED BLOOD COUNT 2.99 10*6/uL (4.50-5.90); RED CELL DISTRI WIDTH 19.3 % (0-14.5)
[2019-04-21 07:03] LABS: CREATININE 1.42 mg/dL (0.70-1.30); POTASSIUM 4.6 mmol/L (3.5-5.1)
[2019-04-21 07:52] LABS: TOTAL CELLS COUNTED 100 #CELLS
[2019-04-21 07:53] LABS: PLATELET SUFFICIENCY NORMAL (NORMAL)
[2019-04-21 08:00] VITALS: BP 158/82
[2019-04-21] MEDS ORDERED: DOXYCYCLINE100 MG PO (12:17)
[2019-04-21] MEDS ORDERED: PREDNISONE10 MG PO (12:17)
[2019-04-21] MEDS ORDERED: METOCLOPRAMIDE5 MG PO (12:31)
[2019-04-21] MEDS ORDERED: OMEPRAZOLE MAGN20 MG PO (12:31)
[2019-04-21 18:07] LABS: ACID FAST SPEC PROCESSING Concentration (.)
== END 2019-04-21 13:45 | disposition home or self-care (01) | DRG 377 ==
LOC: ED 09:02 → EDHOLD 12:13 → 4E 12:13
PROVIDERS: Emergency Medicine; Internal Medicine Critical Care Medicine; Internal Medicine Gastroenterology; Student in an Organized Health Care Education/Training Program; ADMIT Internal Medicine
PROC: 0DB78ZX Excision of Stomach, Pylorus, Via Natural or Artificial Opening Endoscopic, Diagnostic (ICD-10-PCS; principal; 2019-04-19)
PROC: 0BC58ZZ Extirpation of Matter from Right Middle Lobe Bronchus, Via Natural or Artificial Opening Endoscopic (ICD-10-PCS; 2019-04-20)
PROC: 0BC98ZZ Extirpation of Matter from Lingula Bronchus, Via Natural or Artificial Opening Endoscopic (ICD-10-PCS; 2019-04-20)
PROC: 0BC88ZZ Extirpation of Matter from Left Upper Lobe Bronchus, Via Natural or Artificial Opening Endoscopic (ICD-10-PCS; 2019-04-20)
PROC: 0BC68ZZ Extirpation of Matter from Right Lower Lobe Bronchus, Via Natural or Artificial Opening Endoscopic (ICD-10-PCS; 2019-04-20)
PROC: 0BC28ZZ Extirpation of Matter from Carina, Via Natural or Artificial Opening Endoscopic (ICD-10-PCS; 2019-04-20)
PROC: 0BCB8ZZ Extirpation of Matter from Left Lower Lobe Bronchus, Via Natural or Artificial Opening Endoscopic (ICD-10-PCS; 2019-04-20)
PROC: 0BC78ZZ Extirpation of Matter from Left Main Bronchus, Via Natural or Artificial Opening Endoscopic (ICD-10-PCS; 2019-04-20)
PROC: 0BC38ZZ Extirpation of Matter from Right Main Bronchus, Via Natural or Artificial Opening Endoscopic (ICD-10-PCS; 2019-04-20)
PROC: 0BC48ZZ Extirpation of Matter from Right Upper Lobe Bronchus, Via Natural or Artificial Opening Endoscopic (ICD-10-PCS; 2019-04-20)
PROC: 0BC18ZZ Extirpation of Matter from Trachea, Via Natural or Artificial Opening Endoscopic (ICD-10-PCS; 2019-04-20)
DX: K29.71 Gastritis, unspecified, with bleeding (principal); N17.0 Acute kidney failure with tubular necrosis; J44.0 Chronic obstructive pulmonary disease with (acute) lower respiratory infection; E44.0 Moderate protein-calorie malnutrition; I13.0 Hypertensive heart and chronic kidney disease with heart failure and stage 1 through stage 4 chronic kidney disease, or unspecified chronic kidney disease; I50.32 Chronic diastolic (congestive) heart failure; J44.1 Chronic obstructive pulmonary disease with (acute) exacerbation; Z68.22 Body mass index [BMI] 22.0-22.9, adult; R79.89 Other specified abnormal findings of blood chemistry; N18.3 Chronic kidney disease, stage 3 (moderate); D72.829 Elevated white blood cell count, unspecified; D72.9 Disorder of white blood cells, unspecified; F17.218 Nicotine dependence, cigarettes, with other nicotine-induced disorders; D72.821 Monocytosis (symptomatic); R59.0 Localized enlarged lymph nodes; K21.9 Gastro-esophageal reflux disease without esophagitis; R35.0 Frequency of micturition; D50.9 Iron deficiency anemia, unspecified; N40.1 Benign prostatic hyperplasia with lower urinary tract symptoms; D72.810 Lymphocytopenia; J20.9 Acute bronchitis, unspecified; N28.1 Cyst of kidney, acquired; E83.39 Other disorders of phosphorus metabolism; T18.2XXA Foreign body in stomach, initial encounter; X58.XXXA Exposure to other specified factors, initial encounter; Y93.89 Activity, other specified; Y92.9 Unspecified place or not applicable; Y99.8 Other external cause status; Z71.6 Tobacco abuse counseling; Z87.01 Personal history of pneumonia (recurrent); Z98.42 Cataract extraction status, left eye; Z98.41 Cataract extraction status, right eye; Z82.5 Family history of asthma and other chronic lower respiratory diseases; Z80.8 Family history of malignant neoplasm of other organs or systems; Z79.899 Other long term (current) drug therapy

== ENCOUNTER 2019-04-27 15:18 | Inpatient (IN) | payer MEDICARE, MEDICAID ==
[~2019-04-27] VITALS: Wt 80.7 kg
[~2019-04-27 15:18] MED LIST changes: +METOCLOPRAMIDE5 MG PO; +OMEPRAZOLE MAGN20 MG PO
[2019-04-27 15:23] VITALS: BP 155/74
[2019-04-27 15:56] LABS: HEMATOCRIT 25.3 % (42.0-52.0); HEMOGLOBIN 7.7 g/dl (14.0-18.0); MEAN CORPUSCULAR HGB 30.4 pg (27.0-31.0); MEAN CORPUSCULAR HGB CONC 30.4 g/dl (33.0-37.0); PLATELET COUNT AUTOMATED 185 10*3/uL (130-400); RED BLOOD COUNT 2.53 10*6/uL (4.50-5.90); RED CELL DISTRI WIDTH 21.5 % (0-14.5); WHITE BLOOD COUNT 16.2 10*3/uL (4.8-10.8)
[2019-04-27 16:00] VITALS: BP 131/66
[2019-04-27 16:08] LABS: ACT PARTIAL THROMBO TIME 21.4 SECONDS (20.0-32.1); INTERNATIONAL NORM RATIO 0.9 (2.0-3.5)
[2019-04-27 16:15] LABS: ALBUMIN 2.7 gm/dl (3.1-4.5); ALKALINE PHOSPHATASE 67 U/L (45-117); BUN 25 mg/dl (7-24); CHLORIDE 103 mmol/L (98-107); CREATININE 1.16 mg/dL (0.70-1.30); POTASSIUM 4.5 mmol/L (3.5-5.1); SGOT/AST 15 IU/L (3-35); SGPT/ALT 18 U/L (12-78); SODIUM 139 mmol/L (136-145); TOTAL PROTEIN 5.7 gm/dL (6.4-8.2)
[2019-04-27 16:16] LABS: TOTAL CELLS COUNTED 100 #CELLS
[2019-04-27 16:17] LABS: PLATELET SUFFICIENCY NORMAL (NORMAL); POLYCHROMASIA SLIGHT
[2019-04-27 16:19] LABS: TROPONIN I < 0.015 ng/ml (<0.045)
--- NOTE | 2019-04-27 16:23 | NUR ---
PT REMAINS W/O ACUTE DISTRESS NOTED WITH [employer]AF[employer]Y [employer] INTACT AND CALL LIGHT WITHIN REACH,PT WATCHING T.V. AND W/O ADDITIONAL COMPLAINTS VOICED.
[2019-04-27 17:19] LABS: BILIRUBIN NEGATIVE (NEGATIVE); BLOOD NEGATIVE (NEGATIVE); CLARITY SL CLOUDY (CLEAR); COLOR YELLOW (YELLOW); GLUCOSE NEGATIVE (NEGATIVE); KETONE NEGATIVE (NEGATIVE); LEUKO ESTERASE NEGATIVE (NEGATIVE); NITRITE NEGATIVE (NEGATIVE); PH 6.5 (5.0-9.0); SPECIFIC GRAVITY 1.015 (1.005-1.030); UROBILINOGEN 0.2 E.U./dl (0.2-1.0)
[2019-04-27 17:27] VITALS: BP 120/69
[2019-04-27 17:35] LABS: EPITHELIAL CELLS 0-2; WBC 0-2 wbc/hpf (0-5)
[2019-04-27 17:36] LABS: BACTERIA TRACE
--- NOTE | 2019-04-27 17:51 | NUR ---
PT PROVIDED A BOX LUNCH AND MILK PER REQUEST,NO DISTRESS NOTED.
[2019-04-27 19:04] VITALS: BP 135/66
[2019-04-27 19:40] VITALS: BP 158/69
--- NOTE | 2019-04-27 19:40 | NUR ---
A 78, admitted to 5E, under the services of DIPIKA Reddy MD with a diagnosis of COPD WITH EXACERBATION. Chief complaint is SHORTNESS OF BREATH. Patient arrived via ambulatory from ER. Monitor applied. Initial assessment completed. Vital signs taken and recorded. DIPIKA REDDY MD notified of admission to the unit. Orders received. See assessment for past medical history, medications and allergies. Patient and/or family oriented to unit. visitation policy reviewed. Clothing/patient valuable form completed. MELISSA NAVAS
[2019-04-27 20:00] VITALS: BP 158/69
--- NOTE | 2019-04-27 20:37 | NUR ---
DR. LOPEZ NOTIFIED OF CONSULT ON PATIENT FOR SHORTNESS OF BREATH.
--- NOTE | 2019-04-27 22:16 | NUR ---
DR. SEVILLA NOTIFIED PATIENT'S HOME MEDS ARE UP TO DATE AND HE IS REQUESTING HIS SLEEPING PILL. HE ASKED ME TO PUT HIS SLEEPING PILL IN AND HE WILL LOOK AT THE REST OF THEM.
[2019-04-28] VITALS: BP 120/59
--- NOTE | 2019-04-28 05:56 | NUR ---
PATIENT COMPLAINING OF HEP LOCK BURNING IN LEFT HAND. NEW 22G INSERTED INTO RIGHT FOREARM WITHOUT DIFFICULTY ON FIRST ATTEMPT. AREA PREPPED WITH ALCOHOL AND HEP LOCKED WITH NSS. PATIENT TOLERATED WELL. WILL CONTINUE TO MONITOR.
[2019-04-28 06:06] LABS: HEMATOCRIT 24.5 % (42.0-52.0); HEMOGLOBIN 7.3 g/dl (14.0-18.0); MEAN CORPUSCULAR HGB 29.2 pg (27.0-31.0); MEAN CORPUSCULAR HGB CONC 29.8 g/dl (33.0-37.0); MEAN PLATELET VOLUME 11.1 fl (9.6-12.3); PLATELET COUNT AUTOMATED 198 10*3/uL (130-400); RED CELL DISTRI WIDTH 21.6 % (0-14.5); WHITE BLOOD COUNT 16.4 10*3/uL (4.8-10.8)
[2019-04-28 06:20] LABS: ALBUMIN 2.5 gm/dl (3.1-4.5); BUN 30 mg/dl (7-24); CHLORIDE 99 mmol/L (98-107); POTASSIUM 4.4 mmol/L (3.5-5.1); SODIUM 136 mmol/L (136-145)
[2019-04-28 06:23] LABS: ALKALINE PHOSPHATASE 66 U/L (45-117); CREATININE 1.32 mg/dL (0.70-1.30); PHOSPHOROUS 4.4 mg/dL (2.5-4.9); SGOT/AST 11 IU/L (3-35); SGPT/ALT 18 U/L (12-78); TOTAL PROTEIN 5.6 gm/dL (6.4-8.2)
[2019-04-28 07:21] LABS: ACT PARTIAL THROMBO TIME 21.7 SECONDS (20.0-32.1); INTERNATIONAL NORM RATIO 0.9 (2.0-3.5)
[2019-04-28 07:25] LABS: TOTAL CELLS COUNTED 100 #CELLS
[2019-04-28 07:43] LABS: PLATELET SUFFICIENCY NORMAL (NORMAL); POLYCHROMASIA SLIGHT
[2019-04-28 07:44] LABS: OVALOCYTES FEW; SCHISTOCYTES FEW
[2019-04-28 08:00] VITALS: BP 151/66
--- NOTE | 2019-04-28 08:00 | NUR ---
Triage Rn in to talk to patient. Patient states lives at home with his girlfriend. There are 0 steps in the home. Physician: Dr. Foreign Nowak Pharmacy: [facility] Home health services: none Patient's level of ADLs: MINIMAL ASSIST Patient has working utilities: yes DME: cane, O2 @ 3L nc, portable O2 tanks, O2 supplier unknown Follow-up physician's appointment after d/c: he prefers to make his own follow up appt after discharge Does patient want to access PORTAL?: no Discharge plan discussed with patient. He lives at home with his niece. He is independent in his ADLs and ambulates with a cane. Discussed home health care services and he denies any home needs at this time. When medically stable he will be discharged to home. His niece will provide transportation on discharge. Dr. Hargrove on consult, treating COPD exacerbation. TERESITA MCMAHAN
[2019-04-28 12:00] VITALS: BP 123/63
[2019-04-28 16:00] VITALS: BP 122/68
[2019-04-28 20:00] VITALS: BP 131/75
[2019-04-29] VITALS (16 sets, daily range): BP systolic 107–137; BP diastolic 46–70
--- NOTE | 2019-04-29 | NUR ---
IN TO ASSESS PT AT THIS TIME. PT AWAKE IN BED. NO SIGNS OF DISCOMFORT OR DISTRESS NOTED. DENIES ANY SOB AT THIS TIME. PT RECEIVING 3L BY CANNULA. PT STATES HIS ONLY COMPLAINT IS THAT HIS "GUMS ARE SORE". NO SIGNS OF REDNESS OR BLISTERING WAS SEEN ON ASSESSMENT. PT STATES HE WILL "TELL THE DR ABOUT IT IN THE MORNING, AND NOT TO WORRY ABOUT IT NOW". WILL CONTINUE TO MONITOR.
--- NOTE | 2019-04-29 00:59 | NUR ---
24 HOUR CHART CHECK COMPLETE.
[2019-04-29 06:40] LABS: HEMATOCRIT 22.5 % (42.0-52.0); MEAN CELL VOLUME 97.4 fl (80.0-94.0); MEAN CORPUSCULAR HGB 29.9 pg (27.0-31.0); MEAN CORPUSCULAR HGB CONC 30.7 g/dl (33.0-37.0); MEAN PLATELET VOLUME 11.4 fl (9.6-12.3); PLATELET COUNT AUTOMATED 187 10*3/uL (130-400); RED BLOOD COUNT 2.31 10*6/uL (4.50-5.90); RED CELL DISTRI WIDTH 22.5 % (0-14.5); WHITE BLOOD COUNT 15.7 10*3/uL (4.8-10.8)
[2019-04-29 06:52] LABS: HEMOGLOBIN 6.9 g/dl (14.0-18.0)
--- NOTE | 2019-04-29 06:53 | NUR ---
DR CRANE NOTIFIED OF CRITICAL HEMOGLOBIN OF 6.9.
[2019-04-29 07:08] LABS: CREATININE 1.55 mg/dL (0.70-1.30); POTASSIUM 4.4 mmol/L (3.5-5.1)
[2019-04-29 07:40] LABS: POLYCHROMASIA SLIGHT; TOTAL CELLS COUNTED 100 #CELLS
[2019-04-29 07:41] LABS: OVALOCYTES FEW; PLATELET SUFFICIENCY NORMAL (NORMAL); SCHISTOCYTES FEW
--- NOTE | 2019-04-29 08:00 | NUR ---
Informed consent obtained from patient for Blood transfusion by Dr. VELASCO. Patient identified by arm band. Vital signs recorded. Blood unit number verified by 2 R.N.'s. I.V. site satisfactory. Unit 1 started at a KVO rate with Normal Saline. SHOAIB SOSA
--- NOTE | 2019-04-29 08:15 | NUR ---
1 UNIT OF PRBC'S INITIATED PER ORDER. VSS. WILL MONITOR.
--- NOTE | 2019-04-29 09:22 | NUR ---
PATIENT TOLERATING BLOOD TRANSFUSION WITHOUT ANY DIFFICULTY. WILL CONTINUE TO MONITOR. VSS. CALL LIGHT WITHIN REACH.
--- NOTE | 2019-04-29 11:20 | NUR ---
UNIT OF BLOOD COMPLETE AT THIS TIME. VSS.
--- NOTE | 2019-04-29 13:42 | NUR ---
NOTIFIED OF CONSULT.
[2019-04-29 13:52] LABS: BASO % 0.1 % (0.0-1.0); EOS # 0.1 10*3/uL (0.0-0.4); EOS % 0.6 % (1.0-4.0); HEMATOCRIT 26.3 % (42.0-52.0); HEMOGLOBIN 7.9 g/dl (14.0-18.0); LYMPH % 13.9 % (27.0-41.0); MEAN CORPUSCULAR HGB 28.8 pg (27.0-31.0); MEAN PLATELET VOLUME 10.6 fl (9.6-12.3); MONO # 1.2 10*3/uL (0.1-1.0); NEUT # 10.8 10*3/uL (2.3-7.9); NEUT % 75.4 % (47.0-73.0); NUCLEATED RED BLOOD CELL 0.1 % (0.0-0.0); PLATELET COUNT AUTOMATED 180 10*3/uL (130-400); RED BLOOD COUNT 2.74 10*6/uL (4.50-5.90); RED CELL DISTRI WIDTH 23.4 % (0-14.5); WHITE BLOOD COUNT 14.3 10*3/uL (4.8-10.8)
--- NOTE | 2019-04-29 14:30 | NUR ---
SECOND UNIT OF BLOOD INITIATED AT THIS TIME PER ORDER.
--- NOTE | 2019-04-29 14:57 | NUR ---
CALLED REGARDING PATIENT C/O MOUTH BEING SORE. NEW ORDERS RECEIVED.
--- NOTE | 2019-04-29 23:00 | NUR ---
TOOK OVER CARE OF PT AT THIS TIME. PT RESTING IN BED, RESPIRATIONS EASY AND UNLABORED ON 2L NC. NO S/S OF DISTRESS NOTED. SAFETY MEASURES IN PLACE. CALL LIGHT IN REACH.
[2019-04-30] VITALS: BP 135/64
[2019-04-30 06:40] LABS: BASO % 0.1 % (0.0-1.0); EOS % 0.2 % (1.0-4.0); HEMATOCRIT 27.5 % (42.0-52.0); HEMOGLOBIN 8.8 g/dl (14.0-18.0); LYMPH # 0.9 10*3/uL (1.3-4.4); LYMPH % 6.4 % (27.0-41.0); MEAN CORPUSCULAR HGB 29.7 pg (27.0-31.0); MEAN PLATELET VOLUME 11.4 fl (9.6-12.3); MONO % 6.7 % (3.0-9.0); NEUT # 12.3 10*3/uL (2.3-7.9); NEUT % 85.7 % (47.0-73.0); PLATELET COUNT AUTOMATED 170 10*3/uL (130-400); RED BLOOD COUNT 2.96 10*6/uL (4.50-5.90); WHITE BLOOD COUNT 14.3 10*3/uL (4.8-10.8)
[2019-04-30 06:46] LABS: MEAN CELL VOLUME 92.9 fl (80.0-94.0)
[2019-04-30 06:57] LABS: CREATININE 1.4 mg/dL (0.70-1.30); POTASSIUM 4.7 mmol/L (3.5-5.1)
[2019-04-30 08:00] VITALS: BP 158/74
[2019-04-30 12:00] VITALS: BP 117/77
[2019-04-30 16:00] VITALS: BP 158/70
[2019-04-30 20:00] VITALS: BP 158/64
[2019-05-01] VITALS: BP 155/72
--- NOTE | 2019-05-01 03:50 | NUR ---
Shift chart check completed.
[2019-05-01 06:43] LABS: BASO % 0.1 % (0.0-1.0); EOS # 0.1 10*3/uL (0.0-0.4); EOS % 0.7 % (1.0-4.0); HEMATOCRIT 28.3 % (42.0-52.0); HEMOGLOBIN 8.8 g/dl (14.0-18.0); LYMPH # 1.3 10*3/uL (1.3-4.4); LYMPH % 10.7 % (27.0-41.0); MEAN CELL VOLUME 95.6 fl (80.0-94.0); MEAN CORPUSCULAR HGB 29.7 pg (27.0-31.0); MEAN CORPUSCULAR HGB CONC 31.1 g/dl (33.0-37.0); MONO # 1.2 10*3/uL (0.1-1.0); MONO % 9.5 % (3.0-9.0); NEUT # 9.4 10*3/uL (2.3-7.9); NEUT % 77.8 % (47.0-73.0); PLATELET COUNT AUTOMATED 167 10*3/uL (130-400); RED BLOOD COUNT 2.96 10*6/uL (4.50-5.90); RED CELL DISTRI WIDTH 21.9 % (0-14.5); WHITE BLOOD COUNT 12.1 10*3/uL (4.8-10.8)
[2019-05-01 06:54] LABS: CREATININE 1.48 mg/dL (0.70-1.30); POTASSIUM 4.4 mmol/L (3.5-5.1)
[2019-05-01 08:00] VITALS: BP 138/68
--- NOTE | 2019-05-01 08:03 | NUR ---
INITIAL ASSESMENT COMPLETED.RESPS EASY ON 3LNC.DENIES ANY OTHER NEEDS AT THIS TIME. COMPLETE LINEN CHANGE PROVIDED.CALL LIGHT IN REACH.
[2019-05-01 12:00] VITALS: BP 143/65
--- NOTE | 2019-05-01 15:42 | NUR ---
DR MAYE KRISHNAN AND THIS RN NOTIFIED HER OF POSITIVE FECAL OCCULT.
[2019-05-01 16:00] VITALS: BP 152/75
[2019-05-01 20:00] VITALS: BP 165/74
[2019-05-02] VITALS: BP 139/71
[2019-05-02 06:50] LABS: BASO % 0.1 % (0.0-1.0); EOS # 0.2 10*3/uL (0.0-0.4); EOS % 1.3 % (1.0-4.0); HEMATOCRIT 28.3 % (42.0-52.0); HEMOGLOBIN 8.8 g/dl (14.0-18.0); LYMPH # 1.3 10*3/uL (1.3-4.4); LYMPH % 11.2 % (27.0-41.0); MEAN CORPUSCULAR HGB CONC 31.1 g/dl (33.0-37.0); MEAN PLATELET VOLUME 11.5 fl (9.6-12.3); NEUT # 8.9 10*3/uL (2.3-7.9); PLATELET COUNT AUTOMATED 166 10*3/uL (130-400); RED BLOOD COUNT 2.84 10*6/uL (4.50-5.90); RED CELL DISTRI WIDTH 21.1 % (0-14.5); WHITE BLOOD COUNT 11.5 10*3/uL (4.8-10.8)
[2019-05-02 06:58] LABS: MEAN CELL VOLUME 99.6 fl (80.0-94.0)
[2019-05-02 06:59] LABS: CREATININE 1.45 mg/dL (0.70-1.30); POTASSIUM 4.9 mmol/L (3.5-5.1)
--- NOTE | 2019-05-02 07:48 | NUR ---
ORDER RECIEVED TO D/C MONITOR.
[2019-05-02 12:00] VITALS: BP 142/71
[2019-05-02 16:00] VITALS: BP 118/58
--- NOTE | 2019-05-02 18:35 | NUR ---
DR VILLAVICENCIO ROUNDED SEEN PT. DR VELASCO ROUNDED AND SPOKE WITH PT FAMILY AT BEDSIDE AND UPDATED NIECE ON PLAN OF CARE. ORDERS RECIEVED.
[2019-05-02 20:00] VITALS: BP 176/75
--- NOTE | 2019-05-03 01:43 | NUR ---
DR VELASCO NOTIFIED OF PT'S BP. NEW ORDERS REC'D.
[2019-05-03 03:21] VITALS: BP 148/70
[2019-05-03 06:11] LABS: BASO % 0.1 % (0.0-1.0); EOS # 0.2 10*3/uL (0.0-0.4); EOS % 1.9 % (1.0-4.0); HEMATOCRIT 26.3 % (42.0-52.0); HEMOGLOBIN 8.1 g/dl (14.0-18.0); LYMPH # 1.1 10*3/uL (1.3-4.4); LYMPH % 12.9 % (27.0-41.0); MEAN CELL VOLUME 100.4 fl (80.0-94.0); MEAN CORPUSCULAR HGB 30.9 pg (27.0-31.0); MEAN CORPUSCULAR HGB CONC 30.8 g/dl (33.0-37.0); MEAN PLATELET VOLUME 11.1 fl (9.6-12.3); MONO # 0.8 10*3/uL (0.1-1.0); MONO % 9.2 % (3.0-9.0); NEUT # 6.6 10*3/uL (2.3-7.9); NEUT % 74.9 % (47.0-73.0); PLATELET COUNT AUTOMATED 151 10*3/uL (130-400); RED BLOOD COUNT 2.62 10*6/uL (4.50-5.90); RED CELL DISTRI WIDTH 20.6 % (0-14.5); WHITE BLOOD COUNT 8.8 10*3/uL (4.8-10.8)
[2019-05-03 06:24] LABS: BUN 28 mg/dl (7-24); CHLORIDE 103 mmol/L (98-107); CREATININE 1.31 mg/dL (0.70-1.30); POTASSIUM 4.3 mmol/L (3.5-5.1); SODIUM 140 mmol/L (136-145)
--- NOTE | 2019-05-03 07:30 | NUR ---
VITALS STABLE. A&O X 3. PLEASANT AND COOPERATIVE. MATT. CAP REFILL < 3 SECONDS. SKIN TURGOR NON-TENTING. HEART SOUNDS NORMAL. RESPIRATIONS EASY, NON-LABORED. PO2 100% ON 3L N/C. LUNG SOUNDS DIMINISHED BUT CLEAR. ABDOMEN SOFT, NON-TENDER, NON-DISTENDED. BOWEL SOUNDS X 4. SKIN WARM, DRY AND INTACT. IV SITE ON R FOREARM INTACT- NO REDNESS OR SWELLING. PT DENIES PAIN. NO COMPLAINTS AT THIS TIME. WILL CONTINUE TO ASSESS. PORTILLO PENNY [facility]
[2019-05-03 08:00] VITALS: BP 148/68
--- NOTE | 2019-05-03 09:00 | NUR ---
Small Kick Press Operator in to see patient. No new needs or request at this time. He denies any home needs. When medically stable he will be discharged to home. Discharge plan is to discharge patient home today. Waiting on Dr. Nowak to round.
--- NOTE | 2019-05-03 09:32 | NUR ---
PT SITTING UP IN BED WATCHING TV. RESPIRATIONS EASY, NON-LABORED. PT PLEASANT. NO COMPLAINTS AT THIS TIME. WILL CONTINUE TO ASSESS. PORTILLO PENNY SPNRCC
--- NOTE | 2019-05-03 11:14 | NUR ---
NURSE NOTIFIED ABOUT CBC. PORTILLO PENNY SPNRCC
[2019-05-03 12:00] VITALS: BP 126/64
--- NOTE | 2019-05-03 12:41 | NUR ---
PT JUST FINISHED LUNCH. SITTING IN BED WATCHING TV. RESPIRATIONS EASY AND NON-LABORED. NO COMPLAINTS AT THIS TIME. WILL CONTINUE TO ASSESS. PORTILLO PENNY BRENDENCC
[2019-05-03] MEDS ORDERED: PREDNISONE10 MG PO (14:00)
--- NOTE | 2019-05-03 15:28 | NUR ---
Discharge instructions reviewed with patient/family. Patient receptive and verbalizes understanding. Follow-up care arranged. Written instructions given to patient/family. Patient was wheeled from unit by staff member with all personal belongings accounted for. Patient was educated on medication changes and follow up visits with Dr. Nowak and Dr. Rangel. SHELBY BALLARD
== END 2019-05-03 15:28 | disposition home or self-care (01) | DRG 871 ==
LOC: ED 15:18 → 5E 18:10 → EDHOLD 18:10 → 5E 18:42
PROVIDERS: Emergency Medicine; Internal Medicine; Internal Medicine Nephrology; Physician Assistant; ADMIT Internal Medicine
PROC: 30233N1 Transfusion of Nonautologous Red Blood Cells into Peripheral Vein, Percutaneous Approach (ICD-10-PCS; principal; 2019-04-29)
DX: A41.9 Sepsis, unspecified organism (principal); N17.0 Acute kidney failure with tubular necrosis; I50.33 Acute on chronic diastolic (congestive) heart failure; J44.1 Chronic obstructive pulmonary disease with (acute) exacerbation; J96.10 Chronic respiratory failure, unspecified whether with hypoxia or hypercapnia; I13.0 Hypertensive heart and chronic kidney disease with heart failure and stage 1 through stage 4 chronic kidney disease, or unspecified chronic kidney disease; R53.1 Weakness; N40.0 Benign prostatic hyperplasia without lower urinary tract symptoms; J06.9 Acute upper respiratory infection, unspecified; F17.218 Nicotine dependence, cigarettes, with other nicotine-induced disorders; E66.9 Obesity, unspecified; K21.9 Gastro-esophageal reflux disease without esophagitis; D50.9 Iron deficiency anemia, unspecified; R19.5 Other fecal abnormalities; N18.3 Chronic kidney disease, stage 3 (moderate); D72.829 Elevated white blood cell count, unspecified; K31.84 Gastroparesis; Z71.6 Tobacco abuse counseling; Z98.42 Cataract extraction status, left eye; Z98.41 Cataract extraction status, right eye; Z82.5 Family history of asthma and other chronic lower respiratory diseases; Z80.8 Family history of malignant neoplasm of other organs or systems; Z87.01 Personal history of pneumonia (recurrent); Z79.899 Other long term (current) drug therapy; Z68.23 Body mass index [BMI] 23.0-23.9, adult

== ENCOUNTER 2019-05-08 04:41 | Inpatient (IN) | payer MEDICARE, MEDICAID ==
[~2019-05-08] VITALS: Ht 170.1 cm; Wt 83.9 kg
[2019-05-08] VITALS (7 sets, daily range): BP systolic 112–164; BP diastolic 60–102
[2019-05-08 05:09] LABS: BASO % 0.3 % (0.0-1.0); EOS # 0.4 10*3/uL (0.0-0.4); EOS % 4.8 % (1.0-4.0); HEMATOCRIT 34.2 % (42.0-52.0); HEMOGLOBIN 10.4 g/dl (14.0-18.0); LYMPH # 0.7 10*3/uL (1.3-4.4); LYMPH % 9.7 % (27.0-41.0); MEAN CELL VOLUME 98.6 fl (80.0-94.0); MEAN CORPUSCULAR HGB CONC 30.4 g/dl (33.0-37.0); MONO # 0.7 10*3/uL (0.1-1.0); NEUT # 5.5 10*3/uL (2.3-7.9); NEUT % 75.5 % (47.0-73.0); PLATELET COUNT AUTOMATED 176 10*3/uL (130-400); RED BLOOD COUNT 3.47 10*6/uL (4.50-5.90); RED CELL DISTRI WIDTH 17.7 % (0-14.5); WHITE BLOOD COUNT 7.3 10*3/uL (4.8-10.8)
[2019-05-08 05:25] LABS: ACT PARTIAL THROMBO TIME 23.3 SECONDS (20.0-32.1); INTERNATIONAL NORM RATIO 0.9 (2.0-3.5)
[2019-05-08 05:29] LABS: ALBUMIN 2.7 gm/dl (3.1-4.5); ALKALINE PHOSPHATASE 72 U/L (45-117); BUN 21 mg/dl (7-24); CHLORIDE 98 mmol/L (98-107); CREATININE 1.22 mg/dL (0.70-1.30); POTASSIUM 4.7 mmol/L (3.5-5.1); SGOT/AST 33 IU/L (3-35); SGPT/ALT 23 U/L (12-78); SODIUM 136 mmol/L (136-145); TOTAL PROTEIN 6.7 gm/dL (6.4-8.2)
[2019-05-08 05:33] LABS: TROPONIN I < 0.015 ng/ml (<0.045)
--- NOTE | 2019-05-08 07:12 | NUR ---
REPORT RECEIVED AT 0705 FROM TIARA CASTILLO. THIS PT IS AWAKE AND ALERT. RESPIRATIONS APPEAR NON-LABORED AT THIS TIME. NASAL O2 IN PLACE NOW. HE IS ADMITTED. WAITING TO CALL REPORT TO FLOOR. APPEARS IN NO DISTRESS AT THIS TIME. SUSY CASTILLO
--- NOTE | 2019-05-08 08:15 | NUR ---
A 78, admitted to , under the services of DIPIKA Reddy MD with a diagnosis of COPD EXACERBATION, ANEMIA, HYPOALBUNINEMIA. Chief complaint is SHORTNESS OF BREATH. Patient arrived via bed from ER. Monitor applied. Initial assessment completed. Vital signs taken and recorded. DIPIKA REDDY MD notified of admission to the unit. Orders received. See assessment for past medical history, medications and allergies. Patient and/or family oriented to unit. [email or web address]] visitation policy reviewed. Clothing/patient valuable form completed. ANIYA MORENO
--- NOTE | 2019-05-08 09:00 | NUR ---
ADMISSION ORDERS RECEIVED FROM DR VELASCO ON PT.
--- NOTE | 2019-05-08 09:26 | NUR ---
CONSULT CALLED TO DR LOPEZ.
--- NOTE | 2019-05-08 12:00 | NUR ---
PHYSICAL THERAPY PT EVAL COMPLETED TODAY; FULL EVAL TO FOLLOW. RECOMMEND PT WHILE HERE TO ADDRESSS DECREASED STRNEGTH AND FUNCTIONAL MOBILITY. PT EVAL IS MODERATE COMPLEXITY;[id number]. D/C RECOMMENDATIONS ARE FOR SNF ON D/C IF HE IS ABLE TO MEET THEIR CRITERIA AND IF NOT WOULD ADVISE HOME HEALTH PT SERVICES ON D/C. THANK YOU FOR REFERRAL ASAF CARDENAS PT
[2019-05-08 16:41] LABS: ARTERIAL BLOOD GAS PH 7.362 (7.35-7.45)
--- NOTE | 2019-05-08 17:11 | NUR ---
PT DOES NOT WANT TO USE BIPAP. DR. LOPEZ NOTIFIED. RN AWARE.
--- NOTE | 2019-05-08 22:45 | NUR ---
Pt states he will not wear the BiPap tonight.
[2019-05-09] VITALS: BP 135/65
--- NOTE | 2019-05-09 01:00 | NUR ---
PT LYING IN BED WATCHING TV AT THIS TIME. CALL LIGHT IN REACH.
--- NOTE | 2019-05-09 03:40 | NUR ---
PT SLEEPING AT THIS TIME. CALL LIGHT IN REACH.
--- NOTE | 2019-05-09 04:37 | NUR ---
24 HR chart check completed.
[2019-05-09 06:43] LABS: HEMATOCRIT 26.8 % (42.0-52.0); HEMOGLOBIN 8.6 g/dl (14.0-18.0); MEAN CELL VOLUME 96.4 fl (80.0-94.0); MEAN CORPUSCULAR HGB 30.9 pg (27.0-31.0); MEAN CORPUSCULAR HGB CONC 32.1 g/dl (33.0-37.0); MEAN PLATELET VOLUME 11.3 fl (9.6-12.3); PLATELET COUNT AUTOMATED 173 10*3/uL (130-400); RED BLOOD COUNT 2.78 10*6/uL (4.50-5.90); WHITE BLOOD COUNT 11.9 10*3/uL (4.8-10.8)
[2019-05-09 06:53] LABS: CREATININE 1.54 mg/dL (0.70-1.30); POTASSIUM 4.2 mmol/L (3.5-5.1)
[2019-05-09 07:32] LABS: OVALOCYTES FEW; PLATELET SUFFICIENCY NORMAL (NORMAL); POLYCHROMASIA SLIGHT; TOTAL CELLS COUNTED 100 #CELLS
[2019-05-09 08:00] VITALS: BP 143/72
--- NOTE | 2019-05-09 09:34 | NUR ---
IN TO SEE PATIENT.
[2019-05-09 16:00] VITALS: BP 158/70
--- NOTE | 2019-05-09 19:25 | NUR ---
REPORT RECEIVED FROM SHOAIB CASTILLO. PT AWAKE AT THIS TIME. O2 INTACT. NO SIGNS OF DISTRESS NOTED, RESPIRATIONS EASY AND UNLABORED. CALL LIGHT IN REACH.
[2019-05-09 20:00] VITALS: BP 159/85
--- NOTE | 2019-05-09 22:00 | NUR ---
PT LYING IN BED WATCHING TV AT THIS TIME. CALL LIGHT IN REACH.
[2019-05-10] VITALS: BP 144/69
--- NOTE | 2019-05-10 02:00 | NUR ---
PT SLEEPING AT THIS TIME. O2 INTACT. CALL LIGHT IN REACH
[2019-05-10 07:37] VITALS: BP 142/78
--- NOTE | 2019-05-10 08:12 | NUR ---
PT RESTING IN BED COMFORTABLY, MORNING ASSESSMENT COMPLETE. NO VOICED COMPLAINTS AT THIS TIME. ERNESTO THAPA [facility]
--- NOTE | 2019-05-10 08:40 | NUR ---
PT RESTING IN BED. WITH HOB ELEVATED. RESP-EASY AND REGULAR. OXYGEN IN USE. LUNGS DIMINISHED T/O FT WHEEZE NOTED ANTERIOLY. CALL LIGHT IN REACH. STUDENT NURSE WITH PT TODAY. WILL CON'T TO MONITOR.
--- NOTE | 2019-05-10 09:00 | NUR ---
Cable Swager in to talk to patient. Patient states lives at home with his niece. There are 0 steps in the home. Physician: Dr. Foreign Nowak Pharmacy: [facility] Home health services: none Patient's level of ADLs: MINIMAL ASSIST Patient has working utilities: yes DME: cane, O2 @ 3L nc, portable O2 tanks, O2 supplier unknown Follow-up physician's appointment after d/c: he prefers to make his own follow up appt after discharge Does patient want to access PORTAL?: no Discharge plan discussed with patient. He lives at home with his niece. He is independent in his ADLs and ambulates with a cane. Discussed short term SNF and he is agreeable. He wants to go to [facility] as he has been there in the past. He requires a 3 night Medicare stay and acceptance. resource management planner following. His niece will provide transportation on discharge. Dr. Hargrove on consult, treating COPD exacerbation. TERESITA MCMAHAN
--- NOTE | 2019-05-10 09:30 | NUR ---
Occupational THerapy evaluation completed on 4 with full eval to follow. Precautions include SOB w/ min exertion,impulsive,low complexity level 17576 via chart review, testing and evaluation. REcommend OT per POC and home health SN, OT,PT v.s. SNF upon d/c. Thank you. Rajni Rueda OTR/l
--- NOTE | 2019-05-10 10:21 | NUR ---
PATIENT RESTING IN BED WATCHING TV. PLEASENT AND COOPERATIVE, BED SIDE TABLE/CALL LIGHT WITHIN REACH. WILL CONTINUE TO MONITOR. ERNESTO THAPA [facility]
[2019-05-10 12:00] VITALS: BP 148/82
--- NOTE | 2019-05-10 13:00 | NUR ---
PT HEART RATE WENT UP TO 140'S WHILE AMBULATING TO THE BATHROOM. CHECKED ON HIM HE SAID HE WAS FINE, ASKED HIM TO SIT DOWN AND RELAX. HEART RATE WENT DOWN TO 108 WITHIN A COUPLE OF MINUTES, IS SOB UPON EXERTION BUT RECOVERS WITH REST. ERNESTO THAPA [facility]
--- NOTE | 2019-05-10 13:29 | NUR ---
PATIENT RESTING COMFORTABLY IN BED WATCHING TV. NO VOICED COMPLAINTS AT THIS TIME. ERNESTO THAPA [facility]
--- NOTE | 2019-05-10 14:03 | NUR ---
PHYSICAL THERAPY Patient presented to therapy in supine wit hhead of bed levated and 3 liters of spO2 via nasal canula. Patient gives informed consent for treatment. Patient was identified by name and on wristband. Patient'S vitals were recorded as O2 SAT= 98% and pulse= 100 prior to therapy session in sitting on EOB. Patient transferred supine to sitting at EOB with MIN A X 1. Patient sat on EOB unassisted. Patient sit to stand transfer from EOB with SBA. Patient ambulated with ADVERTISING SUPERVISOR X 1 for 20' x 1 with no LOB and minimal SOB. O2 sats recorded as 97% and pulse 100. Patient Patient sit to stand again from EOB with SBA. Patient ambulated 40' x 1 inside room only WITH LONG O2 line ATTACHED to wall outlet at 3 liters with ADVERTISING SUPERVISOR X 1. Patient had 1 minor LOB with 40' x 1 gait that patient corrected himself. Patient's vitals taken at end of 40' x 1 gait and recorded as O2 = 97% AND PULSE 121. Patient transferred back to supine in bed with SBA. Patient had one instance during 2nd gait that his knees began to buckle but he corrected this himself. Patient was left in supine in bed with head of bed elevated and call light within reach. Patient ambulating too and from bathroom throughout the day. Patient was 1:1 with this ORAL AND MAXILLOFACIAL SURGERY for 17 minutes total. SAVAGE LEMA ORAL AND MAXILLOFACIAL SURGERY
--- NOTE | 2019-05-10 15:11 | NUR ---
in to see patient regarding snf order/referral. patient wants [facility]. I explained to patient with his Medicare and his [place] Medicaid he would [place] have 21 days in an [place] facility then he would either have to be discharged to home, transferred to a [facility] or converted to [place] Medicaid. Patient understands, still wants to go to [facility]. Contacted facility and faxed referral. waiting on review/acceptance.
[2019-05-10 16:00] VITALS: BP 132/84
--- NOTE | 2019-05-10 16:10 | NUR ---
RESTING IN BED. NO C/O AT THIS TIME. RESP-EASY AND REGULAR. OXYGEN IN USE. CALL LIGHT IN REACH. SEE SHIFT ASSESSMENT.
--- NOTE | 2019-05-10 17:36 | NUR ---
[facility]O NOHELIA HOLT THEY WILL LET HER KNOW.
--- NOTE | 2019-05-10 17:42 | NUR ---
[facility] CALL[facility] THEY WILL PUT INFORMATION WE FAX IN NOHELIA HOLT BOX.
[2019-05-10 20:00] VITALS: BP 136/77
--- NOTE | 2019-05-10 20:10 | NUR ---
RESTING IN BED. NO C/O AT THIS TIEM. RESP-EASY AND REGULAR. CALL LIGHT IN REACH. OXYGEN IN USE. SEE SHIFT ASSESSMENT.
--- NOTE | 2019-05-10 21:01 | NUR ---
PT TOLERATED ROUTINE MED WITH NO PROBLEM. AMBIEN GIVEN FOR INSOMNIA PER ROUTINE ORDER, SEE EMAR. CALL LIGHT IN REACH.
--- NOTE | 2019-05-10 23:51 | NUR ---
Pt does not want to wear the BiPap.
[2019-05-11] VITALS: BP 150/70
[2019-05-11 06:30] LABS: HEMATOCRIT 28.7 % (42.0-52.0); HEMOGLOBIN 8.6 g/dl (14.0-18.0); MEAN CELL VOLUME 98.3 fl (80.0-94.0); MEAN CORPUSCULAR HGB 29.5 pg (27.0-31.0); MEAN PLATELET VOLUME 11.2 fl (9.6-12.3); PLATELET COUNT AUTOMATED 217 10*3/uL (130-400); RED BLOOD COUNT 2.92 10*6/uL (4.50-5.90); RED CELL DISTRI WIDTH 17.8 % (0-14.5); WHITE BLOOD COUNT 11.2 10*3/uL (4.8-10.8)
[2019-05-11 06:42] LABS: CREATININE 1.4 mg/dL (0.70-1.30); POTASSIUM 4.8 mmol/L (3.5-5.1)
[2019-05-11 07:17] LABS: PLATELET SUFFICIENCY NORMAL (NORMAL); TOTAL CELLS COUNTED 100 #CELLS
--- NOTE | 2019-05-11 07:55 | NUR ---
Patient accepted to [facility], 3 night stay complete. Patient can go when medically stable for discharge.
--- NOTE | 2019-05-11 08:08 | NUR ---
Notified Dr. Bush of patient's acceptance at [facility] and when medically stable can be discharged.
--- NOTE | 2019-05-11 08:15 | NUR ---
PT RESTING IN BED. RESP-EASY AND REGULAR. OXYGEN IN USE. NO C/O AT THIS TIME. CALL LIGHT IN REACH. SEE SHIFT ASSESSMENT.
--- NOTE | 2019-05-11 09:17 | NUR ---
PHYSICAL THERAPY Patient seen this am 1;1 for therapy visit and was resting supine in bed upon therapist arrival. Patient identified by name / and presented with continuos O2-3L via OH. Patient was very pleasant voicing no new c/o's at this time and transfers supine to sit EOB CGA. Patient performed sit to stand transfer CGA and ambulates CLINICAL OPERATIONS LEADER/CGA, 50'x [address], demonstrating very slow lottie, decreased stride and unsteady balance during 180 degree turns. Patient also instructed on safe stair navigation and completed 4 steps up / down with use of single handrail support, CGA x 1. Patient demonstrated increased fatigue following stairs, needing both brief standing rest break with purse lip breathing technique. Patient SpO2 97%, HR 99 bpm and returned to EOB sit. Following brief seated rest SpO2 97%, HR 82 bpm as patient remained EOB sit as breakfast arrived. Patient remained with call light, telephone, tray table and will continue per POC as tolerated. Total treatment time 17 minutes. Myles Hobson, CIVIL ENGINEERING INTERN
--- NOTE | 2019-05-11 10:30 | NUR ---
Mattress Filler in to see patient with palliative care nurse. No new needs or request at this time. Patient is agreeable for palliative care to follow with him at [facility]. When medically stable he will be discharged to [facility]. cyber ops planner following.
--- NOTE | 2019-05-11 11:20 | NUR ---
OT NOTE Pt was seen this A.M. 1:1 for 20 minute OT session. Upon arrival pt was supine in bed. Pt identified by name and and had no complaints at this time. pt presented to therapy with continuous 3L-O2 via NC which he remained on throughout the entire session. Pt's resting SpO2 was 99% and heart rate 106 bpm. Pt transferred supine to sit EOB with SBA. While sitting EOB pt was educated on energy conservation and work simplification techniques. Pt verbalized understanding and was able to "teach back" to treating therapist. Sit to stand completed from bed level with CGA for safety. Challenged pt's static standing tolerance needed for increased I in self care tasks and functional transfers. Pt was able to tolerate aprox 2 minutes before sitting due to reports of fatigue and feeling SOB, SpO2 reading 97% and heart rate 112 bpm. While seated for a rest break pt was sitting with "slouched" posture, re educated pt on sitting with good posture for breathing techniques. Functional mobility was then completed into the bathroom with CGA while therapist managed O2 tank. Pt stood at commode while completing toileting tasks with CGA for safety. Clothing management completed with CGA. Pt then stood sink side while washing his hands with CGA for safety. Throughout mobility pt presented with poor safety awareness/management of O2 line. Pt was educated on safety and management, throughout rest of the session pt presented with fair carry over. Pt was left supine in bed with call light in hand, tray table in place, and phone in reach. Continue with POC as able. GO Thompson
[2019-05-11] MEDS ORDERED: PREDNISONE10 MG PO (11:53)
[2019-05-11 12:00] VITALS: BP 155/65
--- NOTE | 2019-05-11 13:10 | NUR ---
patient is discharged to [facility]. [facility] stating they will transport patient around 3:00 - 3:30 pm. NH, nursing/forward air controller/air officer notified. Patient stating he will notify his niece Chante.
--- NOTE | 2019-05-11 13:45 | NUR ---
Notified Dr. Bush patient will need a physical prescription for Ambsb for [facility].
--- NOTE | 2019-05-11 13:49 | NUR ---
Discharge instructions reviewed with patient. Patient receptive and verbalizes understanding. Follow-up care arranged. Written instructions given to patient/COMPUTER DRAFTER. HEPLOCK REMOVED 2X2 APPLIED. HOLTER REMOVED. LEEANN CROUCH
--- NOTE | 2019-05-11 13:55 | NUR ---
SPOKE WITH AMOS AT [facility] GAVE REPORT.
[2019-05-11] MEDS ORDERED: ZOLPIDEM TART5 MG PO (14:01)
--- NOTE | 2019-05-11 14:36 | NUR ---
Discharge instructions reviewed with patient/family. Patient receptive and verbalizes understanding. Follow-up care arranged. Written instructions given to patient/family. HEPLOCK REMOVED 2X2 APPLLIED. HOLTER REMOVED. ESCORTED VIA WHEELCHAIR FOR DISCHARGE TO [facility] LEEANN CROUCH
--- NOTE | 2019-05-12 07:28 | NUR ---
OCCUPATIONAL THERAPY CO-SIGN I approve of the Occupational Therapy notes written above. TIIK ANDRADE OTR/Jerome
--- NOTE | 2019-05-12 07:46 | NUR ---
PHYSICAL THERAPY CO-SIGN I approve of the Physical Therapy notes written above. Nichol Luciano PT
--- NOTE | 2019-05-12 07:47 | NUR ---
PHYSICAL THERAPY CO-SIGN I approve of the Physical Therapy notes written above. Nichol Luciano PT
== END 2019-05-11 14:36 | disposition other institution (70) | DRG 189 ==
LOC: ED 04:41 → EDHOLD 06:12 → 4E 06:12
PROVIDERS: Emergency Medicine Emergency Medical Services; Internal Medicine; Internal Medicine Critical Care Medicine; ADMIT Internal Medicine
DX: J96.20 Acute and chronic respiratory failure, unspecified whether with hypoxia or hypercapnia (principal); J44.1 Chronic obstructive pulmonary disease with (acute) exacerbation; I50.32 Chronic diastolic (congestive) heart failure; I13.0 Hypertensive heart and chronic kidney disease with heart failure and stage 1 through stage 4 chronic kidney disease, or unspecified chronic kidney disease; J44.0 Chronic obstructive pulmonary disease with (acute) lower respiratory infection; E88.09 Other disorders of plasma-protein metabolism, not elsewhere classified; F17.200 Nicotine dependence, unspecified, uncomplicated; D64.9 Anemia, unspecified; N40.0 Benign prostatic hyperplasia without lower urinary tract symptoms; J20.9 Acute bronchitis, unspecified; N18.3 Chronic kidney disease, stage 3 (moderate); G47.00 Insomnia, unspecified; K31.84 Gastroparesis; Z98.42 Cataract extraction status, left eye; Z98.41 Cataract extraction status, right eye; Z83.6 Family history of other diseases of the respiratory system; Z90.49 Acquired absence of other specified parts of digestive tract

== ENCOUNTER 2019-05-25 17:42 | Inpatient (IN) | payer MEDICARE, MEDICAID ==
[~2019-05-25] VITALS: Ht 185.4 cm; Wt 81.3 kg
[~2019-05-25 17:42] MED LIST changes: +ZOLPIDEM TART5 MG PO
[2019-05-25 17:44] VITALS: BP 133/76
[2019-05-25 18:23] LABS: BASO % 0.3 % (0.0-1.0); EOS % 0.2 % (1.0-4.0); HEMATOCRIT 31.1 % (42.0-52.0); HEMOGLOBIN 9.5 g/dl (14.0-18.0); LYMPH # 0.6 10*3/uL (1.3-4.4); MEAN CELL VOLUME 98.1 fl (80.0-94.0); MEAN CORPUSCULAR HGB CONC 30.5 g/dl (33.0-37.0); MEAN PLATELET VOLUME 10.4 fl (9.6-12.3); MONO # 0.9 10*3/uL (0.1-1.0); MONO % 7.3 % (3.0-9.0); NEUT # 10.8 10*3/uL (2.3-7.9); NEUT % 86.5 % (47.0-73.0); PLATELET COUNT AUTOMATED 242 10*3/uL (130-400); RED BLOOD COUNT 3.17 10*6/uL (4.50-5.90); RED CELL DISTRI WIDTH 17.1 % (0-14.5); WHITE BLOOD COUNT 12.5 10*3/uL (4.8-10.8)
[2019-05-25 18:33] LABS: ACT PARTIAL THROMBO TIME 24.5 SECONDS (20.0-32.1); INTERNATIONAL NORM RATIO 0.9 (2.0-3.5)
[2019-05-25 18:37] LABS: ALBUMIN 2.8 gm/dl (3.1-4.5); ALKALINE PHOSPHATASE 81 U/L (45-117); BUN 26 mg/dl (7-24); CHLORIDE 100 mmol/L (98-107); CREATININE 1.58 mg/dL (0.70-1.30); LIPASE 85 U/L (73-393); POTASSIUM 4.4 mmol/L (3.5-5.1); SGOT/AST 14 IU/L (3-35); SGPT/ALT 22 U/L (12-78); SODIUM 136 mmol/L (136-145); TOTAL PROTEIN 6.8 gm/dL (6.4-8.2)
[2019-05-25 18:40] VITALS: BP 155/83
[2019-05-25 18:47] LABS: TROPONIN I < 0.015 ng/ml (<0.045)
[2019-05-25 20:17] LABS: BILIRUBIN NEGATIVE (NEGATIVE); BLOOD TRACE-INTACT (NEGATIVE); CLARITY CLEAR (CLEAR); COLOR YELLOW (YELLOW); GLUCOSE NEGATIVE (NEGATIVE); KETONE NEGATIVE (NEGATIVE); LEUKO ESTERASE NEGATIVE (NEGATIVE); NITRITE NEGATIVE (NEGATIVE); PH 6.5 (5.0-9.0); SPECIFIC GRAVITY 1.015 (1.005-1.030); UROBILINOGEN 0.2 E.U./dl (0.2-1.0)
[2019-05-25 20:23] LABS: BACTERIA 1+; EPITHELIAL CELLS 0-2; WBC 0-2 wbc/hpf (0-5)
[2019-05-25 21:50] VITALS: BP 146/86
--- NOTE | 2019-05-25 21:50 | NUR ---
A 78, admitted to , under the services of DIPIKA Reddy MD with a diagnosis of COPD. Chief complaint is FROM [facility]. SOB PRODUCITVE COUGH, FEVER, CHILLS. HAD LABS AND XRAYS AT [facility]ISON.WAS BROUGHT HERE AND ADMITTED. . Patient arrived via stretcher from ER. Monitor applied. Initial assessment completed. Vital signs taken and recorded. DIPIKA REDDY MD notified of admission to the unit. Orders received. See assessment for past medical history, medications and allergies. Patient and/or family oriented to unit. [address] visitation policy reviewed. Clothing/patient valuable form completed. TEO COOK
--- NOTE | 2019-05-25 22:40 | NUR ---
CALLED DR. MASTERS AND SPOKE WITH HER ABOUT PATIENT AND ORDERS RECEIVED. PER DR. MASTERS PATIENT HAS TO BE TREATED PER SEPSIS WITH BOLUS. 1 LITER HAS BEEN GIVEN ALREADY IN ER.
[2019-05-26] VITALS: BP 135/82
--- NOTE | 2019-05-26 00:30 | NUR ---
PT AMBULATORY TO BATHROOM AND BACK TO BED. SOB WITH EXERTION. OXYGEN IN USE. IVF INFUSING WITH NO PROBLEM. CALL LIGHT IN REACH. SEE SHIFT ASSESSMENT.
[2019-05-26] MEDS ORDERED: TYLENOL325 M3 PO (01:39)
[2019-05-26] MEDS ORDERED: LAXATIVE SUPPOS10 MG R (01:39)
[2019-05-26] MEDS ORDERED: COMBIVENT RESPIM4 GM INH (01:41)
[2019-05-26] MEDS ORDERED: METOCLOPRAMIDE H5 M1 PO (01:43)
[2019-05-26] MEDS ORDERED: MILK OF MA400 MG/52 PO (01:43)
[2019-05-26] MEDS ORDERED: ZOLPIDEM10 MG PO (01:44)
[2019-05-26 06:26] LABS: HEMATOCRIT 25.6 % (42.0-52.0); HEMOGLOBIN 7.9 g/dl (14.0-18.0); MEAN CELL VOLUME 96.2 fl (80.0-94.0); MEAN CORPUSCULAR HGB 29.7 pg (27.0-31.0); MEAN CORPUSCULAR HGB CONC 30.9 g/dl (33.0-37.0); MEAN PLATELET VOLUME 10.4 fl (9.6-12.3); PLATELET COUNT AUTOMATED 209 10*3/uL (130-400); RED BLOOD COUNT 2.66 10*6/uL (4.50-5.90); RED CELL DISTRI WIDTH 16.8 % (0-14.5); WHITE BLOOD COUNT 11.4 10*3/uL (4.8-10.8)
[2019-05-26 06:30] LABS: ALBUMIN 2.2 gm/dl (3.1-4.5); CREATININE 1.47 mg/dL (0.70-1.30); POTASSIUM 4.5 mmol/L (3.5-5.1); TOTAL PROTEIN 5.7 gm/dL (6.4-8.2)
[2019-05-26 06:59] LABS: BURR CELLS FEW; POLYCHROMASIA SLIGHT; SCHISTOCYTES FEW; TOTAL CELLS COUNTED 100 #CELLS
[2019-05-26 07:00] LABS: PLATELET SUFFICIENCY NORMAL (NORMAL)
[2019-05-26 08:00] VITALS: BP 170/80
[2019-05-26 09:28] LABS: ABG BASE EXCESS 0.9 mmol/L (-2.0-2.0); ARTERIAL BLOOD GAS PH 7.397 (7.35-7.45)
[2019-05-26 12:00] VITALS: BP 149/68
[2019-05-26 16:00] VITALS: BP 128/73
[2019-05-26 20:00] VITALS: BP 141/85
[2019-05-27] VITALS: BP 101/72
[2019-05-27 07:12] LABS: HEMOGLOBIN 7.6 g/dl (14.0-18.0); MEAN CELL VOLUME 96.9 fl (80.0-94.0); MEAN CORPUSCULAR HGB 29.5 pg (27.0-31.0); MEAN CORPUSCULAR HGB CONC 30.4 g/dl (33.0-37.0); MEAN PLATELET VOLUME 10.6 fl (9.6-12.3); PLATELET COUNT AUTOMATED 216 10*3/uL (130-400); RED BLOOD COUNT 2.58 10*6/uL (4.50-5.90); RED CELL DISTRI WIDTH 16.6 % (0-14.5)
[2019-05-27 07:23] LABS: BUN 30 mg/dl (7-24); CHLORIDE 108 mmol/L (98-107); CREATININE 1.31 mg/dL (0.70-1.30); POTASSIUM 4.4 mmol/L (3.5-5.1); SODIUM 140 mmol/L (136-145)
[2019-05-27 07:41] LABS: OVALOCYTES FEW; PLATELET SUFFICIENCY NORMAL (NORMAL); POLYCHROMASIA SLIGHT; ROULEAUX SLIGHT; TARGET CELLS FEW; TOTAL CELLS COUNTED 100 #CELLS
[2019-05-27 07:42] LABS: SCHISTOCYTES FEW
[2019-05-27 08:00] VITALS: BP 160/90
--- NOTE | 2019-05-27 08:30 | NUR ---
Patient resting quietly with no c/o discomfort. Respirations easy and regular on O2. Vital signs stable. No overt distress. ALONDRA REAVES R
--- NOTE | 2019-05-27 11:27 | NUR ---
Patient updated clinicals [facility]. patient is short term care and ok to return when medically stable for discharge.
[2019-05-27 12:00] VITALS: BP 159/89
--- NOTE | 2019-05-27 13:16 | NUR ---
PHYSICAL THERAPY Felicitaal completed pt moderate level of complexity 68269 recomend return to rehab at discharge. PT to work on transfers,amb,balance/strengthening and safety. Full report to follow Nichol Luciano PT
--- NOTE | 2019-05-27 13:32 | NUR ---
PT IS CURRENTLY AT [facility] AND WILL RETURN ON DISCHARGE TO CONTINUE REHAB WHEN MEDICALLY STABLE. WILL CONTINUE TO FOLLOW.
--- NOTE | 2019-05-27 15:41 | NUR ---
PT AGREEABLE TO TRANSFER TO 5E.
[2019-05-27 16:00] VITALS: BP 167/81
--- NOTE | 2019-05-27 16:05 | NUR ---
PATIENT TRANSFERRED FROM [facility] AT THIS TIME WITHOUT INCIDENT. ORIENTED TO ROOM AND CALL LIGHT. NC 3LPM IN USE. PATIENT ASSESSMENT COMPLETED WITHOUT INCIDENT. CALL LIGHT WITHIN REACH WILL CONTINUE TO MONITOR.
[2019-05-27 20:00] VITALS: BP 154/73
--- NOTE | 2019-05-27 22:00 | NUR ---
24 HOUR CHART CHECK COMPLETED
[2019-05-28] VITALS: BP 178/76
[2019-05-28 06:26] LABS: HEMATOCRIT 25.6 % (42.0-52.0); HEMOGLOBIN 7.8 g/dl (14.0-18.0); MEAN CELL VOLUME 98.5 fl (80.0-94.0); MEAN CORPUSCULAR HGB CONC 30.5 g/dl (33.0-37.0); MEAN PLATELET VOLUME 10.1 fl (9.6-12.3); PLATELET COUNT AUTOMATED 225 10*3/uL (130-400); WHITE BLOOD COUNT 12.9 10*3/uL (4.8-10.8)
[2019-05-28 06:59] LABS: CREATININE 1.44 mg/dL (0.70-1.30); POTASSIUM 4.7 mmol/L (3.5-5.1)
[2019-05-28 07:00] LABS: PLATELET SUFFICIENCY NORMAL (NORMAL); ROULEAUX SLIGHT; TOTAL CELLS COUNTED 100 #CELLS
[2019-05-28 07:01] LABS: POLYCHROMASIA SLIGHT; TARGET CELLS FEW
[2019-05-28 08:00] VITALS: BP 154/78
--- NOTE | 2019-05-28 08:01 | NUR ---
PHYSICAL THERAPY Patient presented to therapy in sitting on EOB with 3 liters of spO2 VIA NASAL CANULA. Patient performed 3 standing tolerances becuase he didn't think he should ambulate at this time. Patient gives informed consent for treatment. Patient was identified by name and on wristband. Patient performed sit to stand from EOB with SBA. Patient 2 standing tolerances with times recorded as 1 st attempt) 1 minute with O2 SAT at 96% and pulse 121 2nd attempt) 50 seconds and O2 SAT at 95% and pulse at 122 3rd attempt) 40 seconds and O2 SATS at 97% and pulse at 115. THE INTIAL O2 SAT WAS 98% AND PULSE 107 PRIOR TO PERFORMING THE STANDING TOLERANCES. Patient performed the standing tolerances with SBA AND NO ASSISTIVE DEVICE. Patient is ambulating too and from the restroom on his own throughout the day on 3 liters of spO2 and no asistive device. Patient becomes VERY SOB with exertion and was unable to ambulate due to being so SOB this morning. Patient transferred back to supine in bed with SBA. Patient was left in supine in bed with head of bed elevated, call light within reach and tray table near patient. Patient was 1:1 with this PATCH FINISHER for 20 minutes total. Patient educated on purse lip breathing and pacing himself. SAVAGE LEMA TPA
[2019-05-28 12:00] VITALS: BP 156/74
--- NOTE | 2019-05-28 12:58 | NUR ---
PT CAN RETURN TO [facility] ON DISCHARGE WHEN MEDICALLY STABLE. WILL CONTINUE TO FOLLOW.
[2019-05-28 16:00] VITALS: BP 158/78
--- NOTE | 2019-05-28 16:38 | NUR ---
PHYSICAL THERAPY CO-SIGN I approve of the Phyical Therapy notes written above. Nichol Luciano PT
[2019-05-28 20:00] VITALS: BP 160/74
[2019-05-29] VITALS: BP 159/72
[2019-05-29 08:00] VITALS: BP 148/70; BP 160/88
[2019-05-29 12:00] VITALS: BP 158/80
[2019-05-29 16:00] VITALS: BP 154/72
[2019-05-29 20:00] VITALS: BP 149/77
--- NOTE | 2019-05-29 20:00 | NUR ---
PATIENT IS RESTING IN BED WITH EASY AND REGULAR RESPERS ON 2L O2 VIA NC. ASSESSMENT IS COMPLETE WITH NO C/O OR S/S OF DISTRESS NOTED AT THIS TIME. BED IS LOW, LOCKED, AND CALL LIGHT IS WITHIN REACH. WILL CONTINUE TO MONITOR, SEE SHIFT ASSESSMENT.
[2019-05-30] VITALS: BP 154/75
[2019-05-30 08:00] VITALS: BP 158/82
[2019-05-30 12:00] VITALS: BP 145/83
[2019-05-30 16:00] VITALS: BP 137/68
[2019-05-30 20:00] VITALS: BP 162/78
--- NOTE | 2019-05-30 21:00 | NUR ---
PATIENT IS RESTING IN BED WITH EASY AND REGULAR RESPERS ON 2L VIA NC. ASSESSMENT IS COMPLETE WITH NO C/O OR S/S OF DISTRESS NOTED AT THIS TIME. BED IS LOW, LOCKED, AND CALL LIGHT IS WITHIN REACH. WILL CONTINUE TO MONITOR, SEE SHIFT ASSESSMENT.
--- NOTE | 2019-05-30 21:00 | NUR ---
IV started left antecubital with #22 angiocath after attempts. The IV site was prepped with Chloraprep. Heparin lock attached. IV solution 0.9NS infusing at 125 cc/hr. Sterile dressing applied. Patient tolerated precedure well. Procedure performed according to [facility] policy & procedure. IAN POSADAS
[2019-05-31] VITALS: BP 130/69
--- NOTE | 2019-05-31 | NUR ---
PATIENT IS SLEEPING WITH EASY AND REGULAR RESPERS ON 2L VIA NC. CALL LIGHT IS WITHIN REACH.
--- NOTE | 2019-05-31 | NUR ---
RESTING IN BED WITH NO C/O OR S/S OF DISTRESS NOTED AT THIS TIME. CALL LIGHT IS WITHIN REACH.
--- NOTE | 2019-05-31 04:00 | NUR ---
SLEEPING WITH EASY AND REGULAR RESPERS ON 2L VIA NC. CALL LIGHT IS WITHIN REACH.
--- NOTE | 2019-05-31 06:13 | NUR ---
PATIENT ARISES EASILY FOR ADMINISTRATION OF 0600 MEDICATIONS. PATIENT TOLERATED WELL, CALL LIGHT IS WITHIN REACH.
[2019-05-31 06:19] LABS: HEMATOCRIT 25.2 % (42.0-52.0); HEMOGLOBIN 7.6 g/dl (14.0-18.0); MEAN CELL VOLUME 97.3 fl (80.0-94.0); MEAN CORPUSCULAR HGB 29.3 pg (27.0-31.0); MEAN CORPUSCULAR HGB CONC 30.2 g/dl (33.0-37.0); MEAN PLATELET VOLUME 10.4 fl (9.6-12.3); NUCLEATED RED BLOOD CELL 0.1 10*3/uL (0.0-0.0); NUCLEATED RED BLOOD CELL 0.4 % (0.0-0.0); PLATELET COUNT AUTOMATED 264 10*3/uL (130-400); RED BLOOD COUNT 2.59 10*6/uL (4.50-5.90); RED CELL DISTRI WIDTH 17.4 % (0-14.5); WHITE BLOOD COUNT 13.1 10*3/uL (4.8-10.8)
[2019-05-31 06:44] LABS: PLATELET SUFFICIENCY NORMAL (NORMAL); POLYCHROMASIA SLIGHT; SCHISTOCYTES FEW; TOTAL CELLS COUNTED 100 #CELLS
--- NOTE | 2019-05-31 06:44 | NUR ---
CHART CHECK COMPLETE.
[2019-05-31 06:45] LABS: BURR CELLS FEW; CREATININE 1.47 mg/dL (0.70-1.30); POTASSIUM 4.8 mmol/L (3.5-5.1)
--- NOTE | 2019-05-31 07:30 | NUR ---
PT RESTING IN BED. VOICES NO CONCERNS AT THIS TIME.RESPS EASY AND NON LABORED. NO S/S OF DISTRESS NOTED. OXYGEN 3L VIA NASAL CANNULA INTACT. CALL LIGHT WITHIN REACH. WHITE BOARD UPDATED.
[2019-05-31 08:00] VITALS: BP 152/76; BP 180/76
--- NOTE | 2019-05-31 08:44 | NUR ---
PHYSICAL THERAPY TREATMENT TIME: 08:05 AM - 08:25 AM Patient presented to therapy in supine in bed with head of bed elevated and 3 liters of spO2 via nasal canula. Patient gives informed consent for treatment. Patient was identified by name and . Patient says he is feeling much better than he has been recently. Patient has IV infusing at this time. Patient performed supine to sitting at EOB transfer with SBA. Patient sat on EOB unassisted. Patient transferred sit to stand from EOB with SBA. Patient's initial O2 SAT taken and recorded as 99% and pulse at 89. Patient ambulated with long O2 line connected to wall outlet with 3 liters of spO2 VIA NASAL CANULA and CGA X 1 FOR 60' X 1 AND THEN A SECOND TIME FOR 40' X 1 with significant SOB, but no LOB. Patient sat on EOB and performed seated bilateral LE ther ex 2 x 10 reps each in all planes of movement for strengthening the LEs in order to improve patient's functional mobility. Patient transferred back to supine in bed with SBA. Patient was left in supine in bed with head of bed elevated, call light within reach and tray table near patient. Bed alarm has not been on since patient was initially admitted to the hospital. Patient was 1:1 with this CROSS COUNTRY/TRACK AND FIELD COACH for 20 minutes total. SAVAGE LEMA CROSS COUNTRY/TRACK AND FIELD COACH
--- NOTE | 2019-05-31 08:45 | NUR ---
Shift chart check completed.
--- NOTE | 2019-05-31 09:00 | NUR ---
case management visits with patient he will be returning to [facility] when medically stable, case management and social servics will follow
--- NOTE | 2019-05-31 09:38 | NUR ---
10AM MEDICATIONS GIVEN. COMPUTER ON WHEELS DISCONNECTED FROM INTERNET AND LOCKED THIS NURSE OUT. UNABLE TO RE-SCAN MEDICATIONS.
[2019-05-31 12:00] VITALS: BP 148/80; BP 170/88
--- NOTE | 2019-05-31 13:25 | NUR ---
FAMILY UPDATED ON PLAN OF CARE, QUESTIONS ANSWERED
[2019-05-31 16:00] VITALS: BP 156/73
[2019-05-31] MEDS ORDERED: PREDNISONE10 MG PO (17:05)
[2019-05-31] MEDS ORDERED: DOXYCYCLINE100 M3 PO (17:05)
--- NOTE | 2019-05-31 17:56 | NUR ---
REPORT GIVEN TO NURSE AT [facility]
--- NOTE | 2019-06-03 07:34 | NUR ---
PHYSICAL THERAPY CO-SIGN I approve of the Physical Therapy notes written above. Nichol Luciano PT
== END 2019-05-31 17:56 | disposition other institution (70) | DRG 725 ==
LOC: ED 17:42 → EDHOLD 21:19 → 4E 21:19 → 5E 05-27 15:48
PROVIDERS: Family Medicine; Internal Medicine Nephrology; Nurse Practitioner Family; Student in an Organized Health Care Education/Training Program; ADMIT Internal Medicine
DX: N40.0 Benign prostatic hyperplasia without lower urinary tract symptoms (principal); A41.9 Sepsis, unspecified organism; J96.20 Acute and chronic respiratory failure, unspecified whether with hypoxia or hypercapnia; N17.9 Acute kidney failure, unspecified; J44.1 Chronic obstructive pulmonary disease with (acute) exacerbation; I50.32 Chronic diastolic (congestive) heart failure; I13.0 Hypertensive heart and chronic kidney disease with heart failure and stage 1 through stage 4 chronic kidney disease, or unspecified chronic kidney disease; D64.9 Anemia, unspecified; G47.00 Insomnia, unspecified; N18.3 Chronic kidney disease, stage 3 (moderate); E88.09 Other disorders of plasma-protein metabolism, not elsewhere classified; R29.898 Other symptoms and signs involving the musculoskeletal system; Z90.49 Acquired absence of other specified parts of digestive tract; Z87.891 Personal history of nicotine dependence; Z87.01 Personal history of pneumonia (recurrent); Z98.42 Cataract extraction status, left eye; Z98.41 Cataract extraction status, right eye; Z82.5 Family history of asthma and other chronic lower respiratory diseases; Z79.899 Other long term (current) drug therapy

== ENCOUNTER → 2019-06-02 | Outpatient (CLI) | payer MEDICARE, MEDICAID ==
[2019-06-02] VITALS (11 sets, daily range): BP systolic 127–150; BP diastolic 59–77
[~2019-06-02] MED LIST changes: +LAXATIVE SUPPOS10 MG R; +METOCLOPRAMIDE H5 M1 PO; +MILK OF MA400 MG/52 PO; +TYLENOL325 M3 PO; +ZOLPIDEM10 MG PO
--- NOTE | 2019-06-02 09:30 | NUR ---
Informed consent obtained from patient for Blood transfussion by Dr. VELASCO. Patient identified by arm band. Vital signs recorded. Blood unit number verified by 2 R.N.'s. I.V. site satisfactory. Unit 1 started at a KVO rate with Normal Saline. LUZMARIA RAZA
--- NOTE | 2019-06-02 11:27 | NUR ---
FIRST TRANSFUSION COMPLETE.PT TOLERATED WELL. VITALS OBTAINED.RESPS EASY ON 3.5LNC, SPO2 99%.VOICES NO OTHER NEEDS AT THIS TIME. CALL LIGHT IN REACH.
--- NOTE | 2019-06-02 11:30 | NUR ---
Informed consent obtained from patient for second Blood transfussion by Dr. VELASCO. Patient identified by arm band. Vital signs recorded. Blood unit number verified by 2 R.N.'s. I.V. site satisfactory. Unit started at a KVO rate with Normal Saline. LUZMARIA RAZA
--- NOTE | 2019-06-02 11:52 | NUR ---
PRIOR TO FIRST UNIT OF BLOOD LUNGS WERE VERY DIMINISHED WITH EXP WHEEZE TO L PB. UPON REASSESSMENT WHILE UINFUSING SECOND UNIT,CRACKLES NOTED TO LEFT PB,RESPS 22,SPO2 99% ON 3.5LNC.NOTIFIED DR VELASCO AND ORDER RECIEVED FOR LASIX 40 MG IV X 1 DOSE.
--- NOTE | 2019-06-02 13:54 | NUR ---
TRANSFUSION COMPLETE.PT TOLERATED WELL.[facility] AWARE PT READY FOR PICKUP.
--- NOTE | 2019-06-02 14:00 | NUR ---
Hep Lock discontinued. Site asymptomatic. Pressure applied. Sterile dressing applied. LUZMARIA RAZA
--- NOTE | 2019-06-02 14:05 | NUR ---
REPORT CALLED TO RECIEVING ANNA AT [facility].
--- NOTE | 2019-06-02 14:21 | NUR ---
[facility] TRANSPORT VAN PICKED UP PT VIA WHEELCHAIR.
== END | disposition home or self-care (01) ==
LOC: TRNFUSION 00:39
DX: D64.9 Anemia, unspecified (principal)

== ENCOUNTER 2019-06-13 11:04 | Emergency (ER) | payer MEDICARE, MEDICAID ==
[2019-06-13 11:50] LABS: HEMATOCRIT 37.3 % (42.0-52.0); HEMOGLOBIN 11.3 g/dl (14.0-18.0); MEAN CELL VOLUME 95.6 fl (80.0-94.0); MEAN CORPUSCULAR HGB CONC 30.3 g/dl (33.0-37.0); MEAN PLATELET VOLUME 10.3 fl (9.6-12.3); PLATELET COUNT AUTOMATED 280 10*3/uL (130-400); RED CELL DISTRI WIDTH 16.8 % (0-14.5); WHITE BLOOD COUNT 12.2 10*3/uL (4.8-10.8)
[2019-06-13 12:00] LABS: ACT PARTIAL THROMBO TIME 22.9 SECONDS (20.0-32.1); INTERNATIONAL NORM RATIO 0.8 (2.0-3.5)
[2019-06-13 12:07] LABS: ALKALINE PHOSPHATASE 94 U/L (45-117); BUN 29 mg/dl (7-24); CHLORIDE 104 mmol/L (98-107); CREATININE 1.53 mg/dL (0.70-1.30); LIPASE 135 U/L (73-393); POTASSIUM 4.4 mmol/L (3.5-5.1); SGOT/AST 22 IU/L (3-35); SGPT/ALT 35 U/L (12-78); SODIUM 140 mmol/L (136-145); TOTAL PROTEIN 6.9 gm/dL (6.4-8.2)
[2019-06-13 12:09] LABS: TROPONIN I < 0.015 ng/ml (<0.045)
[2019-06-13 12:13] LABS: TOTAL CELLS COUNTED 100 #CELLS
[2019-06-13 12:14] LABS: PLATELET SUFFICIENCY NORMAL (NORMAL); POLYCHROMASIA SLIGHT
[2019-06-13 12:15] LABS: TOXIC GRANULATION SLIGHT
[2019-06-13 12:44] LABS: BILIRUBIN NEGATIVE (NEGATIVE); BLOOD NEGATIVE (NEGATIVE); CLARITY SL CLOUDY (CLEAR); COLOR YELLOW (YELLOW); GLUCOSE NEGATIVE (NEGATIVE); KETONE NEGATIVE (NEGATIVE); LEUKO ESTERASE NEGATIVE (NEGATIVE); NITRITE NEGATIVE (NEGATIVE); PH 5.5 (5.0-9.0); SPECIFIC GRAVITY 1.025 (1.005-1.030); UROBILINOGEN 0.2 E.U./dl (0.2-1.0)
[2019-06-13 12:55] LABS: BACTERIA TRACE; EPITHELIAL CELLS 0-2; MUCOUS 1+
[2019-06-13] MEDS ORDERED: MIRALAX POWDER17 G1 PO (13:07)
== END 2019-06-13 13:36 | disposition home or self-care (01) ==
LOC: ED 11:04
PROVIDERS: Emergency Medicine
DX: R33.9 Retention of urine, unspecified (principal); K59.00 Constipation, unspecified; J44.9 Chronic obstructive pulmonary disease, unspecified; I13.0 Hypertensive heart and chronic kidney disease with heart failure and stage 1 through stage 4 chronic kidney disease, or unspecified chronic kidney disease; N18.3 Chronic kidney disease, stage 3 (moderate); I50.30 Unspecified diastolic (congestive) heart failure; Z79.2 Long term (current) use of antibiotics; Z79.899 Other long term (current) drug therapy; Z87.891 Personal history of nicotine dependence

== ENCOUNTER → 2019-07-13 | Outpatient (CLI) | payer MEDICARE, MEDICAID ==
[~2019-07-13] MED LIST changes: +CYCLOBENZAPRINE10 MG PO; +Lidoderm 5% Patch T; +MIRALAX POWDER17 G1 PO; +SEPTDS PO
== END | disposition home or self-care (01) ==
LOC: CT 07:35
DX: R10.9 Unspecified abdominal pain (principal); N18.9 Chronic kidney disease, unspecified; Z72.0 Tobacco use

== ENCOUNTER 2019-07-19 21:04 | Inpatient (IN) | payer MEDICARE, MEDICAID ==
[~2019-07-19] VITALS: Ht 185.4 cm; Wt 85.0 kg
[~2019-07-19 21:04] MED LIST changes: -CYCLOBENZAPRINE10 MG PO; -Lidoderm 5% Patch T; -SEPTDS PO
[2019-07-19 21:08] VITALS: BP 146/65
[2019-07-19 22:37] LABS: BASO # 0.1 10*3/uL (0.0-0.1); BASO % 0.9 % (0.0-1.0); EOS # 0.5 10*3/uL (0.0-0.4); EOS % 6.7 % (1.0-4.0); HEMATOCRIT 30.7 % (42.0-52.0); HEMOGLOBIN 9.4 g/dl (14.0-18.0); LYMPH # 1.2 10*3/uL (1.3-4.4); LYMPH % 15.3 % (27.0-41.0); MEAN CELL VOLUME 94.2 fl (80.0-94.0); MEAN CORPUSCULAR HGB 28.8 pg (27.0-31.0); MEAN CORPUSCULAR HGB CONC 30.6 g/dl (33.0-37.0); MEAN PLATELET VOLUME 10.5 fl (9.6-12.3); MONO % 12.4 % (3.0-9.0); NEUT # 5.2 10*3/uL (2.3-7.9); NEUT % 64.3 % (47.0-73.0); PLATELET COUNT AUTOMATED 250 10*3/uL (130-400); RED BLOOD COUNT 3.26 10*6/uL (4.50-5.90); RED CELL DISTRI WIDTH 15.7 % (0-14.5)
[2019-07-19 22:46] VITALS: BP 142/64
[2019-07-19 22:55] LABS: ALBUMIN 3.1 gm/dl (3.1-4.5); CREATININE 1.71 mg/dL (0.70-1.30); POTASSIUM 3.9 mmol/L (3.5-5.1); TOTAL PROTEIN 6.8 gm/dL (6.4-8.2)
[2019-07-20 02:13] LABS: BILIRUBIN NEGATIVE (NEGATIVE); BLOOD TRACE-INTACT (NEGATIVE); CLARITY SL CLOUDY (CLEAR); COLOR YELLOW (YELLOW); GLUCOSE NEGATIVE (NEGATIVE); KETONE NEGATIVE (NEGATIVE)
[2019-07-20 02:14] LABS: LEUKO ESTERASE NEGATIVE (NEGATIVE); NITRITE NEGATIVE (NEGATIVE); UROBILINOGEN 0.2 E.U./dl (0.2-1.0)
[2019-07-20 02:16] LABS: BACTERIA TRACE
--- NOTE | 2019-07-20 02:20 | NUR ---
PT NOTIFIED HE WOULD BE DISCHARGED AND THAT THE DOCTOR WILL BE IN VERY SOON TO SEE HIM. PT ASKED FOR IV TO BE REMOVED THEN, SO THIS RN DISCONTINUED HIS IV PER PT REQUEST.
[2019-07-20 03:09] VITALS: BP 149/65
[2019-07-20 03:53] VITALS: BP 144/61
--- NOTE | 2019-07-20 03:53 | NUR ---
Time: 352 A 78 year old MALE admitted to 5E under services of DR. KRISTA BURK,DIPIKA. Pt. arrived via stretcher from ER. Chief complaint: ABD PAIN. ARIES WILDE
--- NOTE | 2019-07-20 04:19 | NUR ---
MED REC COMPLETED WITH PATIENT ALERT AND ORIENTED TO PERSON PLACE AND TIME. MEDICATIONS HAVE NOT BEEN FILLED SINCE May. DR BAUTISTA MADE AWARE.
--- NOTE | 2019-07-20 05:55 | NUR ---
DR BAUTISTA REMINDED THAT PATIENT STILL NEEDS ADMISSION ORDERS. STATES PATIENT CAN HAVE A CLEAR LIQUID DIET AND THEY WILL TRY TO SEE THE PATIENT.
[2019-07-20 07:04] LABS: BASO # 0.1 10*3/uL (0.0-0.1); BASO % 1.1 % (0.0-1.0); EOS # 0.5 10*3/uL (0.0-0.4); EOS % 8.8 % (1.0-4.0); HEMATOCRIT 30.5 % (42.0-52.0); HEMOGLOBIN 9.2 g/dl (14.0-18.0); LYMPH # 0.9 10*3/uL (1.3-4.4); LYMPH % 14.9 % (27.0-41.0); MEAN CORPUSCULAR HGB 28.7 pg (27.0-31.0); MEAN CORPUSCULAR HGB CONC 30.2 g/dl (33.0-37.0); MEAN PLATELET VOLUME 11.1 fl (9.6-12.3); MONO # 0.8 10*3/uL (0.1-1.0); MONO % 13.6 % (3.0-9.0); NEUT # 3.8 10*3/uL (2.3-7.9); NEUT % 61.3 % (47.0-73.0); PLATELET COUNT AUTOMATED 246 10*3/uL (130-400); RED BLOOD COUNT 3.21 10*6/uL (4.50-5.90); RED CELL DISTRI WIDTH 15.6 % (0-14.5); WHITE BLOOD COUNT 6.1 10*3/uL (4.8-10.8)
[2019-07-20 07:19] LABS: INTERNATIONAL NORM RATIO 0.9 (2.0-3.5)
[2019-07-20 07:23] LABS: POTASSIUM 3.8 mmol/L (3.5-5.1)
[2019-07-20 07:26] LABS: CREATININE 1.67 mg/dL (0.70-1.30)
[2019-07-20 08:00] VITALS: BP 141/75
--- NOTE | 2019-07-20 09:00 | NUR ---
PATIENT SITTING UP IN BED. AWAKE, ALERT AND ORIENTED. NO S/S OF DISTRESS NOTED. 3L NC ON. RESPIRATIONS ARE EASY AND REGULAR. PT STATES HE IS EXPERIENCING ABDOMINAL PAIN FROM HIS "YEAST INFECTION". WILL CONTINUE TO MONITOR.
--- NOTE | 2019-07-20 09:30 | NUR ---
PATIENT COMPLAINS OF ABDOMINAL PAIN AT THIS TIME. PRN NORCO ADMINISTERED.
--- NOTE | 2019-07-20 10:30 | NUR ---
Transformation Manager in to talk to patient. Patient states lives at home with his niece. There are 2 steps in the home. Physician: Dr. Foreign Nowak Pharmacy: [facility] Home health services: none Patient's level of ADLs: MINIMAL ASSIST Patient has working utilities: yes DME: cane, O2 @ 3L nc, portable O2, c-pap, O2 supplier unknown Follow-up physician's appointment after d/c: he prefers to make his own follow up appt after discharge Does patient want to access PORTAL?: no Discharge plan discussed with patient. He lives at home with his niece. He is independent in his ADLs and ambulates with a cane. Discussed home health care services and he denies any home needs at this time. He states his niece can do anything that a home health company can do. When medically stable he will be discharged to home. His niece will provide transportation on discharge. TERESITA MCMAHAN
[2019-07-20 12:00] VITALS: BP 156/76
--- NOTE | 2019-07-20 12:20 | NUR ---
DR. VILLAVICENCIO NOTIFIED OF CONSULT. ORDERS TO CONTINUE HOME MEDS RECIEVED.
[2019-07-20 16:00] VITALS: BP 117/64
--- NOTE | 2019-07-20 19:27 | NUR ---
DR VILLAVICENCIO ON FLOOR TO SEE PATIENT. STATES TO SLOW FLUIDS TO 100/HR AND ORDER MIRALAX Q12H PRN, GIVE DOSE TONIGHT
[2019-07-20 20:00] VITALS: BP 144/72
--- NOTE | 2019-07-20 20:53 | NUR ---
MIRALAX GIVEN PER ORDER FOR C/O CONSTIPATION. NIECE AT BEDSIDE. DENIES PAIN OR NEEDS AT THIS TIME. BED IN LOWEST POSITION, CALL LIGHT IN REACH
[2019-07-21] VITALS: BP 141/72
[2019-07-21 06:48] LABS: BASO # 0.1 10*3/uL (0.0-0.1); BASO % 0.9 % (0.0-1.0); EOS # 0.6 10*3/uL (0.0-0.4); EOS % 9.8 % (1.0-4.0); HEMATOCRIT 28.8 % (42.0-52.0); HEMOGLOBIN 8.8 g/dl (14.0-18.0); LYMPH # 0.9 10*3/uL (1.3-4.4); LYMPH % 16.5 % (27.0-41.0); MEAN CELL VOLUME 95.7 fl (80.0-94.0); MEAN CORPUSCULAR HGB 29.2 pg (27.0-31.0); MEAN CORPUSCULAR HGB CONC 30.6 g/dl (33.0-37.0); MEAN PLATELET VOLUME 10.9 fl (9.6-12.3); MONO # 0.7 10*3/uL (0.1-1.0); MONO % 12.4 % (3.0-9.0); NEUT # 3.4 10*3/uL (2.3-7.9); NEUT % 60.2 % (47.0-73.0); PLATELET COUNT AUTOMATED 234 10*3/uL (130-400); RED BLOOD COUNT 3.01 10*6/uL (4.50-5.90); RED CELL DISTRI WIDTH 15.6 % (0-14.5); WHITE BLOOD COUNT 5.6 10*3/uL (4.8-10.8)
[2019-07-21 07:20] LABS: CREATININE 1.5 mg/dL (0.70-1.30); POTASSIUM 3.6 mmol/L (3.5-5.1)
[2019-07-21 08:00] VITALS: BP 140/72
--- NOTE | 2019-07-21 09:00 | NUR ---
PT RESTING IN BED. RESP-EASY AND REGULAR. OXYGEN IN USE. IVF INFUSING WITH NO PROBLEM. TOLERATED ROUTINE MED WITH NO PROBLEM. CALL LIGHT IN REACH. SEE SHIFT ASSESSMENT.
[2019-07-21 10:03] LABS: IRON 29 ug/dL (65-175); TOTAL IRON BINDING CAPACITY 215 ug/dl (250-450)
[2019-07-21 12:00] VITALS: BP 128/78
[2019-07-21] MEDS ORDERED: CYCLOBENZAPRINE10 MG PO (12:02)
[2019-07-21] MEDS ORDERED: Lidoderm 5% Patch T (12:02)
--- NOTE | 2019-07-21 13:25 | NUR ---
CALLED DR. VELASCO PHONE AND RESIDENT PHONE WITH NO ANSWER. LEFT MESSAGE TO CALL REGARDING PT WANTING TO LEAVE
--- NOTE | 2019-07-21 13:49 | NUR ---
CALLED DR. VELASCO PHONE WITH NO ANSWER. CALLED DR. VILLAVICENCIO SHE WILL BE UP TO SEE PT.
--- NOTE | 2019-07-21 14:13 | NUR ---
Discharge instructions reviewed with patient/family. Patient receptive and verbalizes understanding. Follow-up care arranged. Written instructions given to patient/family. HEPLOCK REMOVED. VISITOR AT HIS SIDE. PT ESCORTED VIA WHEELCHAIR WITH PORTABLE OXYGEN FROM HOME. LEEANN CROUCH R
== END 2019-07-21 14:13 | disposition home or self-care (01) | DRG 683 ==
LOC: ED 21:04 → 5E 07-20 02:56 → EDHOLD 07-20 02:56 → 5E 07-20 03:44
PROVIDERS: Emergency Medicine; Student in an Organized Health Care Education/Training Program; ADMIT Internal Medicine
DX: N17.9 Acute kidney failure, unspecified (principal); I13.0 Hypertensive heart and chronic kidney disease with heart failure and stage 1 through stage 4 chronic kidney disease, or unspecified chronic kidney disease; I50.32 Chronic diastolic (congestive) heart failure; J96.12 Chronic respiratory failure with hypercapnia; J96.11 Chronic respiratory failure with hypoxia; R10.32 Left lower quadrant pain; K59.00 Constipation, unspecified; D50.9 Iron deficiency anemia, unspecified; K31.84 Gastroparesis; N18.3 Chronic kidney disease, stage 3 (moderate); R31.21 Asymptomatic microscopic hematuria; J44.9 Chronic obstructive pulmonary disease, unspecified; G47.00 Insomnia, unspecified; N40.0 Benign prostatic hyperplasia without lower urinary tract symptoms; Z90.49 Acquired absence of other specified parts of digestive tract; Z79.899 Other long term (current) drug therapy; Z93.2 Ileostomy status; Z98.42 Cataract extraction status, left eye; Z98.41 Cataract extraction status, right eye; Z87.891 Personal history of nicotine dependence; Z80.9 Family history of malignant neoplasm, unspecified; Z83.6 Family history of other diseases of the respiratory system; Z99.81 Dependence on supplemental oxygen; Z93.3 Colostomy status

== ENCOUNTER 2019-07-27 00:05 | Inpatient (IN) | payer MEDICARE, MEDICAID ==
[~2019-07-27] VITALS: Ht 182.8 cm; Wt 88.5 kg
[~2019-07-27 00:05] MED LIST changes: +CYCLOBENZAPRINE10 MG PO; +Lidoderm 5% Patch T
[2019-07-27 00:11] VITALS: BP 138/69
[2019-07-27 01:19] LABS: BASO # 0.1 10*3/uL (0.0-0.1); BASO % 0.8 % (0.0-1.0); EOS # 0.5 10*3/uL (0.0-0.4); EOS % 6.2 % (1.0-4.0); HEMATOCRIT 30.4 % (42.0-52.0); HEMOGLOBIN 9.2 g/dl (14.0-18.0); LYMPH # 0.9 10*3/uL (1.3-4.4); LYMPH % 12.7 % (27.0-41.0); MEAN CELL VOLUME 93.8 fl (80.0-94.0); MEAN CORPUSCULAR HGB 28.4 pg (27.0-31.0); MEAN CORPUSCULAR HGB CONC 30.3 g/dl (33.0-37.0); MEAN PLATELET VOLUME 11.1 fl (9.6-12.3); MONO # 1.2 10*3/uL (0.1-1.0); NEUT # 4.6 10*3/uL (2.3-7.9); PLATELET COUNT AUTOMATED 245 10*3/uL (130-400); RED BLOOD COUNT 3.24 10*6/uL (4.50-5.90); WHITE BLOOD COUNT 7.3 10*3/uL (4.8-10.8)
[2019-07-27 01:28] LABS: INTERNATIONAL NORM RATIO 0.9 (2.0-3.5)
[2019-07-27 01:36] LABS: ALBUMIN 2.9 gm/dl (3.1-4.5); ALKALINE PHOSPHATASE 73 U/L (45-117); BUN 19 mg/dl (7-24); CHLORIDE 108 mmol/L (98-107); CREATININE 1.78 mg/dL (0.70-1.30); POTASSIUM 3.5 mmol/L (3.5-5.1); SGOT/AST 17 IU/L (3-35); SGPT/ALT 16 U/L (12-78); SODIUM 143 mmol/L (136-145); TOTAL PROTEIN 6.7 gm/dL (6.4-8.2); TROPONIN I < 0.015 ng/ml (<0.045)
[2019-07-27 05:41] VITALS: BP 156/71
[2019-07-27 05:42] LABS: BILIRUBIN NEGATIVE (NEGATIVE); BLOOD 2+ (NEGATIVE); CLARITY CLEAR (CLEAR); COLOR YELLOW (YELLOW); GLUCOSE NEGATIVE (NEGATIVE); KETONE NEGATIVE (NEGATIVE); LEUKO ESTERASE 1+ (NEGATIVE); NITRITE NEGATIVE (NEGATIVE); UROBILINOGEN 0.2 E.U./dl (0.2-1.0)
[2019-07-27 05:50] LABS: BACTERIA 3+; WBC 21-30 wbc/hpf (0-5)
[2019-07-27 05:51] LABS: FINE GRANULAR CAST 0-2; HYALINE CAST 0-2
--- NOTE | 2019-07-27 06:24 | NUR ---
MITZY [phone]. CALL WHEN BED IS ASSIGNED.
--- NOTE | 2019-07-27 07:15 | NUR ---
PT IS VERY RESTLESS IN BED, WAS REPORTED BY Alexandre KAUFMAN HE HAD BEEN ALL THROUGH THE NIGHT. PT IS ATTEMPTING TO GET OUT OF BED, SEVERAL RN'S IN ROOM MULTIPLE TIMES TO ASSIST PT BACK INTO BED. PULLING AT IV LINES AND O2 TUBING. IV SITE WRAPPED WITH KERLEX.
--- NOTE | 2019-07-27 07:25 | NUR ---
Colton POSADAS NOTIFIED THAT ORDER PLACEED FOR 1:1 CARE FOR PT D/T SAFETY/FALLS RISK.
--- NOTE | 2019-07-27 07:37 | NUR ---
PT CONTINUES TO BE RESTLESS AND ATTEMPTING TO GET OUT OF BED, REDIRECTED AND MOVED BACK UP IN BED.
[2019-07-27 07:47] VITALS: BP 130/70
--- NOTE | 2019-07-27 08:07 | NUR ---
RN IS NOW AT BEDSIDE FOR 1:1.
--- NOTE | 2019-07-27 10:02 | NUR ---
PT CONTINUES TO BE RESTLESS IN BED, DUONEBS GIVEN FOR WHEEZING. RN AT BEDSIDE FOR 1:1.
--- NOTE | 2019-07-27 10:23 | NUR ---
CALLED [facility] FOR BED PLACEMENT 420, WILL GIVE NURSE 15-20 MIN REQUESTED FOR ADMISSION.
--- NOTE | 2019-07-27 11:00 | NUR ---
A 78, admitted to , under the services of DIPIKA Reddy MD with a diagnosis of UTI,SEPSIS,ENCEPHALOPATHY. Chief complaint is CONFUSION. Patient arrived via bed from ER. Monitor applied. Initial assessment completed. Vital signs taken and recorded. DIPIKA REDDY MD notified of admission to the unit. Orders received. See assessment for past medical history, medications and allergies. Patient and/or family oriented to unit. [facility] visitation policy reviewed. Clothing/patient valuable form completed. BRANDON VASQUEZ
--- NOTE | 2019-07-27 11:00 | NUR ---
Time: 1100 A 78 year old MALE admitted to 4E under services of DR. KRISTA BURK,[facility]. Pt. arrived via bed from ER. Chief complaint: UTI,ENCEPHALOPATHY,SEPSIS. BRANDON VASQUEZ
--- NOTE | 2019-07-27 11:31 | NUR ---
BACILIOU NOTIFIED OF CONSULT
[2019-07-27 11:42] VITALS: BP 160/73
[2019-07-27 11:50] LABS: ABG BASE EXCESS 2.5 mmol/L (-2.0-2.0); ARTERIAL BLOOD GAS PH 7.396 (7.35-7.45)
--- NOTE | 2019-07-27 12:10 | NUR ---
IM GEODON GIVEN FOR AGITATION PT NEEDS CT HEAD
[2019-07-27 16:00] VITALS: BP 152/66
--- NOTE | 2019-07-27 17:00 | NUR ---
PT STRAIGHT CATHED USING STERILE TECHINIQUE, IMMEDIATE RETURN OF STRAW COLORED CLEAR URINE 500CC, PT TOLERATED WELL
--- NOTE | 2019-07-27 17:08 | NUR ---
NOTIFIED OF URINARY RETENTION, BLADDER SCANNED AFTER 100CC VOID 510CC REMAINING. NEW ORDER TO STRAIGHT CATH X1
--- NOTE | 2019-07-27 19:03 | NUR ---
NEW IV STARTED IN R ARM 22 JACQUES ON FIRST ATTEMPT PT TOLERATED WELL
[2019-07-27 20:00] VITALS: BP 104/63
--- NOTE | 2019-07-27 23:54 | NUR ---
DR CUNHA NOTIFIED THAT MED REC NEEDS CONTINUED.
[2019-07-28] VITALS: BP 131/65
--- NOTE | 2019-07-28 02:44 | NUR ---
24 HOUR CHART CHECK COMPLETE.
[2019-07-28 06:27] LABS: BASO # 0.1 10*3/uL (0.0-0.1); BASO % 0.9 % (0.0-1.0); EOS # 0.8 10*3/uL (0.0-0.4); EOS % 12.8 % (1.0-4.0); HEMATOCRIT 28.8 % (42.0-52.0); HEMOGLOBIN 8.5 g/dl (14.0-18.0); LYMPH # 1.1 10*3/uL (1.3-4.4); MEAN CELL VOLUME 93.2 fl (80.0-94.0); MEAN CORPUSCULAR HGB 27.5 pg (27.0-31.0); MEAN CORPUSCULAR HGB CONC 29.5 g/dl (33.0-37.0); MEAN PLATELET VOLUME 10.9 fl (9.6-12.3); MONO # 0.9 10*3/uL (0.1-1.0); MONO % 13.7 % (3.0-9.0); NEUT # 3.6 10*3/uL (2.3-7.9); NEUT % 55.1 % (47.0-73.0); PLATELET COUNT AUTOMATED 257 10*3/uL (130-400); RED BLOOD COUNT 3.09 10*6/uL (4.50-5.90); RED CELL DISTRI WIDTH 15.1 % (0-14.5); WHITE BLOOD COUNT 6.6 10*3/uL (4.8-10.8)
[2019-07-28 07:04] LABS: CHLORIDE 110 mmol/L (98-107); POTASSIUM 3.5 mmol/L (3.5-5.1); SODIUM 144 mmol/L (136-145)
[2019-07-28 07:22] LABS: ALBUMIN 2.6 gm/dl (3.1-4.5); ALKALINE PHOSPHATASE 70 U/L (45-117); BUN 13 mg/dl (7-24); CREATININE 1.36 mg/dL (0.70-1.30); SGOT/AST 24 IU/L (3-35); SGPT/ALT 15 U/L (12-78)
[2019-07-28 12:00] VITALS: BP 151/76
[2019-07-28 16:00] VITALS: BP 140/70
--- NOTE | 2019-07-28 19:52 | NUR ---
IN TO ASSESS PT AT THIS TIME, VERY DROWSY. PT WAS GIVEN A ONE TIME DOSE OF ZYPREXA EARLIER TODAY, WHICH COULD BE CAUSING THE DROWSINESS. VITALS ARE STABLE. PATIENT WAS ABLE TO ANSWER ALL OF MY ORIENTATION QUESTIONS. WILL CONTINUE TO MONITOR.
[2019-07-28 20:00] VITALS: BP 135/66
[2019-07-29 01:04] VITALS: BP 133/87
--- NOTE | 2019-07-29 04:29 | NUR ---
24 HOUR CHART CHECK COMPLETE.
[2019-07-29 06:31] LABS: BASO % 0.2 % (0.0-1.0); HEMATOCRIT 27.2 % (42.0-52.0); HEMOGLOBIN 8.2 g/dl (14.0-18.0); LYMPH # 0.5 10*3/uL (1.3-4.4); LYMPH % 9.5 % (27.0-41.0); MEAN CELL VOLUME 94.1 fl (80.0-94.0); MEAN CORPUSCULAR HGB 28.4 pg (27.0-31.0); MEAN CORPUSCULAR HGB CONC 30.1 g/dl (33.0-37.0); MEAN PLATELET VOLUME 11.2 fl (9.6-12.3); MONO # 0.1 10*3/uL (0.1-1.0); MONO % 1.4 % (3.0-9.0); NEUT # 4.5 10*3/uL (2.3-7.9); NEUT % 88.5 % (47.0-73.0); PLATELET COUNT AUTOMATED 230 10*3/uL (130-400); RED BLOOD COUNT 2.89 10*6/uL (4.50-5.90); RED CELL DISTRI WIDTH 14.7 % (0-14.5); WHITE BLOOD COUNT 5.1 10*3/uL (4.8-10.8)
[2019-07-29 07:01] LABS: BUN 15 mg/dl (7-24); CHLORIDE 110 mmol/L (98-107); CREATININE 1.26 mg/dL (0.70-1.30); POTASSIUM 4.3 mmol/L (3.5-5.1); SODIUM 144 mmol/L (136-145)
--- NOTE | 2019-07-29 07:34 | NUR ---
PHYSICAL THERAPY Screen received,Pt admitted from home with change in mental status may benefit from PT consult pending medical status and if decline in functional status from baseline thank you Nichol Luciano PT
[2019-07-29 08:00] VITALS: BP 122/74
--- NOTE | 2019-07-29 09:00 | NUR ---
Terminal Gauger Supervisor in to see patient. No new needs or request at this time. He denies any home needs. He states he will return home with his niece, Chante. Discussed home health care services and he denies any home needs at this time. When medically stable he will be discharged to home. hCante will provide transportation on discharge.
[2019-07-29 12:00] VITALS: BP 130/56
[2019-07-29 16:00] VITALS: BP 136/52
[2019-07-29 20:00] VITALS: BP 152/77
[2019-07-30] VITALS: BP 155/79
[2019-07-30 08:00] VITALS: BP 158/70
--- NOTE | 2019-07-30 08:30 | NUR ---
Patient resting quietly with no c/o discomfort. Respirations easy and regular. Vital signs stable. No overt distress. ALONDRA REAVES R
--- NOTE | 2019-07-30 09:00 | NUR ---
Sand Technologist in to see patient. No new needs or request at this time. He denies any home needs. He states he will return home with his niece, Chante. Discussed home health care services and he denies any home needs at this time. When medically stable he will be discharged to home.
--- NOTE | 2019-07-30 10:35 | NUR ---
PHYSICAL THERAPY Raymond completed mod level of complexity pt states he is going home and lives w niece he is agreeable to home health. Full report to follow. Pt was cga with cane no gross LOB but occasionaly unsteadiness discussed use of fww but pt states he does not want to try or use. Will follow Nichol Luciano PT
[2019-07-30] MEDS ORDERED: SEPTDS PO (11:15)
--- NOTE | 2019-07-30 11:30 | NUR ---
DR VELASCO NOTIFIED OF ELEVATED BP, IVF WERE D/C'D TODAY. HE STATES TO MONITOR AND PT WILL FOLLOW UP IN THE OFFICE ON FRIDAY.
[2019-07-30 12:00] VITALS: BP 173/84
--- NOTE | 2019-07-30 13:52 | NUR ---
Discharge instructions reviewed with patient/family. Patient receptive and verbalizes understanding. Follow-up care arranged. Written instructions given to patient/family. ALONDRA REAVES
== END 2019-07-30 14:37 | disposition home or self-care (01) | DRG 682 ==
LOC: ED 00:05 → 4E 06:44 → EDHOLD 06:44 → 5E 08:28 → EDHOLD 08:28 → 4E 10:20
PROVIDERS: Emergency Medicine; Internal Medicine Nephrology; ADMIT Internal Medicine
DX: N17.9 Acute kidney failure, unspecified (principal); G93.41 Metabolic encephalopathy; N39.0 Urinary tract infection, site not specified; E44.0 Moderate protein-calorie malnutrition; I13.0 Hypertensive heart and chronic kidney disease with heart failure and stage 1 through stage 4 chronic kidney disease, or unspecified chronic kidney disease; I50.32 Chronic diastolic (congestive) heart failure; J96.11 Chronic respiratory failure with hypoxia; J96.12 Chronic respiratory failure with hypercapnia; F23 Brief psychotic disorder; D64.9 Anemia, unspecified; R31.9 Hematuria, unspecified; N40.0 Benign prostatic hyperplasia without lower urinary tract symptoms; N18.3 Chronic kidney disease, stage 3 (moderate); J44.9 Chronic obstructive pulmonary disease, unspecified; G47.00 Insomnia, unspecified; K59.00 Constipation, unspecified; F41.9 Anxiety disorder, unspecified; K31.84 Gastroparesis; Z68.24 Body mass index [BMI] 24.0-24.9, adult; Z90.49 Acquired absence of other specified parts of digestive tract; Z79.899 Other long term (current) drug therapy; Z98.42 Cataract extraction status, left eye; Z98.41 Cataract extraction status, right eye; Z87.891 Personal history of nicotine dependence; Z83.6 Family history of other diseases of the respiratory system; Z88.0 Allergy status to penicillin; Z88.8 Allergy status to other drugs, medicaments and biological substances

== ENCOUNTER 2019-09-07 14:52 | Inpatient (IN) | payer MEDICARE, MEDICAID ==
[~2019-09-07] VITALS: Ht 182.8 cm; Wt 89.0 kg
[~2019-09-07 14:52] MED LIST changes: +SEPTDS PO
[2019-09-07 14:53] VITALS: BP 179/87
--- NOTE | 2019-09-07 15:10 | NUR ---
PT REPORTS NO URGE TO VOID
[2019-09-07 15:45] LABS: BASO # 0.1 10*3/uL (0.0-0.1); BASO % 1.2 % (0.0-1.0); EOS # 0.4 10*3/uL (0.0-0.4); EOS % 6.3 % (1.0-4.0); HEMATOCRIT 29.5 % (42.0-52.0); LYMPH # 0.9 10*3/uL (1.3-4.4); LYMPH % 13.1 % (27.0-41.0); MEAN CELL VOLUME 93.1 fl (80.0-94.0); MEAN CORPUSCULAR HGB 28.7 pg (27.0-31.0); MEAN CORPUSCULAR HGB CONC 30.8 g/dl (33.0-37.0); MEAN PLATELET VOLUME 10.7 fl (9.6-12.3); MONO # 0.8 10*3/uL (0.1-1.0); MONO % 10.8 % (3.0-9.0); NEUT # 4.7 10*3/uL (2.3-7.9); NEUT % 68.3 % (47.0-73.0); PLATELET COUNT AUTOMATED 277 10*3/uL (130-400); RED BLOOD COUNT 3.17 10*6/uL (4.50-5.90); RED CELL DISTRI WIDTH 15.7 % (0-14.5); WHITE BLOOD COUNT 6.9 10*3/uL (4.8-10.8)
--- NOTE | 2019-09-07 15:48 | NUR ---
NO URGE TO VOID PER PT
[2019-09-07 15:56] LABS: ACT PARTIAL THROMBO TIME 24.4 SECONDS (20.0-32.1); INTERNATIONAL NORM RATIO 0.9 (2.0-3.5)
[2019-09-07 16:00] LABS: CREATININE 1.58 mg/dL (0.70-1.30); POTASSIUM 4.2 mmol/L (3.5-5.1); TOTAL PROTEIN 6.9 gm/dL (6.4-8.2)
[2019-09-07 16:56] LABS: BILIRUBIN NEGATIVE (NEGATIVE); CLARITY CLEAR (CLEAR); COLOR YELLOW (YELLOW); GLUCOSE NEGATIVE (NEGATIVE); KETONE NEGATIVE (NEGATIVE)
[2019-09-07 16:57] LABS: BACTERIA TRACE; BLOOD TRACE-INTACT (NEGATIVE); LEUKO ESTERASE 2+ (NEGATIVE); MUCOUS 1+; NITRITE NEGATIVE (NEGATIVE); RBC 0-2 rbc/hpf (0-2); UROBILINOGEN 0.2 E.U./dl (0.2-1.0); WBC 16-20 wbc/hpf (0-5)
[2019-09-07 17:30] VITALS: BP 150/77
[2019-09-07 18:15] VITALS: BP 154/70
--- NOTE | 2019-09-07 18:33 | NUR ---
MSADMTime: N A 80 year old MALE admitted to 4E under services of MAR KELLY DO. Pt. arrived via wheel chair from ER. Chief complaint: SOB, ABDM. PAIN.. NGA FAYE
[2019-09-07] MEDS ORDERED: SENNA PLUS 8.61 EACH PO (18:40)
[2019-09-07 20:00] VITALS: BP 161/80
[2019-09-08] VITALS: BP 160/76
--- NOTE | 2019-09-08 04:00 | NUR ---
PATIENT SLEEPING. NO SIGNS OF DISTRESS. RESPIRATIONS EASY, NON LABORED. WILL CONTINUE TO MONITOR.
[2019-09-08 06:06] LABS: BASO # 0.1 10*3/uL (0.0-0.1); BASO % 0.9 % (0.0-1.0); EOS # 0.6 10*3/uL (0.0-0.4); EOS % 8.3 % (1.0-4.0); LYMPH # 1.1 10*3/uL (1.3-4.4); LYMPH % 15.2 % (27.0-41.0); MEAN CELL VOLUME 91.8 fl (80.0-94.0); MEAN CORPUSCULAR HGB 27.9 pg (27.0-31.0); MEAN CORPUSCULAR HGB CONC 30.4 g/dl (33.0-37.0); MONO # 0.8 10*3/uL (0.1-1.0); MONO % 11.5 % (3.0-9.0); NEUT # 4.5 10*3/uL (2.3-7.9); NEUT % 63.7 % (47.0-73.0); PLATELET COUNT AUTOMATED 264 10*3/uL (130-400); RED BLOOD COUNT 3.05 10*6/uL (4.50-5.90); RED CELL DISTRI WIDTH 15.8 % (0-14.5)
[2019-09-08 06:33] LABS: ALBUMIN 2.6 gm/dl (3.1-4.5); CREATININE 1.55 mg/dL (0.70-1.30); POTASSIUM 3.7 mmol/L (3.5-5.1); TOTAL PROTEIN 6.2 gm/dL (6.4-8.2)
[2019-09-08 08:00] VITALS: BP 140/86
--- NOTE | 2019-09-08 08:00 | NUR ---
PATIENT RESTING QUIETLY IN BED. NO DISTRESS NOTED. RESPIRATIONS EASY, REGULAR. 02 IN USE VIA 3LNC. DENIES ANY SOB. DENIES ANY ABD PAIN/DISCOMFORT AT THIS TIME. WILL CONTINUE TO MONITOR. CALL LIGHT WITHIN REACH.
--- NOTE | 2019-09-08 11:28 | NUR ---
Pharmacy Technician Program Director in to talk to patient. Patient states lives at home with niece and family. There are no steps in the home. Physician: [facility] Home health services: none Patient's level of ADLs: INDEPENDENT Patient has working utilities: all working DME: cane, home oxygen, portable tanks, cpap Follow-up physician's appointment after d/c: hospitalist nurse director will make follow up appointment upon admission Does patient want to access PORTAL?: no Discharge plan discussed with patient, he lives at home with niece and family, he is independent in adls and ambulation with a cane, he has home oxygen he wears 24 hours a day and a cpap, he stated he would return home when medically stable, discussed with him VNA and he declined any home services, case management will follow. ZAID TORRES
[2019-09-08 12:00] VITALS: BP 141/72
[2019-09-08 16:00] VITALS: BP 164/61
[2019-09-08 20:00] VITALS: BP 153/84
--- NOTE | 2019-09-08 22:19 | NUR ---
PATIENT MEDICATED WITH MYLICON FOR COMPLAINTS OF BLOATING. WILL CONTINUE TO MONITOR. CALL LIGHT IN REACH.
[2019-09-09] VITALS: BP 130/77
[2019-09-09 08:00] VITALS: BP 138/76
[2019-09-09 11:22] LABS: BASO # 0.1 10*3/uL (0.0-0.1); BASO % 0.7 % (0.0-1.0); EOS # 0.4 10*3/uL (0.0-0.4); EOS % 5.3 % (1.0-4.0); HEMATOCRIT 26.2 % (42.0-52.0); LYMPH # 0.8 10*3/uL (1.3-4.4); LYMPH % 11.1 % (27.0-41.0); MEAN CELL VOLUME 94.2 fl (80.0-94.0); MEAN CORPUSCULAR HGB 28.1 pg (27.0-31.0); MEAN CORPUSCULAR HGB CONC 29.8 g/dl (33.0-37.0); MEAN PLATELET VOLUME 10.7 fl (9.6-12.3); MONO # 0.8 10*3/uL (0.1-1.0); MONO % 11.8 % (3.0-9.0); NEUT # 4.9 10*3/uL (2.3-7.9); NEUT % 70.7 % (47.0-73.0); PLATELET COUNT AUTOMATED 241 10*3/uL (130-400); RED BLOOD COUNT 2.78 10*6/uL (4.50-5.90); RED CELL DISTRI WIDTH 16.2 % (0-14.5)
[2019-09-09 11:33] LABS: ALBUMIN 2.6 gm/dl (3.1-4.5); CREATININE 1.62 mg/dL (0.70-1.30); POTASSIUM 4.2 mmol/L (3.5-5.1); TOTAL PROTEIN 5.9 gm/dL (6.4-8.2)
--- NOTE | 2019-09-09 12:06 | NUR ---
NOTIFIED OF CONSULT AND WILL SEE PATIENT TODAY.
[2019-09-09 13:00] VITALS: BP 154/74
--- NOTE | 2019-09-09 13:22 | NUR ---
IN TO SEE PATIENT.
[2019-09-09 16:00] VITALS: BP 153/67
--- NOTE | 2019-09-09 18:07 | NUR ---
NOTIFIED REGARDING POSITIVE FECAL OCCULT. NEW ORDERS RECEIVED.
[2019-09-09 20:00] VITALS: BP 126/71
[2019-09-10] VITALS: BP 152/75
--- NOTE | 2019-09-10 04:08 | NUR ---
24 HR chart check completed.
--- NOTE | 2019-09-10 07:30 | NUR ---
PT RESTING IN BED. VOICES NO CONCERNS AT THIS TIME. RESPS EASY AND NON LABORED. NO S/S OF DISTRESS NOTED. VSS. OXYGEN INTACT. WHITE BOARD UPDATED. CALL LIGHT WITHIN REACH
[2019-09-10 07:59] LABS: BASO # 0.1 10*3/uL (0.0-0.1); BASO % 1.2 % (0.0-1.0); EOS # 0.6 10*3/uL (0.0-0.4); EOS % 11.9 % (1.0-4.0); HEMATOCRIT 28.1 % (42.0-52.0); LYMPH # 0.7 10*3/uL (1.3-4.4); LYMPH % 13.5 % (27.0-41.0); MEAN CELL VOLUME 93.7 fl (80.0-94.0); MEAN CORPUSCULAR HGB 28.3 pg (27.0-31.0); MEAN CORPUSCULAR HGB CONC 30.2 g/dl (33.0-37.0); MEAN PLATELET VOLUME 10.4 fl (9.6-12.3); MONO # 0.2 10*3/uL (0.1-1.0); MONO % 3.6 % (3.0-9.0); NEUT # 3.4 10*3/uL (2.3-7.9); NEUT % 69.2 % (47.0-73.0); PLATELET COUNT AUTOMATED 238 10*3/uL (130-400); RED CELL DISTRI WIDTH 16.3 % (0-14.5)
[2019-09-10 08:00] VITALS: BP 144/72
[2019-09-10 08:31] LABS: CREATININE 1.78 mg/dL (0.70-1.30); POTASSIUM 3.9 mmol/L (3.5-5.1)
--- NOTE | 2019-09-10 09:22 | NUR ---
PT MEDICATED WITH MYLOCON FOR C/O BLOATING. WILL MONITOR. CALL LIGHT WITHIN REACH
--- NOTE | 2019-09-10 10:44 | NUR ---
PT REFUSING SCDS STATING HE CAN NOT GET UP AND WALK AROUND WITH THEM ON. STATES HE WILL WEAR KENDRA HOSE
[2019-09-10 12:00] VITALS: BP 174/68
--- NOTE | 2019-09-10 13:21 | NUR ---
SPOKE WITH DR VILLAVICENCIO, DR VELASCO, AND DR BAUTISTA. ALL IN AGREEANCE TO RESUME FLUIDS @60ML/H, 10MG REGLAN IV BID, OBTAIN URINE LYTES AND URINE CREATINE AND AN ABDOMINAL ULTRASOUND NEEDS ORDERED AT THIS TIME.
--- NOTE | 2019-09-10 14:06 | NUR ---
Hep Lock discontinued. Site asymptomatic. Pressure applied. Sterile dressing applied. HISSOM,LUPE IV started left antecubital with #22 protective cath after 1 attempts. Site prepped with Chloroprep. Sterile dressing applied. Patient tolerated procedure well. IV infusing at 70 cc/hr. HISSOM,LUPE
--- NOTE | 2019-09-10 15:30 | NUR ---
ASSUMED CARE OF THIS PATIENT, BED IN LOW POSITION, WHEEL LOCKS ENGAGED,SIDE RAILS UP X 2, INTRODUCED TO PATIENT, CALL LIGHT WITHIN REACH, NO NEEDS VOICED AT THIS TIME. WHITE BOARD UPDATED.
[2019-09-10 16:00] VITALS: BP 162/80
[2019-09-10 20:00] VITALS: BP 161/77
--- NOTE | 2019-09-10 21:05 | NUR ---
PRN IV DILAUDID GIVEN AT THIS TIME FOR ABDOMINAL PAIN 5/10 AT THIS TIME, A&O X3. CALL LIGHT WITHIN REACH.
--- NOTE | 2019-09-10 22:00 | NUR ---
PATIENT STATED THAT PAIN WAS NOW A 3/10 AFTER PRN DILAUDID WAS ADMINISTERED. A&O X3.
[2019-09-11] VITALS: BP 153/63
--- NOTE | 2019-09-11 05:21 | NUR ---
PRN IV DILAUDID GIVEN AT THIS TIME FOR 5/10 ABDOMINAL PAIN. A&O X3, CALL LIGHT WITHIN REACH.
--- NOTE | 2019-09-11 06:15 | NUR ---
PATIENT STATED THAT HIS ABDOMINAL PAIN WAS NOW A 2/10 AFTER PRN IV DILAUDID WAS GIVEN, A&O X3, CALL LIGHT WITHIN REACH.
--- NOTE | 2019-09-11 07:00 | NUR ---
ARRIVED ON SHIFT, INTRODUCED TO STAFF, BED IN LOW LOCKED POSITION, INDIRA ENGAGED, SR UP X 2, NO NEEDS VOICED AT THIS TIME, AKSHAT ENAMORADO UPDATED.
[2019-09-11 08:00] VITALS: BP 140/70
--- NOTE | 2019-09-11 08:25 | NUR ---
Shift chart check completed.
[2019-09-11 12:00] VITALS: BP 125/72
[2019-09-11 14:48] LABS: BASO # 0.1 10*3/uL (0.0-0.1); BASO % 1.4 % (0.0-1.0); EOS # 0.5 10*3/uL (0.0-0.4); EOS % 10.1 % (1.0-4.0); HEMATOCRIT 25.9 % (42.0-52.0); LYMPH # 0.8 10*3/uL (1.3-4.4); LYMPH % 16.1 % (27.0-41.0); MEAN CELL VOLUME 94.9 fl (80.0-94.0); MEAN CORPUSCULAR HGB 28.6 pg (27.0-31.0); MEAN CORPUSCULAR HGB CONC 30.1 g/dl (33.0-37.0); MEAN PLATELET VOLUME 10.4 fl (9.6-12.3); MONO # 0.6 10*3/uL (0.1-1.0); MONO % 12.4 % (3.0-9.0); NEUT # 3.1 10*3/uL (2.3-7.9); NEUT % 59.4 % (47.0-73.0); PLATELET COUNT AUTOMATED 214 10*3/uL (130-400); RED BLOOD COUNT 2.73 10*6/uL (4.50-5.90); RED CELL DISTRI WIDTH 16.5 % (0-14.5); WHITE BLOOD COUNT 5.2 10*3/uL (4.8-10.8)
[2019-09-11 16:00] VITALS: BP 176/93
--- NOTE | 2019-09-11 17:30 | NUR ---
CALL PLACED TO DR. VELASCO PER HIS REQUEST REVIEWED RESULTS OF CT ABD W/CONTRAST, ORDER RECEIVED FOR ID CONSULT.
--- NOTE | 2019-09-11 17:33 | NUR ---
CALL PLACED TO ANSWERING SERVICE, ADVISED THAT DR. BRIDGES WAS LICENSING WORKER, AND THEY WOULD PAGE HER OUT.
[2019-09-11 20:00] VITALS: BP 163/90
--- NOTE | 2019-09-11 20:00 | NUR ---
AWAKE & ALERT RESTING IN BED WATCHING T.V. 02 INTACT AT 3LPM VIA NASAL CANNULA; PULSE OX 99%. PT. VOICES NO C/O AT THIS TIME; NO DISTRESS NOTED. CALL LIGHT WITHIN REACH.
[2019-09-12] VITALS: BP 146/79
--- NOTE | 2019-09-12 00:59 | NUR ---
RECEIVING AEROSOL TX.
--- NOTE | 2019-09-12 01:15 | NUR ---
RESTING IN BED WITH EYES CLOSED. IV FLUIDS CONTINUE TO INFUSE ORDERED. NO DISTRESS NOTED; PT. VOICES NO C/O AT THIS TIME. CALL LIGHT WITHIN REACH.
--- NOTE | 2019-09-12 02:00 | NUR ---
RESTING IN BED WITH EYES CLOSED; CALL LIGHT WITHIN REACH.
[2019-09-12 05:57] LABS: HEMATOCRIT 23.8 % (42.0-52.0); MEAN CELL VOLUME 93.3 fl (80.0-94.0); MEAN CORPUSCULAR HGB 27.8 pg (27.0-31.0); RED BLOOD COUNT 2.55 10*6/uL (4.50-5.90); WHITE BLOOD COUNT 5.4 10*3/uL (4.8-10.8)
[2019-09-12 05:58] LABS: BASO # 0.1 10*3/uL (0.0-0.1); BASO % 1.1 % (0.0-1.0); EOS # 0.6 10*3/uL (0.0-0.4); EOS % 10.2 % (1.0-4.0); LYMPH # 0.8 10*3/uL (1.3-4.4); LYMPH % 14.9 % (27.0-41.0); MEAN CORPUSCULAR HGB CONC 29.8 g/dl (33.0-37.0); MEAN PLATELET VOLUME 10.9 fl (9.6-12.3); MONO # 0.9 10*3/uL (0.1-1.0); MONO % 16.9 % (3.0-9.0); NEUT % 56.5 % (47.0-73.0); PLATELET COUNT AUTOMATED 213 10*3/uL (130-400); RED CELL DISTRI WIDTH 16.5 % (0-14.5)
[2019-09-12 06:22] LABS: CREATININE 1.59 mg/dL (0.70-1.30); POTASSIUM 3.6 mmol/L (3.5-5.1)
--- NOTE | 2019-09-12 07:00 | NUR ---
ARRIVED ON SHIFT, INTRODUCED TO PATIENT, BED IN LOW POSITION, WHEEL LOCKS ENGAGED, SR UP X 2, IV FLUIDS RUNNING @70 CC HOUR, CALL LIGHT WITHIN REACH, NO NEEDS VOICED AT THIS TIME. WHITE BOARD UPDATED.
[2019-09-12 08:00] VITALS: BP 144/71
--- NOTE | 2019-09-12 08:10 | NUR ---
Shift chart check completed.
[2019-09-12 12:00] VITALS: BP 136/67
[2019-09-12 16:00] VITALS: BP 158/68
[2019-09-12 20:00] VITALS: BP 160/58
[2019-09-13] VITALS (14 sets, daily range): BP systolic 144–185; BP diastolic 62–87
--- NOTE | 2019-09-13 07:56 | NUR ---
ARRIVED ON SHIFT, INTRODUCED TO PATIENT, BED IN LOW POSITION, WHEEL LOCKS ENGAGED, SR UP X 2, CALL LIGHT WITHIN REACH, NO NEEDS VOICED AT THIS TIME. WHITE BOARD UPDATED.
--- NOTE | 2019-09-13 07:57 | NUR ---
Shift chart check completed.
--- NOTE | 2019-09-13 08:57 | NUR ---
Bullet Slug Casting Machine Operator called to speak to patient via phone. Discussed home health care services and he denies any home needs. His plan is to return home with his niece, Chante. When medically stable he will be discharged to home.
--- NOTE | 2019-09-13 17:20 | NUR ---
COMPLETED PRBV, PATIENT DENIES ANY ADVERSE EFFECT.
--- NOTE | 2019-09-13 17:34 | NUR ---
PATIENT C/O OFM ABDOMINAL PRESSURE CRAMPING, MEDICATED WITH DILAUDID 0.25MG ORDERED PRN
--- NOTE | 2019-09-13 17:45 | NUR ---
CALL PLACED TO DR. VELASCO REVIEWED PATIENTS BLOOD PRESSURES DURING BLOOD TRANSFUSSIONS TO RECEIVED FOR LASIX 40MG NOW AND HOLD FLUIDS.
--- NOTE | 2019-09-13 18:33 | NUR ---
PATIENT REPORTS GOOD RELIEF FROM DILAUDID GIVEN X 1 HOUR AGO
--- NOTE | 2019-09-13 20:33 | NUR ---
PT BP 184/82 MANUALLY. MADE AWARE. NEW ORDERS TO FOLLOW.
--- NOTE | 2019-09-13 21:00 | NUR ---
NEW 22G IV SITE INITIATED IN R FOREARM. PT TOLERATED WELL. OLD SITE IN R ARM INFILTRATED. SITE REMOVED & DSD APPLIED. IV HYDRALAZINE ADMINISTERED PER ONE TIME ORDER FOR ELEVATED BP. WILL MONITOR EFFECTIVENESS. CALL LIGHT IN REACH.
--- NOTE | 2019-09-13 22:05 | NUR ---
EARLIER HYDRALAZINE EFFECTIVE. BP NOW 154/80 MANUALLY, DOWN FROM 184/82. PT DENIES ANY PAIN/VOICES NO COMPLAINTS. WILL MONITOR. CALL LIGHT IN REACH.
--- NOTE | 2019-09-13 22:28 | NUR ---
FAMILY MEMBER, MITZY, CALLED IN WITH PT'S PASSCODE. UPDATED ON PLAN OF CARE.
[2019-09-14] VITALS: BP 139/80
[2019-09-14 06:08] LABS: BASO # 0.1 10*3/uL (0.0-0.1); BASO % 1.3 % (0.0-1.0); EOS # 0.5 10*3/uL (0.0-0.4); EOS % 8.3 % (1.0-4.0); HEMATOCRIT 27.8 % (42.0-52.0); LYMPH % 15.2 % (27.0-41.0); MEAN CELL VOLUME 90.6 fl (80.0-94.0); MEAN CORPUSCULAR HGB CONC 30.9 g/dl (33.0-37.0); MEAN PLATELET VOLUME 11.1 fl (9.6-12.3); MONO % 14.9 % (3.0-9.0); NEUT # 3.8 10*3/uL (2.3-7.9); PLATELET COUNT AUTOMATED 236 10*3/uL (130-400); RED BLOOD COUNT 3.07 10*6/uL (4.50-5.90); RED CELL DISTRI WIDTH 17.6 % (0-14.5); WHITE BLOOD COUNT 6.4 10*3/uL (4.8-10.8)
[2019-09-14 06:30] LABS: CREATININE 1.67 mg/dL (0.70-1.30); POTASSIUM 3.2 mmol/L (3.5-5.1)
[2019-09-14 08:00] VITALS: BP 148/74
--- NOTE | 2019-09-14 08:25 | NUR ---
Event Lighting Specialist called to speak to patient via phone. No new needs or request at this time. Discussed home health care services and he denies any home needs. His plan is to return home with his niece, Chante. When medically stable he will be discharged to home.
[2019-09-14 12:00] VITALS: BP 154/78
[2019-09-14 16:00] VITALS: BP 164/78
--- NOTE | 2019-09-14 18:47 | NUR ---
PT IV LEAKED . PLACED NEW IV IN LEFT AC.
[2019-09-14 20:00] VITALS: BP 164/76
--- NOTE | 2019-09-14 22:16 | NUR ---
PT'S MARIANA CALLED IN WITH PT'S PASSCODE AND UPDATED ON PLAN OF CARE.
--- NOTE | 2019-09-14 22:48 | NUR ---
OKAY TO REORDER PATIENT'S AMBIEN PER .
--- NOTE | 2019-09-14 23:16 | NUR ---
PT DENIES NEED FOR PAIN MEDICATION AT PRESENT TIME.
[2019-09-15] VITALS: BP 143/72
--- NOTE | 2019-09-15 02:46 | NUR ---
PT ASLEEP IN BED. NO S/S OF DISTRESS NOTED. WILL MONITOR. CALL LIGHT IN REACH.
[2019-09-15 06:14] LABS: BASO # 0.1 10*3/uL (0.0-0.1); EOS # 0.6 10*3/uL (0.0-0.4); EOS % 8.6 % (1.0-4.0); HEMATOCRIT 28.4 % (42.0-52.0); LYMPH # 1.1 10*3/uL (1.3-4.4); LYMPH % 16.4 % (27.0-41.0); MEAN CELL VOLUME 89.6 fl (80.0-94.0); MEAN CORPUSCULAR HGB 28.1 pg (27.0-31.0); MEAN CORPUSCULAR HGB CONC 31.3 g/dl (33.0-37.0); MEAN PLATELET VOLUME 10.8 fl (9.6-12.3); MONO % 14.4 % (3.0-9.0); NEUT % 59.3 % (47.0-73.0); PLATELET COUNT AUTOMATED 234 10*3/uL (130-400); RED BLOOD COUNT 3.17 10*6/uL (4.50-5.90); RED CELL DISTRI WIDTH 16.8 % (0-14.5); WHITE BLOOD COUNT 6.7 10*3/uL (4.8-10.8)
[2019-09-15 06:33] LABS: CREATININE 1.56 mg/dL (0.70-1.30); POTASSIUM 3.3 mmol/L (3.5-5.1)
[2019-09-15 08:00] VITALS: BP 134/76
--- NOTE | 2019-09-15 09:02 | NUR ---
PT RESTING IN BED. NO DISTRESS NOTED. WILL MONITOR
[2019-09-15 12:00] VITALS: BP 132/72
[2019-09-15 16:00] VITALS: BP 170/75
[2019-09-15 20:00] VITALS: BP 158/68
[2019-09-16] VITALS: BP 156/87
[2019-09-16 06:17] LABS: BASO # 0.1 10*3/uL (0.0-0.1); BASO % 1.1 % (0.0-1.0); EOS # 0.6 10*3/uL (0.0-0.4); EOS % 9.7 % (1.0-4.0); HEMATOCRIT 27.6 % (42.0-52.0); MEAN CELL VOLUME 90.2 fl (80.0-94.0); MEAN CORPUSCULAR HGB 28.1 pg (27.0-31.0); MEAN CORPUSCULAR HGB CONC 31.2 g/dl (33.0-37.0); MEAN PLATELET VOLUME 11.1 fl (9.6-12.3); MONO # 0.9 10*3/uL (0.1-1.0); MONO % 15.2 % (3.0-9.0); NEUT # 3.2 10*3/uL (2.3-7.9); NEUT % 55.8 % (47.0-73.0); PLATELET COUNT AUTOMATED 233 10*3/uL (130-400); RED BLOOD COUNT 3.06 10*6/uL (4.50-5.90); RED CELL DISTRI WIDTH 16.6 % (0-14.5); WHITE BLOOD COUNT 5.7 10*3/uL (4.8-10.8)
[2019-09-16 06:44] LABS: ALBUMIN 2.4 gm/dl (3.1-4.5); CREATININE 1.46 mg/dL (0.70-1.30); POTASSIUM 3.5 mmol/L (3.5-5.1); TOTAL PROTEIN 6.2 gm/dL (6.4-8.2)
[2019-09-16 08:00] VITALS: BP 166/78
--- NOTE | 2019-09-16 09:00 | NUR ---
case management spoke to patient, he will return home with family when medically stable, he denies any home needs at this time
[2019-09-16] MEDS ORDERED: LEVAQUIN750 M1 PO (13:17)
--- NOTE | 2019-09-16 13:55 | NUR ---
Discharge instructions reviewed with patient/family. Patient receptive and verbalizes understanding. Follow-up care arranged. Written instructions given to patient/family. JULI GUERRERO
== END 2019-09-16 13:55 | disposition home or self-care (01) | DRG 371 ==
LOC: ED 14:52 → EDHOLD 17:55 → 4E 17:55
PROVIDERS: Emergency Medicine; Hospitalist; Internal Medicine; ADMIT Internal Medicine
PROC: 30233N1 Transfusion of Nonautologous Red Blood Cells into Peripheral Vein, Percutaneous Approach (ICD-10-PCS; principal; 2019-09-13)
DX: A04.72 Enterocolitis due to Clostridium difficile, not specified as recurrent (principal); N17.0 Acute kidney failure with tubular necrosis; E43 Unspecified severe protein-calorie malnutrition; I50.32 Chronic diastolic (congestive) heart failure; J96.10 Chronic respiratory failure, unspecified whether with hypoxia or hypercapnia; I13.0 Hypertensive heart and chronic kidney disease with heart failure and stage 1 through stage 4 chronic kidney disease, or unspecified chronic kidney disease; N10 Acute pyelonephritis; K52.9 Noninfective gastroenteritis and colitis, unspecified; K44.9 Diaphragmatic hernia without obstruction or gangrene; R73.9 Hyperglycemia, unspecified; E86.0 Dehydration; N40.0 Benign prostatic hyperplasia without lower urinary tract symptoms; N18.3 Chronic kidney disease, stage 3 (moderate); J44.9 Chronic obstructive pulmonary disease, unspecified; D50.9 Iron deficiency anemia, unspecified; K31.84 Gastroparesis; G47.00 Insomnia, unspecified; L98.9 Disorder of the skin and subcutaneous tissue, unspecified; E83.9 Disorder of mineral metabolism, unspecified; Z87.891 Personal history of nicotine dependence; Z93.3 Colostomy status; Z88.8 Allergy status to other drugs, medicaments and biological substances; Z79.899 Other long term (current) drug therapy; Z98.42 Cataract extraction status, left eye; Z98.41 Cataract extraction status, right eye; Z80.9 Family history of malignant neoplasm, unspecified; Z83.6 Family history of other diseases of the respiratory system; Z68.25 Body mass index [BMI] 25.0-25.9, adult; B96.4 Proteus (mirabilis) (morganii) as the cause of diseases classified elsewhere; Z90.49 Acquired absence of other specified parts of digestive tract

== ENCOUNTER 2019-11-22 09:51 | Inpatient (IN) | payer MEDICARE, MEDICAID ==
[~2019-11-22] VITALS: Ht 180.3 cm; Wt 96.4 kg
[~2019-11-22 09:51] MED LIST changes: +LEVAQUIN750 M1 PO; +SENNA PLUS 8.61 EACH PO
[2019-11-22 10:21] LABS: BASO # 0.1 10*3/uL (0.0-0.1); BASO % 1.2 % (0.0-1.0); EOS # 0.5 10*3/uL (0.0-0.4); EOS % 7.3 % (1.0-4.0); HEMATOCRIT 32.3 % (42.0-52.0); LYMPH # 0.7 10*3/uL (1.3-4.4); LYMPH % 11.5 % (27.0-41.0); MEAN CELL VOLUME 91.8 fl (80.0-94.0); MEAN CORPUSCULAR HGB 28.7 pg (27.0-31.0); MEAN CORPUSCULAR HGB CONC 31.3 g/dl (33.0-37.0); MEAN PLATELET VOLUME 9.9 fl (9.6-12.3); MONO # 0.6 10*3/uL (0.1-1.0); MONO % 9.5 % (3.0-9.0); NEUT # 4.5 10*3/uL (2.3-7.9); NEUT % 70.2 % (47.0-73.0); PLATELET COUNT AUTOMATED 265 10*3/uL (130-400); RED BLOOD COUNT 3.52 10*6/uL (4.50-5.90); RED CELL DISTRI WIDTH 13.9 % (0-14.5); WHITE BLOOD COUNT 6.5 10*3/uL (4.8-10.8)
[2019-11-22 10:25] VITALS: BP 156/80
[2019-11-22 10:31] LABS: ACT PARTIAL THROMBO TIME 25.9 SECONDS (20.0-32.1); INTERNATIONAL NORM RATIO 0.9 (2.0-3.5)
[2019-11-22 10:38] LABS: ALBUMIN 3.2 gm/dl (3.1-4.5); ALKALINE PHOSPHATASE 107 U/L (45-117); BUN 22 mg/dl (7-24); CHLORIDE 100 mmol/L (98-107); CREATININE 1.77 mg/dL (0.70-1.30); SGOT/AST 32 IU/L (3-35); SGPT/ALT 21 U/L (12-78); SODIUM 135 mmol/L (136-145); TOTAL PROTEIN 7.7 gm/dL (6.4-8.2)
[2019-11-22 10:40] LABS: TROPONIN I < 0.015 ng/ml (<0.045)
[2019-11-22 12:04] VITALS: BP 160/50
--- NOTE | 2019-11-22 14:50 | NUR ---
PT WAS DECONED DUE TO BED BUGS MANAGER GOVERNMENT ON THE FLOOR.
--- NOTE | 2019-11-22 15:20 | NUR ---
DR. VILLAVICENCIO IN TO SEE PATIENT
[2019-11-22] MEDS ORDERED: COMBIVENT RESPIM4 GM INH (15:43)
[2019-11-22 16:00] VITALS: BP 157/76
--- NOTE | 2019-11-22 16:03 | NUR ---
DR. VILLAVICENCIO NOTIFIED THAT HOME MEDICAIONS UPDATED. TELEPHONE ORDERS PLACED FOR DIET
[2019-11-22 20:00] VITALS: BP 131/58
--- NOTE | 2019-11-22 20:10 | NUR ---
RESTING IN BED WITH HOB ELEVATED. 02 INTACT AT 3LPM VIA N/C. LUNGS DIMINISHED BILATERALLY; NO COUGH NOTED. HEP LOCK INTACT TO LEFT ANTECUBITAL; SITE ASYMPTOMATIC. +2 EDEMA NOTED TO FEET/ANKLES. PT. VOICES NO C/O AT THIS TIME. CALL LIGHT WITHIN REACH.
--- NOTE | 2019-11-22 21:54 | NUR ---
TOOK MEDICATIONS WITHOUT DIFFICULTY. ALSO TOOK AMBIEN PER STRAIGHT ORDER. CALL LIGHT WITHIN REACH.
--- NOTE | 2019-11-22 23:00 | NUR ---
ASSUMED CARE FOR THIS PT AT THIS TIME. NO C/O VOICED. RED RASH NOTED TO ANTERIOR BILATERAL THIGHS AND BILATERAL ARMS. WILL NOTIFY MD. CALL LIGHT IN REACH.
[2019-11-23] VITALS: BP 111/73
[2019-11-23 06:18] LABS: BASO % 0.1 % (0.0-1.0); HEMATOCRIT 28.1 % (42.0-52.0); LYMPH # 0.5 10*3/uL (1.3-4.4); LYMPH % 5.7 % (27.0-41.0); MEAN CELL VOLUME 91.8 fl (80.0-94.0); MEAN CORPUSCULAR HGB 28.8 pg (27.0-31.0); MEAN CORPUSCULAR HGB CONC 31.3 g/dl (33.0-37.0); MEAN PLATELET VOLUME 10.2 fl (9.6-12.3); MONO # 0.3 10*3/uL (0.1-1.0); MONO % 3.7 % (3.0-9.0); PLATELET COUNT AUTOMATED 232 10*3/uL (130-400); RED BLOOD COUNT 3.06 10*6/uL (4.50-5.90); RED CELL DISTRI WIDTH 13.9 % (0-14.5); WHITE BLOOD COUNT 7.8 10*3/uL (4.8-10.8)
[2019-11-23 06:23] LABS: CREATININE 1.78 mg/dL (0.70-1.30); POTASSIUM 4.3 mmol/L (3.5-5.1)
--- NOTE | 2019-11-23 07:45 | NUR ---
PT OFF FLOOR FOR CHEST XRAY.
--- NOTE | 2019-11-23 08:01 | NUR ---
PT RETURNED FROM CHEST XRAY.
--- NOTE | 2019-11-23 08:30 | NUR ---
Proj Mgr in to talk to patient. Patient states lives at home with his niece. There are 2 steps in the home. Physician: Dr. Foreign Nowak Pharmacy: [facility] Home health services: none Patient's level of ADLs: MINIMAL ASSIST Patient has working utilities: yes DME: cane, O2 @ 3L nc, portable O2, c-pap, O2 supplier unknown Follow-up physician's appointment after d/c: he prefers to make his own follow up appt after discharge Does patient want to access PORTAL?: no Discharge plan discussed with patient. He lives at home with his niece. He is independent in his ADLs and ambulates with a cane. Discussed home health care services and he denies any home needs at this time. He states his niece can do anything that a home health company can do. When medically stable he will be discharged to home. His niece will provide transportation on discharge. TERESITA MCMAHAN
--- NOTE | 2019-11-23 10:09 | NUR ---
PT GIVEN PRN MOM FOR C/O CONSTIPATION. WILL MONITOR.
[2019-11-23 12:00] VITALS: BP 123/63
[2019-11-23 12:17] LABS: BILIRUBIN NEGATIVE (NEGATIVE); BLOOD NEGATIVE (NEGATIVE); CLARITY CLOUDY (CLEAR); COLOR YELLOW (YELLOW); GLUCOSE NEGATIVE (NEGATIVE); KETONE NEGATIVE (NEGATIVE); LEUKO ESTERASE NEGATIVE (NEGATIVE); NITRITE POSITIVE (NEGATIVE); SPECIFIC GRAVITY 1.005 (1.005-1.030); UROBILINOGEN 0.2 E.U./dl (0.2-1.0)
[2019-11-23 12:49] LABS: BACTERIA 4+; TRIP PHOS CRYSTALS 2+
[2019-11-23 16:00] VITALS: BP 146/69
--- NOTE | 2019-11-23 19:15 | NUR ---
PATIENT IS AAOX3 RESTING IN BED, WATCHING TV, WITH EASY AND REGULAR RESPERS. ASSESSMENT IS COMPLETE WITH NO S/S DISTRESS NOTED. PATIENT C/O CONSTIPATION. BED IS LOW, LOCKED, AND CALL LIGHT IS WITHIN REACH. WILL CONTINUE TO MONITOR. SEE INTERVENTIONS.
[2019-11-23 20:00] VITALS: BP 155/78
--- NOTE | 2019-11-23 20:34 | NUR ---
CALL PLACED TO DR. MASTERS REGARDING PATIENT C/O CONSTIPATION. PATIENT STATED "I WANT SOMETHING STRONG". SEE NEW ORDERS.
--- NOTE | 2019-11-23 22:00 | NUR ---
IV started left hand with #22 angiocath after 0 attempts. The IV site was prepped with Chloraprep. Heparin lock attached. IV solution 0.9 NORMAL SALINE infusing at 60ML/hr. Sterile dressing applied. Patient tolerated precedure well. Procedure performed according to [facility] policy & procedure. IAN POSADAS
[2019-11-24] VITALS: BP 152/82
--- NOTE | 2019-11-24 03:36 | NUR ---
CHART CHECK COMPLETE.
[2019-11-24 06:16] LABS: BASO % 0.2 % (0.0-1.0); HEMATOCRIT 27.4 % (42.0-52.0); LYMPH # 0.5 10*3/uL (1.3-4.4); LYMPH % 5.2 % (27.0-41.0); MEAN CORPUSCULAR HGB 28.6 pg (27.0-31.0); MEAN CORPUSCULAR HGB CONC 31.4 g/dl (33.0-37.0); MEAN PLATELET VOLUME 10.2 fl (9.6-12.3); MONO # 0.5 10*3/uL (0.1-1.0); MONO % 5.1 % (3.0-9.0); NEUT # 9.2 10*3/uL (2.3-7.9); NEUT % 88.9 % (47.0-73.0); PLATELET COUNT AUTOMATED 241 10*3/uL (130-400); RED BLOOD COUNT 3.01 10*6/uL (4.50-5.90); RED CELL DISTRI WIDTH 14.3 % (0-14.5); WHITE BLOOD COUNT 10.3 10*3/uL (4.8-10.8)
[2019-11-24 06:40] LABS: CREATININE 1.86 mg/dL (0.70-1.30); POTASSIUM 5.1 mmol/L (3.5-5.1)
[2019-11-24 08:00] VITALS: BP 159/76
--- NOTE | 2019-11-24 08:15 | NUR ---
Stenotype Machine Operator in to see patient. No new needs or request at this time. He states he doesn't need anyone to come and check on him at home. When medically stable he will be discharged to home. He states his niece will provide transportation on discharge.
[2019-11-24 12:00] VITALS: BP 176/83
[2019-11-24 16:00] VITALS: BP 166/82
--- NOTE | 2019-11-24 17:04 | NUR ---
PT HAD A SMALL FORMED BM
[2019-11-24 20:00] VITALS: BP 172/86
--- NOTE | 2019-11-24 20:45 | NUR ---
PATIENT IS AAOX3 RESTING IN BED WITH EASY AND REGULAR RESPERS. ASSESSMENT IS COMPLETE WITH NO C/O OR S/S OF DISTRESS NOTED AT THIS TIME. BED IS LOW, LOCKED, AND CALL LIGHT IS WITHIN REACH. WILL CONTINUE TO MONITOR, SEE INTERVENTIONS.
--- NOTE | 2019-11-24 23:05 | NUR ---
PRN NORCO GIVEN FOR C/O ABDOMINAL PAIN. CALL LIGHT IS WITHIN REACH. WILL MONITOR EFFECT.
[2019-11-25] VITALS: BP 168/84
--- NOTE | 2019-11-25 00:05 | NUR ---
PRN NORCO EFFECTIVE, CALL LIGHT IS WITHIN REACH.
--- NOTE | 2019-11-25 05:11 | NUR ---
PATIENT AWAKENS EASILY FOR ADMINISTRATION OF AM MEDS. CALL LIGHT IS WITHIN REACH.
--- NOTE | 2019-11-25 05:45 | NUR ---
PATIENT TOOLING SPECIALIST LIGHT C/O DYSPNEA AFTER AMBULATION TO RESTROOM. DYSPNEA SUBSIDED WHILE RN IN ROOM. C/O "BURING UP" TEMP TAKEN AND WNL. WILL CONTINUE TO MONITOR.
[2019-11-25 06:17] LABS: HEMATOCRIT 28.9 % (42.0-52.0); MEAN CELL VOLUME 90.3 fl (80.0-94.0); MEAN CORPUSCULAR HGB 27.8 pg (27.0-31.0); MEAN CORPUSCULAR HGB CONC 30.8 g/dl (33.0-37.0); MEAN PLATELET VOLUME 10.4 fl (9.6-12.3); PLATELET COUNT AUTOMATED 272 10*3/uL (130-400); RED CELL DISTRI WIDTH 14.7 % (0-14.5); WHITE BLOOD COUNT 11.4 10*3/uL (4.8-10.8)
[2019-11-25 06:28] LABS: CREATININE 1.75 mg/dL (0.70-1.30); POTASSIUM 5.2 mmol/L (3.5-5.1)
[2019-11-25 06:43] LABS: TOTAL CELLS COUNTED 100 #CELLS
[2019-11-25 06:44] LABS: OVALOCYTES FEW; PLATELET SUFFICIENCY NORMAL (NORMAL)
[2019-11-25 07:45] VITALS: BP 170/90
--- NOTE | 2019-11-25 07:52 | NUR ---
CHART CHECK COMPLETE.
[2019-11-25 08:00] VITALS: BP 168/88
--- NOTE | 2019-11-25 08:30 | NUR ---
Learning And Development Coordinator in to see patient. No new needs or request at this time. He denies any home needs. When medically stable he will be discharged to home.
--- NOTE | 2019-11-25 08:55 | NUR ---
Spoke to Dr. John if patient still required tele. He states he will take a look and either discontinue or continue which ever is needed.
--- NOTE | 2019-11-25 11:00 | NUR ---
24 HOUR CHART CHECK COMPLETE.
[2019-11-25 12:00] VITALS: BP 170/94
--- NOTE | 2019-11-25 14:58 | NUR ---
NORCO ADMINISTERED FOR PT C/O CENTRALIZED ABDOMINAL PAIN RATED A 10/10 ON THE PAIN SCALE. WILL CONTINUE TO MONITOR AND REASSESS.
--- NOTE | 2019-11-25 15:38 | NUR ---
PT STATES THAT HIS PAIN WAS RELIEVED BY THE NORCO.
[2019-11-25 16:00] VITALS: BP 166/90; BP 172/100
[2019-11-25 20:00] VITALS: BP 158/92; BP 164/101
--- NOTE | 2019-11-25 20:00 | NUR ---
RESTING IN BED WITH NO DISTRESS NOTED. RESPIRATIONS EASY. LUNGS DIMINISHED. PULSE OX 99% 3L. CLAIMS INFREQUENT COUGH, AWARE OF NEED FOR SPUTUM SPECIMEN. +2 PITTING BLE EDEMA. CALL LIGHT WITHIN REACH. NO VOICED COMPLAINTS
--- NOTE | 2019-11-25 22:57 | NUR ---
24 HR chart check completed.
--- NOTE | 2019-11-25 22:59 | NUR ---
REQUESTED AND RECEIVED NORCO PER PRN ORDER FOR COMPLAINTS ABD PAIN RATING AN 8. CALL LIGHT WITHIN REACH. WILL MONITOR
--- NOTE | 2019-11-25 23:45 | NUR ---
MEDS EFFECTIVE. SLEEPING. RESPIRATIONS EASY. CALL LIGHT WITHIN REACH
[2019-11-26] VITALS: BP 147/88
--- NOTE | 2019-11-26 00:30 | NUR ---
SLEEPING WITH NO DISTRESS NOTED. RESPIRATIONS EASY. VSS. CALL LIGHT WITHIN REACH
--- NOTE | 2019-11-26 06:00 | NUR ---
SLEPT THROUGHOUT NIGHT WITH NO DISTRESS NOTED. RESPIRATIONS EASY. O2 IN USE. CALL LIGHT WITHIN REACH. NO VOICED COMPLAINTS THIS SHIFT
[2019-11-26 06:28] LABS: BASO % 0.2 % (0.0-1.0); HEMATOCRIT 29.3 % (42.0-52.0); LYMPH # 0.6 10*3/uL (1.3-4.4); LYMPH % 5.3 % (27.0-41.0); MEAN CELL VOLUME 91.6 fl (80.0-94.0); MEAN CORPUSCULAR HGB 27.8 pg (27.0-31.0); MEAN CORPUSCULAR HGB CONC 30.4 g/dl (33.0-37.0); MEAN PLATELET VOLUME 10.5 fl (9.6-12.3); MONO # 0.6 10*3/uL (0.1-1.0); MONO % 5.4 % (3.0-9.0); NEUT # 9.8 10*3/uL (2.3-7.9); NEUT % 88.1 % (47.0-73.0); PLATELET COUNT AUTOMATED 282 10*3/uL (130-400); RED CELL DISTRI WIDTH 14.6 % (0-14.5); WHITE BLOOD COUNT 11.1 10*3/uL (4.8-10.8)
[2019-11-26 06:41] LABS: CREATININE 1.78 mg/dL (0.70-1.30); POTASSIUM 5.7 mmol/L (3.5-5.1)
[2019-11-26 08:00] VITALS: BP 143/78
[2019-11-26 11:49] LABS: BASO % 0.2 % (0.0-1.0); EOS % 0.1 % (1.0-4.0); HEMATOCRIT 32.2 % (42.0-52.0); LYMPH # 0.7 10*3/uL (1.3-4.4); LYMPH % 5.7 % (27.0-41.0); MEAN CELL VOLUME 89.7 fl (80.0-94.0); MEAN CORPUSCULAR HGB 28.1 pg (27.0-31.0); MEAN CORPUSCULAR HGB CONC 31.4 g/dl (33.0-37.0); MONO # 0.6 10*3/uL (0.1-1.0); MONO % 5.1 % (3.0-9.0); NEUT # 10.6 10*3/uL (2.3-7.9); NEUT % 87.8 % (47.0-73.0); PLATELET COUNT AUTOMATED 292 10*3/uL (130-400); RED BLOOD COUNT 3.59 10*6/uL (4.50-5.90); RED CELL DISTRI WIDTH 14.4 % (0-14.5); WHITE BLOOD COUNT 12.1 10*3/uL (4.8-10.8)
[2019-11-26 12:00] VITALS: BP 154/83
[2019-11-26 12:05] LABS: ALBUMIN 3.2 gm/dl (3.1-4.5); CREATININE 1.77 mg/dL (0.70-1.30); POTASSIUM 5.5 mmol/L (3.5-5.1); TOTAL PROTEIN 7.2 gm/dL (6.4-8.2)
--- NOTE | 2019-11-26 13:26 | NUR ---
PATIENT RECIEVED K-EXALATE PER ORDER. K+ CAME BACK 5.5. DR. VELASCO ORDER 10 UNITS INSULIN (SEE EMAR) + TELEPHONE ORDER OF D50. GAVE DIRECTED BY PHYSICIAN.
[2019-11-26 16:00] VITALS: BP 159/86
[2019-11-26 18:37] LABS: CREATININE 1.89 mg/dL (0.70-1.30); POTASSIUM 4.9 mmol/L (3.5-5.1)
--- NOTE | 2019-11-26 19:00 | NUR ---
ASSUMED CARE FOR THIS PT AT THIS TIME. PT AWAKE IN BED WATCHING TV. ABD FIRMLY DISTENDED. HYPO BS X4 QUADS. PT REQUESTING DULCOLAX SUPPOSITORY. C/O RLQ PAIN 11/09 BUT DOESN'T WANT MEDICATED UNTIL BED TIME. CALL LIGHT IN REACH.
[2019-11-26 20:00] VITALS: BP 154/84
--- NOTE | 2019-11-26 21:24 | NUR ---
PT MEDICATED W/NORCO FOR C/O RUQ PAIN 11/09 AND DULCOLAX SUPPOSITORY FOR C/O CONSTIPATION. WILL MONITOR.
--- NOTE | 2019-11-26 22:24 | NUR ---
PT STATES PRN NORCO WAS EFFECTIVE FOR PAIN RELIEF.
[2019-11-27] VITALS: BP 104/62
[2019-11-27 06:20] LABS: BASO % 0.1 % (0.0-1.0); HEMATOCRIT 27.4 % (42.0-52.0); LYMPH # 0.7 10*3/uL (1.3-4.4); LYMPH % 6.5 % (27.0-41.0); MEAN CELL VOLUME 90.1 fl (80.0-94.0); MEAN PLATELET VOLUME 10.3 fl (9.6-12.3); MONO # 0.5 10*3/uL (0.1-1.0); MONO % 4.6 % (3.0-9.0); NEUT # 8.8 10*3/uL (2.3-7.9); PLATELET COUNT AUTOMATED 254 10*3/uL (130-400); RED BLOOD COUNT 3.04 10*6/uL (4.50-5.90); RED CELL DISTRI WIDTH 14.4 % (0-14.5)
[2019-11-27 06:40] LABS: CREATININE 1.87 mg/dL (0.70-1.30); POTASSIUM 5.6 mmol/L (3.5-5.1)
--- NOTE | 2019-11-27 07:00 | NUR ---
ARRIVED ON SHIFT, RECEIVED REPORT FROM OFF GOING NURSE, ASSUMED CARE OF PATIENT.
--- NOTE | 2019-11-27 07:15 | NUR ---
INTRODUCED SELF TO PATIENT, BED IN LOW POSITION WITH WHEEL LOCKS EMGAGED, SIDE RAILS UP X 2 FOR TURNING AND REPOSITIONING, CALL LIGHT WITHIN REACH, NO NEEDS VOICED AT THIS TIME, WHITE BOARD UPDATED.
[2019-11-27 08:00] VITALS: BP 159/75
--- NOTE | 2019-11-27 10:55 | NUR ---
Shift chart check completed.
[2019-11-27 12:00] VITALS: BP 118/50
[2019-11-27 16:00] VITALS: BP 139/89
[2019-11-27 18:14] LABS: CREATININE 1.96 mg/dL (0.70-1.30); POTASSIUM 5.2 mmol/L (3.5-5.1)
[2019-11-27 20:00] VITALS: BP 151/77
--- NOTE | 2019-11-27 20:00 | NUR ---
ASSUMED CARE OF PATIENT. ASSESSMENT IS COMPLETE. BED IS LOW, LOCKED, ALARMED, AND CALL LIGHT IS WITHIN REACH. WILL CONTINUE TO MONITOR, SEE INTERVENTION SCREEN.
--- NOTE | 2019-11-27 21:42 | NUR ---
PRN NORCO GIVEN FOR C/O ABDOMINAL DISCOMFORT. CALL LIGHT IS WITHIN REACH, WILL MONITOR EFFECT.
--- NOTE | 2019-11-27 22:42 | NUR ---
PRN NORCO EFFECTIVE PER PATIENT. CALL LIGHT IS WITHIN REACH.
[2019-11-28] VITALS: BP 162/82
[2019-11-28 06:29] LABS: IRON 36 ug/dL (65-175); TOTAL IRON BINDING CAPACITY 279 ug/dl (250-450)
[2019-11-28 06:53] LABS: FERRITIN 20.1 ng/mL (22.0-322.0)
--- NOTE | 2019-11-28 06:54 | NUR ---
SLEPT THROUGHOUT NIGHT WITH NO C/O OR S/S OF DISTRESS. O2 IN USE. CALL LIGHT IS WITHIN REACH.
--- NOTE | 2019-11-28 07:00 | NUR ---
ARRIVED ON SHIFT, RECEIVED REPORT FROM OFFGOING NURSE, ASSUMED CARE OF PATIENT.
--- NOTE | 2019-11-28 07:43 | NUR ---
Shift chart check completed.
[2019-11-28 08:00] VITALS: BP 154/88; BP 160/78
--- NOTE | 2019-11-28 08:56 | NUR ---
INTRODUCED SELF TO PATIENT, BED IN LOW POSITION WITH WHEEL LOCKS ENGAGED, SIDERAILS UP X 2, CALL LIGHT WITHIN REACH, NO NEEDS VOICED AT THIS TIME, WHITE BOARD UPDATED.
[2019-11-28 12:00] VITALS: BP 155/93
--- NOTE | 2019-11-28 13:16 | NUR ---
PATIENT C/O ABDOMINAL DISCOMFORT AND NEEDING TO MOVE BOWELS, REQUESTED AND GIVEN DULCOLAX SUPPOSITORY.
[2019-11-28 13:58] LABS: CREATININE 1.82 mg/dL (0.70-1.30); POTASSIUM 4.7 mmol/L (3.5-5.1)
--- NOTE | 2019-11-28 14:11 | NUR ---
GOOD RESULTS DULCOLAX SUPPOSITORY, INCONT OF LARGE SOFT STOOL, WELL ADDITIONAL STOOL IN TOILET, DR. VELASCO AWARE, HE WAS IN AND ORDERED UA TO C&S AND KUB.
[2019-11-28 15:21] LABS: BILIRUBIN 1+ (NEGATIVE); BLOOD TRACE-INTACT (NEGATIVE); CLARITY CLEAR (CLEAR); COLOR YELLOW (YELLOW); GLUCOSE NEGATIVE (NEGATIVE); KETONE NEGATIVE (NEGATIVE); SPECIFIC GRAVITY 1.015 (1.005-1.030)
[2019-11-28 15:22] LABS: LEUKO ESTERASE NEGATIVE (NEGATIVE); NITRITE NEGATIVE (NEGATIVE); UROBILINOGEN 0.2 E.U./dl (0.2-1.0)
[2019-11-28 15:25] LABS: BACTERIA TRACE
[2019-11-28 16:00] VITALS: BP 174/85
[2019-11-28 20:00] VITALS: BP 154/83
--- NOTE | 2019-11-28 20:01 | NUR ---
CHART CHECK COMPLETE.
--- NOTE | 2019-11-28 20:12 | NUR ---
ASSUMED CARE OF PATIENT. ASSESSMENT IS COMPLETE. NO C/O OR S/S OF DISTRESS NOTED AT THIS TIME. BED IS LOW, LOCKED, AND CALL LIGHT IS WITHIN REACH. WILL CONTINUE TO MONITOR, SEE INTERVENTIONS.
--- NOTE | 2019-11-28 21:21 | NUR ---
PRN NORCO GIVEN FOR ABDOMINAL PAIN RATING A 4/10. CALL LIGHT IS WITHIN REACH. WILL MONITOR EFFECT.
--- NOTE | 2019-11-28 22:21 | NUR ---
ASHWIN CASANOVA EFFECTIVE. CALL LIGHT IS WITHIN REACH.
[2019-11-29] VITALS: BP 134/74
--- NOTE | 2019-11-29 04:37 | NUR ---
SLEEPING WITH EASY AND REGULAR RESPERS ON 3L O2 VIA NC. CALL LIGHT IS WITHIN REACH.
[2019-11-29 06:51] LABS: BASO % 0.1 % (0.0-1.0); HEMATOCRIT 28.1 % (42.0-52.0); LYMPH # 0.5 10*3/uL (1.3-4.4); LYMPH % 4.7 % (27.0-41.0); MEAN CELL VOLUME 89.8 fl (80.0-94.0); MEAN CORPUSCULAR HGB 27.8 pg (27.0-31.0); MEAN PLATELET VOLUME 10.8 fl (9.6-12.3); MONO # 0.5 10*3/uL (0.1-1.0); MONO % 4.7 % (3.0-9.0); NEUT # 10.2 10*3/uL (2.3-7.9); PLATELET COUNT AUTOMATED 279 10*3/uL (130-400); RED BLOOD COUNT 3.13 10*6/uL (4.50-5.90); RED CELL DISTRI WIDTH 14.5 % (0-14.5); WHITE BLOOD COUNT 11.5 10*3/uL (4.8-10.8)
--- NOTE | 2019-11-29 07:00 | NUR ---
ARRIVED ON SHIFT, REPORT RECEIVED FROM OFF GOING NURSE, ASSUMED CARE OF PATIENT.
[2019-11-29 07:13] LABS: CREATININE 1.68 mg/dL (0.70-1.30); POTASSIUM 5.4 mmol/L (3.5-5.1)
--- NOTE | 2019-11-29 07:30 | NUR ---
INTRODUCED SELF TO PATIENT, BED IN LOW POSITION, WHEEL LOCKS ENGAGED, SIDERAILS UP X 2 FOR TURNING AND REPOSITIONING, CALL LIGHT WITHIN REACH, NO NEEDS VOICED AT THIS TIME, WHITE BOARD UPDATED.
[2019-11-29 08:00] VITALS: BP 142/78; BP 176/85
--- NOTE | 2019-11-29 08:47 | NUR ---
Shift chart check completed.
[2019-11-29 12:00] VITALS: BP 173/75
[2019-11-29 16:00] VITALS: BP 164/84
--- NOTE | 2019-11-29 19:28 | NUR ---
24 HR chart check completed.
[2019-11-29 20:00] VITALS: BP 167/86
--- NOTE | 2019-11-29 20:00 | NUR ---
RESTING IN BED WATCHING TV WITH NO DISTRESS NOTED. RESPIRATIONS EASY. LUNGS DIMINISHED, CLEAR. PULSE OX 100% 3L. ABD DISTENDED WITH NORMO BOWEL SOUNDS, DENIES N/V/D. +1 PITTING BLE EDEMA. CALL LIGHT WITHIN REACH. NO VOICED COMPLAINTS
--- NOTE | 2019-11-29 21:43 | NUR ---
REQUESTED AND RECEIVED NORCO PER PRN ORDER FOR COMPLAINTS OF ABD PAIN RATING A 6. ALSO MEDICATED WITH AMBIEN TO ASSIST WITH SLEEP. WILL MONITOR
--- NOTE | 2019-11-29 22:40 | NUR ---
RESTING IN BED, STATES RELIEF FROM EARLIER NORCO. CALL LIGHT WITHIN REACH. NO FURTHER VOICED COMPLAINTS
[2019-11-30] VITALS: BP 147/84
--- NOTE | 2019-11-30 | NUR ---
AWAKE. PROVIDED WITH BOX LUNCH AT REQUEST. CALL LIGHT WITHIN REACH. NO VOICED COMPLAINTS
--- NOTE | 2019-11-30 06:00 | NUR ---
SLEPT THROUGHOUT NIGHT WITH NO DISTRESS NOTED. RESPIRATIONS EASY. O2 IN USE. CALL LIGHT WITHIN REACH. NO VOICED COMPLAINTS THIS SHIFT
[2019-11-30 06:31] LABS: BASO % 0.1 % (0.0-1.0); EOS % 0.4 % (1.0-4.0); HEMATOCRIT 29.4 % (42.0-52.0); LYMPH # 1.6 10*3/uL (1.3-4.4); LYMPH % 14.5 % (27.0-41.0); MEAN CELL VOLUME 90.5 fl (80.0-94.0); MEAN PLATELET VOLUME 10.5 fl (9.6-12.3); MONO # 1.2 10*3/uL (0.1-1.0); MONO % 10.9 % (3.0-9.0); NEUT # 7.8 10*3/uL (2.3-7.9); NEUT % 71.4 % (47.0-73.0); PLATELET COUNT AUTOMATED 273 10*3/uL (130-400); RED BLOOD COUNT 3.25 10*6/uL (4.50-5.90); RED CELL DISTRI WIDTH 14.6 % (0-14.5)
[2019-11-30 06:36] LABS: CREATININE 1.76 mg/dL (0.70-1.30); POTASSIUM 4.8 mmol/L (3.5-5.1)
--- NOTE | 2019-11-30 07:00 | NUR ---
ARRIVED ON SHIFT, REPORT RECEIVED FROM OFFGOING NURSE, ASSUMED CARE OF PT.
--- NOTE | 2019-11-30 07:20 | NUR ---
ARRIVED ON SHIDT, BED IN LOW POSITION, WHEEL LOCKS ENGAGED, SIDE RAILS UP X 2 FOR TURNING AND REPOSITIONING, CALL LIGHT WITHIN REACH, NO NEEDS VOICED AT THIS TIME, WHITE BOARD UPDATED.
--- NOTE | 2019-11-30 07:31 | NUR ---
Shift chart check completed.
[2019-11-30 08:00] VITALS: BP 138/72
--- NOTE | 2019-11-30 09:00 | NUR ---
Rewriter in to see patient. No new needs or request at this time. He denies any home needs. When medically stable he will be discharged to home.
[2019-11-30 12:00] VITALS: BP 159/89
[2019-11-30] MEDS ORDERED: LASIX20 MG PO (13:33)
[2019-11-30] MEDS ORDERED: MIRALAX17 GM PO (13:33)
[2019-11-30] MEDS ORDERED: TRAZODONE50 MG PO (13:33)
[2019-11-30] MEDS ORDERED: MILLIPRED5 MG PO (13:45)
--- NOTE | 2019-11-30 15:13 | NUR ---
Discharge instructions reviewed with patient/family. Patient receptive and verbalizes understanding. Follow-up care arranged. Written instructions given to patient/family. IV AND TELEMETRY REMOVED, TAKEN OUT VIA W/C JULES RUST
== END 2019-11-30 15:46 | disposition home or self-care (01) | DRG 190 ==
LOC: ED 09:51 → 5E 11:57 → EDHOLD 11:57 → 5E 14:16
PROVIDERS: Emergency Medicine; Internal Medicine; Internal Medicine Nephrology; ADMIT Internal Medicine
DX: J44.1 Chronic obstructive pulmonary disease with (acute) exacerbation (principal); N17.0 Acute kidney failure with tubular necrosis; R65.10 Systemic inflammatory response syndrome (SIRS) of non-infectious origin without acute organ dysfunction; K56.51 Intestinal adhesions [bands], with partial obstruction; N13.6 Pyonephrosis; E87.1 Hypo-osmolality and hyponatremia; I13.0 Hypertensive heart and chronic kidney disease with heart failure and stage 1 through stage 4 chronic kidney disease, or unspecified chronic kidney disease; I50.32 Chronic diastolic (congestive) heart failure; J96.10 Chronic respiratory failure, unspecified whether with hypoxia or hypercapnia; K56.7 Ileus, unspecified; L24.9 Irritant contact dermatitis, unspecified cause; E87.5 Hyperkalemia; E86.0 Dehydration; B96.4 Proteus (mirabilis) (morganii) as the cause of diseases classified elsewhere; D50.9 Iron deficiency anemia, unspecified; R73.9 Hyperglycemia, unspecified; N18.3 Chronic kidney disease, stage 3 (moderate); N40.0 Benign prostatic hyperplasia without lower urinary tract symptoms; Z88.8 Allergy status to other drugs, medicaments and biological substances; Z90.49 Acquired absence of other specified parts of digestive tract; Z98.42 Cataract extraction status, left eye; Z98.41 Cataract extraction status, right eye; Z87.891 Personal history of nicotine dependence; Z82.5 Family history of asthma and other chronic lower respiratory diseases; Z80.8 Family history of malignant neoplasm of other organs or systems; Z99.81 Dependence on supplemental oxygen; Z79.899 Other long term (current) drug therapy

== ENCOUNTER 2020-01-23 21:41 | Inpatient (IN) | payer MEDICARE, MEDICAID ==
[~2020-01-23] VITALS: Ht 185.4 cm; Wt 101.3 kg
[~2020-01-23 21:41] MED LIST changes: +MILLIPRED5 MG PO; +MIRALAX17 GM PO; +TRAZODONE50 MG PO
[2020-01-23 22:12] LABS: BASO # 0.1 10*3/uL (0.0-0.1); BASO % 0.7 % (0.0-1.0); EOS # 0.2 10*3/uL (0.0-0.4); EOS % 2.3 % (1.0-4.0); LYMPH % 10.4 % (27.0-41.0); MEAN CELL VOLUME 90.4 fl (80.0-94.0); MEAN CORPUSCULAR HGB 28.3 pg (27.0-31.0); MEAN CORPUSCULAR HGB CONC 31.3 g/dl (33.0-37.0); MEAN PLATELET VOLUME 9.8 fl (9.6-12.3); MONO # 0.9 10*3/uL (0.1-1.0); MONO % 9.6 % (3.0-9.0); NEUT # 7.1 10*3/uL (2.3-7.9); NEUT % 76.6 % (47.0-73.0); PLATELET COUNT AUTOMATED 292 10*3/uL (130-400); RED BLOOD COUNT 3.43 10*6/uL (4.50-5.90); RED CELL DISTRI WIDTH 14.7 % (0-14.5); WHITE BLOOD COUNT 9.2 10*3/uL (4.8-10.8)
[2020-01-23 22:30] LABS: ALBUMIN 3.5 gm/dl (3.1-4.5); ALKALINE PHOSPHATASE 113 U/L (45-117); BUN 37 mg/dl (7-24); CHLORIDE 98 mmol/L (98-107); CREATININE 2.85 mg/dL (0.70-1.30); LIPASE 134 U/L (73-393); POTASSIUM 3.5 mmol/L (3.5-5.1); SGOT/AST 28 IU/L (3-35); SGPT/ALT 24 U/L (12-78); SODIUM 136 mmol/L (136-145); TOTAL PROTEIN 7.8 gm/dL (6.4-8.2)
[2020-01-23 22:31] VITALS: BP 195/95
[2020-01-23 22:31] LABS: ACT PARTIAL THROMBO TIME 25.1 SECONDS (20.0-32.1); INTERNATIONAL NORM RATIO 0.9 (2.0-3.5)
[2020-01-23 22:34] LABS: TROPONIN I < 0.015 ng/ml (<0.045)
[2020-01-23 22:50] VITALS: BP 161/88
[2020-01-23 23:29] VITALS: BP 159/78
[2020-01-24 00:10] VITALS: BP 144/83
[2020-01-24 00:51] VITALS: BP 161/89
--- NOTE | 2020-01-24 00:51 | NUR ---
Time: 50 A 79 year old MALE admitted to 5E under services of DR. KRISTA BURK,DIPIKA. Pt. arrived via stretcher from ER. Chief complaint: SHORTNESS OF BREATH. ARIES WILDE
--- NOTE | 2020-01-24 01:10 | NUR ---
ORDERS FROM DR VELASCO AT THIS TIME
[2020-01-24] MEDS ORDERED: LASIX40 MG PO (03:39)
[2020-01-24] MEDS ORDERED: PROTONIX40 MG PO (03:44)
[2020-01-24] MEDS ORDERED: SYMB160 INH (03:45)
[2020-01-24] MEDS ORDERED: Ipratropium Brom3 ML INH (03:48)
--- NOTE | 2020-01-24 03:48 | NUR ---
MED REC COMPLETE PER HOME LIST
--- NOTE | 2020-01-24 04:59 | NUR ---
PATIENT CALLED OUT REQUESTING BREATHING TREATMENT. RESPIRATORY NOTIFIED
[2020-01-24 06:37] LABS: BILIRUBIN 1+; BLOOD TRACE-INTACT (NEGATIVE); CLARITY CLEAR (CLEAR); COLOR YELLOW (YELLOW); GLUCOSE NEGATIVE; KETONE NEGATIVE; LEUKO ESTERASE NEGATIVE (NEGATIVE); NITRITE NEGATIVE (NEGATIVE); SPECIFIC GRAVITY 1.015 (1.005-1.030); UROBILINOGEN 0.2 E.U./dl (0.2-1.0)
[2020-01-24 06:45] LABS: BACTERIA 1+
--- NOTE | 2020-01-24 06:52 | NUR ---
DR VILLAVICENCIO AWARE OF CONSULT
[2020-01-24 08:00] VITALS: BP 140/86
--- NOTE | 2020-01-24 08:03 | NUR ---
INITIAL ASSESSMENT COMPLETED. PT DENIES SOB AT REST BUT EXERTIONAL DYSPNEA NOTED WITH AMBULATION. SPO2 100% ON 3LNC.DENIES CP/PRESSURE. DENIES ALL PAIN PER PT.VOICES NO OTHER NEEDS AT THIS TIME. CALL LIGHT IN REACH.
[2020-01-24 12:00] VITALS: BP 144/78
--- NOTE | 2020-01-24 13:23 | NUR ---
DR VELASCO ROUNDED AND SEEN PT. ORDERS RECIEVED.
[2020-01-24 16:00] VITALS: BP 152/80
--- NOTE | 2020-01-24 16:49 | NUR ---
Patient resting quietly with no c/o discomfort. Respirations easy and regular. Vital signs stable. No overt distress. LUZMARIA RAZA
[2020-01-24 20:00] VITALS: BP 141/67
--- NOTE | 2020-01-24 22:40 | NUR ---
DR MASTERS AWARE OF PATIENT REQUESTING AMBIEN AND ANOTHER BREATHING TREATMENT. ORDERS TAKEN
[2020-01-25] VITALS: BP 149/62
[2020-01-25 06:50] LABS: CREATININE 1.86 mg/dL (0.70-1.30)
[2020-01-25 08:00] VITALS: BP 150/72
--- NOTE | 2020-01-25 09:00 | NUR ---
Circular Sawyer Helper in to talk to patient. Patient states lives at home with his niece. There are 2 steps in the home. Physician: Dr. Foreign Nowak Pharmacy: [facility] Home health services: none Patient's level of ADLs: MINIMAL ASSIST Patient has working utilities: yes DME: cane, O2 @ 3L nc, portable O2, c-pap, O2 supplier unknown Follow-up physician's appointment after d/c: he prefers to make his own follow up appt after discharge Does patient want to access PORTAL?: no Discharge plan discussed with patient. He lives at home with his niece. He is independent in his ADLs and ambulates with a cane. Discussed home health care services and he declines. CM will continue to follow for any discharge planning needs. When medically stable he will be discharged to home. He states "someone" will provide transportation on discharge. TERESITA MCMAHAN
[2020-01-25 11:54] LABS: URINE CHLORIDE, RANDOM < 10 mmol/L
[2020-01-25 12:00] VITALS: BP 147/74
[2020-01-25 16:00] VITALS: BP 139/67
[2020-01-25 20:00] VITALS: BP 155/68
--- NOTE | 2020-01-25 20:13 | NUR ---
PATIENT RESTING IN BED WITH NO NEEDS MADE. WATCHING TV. C/O SHORTNESS OF BREATH ON EXERTION. FLUIDS INFUSING PER ORDER. BED IN LOWEST POSITION, CALL LIGHT IN REACH
--- NOTE | 2020-01-25 22:05 | NUR ---
PATIENT CALLED OUT C/O LEFT "ELBOW" SWELLING. NO EDEMA OR REDNESS SEEN BY THIS RN. IV FLUSHES WELL WITH GOOD BLOOS RETURN.
[2020-01-25 23:58] VITALS: BP 149/86
--- NOTE | 2020-01-26 01:21 | NUR ---
PATIENT RESTING IN BED WITH NO S/S OF DISTRESS. BED IN LOWEST POSITION, CALL LIGHT IN REACH
--- NOTE | 2020-01-26 01:27 | NUR ---
24 HR chart check completed.
[2020-01-26 07:12] LABS: CREATININE 1.81 mg/dL (0.70-1.30); POTASSIUM 3.9 mmol/L (3.5-5.1)
[2020-01-26 08:00] VITALS: BP 142/80
--- NOTE | 2020-01-26 08:05 | NUR ---
PT RESTING IN BED/ NO DISTRESS NOTED. WILL MONITOR
--- NOTE | 2020-01-26 09:00 | NUR ---
CM in to see patient. No new needs or request at this time. Discussed home health care services and he declines. CM will continue to follow for any discharge planning needs. When medically stable he will be discharged to home.
[2020-01-26 12:00] VITALS: BP 136/63
[2020-01-26 16:00] VITALS: BP 137/67
--- NOTE | 2020-01-26 19:19 | NUR ---
24 HR chart check completed.
[2020-01-26 20:00] VITALS: BP 165/78
[2020-01-27] VITALS: BP 160/78
--- NOTE | 2020-01-27 01:22 | NUR ---
PATIENT COMPLAINING OF HIS IV IN HIS LEFT AC BOTHERING HIM. IV IN LEFT AC DISCONTINUED AND NEW IV STARTED IN THE RIGHT ARM #22 GAUGE. PATIENT TOLERATED WELL.
[2020-01-27 06:52] LABS: CREATININE 1.67 mg/dL (0.70-1.30); POTASSIUM 4.7 mmol/L (3.5-5.1)
--- NOTE | 2020-01-27 07:46 | NUR ---
24 HR chart check completed.
[2020-01-27 08:00] VITALS: BP 168/80
--- NOTE | 2020-01-27 09:11 | NUR ---
Patient resting quietly with no c/o discomfort. Respirations easy and regular. Vital signs stable. No overt distress. ISMAEL TRAMMELL
[2020-01-27 12:00] VITALS: BP 118/50
--- NOTE | 2020-01-27 12:00 | NUR ---
Patient resting quietly with no c/o discomfort. Respirations easy and regular. Vital signs stable. No overt distress. ISMAEL TRAMMELL
[2020-01-27 15:02] VITALS: BP 122/50
--- NOTE | 2020-01-27 16:00 | NUR ---
Patient resting quietly with no c/o discomfort. Respirations easy and regular. Vital signs stable. No overt distress. ISMAEL TRAMMELL
--- NOTE | 2020-01-27 19:45 | NUR ---
24 HR chart check completed.
[2020-01-27 20:00] VITALS: BP 143/68
[2020-01-28] VITALS: BP 129/64
--- NOTE | 2020-01-28 05:51 | NUR ---
sleeping no acute distress noted.
[2020-01-28 06:25] LABS: POTASSIUM 4.5 mmol/L (3.5-5.1)
[2020-01-28 06:26] LABS: CREATININE 1.66 mg/dL (0.70-1.30)
[2020-01-28 08:00] VITALS: BP 164/86
--- NOTE | 2020-01-28 09:20 | NUR ---
PT RESTING IN BED WITH HOB ELEVATED. RESP-EASY AND REGULAR. OXYGEN IN USE. NO C/O AT THIS TIME. TOLERATED ROUTINE MED WITH NO PROBLEM. CALL LIGHT IN REACH. SEE SHIFT ASSESSMENT.
[2020-01-28] MEDS ORDERED: ZITHROMAX500 MG PO (09:47)
[2020-01-28] MEDS ORDERED: PREDNISONE10 MG PO (09:47)
[2020-01-28] MEDS ORDERED: LISINOPRIL5 MG PO (09:47)
[2020-01-28 12:00] VITALS: BP 137/64
--- NOTE | 2020-01-28 15:15 | NUR ---
Discharge instructions reviewed with patient/family. Patient receptive and verbalizes understanding. Follow-up care arranged. Written instructions given to patient/family. HEPLOCK REMOVED 2X2 APPLIED. ESCORTED VIA WHEELCHAIR FOR DISCHARGE. LEEANN CROUCH R
== END 2020-01-28 16:03 | disposition home or self-care (01) | DRG 871 ==
LOC: ED 21:41 → 5E 01-24 00:14 → EDHOLD 01-24 00:14 → 5E 01-24 00:41
PROVIDERS: Internal Medicine Nephrology; Nurse Practitioner Family; ADMIT Internal Medicine; ATTEND Internal Medicine
DX: A41.9 Sepsis, unspecified organism (principal); N17.0 Acute kidney failure with tubular necrosis; J96.20 Acute and chronic respiratory failure, unspecified whether with hypoxia or hypercapnia; J44.1 Chronic obstructive pulmonary disease with (acute) exacerbation; E86.0 Dehydration; R14.0 Abdominal distension (gaseous); R16.0 Hepatomegaly, not elsewhere classified; K59.00 Constipation, unspecified; I73.9 Peripheral vascular disease, unspecified; D64.9 Anemia, unspecified; B35.1 Tinea unguium; E83.9 Disorder of mineral metabolism, unspecified; I12.9 Hypertensive chronic kidney disease with stage 1 through stage 4 chronic kidney disease, or unspecified chronic kidney disease; L98.9 Disorder of the skin and subcutaneous tissue, unspecified; L25.9 Unspecified contact dermatitis, unspecified cause; N18.3 Chronic kidney disease, stage 3 (moderate); F41.9 Anxiety disorder, unspecified; Z88.8 Allergy status to other drugs, medicaments and biological substances; Z93.2 Ileostomy status; Z98.42 Cataract extraction status, left eye; Z98.41 Cataract extraction status, right eye; Z90.49 Acquired absence of other specified parts of digestive tract; Z87.891 Personal history of nicotine dependence; Z83.6 Family history of other diseases of the respiratory system

== ENCOUNTER 2020-03-14 13:35 | Inpatient (IN) | payer MEDICARE, MEDICAID ==
[~2020-03-14] VITALS: Ht 185.4 cm; Wt 105.7 kg
[2020-03-14] VITALS (12 sets, daily range): BP systolic 145–166; BP diastolic 68–85
[~2020-03-14 13:35] MED LIST changes: +Ipratropium Brom3 ML INH; +LISINOPRIL5 MG PO; +PROTONIX40 MG PO; +ZITHROMAX500 MG PO
--- NOTE | 2020-03-14 14:20 | NUR ---
LAB AT BEDSIDE. EKG COMPLETED.
--- NOTE | 2020-03-14 14:21 | NUR ---
PATIENT PROVIDED WITH A URINAL FOR URINE SPECIMEN.
[2020-03-14 14:28] LABS: HEMATOCRIT 22.5 % (42.0-52.0); MEAN CELL VOLUME 93.4 fl (80.0-94.0); MEAN CORPUSCULAR HGB 28.6 pg (27.0-31.0); MEAN CORPUSCULAR HGB CONC 30.7 g/dl (33.0-37.0); MEAN PLATELET VOLUME 10.2 fl (9.6-12.3); PLATELET COUNT AUTOMATED 264 10*3/uL (130-400); RED BLOOD COUNT 2.41 10*6/uL (4.50-5.90); RED CELL DISTRI WIDTH 15.2 % (0-14.5); WHITE BLOOD COUNT 13.1 10*3/uL (4.8-10.8)
[2020-03-14 14:42] LABS: ALBUMIN 3.2 gm/dl (3.1-4.5); ALKALINE PHOSPHATASE 116 U/L (45-117); BUN 27 mg/dl (7-24); CHLORIDE 103 mmol/L (98-107); CREATININE 2.23 mg/dL (0.70-1.30); POTASSIUM 4.3 mmol/L (3.5-5.1); SGOT/AST 12 IU/L (3-35); SGPT/ALT 16 U/L (12-78); SODIUM 138 mmol/L (136-145); TOTAL PROTEIN 6.8 gm/dL (6.4-8.2)
[2020-03-14 14:47] LABS: TROPONIN I < 0.015 ng/ml (<0.045)
[2020-03-14 14:53] LABS: RETICULOCYTE % 4.26 % (0.50-2.50)
[2020-03-14 14:53] LABS: BILIRUBIN Negative (Negative); BLOOD Negative (Negative); CLARITY Clear (Clear); COLOR Yellow (Yellow); GLUCOSE Negative (Negative); KETONE Negative (Negative); LEUKO ESTERASE 2+ (Negative); NITRITE Negative (Negative); UROBILINOGEN 0.2 E.U./dl (0.0-1.0)
[2020-03-14 14:56] LABS: PLATELET SUFFICIENCY NORMAL (NORMAL); TOTAL CELLS COUNTED 100 #CELLS
[2020-03-14 14:57] LABS: OVALOCYTES FEW
[2020-03-14 15:01] LABS: ACT PARTIAL THROMBO TIME 25.6 SECONDS (20.0-32.1)
[2020-03-14 15:02] LABS: EPITHELIAL CELLS 0-2
[2020-03-14 15:04] LABS: IRON 208 ug/dL (65-175); TOTAL IRON BINDING CAPACITY 280 ug/dl (250-450)
--- NOTE | 2020-03-14 16:30 | NUR ---
A 79, admitted to 5E, under the services of DIPIKA Reddy MD with a diagnosis of ANEMIA, COPD EXACERBATION, CHRONIC KIDNEY DISEASE. Chief complaint is SHORTNESS OF BREATH THAT STARTED YESTERDAY. Patient arrived via stretcher from ER. Monitor applied. Initial assessment completed. Vital signs taken and recorded. DIPIKA REDDY MD notified of admission to the unit. Orders received. See assessment for past medical history, medications and allergies. Patient and/or family oriented to unit. [address] visitation policy reviewed. Clothing/patient valuable form completed. ISMAEL TRAMMELL
--- NOTE | 2020-03-14 18:59 | NUR ---
WANTS A BREAK FROM IV START ATTEMPTS AT PRESENT.
--- NOTE | 2020-03-14 19:33 | NUR ---
ALERT ORIENTED X3. O2 3LNC IN USE. PURSE LIP BREATHING, EXP WHEEZING NOTED DIMINISHED BREATH SOUNDS. ABD DISTENDED FIRM WITH NORMOACTIVE BOWEL SOUNDS X4.
--- NOTE | 2020-03-14 23:53 | NUR ---
24 HR chart check completed.
[2020-03-15] VITALS (10 sets, daily range): BP systolic 115–158; BP diastolic 43–92
--- NOTE | 2020-03-15 08:00 | NUR ---
Patient resting quietly with no c/o discomfort. Respirations easy and regular. Vital signs stable. No overt distress. BREATHING IS IMPROVED FROM YESTERDAY. ISMAEL TRAMMELL
--- NOTE | 2020-03-15 09:00 | NUR ---
Cub Reporter in to talk to patient. Patient states lives at home with his niece. There are 2 steps in the home. Physician: Dr. Foreign Nowak Pharmacy: [facility] Home health services: none Patient's level of ADLs: MINIMAL ASSIST Patient has working utilities: yes DME: cane, O2 @ 3L nc, portable O2 tanks, c-pap, O2 supplier unknown Follow-up physician's appointment after d/c: he prefers to make his own follow up appt after discharge Does patient want to access PORTAL?: no Discharge plan discussed with patient. He lives at home with his niece. He is independent in his ADLs and ambulates with a cane. Discussed shory term rehab and home health care services and he declines. CM will continue to follow for any discharge planning needs. When medically stable he will be discharged to home. He states "someone" will provide transportation on discharge. TERESITA MCMAHAN
--- NOTE | 2020-03-15 09:11 | NUR ---
Medicated with prn po lasix for 2+ bble.
--- NOTE | 2020-03-15 12:00 | NUR ---
Patient resting quietly with no c/o discomfort. Respirations easy and regular. Vital signs stable. No overt distress. ISMAEL TRAMMELL
[2020-03-15 13:59] LABS: HEMATOCRIT 23.5 % (42.0-52.0); MEAN CELL VOLUME 92.9 fl (80.0-94.0); MEAN CORPUSCULAR HGB 28.9 pg (27.0-31.0); MEAN CORPUSCULAR HGB CONC 31.1 g/dl (33.0-37.0); MEAN PLATELET VOLUME 10.1 fl (9.6-12.3); PLATELET COUNT AUTOMATED 254 10*3/uL (130-400); RED BLOOD COUNT 2.53 10*6/uL (4.50-5.90); RED CELL DISTRI WIDTH 15.3 % (0-14.5); WHITE BLOOD COUNT 9.8 10*3/uL (4.8-10.8)
[2020-03-15 14:18] LABS: ALBUMIN 2.9 gm/dl (3.1-4.5); CREATININE 2.17 mg/dL (0.70-1.30); POTASSIUM 4.3 mmol/L (3.5-5.1); TOTAL PROTEIN 6.6 gm/dL (6.4-8.2)
[2020-03-15 14:22] LABS: TOTAL CELLS COUNTED 100 #CELLS
[2020-03-15 14:23] LABS: PLATELET SUFFICIENCY NORMAL (NORMAL)
--- NOTE | 2020-03-15 16:00 | NUR ---
Patient resting quietly with no c/o discomfort. Respirations easy and regular. Vital signs stable. No overt distress. ISMAEL TRAMMELL
--- NOTE | 2020-03-15 19:06 | NUR ---
MEDICATION EFFECTIVE FOR SWELLING WHICH IS LESS THAN FROM THIS AM.
--- NOTE | 2020-03-15 23:35 | NUR ---
BLOOD TRANSFUSION FINISHED AT THIS TIME. NO SIGNS OR SYMPTOMS OF DISTRESS NOTED. PATIENT TOLERATED WELL.
[2020-03-16] VITALS: BP 149/76
[2020-03-16 00:20] VITALS: BP 149/76
[2020-03-16 06:32] LABS: HEMATOCRIT 24.4 % (42.0-52.0); MEAN CELL VOLUME 93.8 fl (80.0-94.0); MEAN CORPUSCULAR HGB 28.8 pg (27.0-31.0); MEAN CORPUSCULAR HGB CONC 30.7 g/dl (33.0-37.0); MEAN PLATELET VOLUME 10.8 fl (9.6-12.3); PLATELET COUNT AUTOMATED 236 10*3/uL (130-400); RED CELL DISTRI WIDTH 15.2 % (0-14.5); WHITE BLOOD COUNT 12.6 10*3/uL (4.8-10.8)
[2020-03-16 06:40] LABS: ALBUMIN 2.6 gm/dl (3.1-4.5); CREATININE 2.19 mg/dL (0.70-1.30); POTASSIUM 4.4 mmol/L (3.5-5.1); TOTAL PROTEIN 5.9 gm/dL (6.4-8.2)
[2020-03-16 07:37] LABS: TOTAL CELLS COUNTED 100 #CELLS
[2020-03-16 07:39] LABS: PLATELET SUFFICIENCY NORMAL (NORMAL)
[2020-03-16 12:00] VITALS: BP 138/68
--- NOTE | 2020-03-16 15:12 | NUR ---
CALLED DR. VELASCO REGARDING PT REQUESTING SUPPOSITORY FOR CONSTIPATION. ALSO FLU INJECTION. ORDERS TAKEN AND REVIEWED.
[2020-03-16 16:00] VITALS: BP 147/68
--- NOTE | 2020-03-16 16:15 | NUR ---
ADMINISTERED FLU VACCINE IN RIGHT ARM. PT TOLERATED. ALSO GAVE DUCOLAX SUPPOSITORY PER PT REQUEST FOR CONSTIPATION. WILL MONITOR. CALL LIGHT IN REACH.
--- NOTE | 2020-03-16 17:30 | NUR ---
PT INCONTINENT OF STOOL. PT STATES HAD A LARGE BM. AIDE CLEANED PT UP. MEDICATION EFFECTIVE.
[2020-03-16 20:00] VITALS: BP 154/68
[2020-03-17] VITALS: BP 155/76
[2020-03-17 08:00] VITALS: BP 163/77
[2020-03-17 12:00] VITALS: BP 152/77
[2020-03-17] MEDS ORDERED: PREDNISONE10 MG PO (12:49)
[2020-03-17] MEDS ORDERED: DOXYCYCLINE100 MG PO (12:49)
[2020-03-17 16:00] VITALS: BP 121/68
--- NOTE | 2020-03-17 16:45 | NUR ---
Discharge instructions reviewed with patient/family. Patient receptive and verbalizes understanding. Follow-up care arranged. Written instructions given to patient/family. CATALINO NUNEZ
== END 2020-03-17 17:58 | disposition home or self-care (01) | DRG 871 ==
LOC: ED 13:35 → EDHOLD 16:03 → 5E 16:03
PROVIDERS: Emergency Medicine; Internal Medicine Nephrology; ADMIT Internal Medicine; ATTEND Internal Medicine
PROC: 30233N1 Transfusion of Nonautologous Red Blood Cells into Peripheral Vein, Percutaneous Approach (ICD-10-PCS; principal; 2020-03-14)
DX: A41.9 Sepsis, unspecified organism (principal); J96.20 Acute and chronic respiratory failure, unspecified whether with hypoxia or hypercapnia; J44.1 Chronic obstructive pulmonary disease with (acute) exacerbation; N17.9 Acute kidney failure, unspecified; I50.30 Unspecified diastolic (congestive) heart failure; E44.0 Moderate protein-calorie malnutrition; N39.0 Urinary tract infection, site not specified; I13.0 Hypertensive heart and chronic kidney disease with heart failure and stage 1 through stage 4 chronic kidney disease, or unspecified chronic kidney disease; D64.9 Anemia, unspecified; K31.84 Gastroparesis; I73.9 Peripheral vascular disease, unspecified; F41.9 Anxiety disorder, unspecified; N40.0 Benign prostatic hyperplasia without lower urinary tract symptoms; N18.30 Chronic kidney disease, stage 3 unspecified; K59.00 Constipation, unspecified; G47.00 Insomnia, unspecified; R16.0 Hepatomegaly, not elsewhere classified; E83.41 Hypermagnesemia; Z88.8 Allergy status to other drugs, medicaments and biological substances; Z98.42 Cataract extraction status, left eye; Z98.41 Cataract extraction status, right eye; Z93.2 Ileostomy status; Z90.49 Acquired absence of other specified parts of digestive tract; Z84.1 Family history of disorders of kidney and ureter; Z98.890 Other specified postprocedural states; Z68.29 Body mass index [BMI] 29.0-29.9, adult; Z79.899 Other long term (current) drug therapy

== ENCOUNTER 2020-04-16 18:26 | Inpatient (IN) | payer MEDICARE, MEDICAID ==
[~2020-04-16] VITALS: Ht 185.4 cm; Wt 101.3 kg
[2020-04-16 18:28] VITALS: BP 122/80
[2020-04-16 19:07] LABS: BASO # 0.1 10*3/uL (0.0-0.1); BASO % 0.8 % (0.0-1.0); EOS # 0.2 10*3/uL (0.0-0.4); EOS % 4.1 % (1.0-4.0); HEMATOCRIT 27.3 % (42.0-52.0); LYMPH # 0.9 10*3/uL (1.3-4.4); LYMPH % 14.9 % (27.0-41.0); MEAN CELL VOLUME 93.8 fl (80.0-94.0); MEAN CORPUSCULAR HGB 27.8 pg (27.0-31.0); MEAN CORPUSCULAR HGB CONC 29.7 g/dl (33.0-37.0); MONO # 0.5 10*3/uL (0.1-1.0); MONO % 8.6 % (3.0-9.0); NEUT # 4.2 10*3/uL (2.3-7.9); NEUT % 71.3 % (47.0-73.0); PLATELET COUNT AUTOMATED 301 10*3/uL (130-400); RED BLOOD COUNT 2.91 10*6/uL (4.50-5.90); RED CELL DISTRI WIDTH 13.3 % (0-14.5); WHITE BLOOD COUNT 5.9 10*3/uL (4.8-10.8)
[2020-04-16 19:18] LABS: ACT PARTIAL THROMBO TIME 23.9 SECONDS (20.0-32.1); INTERNATIONAL NORM RATIO 0.9 (2.0-3.5)
[2020-04-16 19:23] LABS: ALBUMIN 2.9 gm/dl (3.1-4.5); ALKALINE PHOSPHATASE 108 U/L (45-117); BUN 15 mg/dl (7-24); CHLORIDE 106 mmol/L (98-107); CREATININE 1.81 mg/dL (0.70-1.30); LIPASE 93 U/L (73-393); POTASSIUM 4.2 mmol/L (3.5-5.1); SGOT/AST 15 IU/L (3-35); SGPT/ALT 16 U/L (12-78); SODIUM 138 mmol/L (136-145); TOTAL PROTEIN 6.9 gm/dL (6.4-8.2)
--- NOTE | 2020-04-16 19:24 | NUR ---
PT UNABLE TO VOID AT THIS TIME. PT AWARE THAT A SAMPLE IS NEEDED. PT RESTING IN BED WITH CALL LIGHT IN REACH.
[2020-04-16 19:29] LABS: TROPONIN I < 0.015 ng/ml (<0.045)
--- NOTE | 2020-04-16 20:17 | NUR ---
PT DENIES WOUNDS AT THIS TIME. PT UNABLE TO PROVIDE URINE SAMPLE AT THIS TIME. WILL CONTINUE TO MONITOR.
--- NOTE | 2020-04-16 20:28 | NUR ---
PT O2 SAT 100% AT THIS TIME. THIS RN WENT TO TURN O2 DOWN FROM 3 LITERS TO 2 LITERS. PT STATES THAT HE IS ON HOME O2 OF 3 LITERS AND DOES NOT WANT TURNED DOWN AT THIS TIME. WILL CONTINUE TO MONITOR.
[2020-04-16 21:29] LABS: BILIRUBIN Negative (Negative); BLOOD Negative (Negative); CLARITY Clear (Clear); COLOR Yellow (Yellow); GLUCOSE Negative (Negative); KETONE Negative (Negative); LEUKO ESTERASE Trace (Negative); NITRITE Negative (Negative); PH 5.5 (4.5-8.0); SPECIFIC GRAVITY 1.015 (1.001-1.030); UROBILINOGEN 0.2 E.U./dl (0.0-1.0)
[2020-04-16 21:38] LABS: BACTERIA TRACE
[2020-04-16 21:48] VITALS: BP 177/81
--- NOTE | 2020-04-16 21:52 | NUR ---
ATTEMPT TO CONTACT FLOOR NURSE UNSUCCESSFUL AT THIS TIME. WILL TRY AGAIN.
[2020-04-16 22:25] VITALS: BP 210/92
--- NOTE | 2020-04-16 22:25 | NUR ---
A 79, admitted to 5E, under the services of DIPIKA Reddy MD with a diagnosis of COPD EXCERBATION. Chief complaint is SOB. Patient arrived via bed from ER. Monitor applied. Initial assessment completed. Vital signs taken and recorded. DIPIKA REDDY MD notified of admission to the unit. Orders received. See assessment for past medical history, medications and allergies. Patient oriented to unit. Clothing/patient valuable form completed. LUCÍA FELIX
--- NOTE | 2020-04-16 22:47 | NUR ---
CALLED FOR ADMISSION, ORDERS PLACED PER WISHES.
--- NOTE | 2020-04-16 23:04 | NUR ---
IV HYDRALAZINE GIVEN FOR BP OF 210/92. WILL MONITOR
[2020-04-17] VITALS (18 sets, daily range): BP systolic 140–173; BP diastolic 67–92
--- NOTE | 2020-04-17 00:04 | NUR ---
BP IS NOW 140/76
--- NOTE | 2020-04-17 06:27 | NUR ---
MADE AWARE OF NEW CONSULT. NO NEW ORDERS AT THIS TIME.
[2020-04-17 06:31] LABS: MEAN CELL VOLUME 93.6 fl (80.0-94.0); MEAN CORPUSCULAR HGB 28.1 pg (27.0-31.0); MEAN PLATELET VOLUME 10.3 fl (9.6-12.3); PLATELET COUNT AUTOMATED 304 10*3/uL (130-400); RED BLOOD COUNT 2.67 10*6/uL (4.50-5.90); RED CELL DISTRI WIDTH 13.3 % (0-14.5); WHITE BLOOD COUNT 5.2 10*3/uL (4.8-10.8)
[2020-04-17 06:46] LABS: POTASSIUM 4.5 mmol/L (3.5-5.1)
[2020-04-17 06:51] LABS: CREATININE 1.7 mg/dL (0.70-1.30)
[2020-04-17 07:23] LABS: TOTAL CELLS COUNTED 100 #CELLS
[2020-04-17 07:24] LABS: PLATELET SUFFICIENCY NORMAL (NORMAL); ROULEAUX SLIGHT
[2020-04-17 07:25] LABS: OVALOCYTES FEW
--- NOTE | 2020-04-17 09:00 | NUR ---
Sandwich Hand in to talk to patient. Patient states lives at home with his niece and niece's boyfriend. There are 2 steps in the home. Physician: Dr. Foreign Nowak Pharmacy: [facility] Home health services: none Patient's level of ADLs: MINIMAL ASSIST Patient has working utilities: yes DME: cane, O2 @ 3L nc, portable O2 tanks, c-pap, O2 supplier unknown Follow-up physician's appointment after d/c: he prefers to make his own follow up appt after discharge Does patient want to access PORTAL?: no Discharge plan discussed with patient. He lives at home with his family. He is independent in his ADLs and ambulates with a cane. Discussed short term rehab and home health care services and he declines. CM will continue to follow for any discharge planning needs. When medically stable he will be discharged to home. He states either his niece or niece's boyfriend will provide transportation on discharge. TERESITA MCMAHAN
--- NOTE | 2020-04-17 22:00 | NUR ---
ATTEMPTED TO INCREASE RATE OF INFUSION MULTIPLE TIMES. UNABLE TO DO SO IV PUMP CONTINUES TO STOP INFUSION AND ALARM DOWNSTREAM OCCLUSION. RN TRIED TO TROUBLESHOOT ISSUE MANY TIMES. ALSO INITIATED A NEW 22G IV SITE IN STRAIGHT AREA OF R FOREARM TO REDUCE BENDING/DOWNSTREAM OCCLUSION ALARM. BLOOD WILL INFUSE, BUT PUMP WILL NOT ALLOW FOR RATE ABOVE 100 CC/HR. ABOUT 130 CCs OF PRBCs REMAINS IN BAG AND LESS THAN 1 HR REMAINS FOR TRANSFUSION. WILL ATTEMPT TO COMPLETE TRANSFUSION IN ALOTTED TIME. VITALS REMAIN STABLE. PT DENIES ANY NEEDS. WILL MONITOR. CALL LIGHT IN REACH.
--- NOTE | 2020-04-17 22:30 | NUR ---
BLOOD TRANSFUSION COMPLETE AT THIS TIME. BAG RAN EMPTY. IV SITE FLUSHED/NS LOCKED. VITAL SIGNS TAKEN & STABLE. WILL MONITOR.
--- NOTE | 2020-04-17 23:00 | NUR ---
POST TRANSFUSION VITALS TAKEN 30 MINUTES FOLLOWING COMPLETION OF TRANSFUSION.
[2020-04-18 12:00] VITALS: BP 154/68
--- NOTE | 2020-04-18 15:10 | NUR ---
PRN NORCO AND ZOFRAN WERE GIVEN FOR PAIN AND NAUSEA. WILL REASSESS EFFECTIVENESS.
[2020-04-18 16:00] VITALS: BP 151/67
--- NOTE | 2020-04-18 16:10 | NUR ---
PRN NORCO AND ZOFRAN WERE EFFECTIVE. PT IS RESTING COMFORTABLY
[2020-04-18 20:00] VITALS: BP 173/87
[2020-04-18 21:05] VITALS: BP 172/88
[2020-04-18 23:30] VITALS: BP 176/84
--- NOTE | 2020-04-18 23:35 | NUR ---
NOTIFIED OF BP 176/84 MANUALLY. NEW ORDER RECEIVED FOR IV HYDRALAZINE 10 MG X1 DOSE NOW.
--- NOTE | 2020-04-19 00:01 | NUR ---
IV HYDRALAZINE ADMINISTERED PER ONE TIME ORDER FOR ELEVATED BP 176/84. WILL MONITOR EFFECTIVENESS. CALL LIGHT IN REACH.
[2020-04-19 01:00] VITALS: BP 130/68
--- NOTE | 2020-04-19 01:00 | NUR ---
EARLIER IV HYDRALAZINE EFFECTIVE. PT'S BP NOW 130/68 MANUALLY. PT DENIES ANY NEW/WORSENING SYMPTOMS. WILL MONITOR. CALL LIGHT IN REACH.
[2020-04-19 04:00] VITALS: BP 146/78
[2020-04-19 08:00] VITALS: BP 130/73
--- NOTE | 2020-04-19 09:00 | NUR ---
CM in to see patient. No new needs or request at this time. Discussed home health care services and he declines. CM will continue to follow with any discharge planning needs. When medically stable he will be discharged to home.
[2020-04-19 12:00] VITALS: BP 152/67
--- NOTE | 2020-04-19 15:40 | NUR ---
PT MEDICATED WITH DULCOLAX SUPP PER ORDERS. ALSO MIRALAX PER REQUEST FOR C/O CONSTIPATION.
[2020-04-19 16:03] VITALS: BP 154/70
--- NOTE | 2020-04-19 16:30 | NUR ---
MEDICATION EFFECTIVE, PT MOVED BOWELS.
--- NOTE | 2020-04-19 18:46 | NUR ---
DR LOPEZ NOTIFIED OF CONSULT, NEW ORDER RECEIVED.
[2020-04-19 20:01] VITALS: BP 154/80
[2020-04-20] VITALS: BP 151/94
--- NOTE | 2020-04-20 04:30 | NUR ---
PT ASLEEP IN BED. RESPIRATIONS EASY. NO S/S OF DISTRESS NOTED. WILL MONITOR. CALL LIGHT IN REACH.
[2020-04-20 06:20] LABS: HEMATOCRIT 26.3 % (42.0-52.0); MEAN CELL VOLUME 92.6 fl (80.0-94.0); MEAN CORPUSCULAR HGB 28.2 pg (27.0-31.0); MEAN CORPUSCULAR HGB CONC 30.4 g/dl (33.0-37.0); MEAN PLATELET VOLUME 10.1 fl (9.6-12.3); NUCLEATED RED BLOOD CELL 0.2 % (0.0-0.0); PLATELET COUNT AUTOMATED 311 10*3/uL (130-400); RED BLOOD COUNT 2.84 10*6/uL (4.50-5.90); RED CELL DISTRI WIDTH 14.2 % (0-14.5); WHITE BLOOD COUNT 10.2 10*3/uL (4.8-10.8)
[2020-04-20 06:30] LABS: CREATININE 1.78 mg/dL (0.70-1.30); POTASSIUM 4.6 mmol/L (3.5-5.1)
[2020-04-20 07:30] LABS: OVALOCYTES FEW; PLATELET SUFFICIENCY NORMAL (NORMAL); TOTAL CELLS COUNTED 100 #CELLS
[2020-04-20 08:00] VITALS: BP 146/80
[2020-04-20 12:00] VITALS: BP 150/79
[2020-04-20 16:00] VITALS: BP 142/68
[2020-04-20 20:00] VITALS: BP 163/76
--- NOTE | 2020-04-20 20:30 | NUR ---
PT IN BED WITH C/O INCREASED SOB. PT STATES "HE DOESNT UNDERSTAND WHY HE IS NOT RECOVERING QUICK THIS TIME" RN DISCUSSED DISEASE PROCESS WITH PT AND REVIEWED RESCUE BREATHING TECHNIQUES AFTER EXACERBATIONS FROM TAXING TASK. PT INSTRUCTED ALSO ON DEEP BREATHING AND COUGHING TECHNIQUES TO PERFORM WHILE AT REST. PT DEMOSTRATED HIS ABILITY TO PERFORM THESE TECHNIQUES. WILL REASSESS.
--- NOTE | 2020-04-20 22:00 | NUR ---
PLACED NEW IV, LEFT IV SITE INFILTRATED. NEW SITE PLACED TO RIGHT HAND.
[2020-04-20 23:25] LABS: ABG BASE EXCESS -0.2 mmol/L (-2.0-2.0); ARTERIAL BLOOD GAS PH 7.351 (7.35-7.45)
[2020-04-21] VITALS: BP 176/84
--- NOTE | 2020-04-21 01:00 | NUR ---
PT RESTING IN BED. PT W/O COMPLAINTS AT THIS TIME.
--- NOTE | 2020-04-21 07:30 | NUR ---
PT SITTING UP IN BED. ALERT/ORIENTED AND PLEASANT WITH STAFF. OXYGEN VIA NC IN PLACE. RESPIRATIONS EASY AND UNLABORED. WILL CONTINUE TO MONITOR. CALL LIGHT IN REACH.
[2020-04-21 08:00] VITALS: BP 140/91
[2020-04-21 10:19] VITALS: BP 132/62
[2020-04-21 12:00] VITALS: BP 132/62
[2020-04-21 16:00] VITALS: BP 131/60
--- NOTE | 2020-04-21 18:32 | NUR ---
PT RESTING IN BED. EVENING MEDS TAKEN WITH EASE. SUPPLEMENTAL OXYGEN IN PLACE VIA NC. RESPIRATIONS EASY AND UNLABORED ON 2L. WILL CONTINUE TO MONITOR. CALL LIGHT IN REACH.
[2020-04-21 20:00] VITALS: BP 156/80
[2020-04-22] VITALS: BP 155/74
[2020-04-22 06:37] LABS: HEMATOCRIT 26.6 % (42.0-52.0); MEAN CORPUSCULAR HGB 28.3 pg (27.0-31.0); MEAN CORPUSCULAR HGB CONC 30.1 g/dl (33.0-37.0); MEAN PLATELET VOLUME 10.3 fl (9.6-12.3); PLATELET COUNT AUTOMATED 333 10*3/uL (130-400); RED BLOOD COUNT 2.83 10*6/uL (4.50-5.90); RED CELL DISTRI WIDTH 13.7 % (0-14.5); WHITE BLOOD COUNT 11.6 10*3/uL (4.8-10.8)
[2020-04-22 06:44] LABS: CREATININE 1.95 mg/dL (0.70-1.30); POTASSIUM 4.7 mmol/L (3.5-5.1)
[2020-04-22 07:16] LABS: PLATELET SUFFICIENCY NORMAL (NORMAL); TOTAL CELLS COUNTED 100 #CELLS
[2020-04-22 08:00] VITALS: BP 148/80
--- NOTE | 2020-04-22 08:23 | NUR ---
Report received by day nurse. Patient up to the bathroom. o2 presently on. No complaints of pain. Safety maintained.
[2020-04-22 11:50] VITALS: BP 155/58
--- NOTE | 2020-04-22 11:58 | NUR ---
SPOKE WITH DR. Harini VELASCO, ORDER RECEIVED TO CANCEL TRANSFUSION.
[2020-04-22 13:00] VITALS: BP 136/70
[2020-04-22 16:00] VITALS: BP 144/67
--- NOTE | 2020-04-22 18:04 | NUR ---
Patient received his discharged paperwork. will come to pick him up. iv removed. No pain reported. Safety maintained.
[2020-04-22 20:00] VITALS: BP 147/64
[2020-04-23] VITALS: BP 154/67
--- NOTE | 2020-04-23 07:30 | NUR ---
Patient resting in bed. o2 on. No pain reported. safety maintained.
[2020-04-23 08:00] VITALS: BP 179/70
[2020-04-23 12:00] VITALS: BP 160/76
[2020-04-23 16:00] VITALS: BP 145/57
[2020-04-23 20:00] VITALS: BP 165/75
[2020-04-24] VITALS (8 sets, daily range): BP systolic 136–157; BP diastolic 63–86
[2020-04-24 06:52] LABS: HEMATOCRIT 26.7 % (42.0-52.0); MEAN CORPUSCULAR HGB 28.2 pg (27.0-31.0); MEAN PLATELET VOLUME 10.5 fl (9.6-12.3); PLATELET COUNT AUTOMATED 310 10*3/uL (130-400); RED BLOOD COUNT 2.84 10*6/uL (4.50-5.90); RED CELL DISTRI WIDTH 13.6 % (0-14.5); WHITE BLOOD COUNT 12.6 10*3/uL (4.8-10.8)
[2020-04-24 07:11] LABS: PLATELET SUFFICIENCY NORMAL (NORMAL); TOTAL CELLS COUNTED 100 #CELLS
[2020-04-24 07:28] LABS: CREATININE 1.91 mg/dL (0.70-1.30); POTASSIUM 5.3 mmol/L (3.5-5.1)
--- NOTE | 2020-04-24 07:44 | NUR ---
Report received. Patient resting in bed. O2 on. Pain shows and reported no distress. Safety maintained.
[2020-04-24 09:37] LABS: ACT PARTIAL THROMBO TIME 22.8 SECONDS (20.0-32.1); INTERNATIONAL NORM RATIO 0.9 (2.0-3.5)
--- NOTE | 2020-04-24 10:27 | NUR ---
PATIENT RETURNED TO THE FLOOR. SAFETY MAINTAINED. NO DISTRESS NOTED.
[2020-04-24 14:49] LABS: BILIRUBIN Negative (Negative); BLOOD Negative (Negative); CLARITY Clear (Clear); COLOR Yellow (Yellow); GLUCOSE Negative (Negative); KETONE Negative (Negative); LEUKO ESTERASE Negative (Negative); NITRITE Negative (Negative); UROBILINOGEN 0.2 E.U./dl (0.0-1.0)
[2020-04-24 15:00] LABS: WBC 0-2 wbc/hpf (0-5)
--- NOTE | 2020-04-24 15:48 | NUR ---
DR. CHURCH CONSULTED TO R/O CORONARY ARTERY CALCIFICATION.
[2020-04-25] VITALS (7 sets, daily range): BP systolic 124–173; BP diastolic 61–83
[2020-04-25 10:09] LABS: ACID FAST SPEC PROCESSING Concentration (.)
--- NOTE | 2020-04-25 20:10 | NUR ---
24 HR chart check completed.
--- NOTE | 2020-04-25 21:00 | NUR ---
RESTING WITH HOB ELEVATED. RESPIRATIONS EASY. LUNGS DIMINISHED WITH FAINT EXP WHEEZES. PULSE OX 100% 3L. NON-PROD COUGH. +2 PITTING RLE EDEMA. +1 PITTING LLE EDEMA. CALL LIGHT WITHIN REACH. NO VOICED COMPLAINTS
--- NOTE | 2020-04-25 21:49 | NUR ---
JOSE M PROVIDED TO ASSIST WITH SLEEP. WILL MONITOR
--- NOTE | 2020-04-25 22:30 | NUR ---
AMBIEN APPEARS EFFECTIVE, SLEEPING. NO DISTRESS NOTED. CALL LIGHT WITHIN REACH
[2020-04-26] VITALS: BP 151/77
--- NOTE | 2020-04-26 | NUR ---
SLEEPING. NO DISTRESS NOTED. RESPIRATIONS EASY. VSS. CALL LIGHT WITHIN REACH.
--- NOTE | 2020-04-26 06:00 | NUR ---
SLEPT THROUGHOUT NIGHT WITH NO DISTRESS NOTED. RESPIRATIONS EASY. O2 IN USE. REMAINS NPO FOR TESTING THIS AM. CALL LIGHT WITHIN REACH. NO VOICED COMPLAINTS
[2020-04-26 07:18] LABS: CREATININE 1.69 mg/dL (0.70-1.30); POTASSIUM 4.9 mmol/L (3.5-5.1)
[2020-04-26 08:00] VITALS: BP 167/72
[2020-04-26 12:00] VITALS: BP 154/70
--- NOTE | 2020-04-26 12:43 | NUR ---
INFORMED SIGNED CONSENT OBTAINED FOR LEXISCAN STRESS TEST WITH DR VELASCO. RESTING EKG NSR HR 79 BP 148/70. PULSE OX 100% ON 3L. LUNGS CLEARLY DIMINISHED. PT COMPLETED ONE MINUTE OF A LEXISCAN PROTOCOL WIHT PT RECEIVING LEXISCAN 0.4MG IV OVER 10 SECONDS. NO ARRHYTHMI[address] OR ST CHANGES NOTED. PT C/O NAUSEA, SOB AND A HOT FEELING WITH INJECTION, THAT SUBSIDED. LAST RECOVERY HR OF 91 BP 128/66. PT IN STABLE CONDITION, AWAITING NUCLEAR IMAGES.
[2020-04-26 16:00] VITALS: BP 167/68
[2020-04-26 18:09] LABS: ABG BASE EXCESS 2.3 mmol/L (-2.0-2.0); ARTERIAL BLOOD GAS PH 7.384 (7.35-7.45)
--- NOTE | 2020-04-26 18:21 | NUR ---
DR. LOPEZ NOTIFIED OF ABG RESULT.
[2020-04-26 20:00] VITALS: BP 155/58
--- NOTE | 2020-04-26 20:03 | NUR ---
pt resting in bed. no distress noted. will monitor
[2020-04-26 23:36] VITALS: BP 154/70
[2020-04-27 07:14] LABS: HEMATOCRIT 25.4 % (42.0-52.0); MEAN CELL VOLUME 93.7 fl (80.0-94.0); MEAN CORPUSCULAR HGB 28.8 pg (27.0-31.0); MEAN CORPUSCULAR HGB CONC 30.7 g/dl (33.0-37.0); MEAN PLATELET VOLUME 10.3 fl (9.6-12.3); PLATELET COUNT AUTOMATED 254 10*3/uL (130-400); RED BLOOD COUNT 2.71 10*6/uL (4.50-5.90); RED CELL DISTRI WIDTH 13.6 % (0-14.5); WHITE BLOOD COUNT 10.2 10*3/uL (4.8-10.8)
[2020-04-27 07:36] LABS: CREATININE 1.68 mg/dL (0.70-1.30); POTASSIUM 4.6 mmol/L (3.5-5.1); TOTAL CELLS COUNTED 100 #CELLS
[2020-04-27 07:37] LABS: OVALOCYTES FEW; PLATELET SUFFICIENCY NORMAL (NORMAL)
[2020-04-27 08:00] VITALS: BP 164/70
[2020-04-27 12:00] VITALS: BP 149/61
[2020-04-27 16:00] VITALS: BP 142/62
[2020-04-27 20:00] VITALS: BP 137/59
--- NOTE | 2020-04-27 21:06 | NUR ---
PT MEDICATED WITH FLORIDALMAN AMBIEN PER HIS REQUEST FOR AID IN SLEEPING.
[2020-04-28] VITALS: BP 142/88
[2020-04-28 06:34] LABS: HEMATOCRIT 25.7 % (42.0-52.0); MEAN CELL VOLUME 93.8 fl (80.0-94.0); MEAN CORPUSCULAR HGB 27.7 pg (27.0-31.0); MEAN CORPUSCULAR HGB CONC 29.6 g/dl (33.0-37.0); MEAN PLATELET VOLUME 10.6 fl (9.6-12.3); PLATELET COUNT AUTOMATED 263 10*3/uL (130-400); RED BLOOD COUNT 2.74 10*6/uL (4.50-5.90); WHITE BLOOD COUNT 11.2 10*3/uL (4.8-10.8)
[2020-04-28 06:42] LABS: CREATININE 2.04 mg/dL (0.70-1.30); POTASSIUM 3.7 mmol/L (3.5-5.1)
[2020-04-28 07:26] LABS: TOTAL CELLS COUNTED 100 #CELLS
[2020-04-28 07:27] LABS: OVALOCYTES FEW; PLATELET SUFFICIENCY NORMAL (NORMAL)
[2020-04-28 08:00] VITALS: BP 129/55
[2020-04-28 12:00] VITALS: BP 130/71
[2020-04-28 16:00] VITALS: BP 128/63
[2020-04-28 20:00] VITALS: BP 144/62
--- NOTE | 2020-04-28 21:29 | NUR ---
JOSE M GIVEN PER PT REQUEST FOR INSOMNIA. WILL MONITOR.
[2020-04-29] VITALS: BP 135/64
--- NOTE | 2020-04-29 00:01 | NUR ---
Patient resting quietly with no c/o discomfort. Respirations easy and regular. Vital signs stable. No overt distress. TREASURE GARCIA
[2020-04-29 06:17] LABS: HEMATOCRIT 26.8 % (42.0-52.0); MEAN CELL VOLUME 94.4 fl (80.0-94.0); MEAN CORPUSCULAR HGB 27.8 pg (27.0-31.0); MEAN CORPUSCULAR HGB CONC 29.5 g/dl (33.0-37.0); MEAN PLATELET VOLUME 10.4 fl (9.6-12.3); PLATELET COUNT AUTOMATED 238 10*3/uL (130-400); RED BLOOD COUNT 2.84 10*6/uL (4.50-5.90); WHITE BLOOD COUNT 15.6 10*3/uL (4.8-10.8)
[2020-04-29 06:33] LABS: CREATININE 2.37 mg/dL (0.70-1.30); POTASSIUM 4.1 mmol/L (3.5-5.1)
[2020-04-29 06:34] LABS: TOTAL CELLS COUNTED 100 #CELLS
[2020-04-29 06:35] LABS: OVALOCYTES FEW; PLATELET SUFFICIENCY NORMAL (NORMAL)
[2020-04-29 08:00] VITALS: BP 110/61
--- NOTE | 2020-04-29 08:00 | NUR ---
LYING IN BED WITH EYES OPEN. ASSESSMENT COMPLETE SEE FLOWSHEET. PLEASANT AND COOPERATIVE. TOOK PO MEDS WITHOUT DIFFICULTY. CALL LIGHT IN REACH.
--- NOTE | 2020-04-29 09:53 | NUR ---
Spoke to patient regarding short term rehab. He would like Cm to reach out to niece, Chante, to see what her thoughts are. Spoke to Chante and she does NOT want him to go to a nursing facility d/t COVID. She is agreeable to home health care services with [facility]. Notified patient and he would like to talk to his niece because he thinks he should go for a short time for therapy. Will reach back out to patient to see what happened after he spoke to his niece. CM will continue to follow for discharge planning needs.
--- NOTE | 2020-04-29 10:16 | NUR ---
Spoke to patient regarding short term rehab. He states he spoke to his niece and she doesn't want him to go. He thinks he needs to go for a few weeks. He is afraid if he goes home he will be right back to the hospital. Discussed short term rehab facilities and he would like to go to [facility] as he has been there in the past. associate financial planner/social services counselor will follow for referral.
--- NOTE | 2020-04-29 11:27 | NUR ---
LEFT FLOOR FOR CXR.
[2020-04-29 12:02] VITALS: BP 121/66
[2020-04-29 16:00] VITALS: BP 130/63
[2020-04-29 20:00] VITALS: BP 153/60
--- NOTE | 2020-04-29 21:04 | NUR ---
ASHWIN SALGUERO GIVEN FOR PT COMPLAINTS OF SLEEPLESSNESS. CALL LIGHT WITHIN REACH, WILL MONITOR
--- NOTE | 2020-04-29 22:00 | NUR ---
PRN JOSE M LARIOS, PT SLEEPING
[2020-04-30] VITALS: BP 129/67
--- NOTE | 2020-04-30 02:48 | NUR ---
24 HR chart check completed.
--- NOTE | 2020-04-30 02:49 | NUR ---
PATIENT REMAINS ASLEEP. NO DISTRESS NOTED. BREATHING IS EASY AND REGULAR ON NC. CALL LIGHT WITHIN REACH
--- NOTE | 2020-04-30 02:59 | NUR ---
NOTIFIED DR. VELASCO OF PATIENTS SHORT BURST OF SVT AT THIS TIME. NOTIFIED HIM PATIENT IS SLEEPING, ASYMPTOMATIC. NO NEW ORDERS RECIEVED
[2020-04-30 06:50] LABS: CREATININE 1.98 mg/dL (0.70-1.30); POTASSIUM 3.9 mmol/L (3.5-5.1)
[2020-04-30 08:00] VITALS: BP 129/54
[2020-04-30 12:00] VITALS: BP 120/59
--- NOTE | 2020-04-30 12:11 | NUR ---
IN TO SEE PATIENT.
--- NOTE | 2020-04-30 13:46 | NUR ---
PATIENT C/O INCREASED SHORTNESS OF BREATH. PULSE OX 98% VIA 3LNC. SINUS TACH PER CM. HR 101. PATIENT ENCOURAGED TO TAKE SLOW DEEP BREATHS. PATIENT STATES HE FEELS A BIT BETTER AND BECAME SHORT OF BREATH WHILE AMBULATING TO THE BR. WILL MONITOR. CALL LIGHT WITHIN REACH.
--- NOTE | 2020-04-30 14:13 | NUR ---
CALLED REGARDING PATIENT C/O INCREASED SHORTNESS OF BREATH. PULSE OX 98% VIA 3LNC. HR 101. NEW ORDERS RECEIVED.
--- NOTE | 2020-04-30 14:24 | NUR ---
XANAX X1 DOSE GIVEN PER ORDER FOR ANXIETY. WILL MONITOR EFFECTIVENESS.
--- NOTE | 2020-04-30 14:45 | NUR ---
PATIENT TAKEN OFF FLOOR FOR SCHEDULED CXR.
--- NOTE | 2020-04-30 15:24 | NUR ---
XANAX RELIEVING SOME ANXIETY PER PT. WILL CONTINUE TO MONITOR. POX 98% VIA 3LNC. CALL LIGHT WITHIN REACH.
[2020-04-30 16:00] VITALS: BP 151/60
[2020-04-30 20:00] VITALS: BP 160/72
[2020-05-01] VITALS: BP 150/69
--- NOTE | 2020-05-01 05:29 | NUR ---
24 HR chart check completed.
[2020-05-01 06:54] LABS: CREATININE 1.75 mg/dL (0.70-1.30)
--- NOTE | 2020-05-01 07:37 | NUR ---
RN EMBEDDED FAXED REFERRAL TO [facility]. WILL NEED PT EVAL.
[2020-05-01 08:00] VITALS: BP 129/57
--- NOTE | 2020-05-01 08:50 | NUR ---
Notified Dr. Nowak patient can be discharged today to [facility] if medically stable.
--- NOTE | 2020-05-01 08:51 | NUR ---
PATIENT HAS BEEN ACCEPTED TO [facility] AND CAN GO WHEN MEDICALLY STABLE.
--- NOTE | 2020-05-01 08:55 | NUR ---
PHYSICAL THERAPY Physical Therapy evaluation completed on 5th floor with full evaluation to follow. Recommend physical therapy per plan of care and upon discharge. Thank you for this referral. Nichol Luciano PT
--- NOTE | 2020-05-01 09:36 | NUR ---
PT SKILLED COMPLETED HENS.
--- NOTE | 2020-05-01 10:22 | NUR ---
Occupational Therapy evaluation completed on 5E with full evaluation to follow. Recommend occupational therapy per plan of care and SNF upon discharge. Thank you for this referral. Rosita Lancaster OTR/L
[2020-05-01 12:00] VITALS: BP 147/69
[2020-05-01] MEDS ORDERED: BACTRIM 400-801 EACH PO ×2 (13:17)
[2020-05-01] MEDS ORDERED: PREDNISONE10 MG PO (13:17)
[2020-05-01] MEDS ORDERED: HYDRALAZINE HYD50 MG PO (13:17)
--- NOTE | 2020-05-01 13:43 | NUR ---
TECHNICAL SUPPORT AGENT SPOKE WITH ANNA KIDD ABOUT DISCHARGE. TECHNICAL SUPPORT AGENT CONTACTED [facility] AND ARRANGED FOR A 2:30PM TRANSPORT. TECHNICAL SUPPORT AGENT NOTIFIED ANNA KIDD OF CONFIRMED TIME. TECHNICAL SUPPORT AGENT SPOKE WITH PATIENTS RADHA FORRESTER ABOUT DISCHARGE AND ANSWERED HER QUESTIONS. TECHNICAL SUPPORT AGENT FAXED DISCHARGE ORDERS TO [facility] AND INFORMED HER OF TRANSPORT TIME.
--- NOTE | 2020-05-01 14:45 | NUR ---
PT DISCHARGED TO [facility] AT THIS TIME VIA [facility]. REPORT GIVEN TO RECEIVING NURSE. NICK REMOVED.
[2020-05-09] MEDS ORDERED: ACETAMINOPHEN325 M2 PO (13:56)
[2020-05-09] MEDS ORDERED: BACTRIM 400-801 EACH PO (13:57)
[2020-05-09] MEDS ORDERED: BISACODYL10 MG R (13:58)
[2020-05-09] MEDS ORDERED: FLEET ENEMA EX230 M1 R (14:00)
[2020-05-09] MEDS ORDERED: AIRDUO DIGIHAL1 EAC1 INH (14:02)
[2020-05-09] MEDS ORDERED: MILK OF MA400 MG/51 PO (14:07)
[2020-05-09] MEDS ORDERED: XARELTO2.5 MG PO (14:09)
[2020-06-07 08:07] LABS: ORGANISM ID, MOLD Final report (.); RESULT 1 Phoma species (.)
[2020-06-09 15:07] LABS: ACID FAST CULTURE Negative (.)
== END 2020-05-01 14:45 | disposition other institution (70) | DRG 871 ==
LOC: ED 18:26 → EDHOLD 20:46 → 5E 20:46
PROVIDERS: Internal Medicine Critical Care Medicine; Internal Medicine Nephrology; Nurse Anesthetist, Certified Registered; Physician Assistant; ADMIT Internal Medicine; ATTEND Internal Medicine
PROC: 30233N1 Transfusion of Nonautologous Red Blood Cells into Peripheral Vein, Percutaneous Approach (ICD-10-PCS; principal; 2020-04-17)
PROC: 0BC98ZZ Extirpation of Matter from Lingula Bronchus, Via Natural or Artificial Opening Endoscopic (ICD-10-PCS; 2020-04-24)
PROC: 0BC48ZZ Extirpation of Matter from Right Upper Lobe Bronchus, Via Natural or Artificial Opening Endoscopic (ICD-10-PCS; 2020-04-24)
PROC: 0BC88ZZ Extirpation of Matter from Left Upper Lobe Bronchus, Via Natural or Artificial Opening Endoscopic (ICD-10-PCS; 2020-04-24)
PROC: 0BC58ZZ Extirpation of Matter from Right Middle Lobe Bronchus, Via Natural or Artificial Opening Endoscopic (ICD-10-PCS; 2020-04-24)
PROC: 0BC78ZZ Extirpation of Matter from Left Main Bronchus, Via Natural or Artificial Opening Endoscopic (ICD-10-PCS; 2020-04-24)
PROC: 0BC68ZZ Extirpation of Matter from Right Lower Lobe Bronchus, Via Natural or Artificial Opening Endoscopic (ICD-10-PCS; 2020-04-24)
PROC: 0BCB8ZZ Extirpation of Matter from Left Lower Lobe Bronchus, Via Natural or Artificial Opening Endoscopic (ICD-10-PCS; 2020-04-24)
PROC: 0BC28ZZ Extirpation of Matter from Carina, Via Natural or Artificial Opening Endoscopic (ICD-10-PCS; 2020-04-24)
PROC: 0BC18ZZ Extirpation of Matter from Trachea, Via Natural or Artificial Opening Endoscopic (ICD-10-PCS; 2020-04-24)
PROC: 4A02XM4 Measurement of Cardiac Total Activity, External Approach (ICD-10-PCS; 2020-04-26)
PROC: 3E073KZ Introduction of Other Diagnostic Substance into Coronary Artery, Percutaneous Approach (ICD-10-PCS; 2020-04-26)
DX: A41.9 Sepsis, unspecified organism (principal); N17.0 Acute kidney failure with tubular necrosis; J96.20 Acute and chronic respiratory failure, unspecified whether with hypoxia or hypercapnia; J44.0 Chronic obstructive pulmonary disease with (acute) lower respiratory infection; I13.0 Hypertensive heart and chronic kidney disease with heart failure and stage 1 through stage 4 chronic kidney disease, or unspecified chronic kidney disease; J44.1 Chronic obstructive pulmonary disease with (acute) exacerbation; N39.0 Urinary tract infection, site not specified; T17.590A Other foreign object in bronchus causing asphyxiation, initial encounter; I50.30 Unspecified diastolic (congestive) heart failure; J20.9 Acute bronchitis, unspecified; B96.1 Klebsiella pneumoniae [K. pneumoniae] as the cause of diseases classified elsewhere; D64.9 Anemia, unspecified; N18.30 Chronic kidney disease, stage 3 unspecified; R14.0 Abdominal distension (gaseous); F41.9 Anxiety disorder, unspecified; E87.5 Hyperkalemia; N40.0 Benign prostatic hyperplasia without lower urinary tract symptoms; K31.84 Gastroparesis; I25.10 Atherosclerotic heart disease of native coronary artery without angina pectoris; I49.1 Atrial premature depolarization; X58.XXXA Exposure to other specified factors, initial encounter; I48.0 Paroxysmal atrial fibrillation; Z20.828 Contact with and (suspected) exposure to other viral communicable diseases; Z68.29 Body mass index [BMI] 29.0-29.9, adult; Z88.8 Allergy status to other drugs, medicaments and biological substances; Z98.49 Cataract extraction status, unspecified eye; Z87.891 Personal history of nicotine dependence; Z82.5 Family history of asthma and other chronic lower respiratory diseases; Z90.49 Acquired absence of other specified parts of digestive tract; Z79.899 Other long term (current) drug therapy; Z79.51 Long term (current) use of inhaled steroids; Y93.89 Activity, other specified; Y92.89 Other specified places as the place of occurrence of the external cause; Y99.8 Other external cause status; Z79.01 Long term (current) use of anticoagulants

== ENCOUNTER → 2020-05-09 | Outpatient (CLI) | payer MEDICARE, MEDICAID ==
[~2020-05-09] MED LIST changes: +ACETAMINOPHEN325 M2 PO; +AIRDUO DIGIHAL1 EAC1 INH; +BACTRIM 400-801 EACH PO; +BISACODYL10 MG R; +FLEET ENEMA EX230 M1 R; +HYDRALAZINE HYD50 MG PO; +MILK OF MA400 MG/51 PO; +XARELTO2.5 MG PO
[2020-05-09 12:00] VITALS: BP 123/61
[2020-05-09 12:35] VITALS: BP 123/61
[2020-05-09 12:55] VITALS: BP 138/63
[2020-05-09 13:25] VITALS: BP 130/62
[2020-05-09 14:23] VITALS: BP 148/62
[2020-05-09 15:05] VITALS: BP 147/72
[2020-05-10 09:25] VITALS: BP 128/48
[2020-05-10 10:05] VITALS: BP 138/53
[2020-05-10 10:35] VITALS: BP 125/63
--- NOTE | 2020-05-10 10:35 | NUR ---
BLOOD INFUSING WELL WITHOUT DIFFUCULTY. VSS. NO COMPLAINTS. SUSI RAZARN
[2020-05-10 11:57] VITALS: BP 139/65
[2020-05-10 12:25] VITALS: BP 138/74
== END | disposition home or self-care (01) ==
LOC: TRNFUSION 09:18
PROVIDERS: ATTEND Internal Medicine
DX: D64.9 Anemia, unspecified (principal); J44.9 Chronic obstructive pulmonary disease, unspecified; I13.0 Hypertensive heart and chronic kidney disease with heart failure and stage 1 through stage 4 chronic kidney disease, or unspecified chronic kidney disease; I50.32 Chronic diastolic (congestive) heart failure; N18.30 Chronic kidney disease, stage 3 unspecified; F41.9 Anxiety disorder, unspecified; I73.9 Peripheral vascular disease, unspecified

== ENCOUNTER → 2020-05-10 | Outpatient (CLI) | payer MEDICARE, MEDICAID ==
--- NOTE | 2020-05-10 12:07 | NUR ---
REPORT CALLED TO ANIYA CASTILLO AT [facility].
== END | disposition home or self-care (01) ==
LOC: TRNFUSION 00:37
PROVIDERS: ATTEND Internal Medicine
DX: D64.9 Anemia, unspecified (principal); J44.9 Chronic obstructive pulmonary disease, unspecified; I11.0 Hypertensive heart disease with heart failure; I50.9 Heart failure, unspecified; Z87.891 Personal history of nicotine dependence

== ENCOUNTER 2020-06-06 18:23 | Observation (INO) | payer MEDICARE, MEDICAID ==
[~2020-06-06] VITALS: Ht 182.8 cm; Wt 106.6 kg
[2020-06-06 18:28] VITALS: BP 135/63
[2020-06-06 20:07] LABS: BASO % 0.6 % (0.0-1.0); EOS # 0.2 10*3/uL (0.0-0.4); EOS % 2.9 % (1.0-4.0); HEMATOCRIT 26.5 % (42.0-52.0); LYMPH # 1.1 10*3/uL (1.3-4.4); LYMPH % 17.3 % (27.0-41.0); MEAN CELL VOLUME 92.7 fl (80.0-94.0); MEAN CORPUSCULAR HGB 28.3 pg (27.0-31.0); MEAN CORPUSCULAR HGB CONC 30.6 g/dl (33.0-37.0); MEAN PLATELET VOLUME 10.2 fl (9.6-12.3); MONO # 0.8 10*3/uL (0.1-1.0); NEUT # 4.1 10*3/uL (2.3-7.9); NEUT % 65.1 % (47.0-73.0); PLATELET COUNT AUTOMATED 289 10*3/uL (130-400); RED BLOOD COUNT 2.86 10*6/uL (4.50-5.90); RED CELL DISTRI WIDTH 14.5 % (0-14.5); WHITE BLOOD COUNT 6.3 10*3/uL (4.8-10.8)
[2020-06-06 20:23] LABS: BILIRUBIN Negative (Negative); BLOOD Negative (Negative); CLARITY Clear (Clear); COLOR Yellow (Yellow); GLUCOSE Negative (Negative); KETONE Negative (Negative); LEUKO ESTERASE Negative (Negative); NITRITE Negative (Negative); PH 5.5 (4.5-8.0); UROBILINOGEN 0.2 E.U./dl (0.0-1.0)
[2020-06-06 20:24] LABS: ALBUMIN 3.1 gm/dl (3.1-4.5); ALKALINE PHOSPHATASE 89 U/L (45-117); BUN 57 mg/dl (7-24); CHLORIDE 105 mmol/L (98-107); CREATININE 3.61 mg/dL (0.70-1.30); LIPASE 145 U/L (73-393); POTASSIUM 5.1 mmol/L (3.5-5.1); SGOT/AST 16 IU/L (3-35); SGPT/ALT 16 U/L (12-78); SODIUM 140 mmol/L (136-145)
[2020-06-06 20:25] LABS: TROPONIN I < 0.015 ng/ml (<0.045)
[2020-06-06 20:29] LABS: BACTERIA TRACE; EPITHELIAL CELLS 0-2; RBC 0-2 rbc/hpf (0-2); WBC 0-2 wbc/hpf (0-5)
[2020-06-06 23:01] VITALS: BP 139/64
[2020-06-07 05:00] VITALS: BP 119/68
[2020-06-07 08:03] VITALS: BP 113/51
[2020-06-07 09:00] VITALS: BP 104/57
[2020-06-07 12:00] VITALS: BP 108/71
[2020-06-07 16:00] VITALS: BP 126/63
[2020-06-07 20:00] VITALS: BP 115/46
[2020-06-08] VITALS: BP 135/75
[2020-06-08 06:20] LABS: BASO % 0.4 % (0.0-1.0); LYMPH # 0.5 10*3/uL (1.3-4.4); LYMPH % 10.8 % (27.0-41.0); MEAN CELL VOLUME 93.8 fl (80.0-94.0); MEAN CORPUSCULAR HGB 28.5 pg (27.0-31.0); MEAN CORPUSCULAR HGB CONC 30.4 g/dl (33.0-37.0); MEAN PLATELET VOLUME 10.5 fl (9.6-12.3); MONO # 0.1 10*3/uL (0.1-1.0); MONO % 1.6 % (3.0-9.0); NEUT # 4.2 10*3/uL (2.3-7.9); NEUT % 86.4 % (47.0-73.0); PLATELET COUNT AUTOMATED 269 10*3/uL (130-400); RED BLOOD COUNT 2.56 10*6/uL (4.50-5.90); RED CELL DISTRI WIDTH 14.5 % (0-14.5); WHITE BLOOD COUNT 4.9 10*3/uL (4.8-10.8)
[2020-06-08 06:37] LABS: ALBUMIN 2.7 gm/dl (3.1-4.5); CREATININE 3.01 mg/dL (0.70-1.30); TOTAL PROTEIN 6.3 gm/dL (6.4-8.2)
[2020-06-08 06:43] LABS: FREE T4 0.94 ng/dl (0.76-1.46); THYROID STIM HORMONE (HS) 0.659 uIU/ml (0.358-4.75)
[2020-06-08 06:47] LABS: INTERNATIONAL NORM RATIO 0.9 (2.0-3.5)
[2020-06-08 06:54] LABS: POTASSIUM 6.3 mmol/L (3.5-5.1)
[2020-06-08 07:39] LABS: VITAMIN D, 25-HYDROXY 35.5 ng/mL (30-100)
[2020-06-08 07:40] LABS: PTH INTACT 121.8 pg/mL (18.5-88.0)
[2020-06-08 08:00] VITALS: BP 128/64
[2020-06-08 12:00] VITALS: BP 126/67
[2020-06-08 16:00] VITALS: BP 129/52
[2020-06-08 16:47] LABS: CREATININE 2.83 mg/dL (0.70-1.30)
[2020-06-08 16:56] LABS: POTASSIUM 4.9 mmol/L (3.5-5.1)
[2020-06-08 20:00] VITALS: BP 130/55
[2020-06-09] VITALS: BP 136/64
[2020-06-09 08:00] VITALS: BP 136/63
[2020-06-09 10:52] LABS: BASO # 0.1 10*3/uL (0.0-0.1); BASO % 0.6 % (0.0-1.0); EOS # 0.1 10*3/uL (0.0-0.4); EOS % 0.6 % (1.0-4.0); HEMATOCRIT 25.5 % (42.0-52.0); LYMPH # 1.1 10*3/uL (1.3-4.4); LYMPH % 12.7 % (27.0-41.0); MEAN CELL VOLUME 95.9 fl (80.0-94.0); MEAN CORPUSCULAR HGB 28.2 pg (27.0-31.0); MEAN CORPUSCULAR HGB CONC 29.4 g/dl (33.0-37.0); MEAN PLATELET VOLUME 10.2 fl (9.6-12.3); MONO # 0.9 10*3/uL (0.1-1.0); MONO % 10.8 % (3.0-9.0); NEUT # 6.3 10*3/uL (2.3-7.9); NEUT % 74.1 % (47.0-73.0); PLATELET COUNT AUTOMATED 276 10*3/uL (130-400); RED BLOOD COUNT 2.66 10*6/uL (4.50-5.90); RED CELL DISTRI WIDTH 14.9 % (0-14.5); WHITE BLOOD COUNT 8.5 10*3/uL (4.8-10.8)
[2020-06-09 11:05] LABS: CREATININE 2.44 mg/dL (0.70-1.30); POTASSIUM 4.3 mmol/L (3.5-5.1); TOTAL PROTEIN 6.8 gm/dL (6.4-8.2)
[2020-06-09 12:00] VITALS: BP 142/96
[2020-06-09 16:00] VITALS: BP 144/76
[2020-06-09 20:00] VITALS: BP 135/69
[2020-06-10] VITALS: BP 146/80
[2020-06-10 07:11] LABS: CREATININE 1.99 mg/dL (0.70-1.30); POTASSIUM 4.9 mmol/L (3.5-5.1)
[2020-06-10 08:00] VITALS: BP 141/60; BP 173/81
[2020-06-10 12:00] VITALS: BP 133/62; BP 147/74
[2020-06-10 20:00] VITALS: BP 122/62
[2020-06-11] VITALS: BP 138/73
[2020-06-11 07:00] LABS: CREATININE 1.94 mg/dL (0.70-1.30)
[2020-06-11 08:00] VITALS: BP 168/63
[2020-06-11 16:00] VITALS: BP 138/70
[2020-06-11 16:07] VITALS: BP 168/63
[2020-06-12] VITALS: BP 138/71
[2020-06-12 06:31] LABS: CREATININE 1.85 mg/dL (0.70-1.30); POTASSIUM 4.8 mmol/L (3.5-5.1)
[2020-06-12 08:00] VITALS: BP 151/71
[2020-06-12 16:00] VITALS: BP 136/62
[2020-06-13] VITALS: BP 152/75
[2020-06-13 08:00] VITALS: BP 124/81
== END 2020-06-13 14:02 ==
LOC: ED 18:23 → 5E 23:19 → EDHOLD 23:19 → 5E 06-07 07:20
PROVIDERS: Emergency Medicine; Hospitalist; Internal Medicine Nephrology; ADMIT Internal Medicine; ATTEND Internal Medicine
DX: R14.0 Abdominal distension (gaseous) (principal); J44.1 Chronic obstructive pulmonary disease with (acute) exacerbation; N17.9 Acute kidney failure, unspecified; D64.9 Anemia, unspecified; I48.0 Paroxysmal atrial fibrillation; I13.0 Hypertensive heart and chronic kidney disease with heart failure and stage 1 through stage 4 chronic kidney disease, or unspecified chronic kidney disease; N18.30 Chronic kidney disease, stage 3 unspecified; I50.9 Heart failure, unspecified; R10.9 Unspecified abdominal pain; R06.02 Shortness of breath; E87.5 Hyperkalemia; R53.1 Weakness; E83.41 Hypermagnesemia; J96.20 Acute and chronic respiratory failure, unspecified whether with hypoxia or hypercapnia; Z20.828 Contact with and (suspected) exposure to other viral communicable diseases

== ENCOUNTER 2020-07-19 15:37 | Inpatient (IN) | payer MEDICARE, MEDICAID ==
[2020-07-19] VITALS (8 sets, daily range): BP systolic 125–167; BP diastolic 64–80
[~2020-07-19] VITALS: Ht 187.9 cm; Wt 97.3 kg
[2020-07-19 16:16] LABS: BASO # 0.1 10*3/uL (0.0-0.1); BASO % 0.9 % (0.0-1.0); EOS # 0.4 10*3/uL (0.0-0.4); EOS % 5.2 % (1.0-4.0); HEMATOCRIT 27.6 % (42.0-52.0); LYMPH # 1.1 10*3/uL (1.3-4.4); MEAN CELL VOLUME 93.9 fl (80.0-94.0); MEAN CORPUSCULAR HGB 28.2 pg (27.0-31.0); MEAN CORPUSCULAR HGB CONC 30.1 g/dl (33.0-37.0); MEAN PLATELET VOLUME 10.8 fl (9.6-12.3); MONO # 0.8 10*3/uL (0.1-1.0); MONO % 9.6 % (3.0-9.0); NEUT # 5.8 10*3/uL (2.3-7.9); NEUT % 71.1 % (47.0-73.0); PLATELET COUNT AUTOMATED 247 10*3/uL (130-400); RED BLOOD COUNT 2.94 10*6/uL (4.50-5.90); RED CELL DISTRI WIDTH 14.7 % (0-14.5); WHITE BLOOD COUNT 8.1 10*3/uL (4.8-10.8)
[2020-07-19 16:27] LABS: ACT PARTIAL THROMBO TIME 23.1 SECONDS (20.0-32.1); INTERNATIONAL NORM RATIO 0.9 (2.0-3.5)
[2020-07-19 16:44] LABS: ALBUMIN 3.2 gm/dl (3.1-4.5); ALKALINE PHOSPHATASE 91 U/L (45-117); BUN 16 mg/dl (7-24); CHLORIDE 109 mmol/L (98-107); CREATININE 1.86 mg/dL (0.70-1.30); POTASSIUM 3.8 mmol/L (3.5-5.1); SGOT/AST 18 IU/L (3-35); SGPT/ALT 20 U/L (12-78); SODIUM 141 mmol/L (136-145); TOTAL PROTEIN 6.9 gm/dL (6.4-8.2)
[2020-07-19 16:49] LABS: TROPONIN I < 0.015 ng/ml (<0.045)
[2020-07-20] VITALS (13 sets, daily range): BP systolic 114–153; BP diastolic 56–89
[2020-07-20 06:18] LABS: BASO # 0.1 10*3/uL (0.0-0.1); BASO % 1.2 % (0.0-1.0); EOS # 0.6 10*3/uL (0.0-0.4); EOS % 8.4 % (1.0-4.0); HEMATOCRIT 26.6 % (42.0-52.0); LYMPH # 1.2 10*3/uL (1.3-4.4); LYMPH % 17.6 % (27.0-41.0); MEAN CELL VOLUME 94.3 fl (80.0-94.0); MEAN CORPUSCULAR HGB CONC 29.7 g/dl (33.0-37.0); MEAN PLATELET VOLUME 11.5 fl (9.6-12.3); MONO # 0.8 10*3/uL (0.1-1.0); MONO % 11.7 % (3.0-9.0); NEUT % 60.8 % (47.0-73.0); PLATELET COUNT AUTOMATED 236 10*3/uL (130-400); RED BLOOD COUNT 2.82 10*6/uL (4.50-5.90); RED CELL DISTRI WIDTH 14.7 % (0-14.5); WHITE BLOOD COUNT 6.5 10*3/uL (4.8-10.8)
[2020-07-20 06:27] LABS: POTASSIUM 3.8 mmol/L (3.5-5.1)
[2020-07-20 06:28] LABS: CREATININE 1.73 mg/dL (0.70-1.30)
[2020-07-20 14:37] LABS: ARTERIAL BLOOD GAS PH 7.359 (7.35-7.45); ARTERIAL BLOOD GAS PO2 124.5 (80-90)
[2020-07-21] VITALS: BP 156/92
[2020-07-21 08:00] VITALS: BP 134/60
[2020-07-21 10:29] LABS: HEMATOCRIT 26.3 % (42.0-52.0); MEAN CELL VOLUME 92.6 fl (80.0-94.0); MEAN CORPUSCULAR HGB 28.5 pg (27.0-31.0); MEAN CORPUSCULAR HGB CONC 30.8 g/dl (33.0-37.0); MEAN PLATELET VOLUME 10.3 fl (9.6-12.3); PLATELET COUNT AUTOMATED 261 10*3/uL (130-400); RED BLOOD COUNT 2.84 10*6/uL (4.50-5.90); RED CELL DISTRI WIDTH 14.9 % (0-14.5); WHITE BLOOD COUNT 7.1 10*3/uL (4.8-10.8)
[2020-07-21 10:43] LABS: ALBUMIN 3.1 gm/dl (3.1-4.5); CREATININE 1.74 mg/dL (0.70-1.30); TOTAL PROTEIN 6.8 gm/dL (6.4-8.2)
[2020-07-21 10:51] LABS: POTASSIUM 4.8 mmol/L (3.5-5.1)
[2020-07-21 11:05] LABS: PLATELET SUFFICIENCY NORMAL (NORMAL); POLYCHROMASIA SLIGHT; TOTAL CELLS COUNTED 100 #CELLS
[2020-07-21 11:06] LABS: OVALOCYTES FEW
[2020-07-21 12:00] VITALS: BP 150/60
[2020-07-21 16:00] VITALS: BP 129/76
[2020-07-21 20:00] VITALS: BP 130/60
[2020-07-22] VITALS: BP 133/63
[2020-07-22 04:00] VITALS: BP 150/78
[2020-07-22 04:25] LABS: ABG BASE EXCESS -3.8 mmol/L (-2.0-2.0); ARTERIAL BLOOD GAS PH 7.321 (7.35-7.45); ARTERIAL BLOOD GAS PO2 46.2 (80-90)
[2020-07-22 04:46] LABS: ABG BASE EXCESS -4.6 mmol/L (-2.0-2.0); ARTERIAL BLOOD GAS PH 7.407 (7.35-7.45); ARTERIAL BLOOD GAS PO2 108.6 (80-90)
[2020-07-22 07:19] LABS: HEMATOCRIT 25.9 % (42.0-52.0); MEAN CELL VOLUME 91.5 fl (80.0-94.0); MEAN CORPUSCULAR HGB 27.9 pg (27.0-31.0); MEAN CORPUSCULAR HGB CONC 30.5 g/dl (33.0-37.0); PLATELET COUNT AUTOMATED 258 10*3/uL (130-400); RED BLOOD COUNT 2.83 10*6/uL (4.50-5.90); WHITE BLOOD COUNT 11.4 10*3/uL (4.8-10.8)
[2020-07-22 07:45] LABS: ALBUMIN 3.2 gm/dl (3.1-4.5); CREATININE 1.63 mg/dL (0.70-1.30); POTASSIUM 4.4 mmol/L (3.5-5.1); TOTAL PROTEIN 6.7 gm/dL (6.4-8.2)
[2020-07-22 07:54] LABS: OVALOCYTES FEW; PLATELET SUFFICIENCY NORMAL (NORMAL); POLYCHROMASIA SLIGHT; TOTAL CELLS COUNTED 100 #CELLS
[2020-07-22 08:00] VITALS: BP 110/62
[2020-07-22 12:00] VITALS: BP 124/66
[2020-07-22 15:50] LABS: BILIRUBIN Negative (Negative); BLOOD Negative (Negative); CLARITY Clear (Clear); COLOR Yellow (Yellow); GLUCOSE Negative (Negative); KETONE Negative (Negative); LEUKO ESTERASE Negative (Negative); NITRITE Negative (Negative); PH 5.5 (4.5-8.0); SPECIFIC GRAVITY <= 1.005 (1.001-1.030); UROBILINOGEN 0.2 E.U./dl (0.0-1.0)
[2020-07-22 16:00] VITALS: BP 137/75
[2020-07-22 16:17] LABS: BACTERIA TRACE; WBC 0-2 wbc/hpf (0-5)
[2020-07-22 20:00] VITALS: BP 154/72
[2020-07-23] VITALS: BP 164/86
[2020-07-23 08:00] VITALS: BP 156/83
[2020-07-23 09:00] VITALS: BP 156/83
[2020-07-23 12:00] VITALS: BP 143/70
[2020-07-23 16:00] VITALS: BP 146/71
[2020-07-23 20:00] VITALS: BP 146/72; BP 176/93
[2020-07-24] VITALS: BP 160/72
[2020-07-24 08:00] VITALS: BP 131/63
[2020-07-24 12:00] VITALS: BP 137/64
[2020-07-24 16:00] VITALS: BP 172/87
[2020-07-25] VITALS: BP 150/78
[2020-07-25 06:39] LABS: HEMATOCRIT 25.7 % (42.0-52.0); MEAN CELL VOLUME 91.5 fl (80.0-94.0); MEAN CORPUSCULAR HGB 28.1 pg (27.0-31.0); MEAN CORPUSCULAR HGB CONC 30.7 g/dl (33.0-37.0); MEAN PLATELET VOLUME 11.4 fl (9.6-12.3); PLATELET COUNT AUTOMATED 239 10*3/uL (130-400); RED BLOOD COUNT 2.81 10*6/uL (4.50-5.90); RED CELL DISTRI WIDTH 15.1 % (0-14.5); WHITE BLOOD COUNT 12.3 10*3/uL (4.8-10.8)
[2020-07-25 06:46] LABS: CREATININE 1.53 mg/dL (0.70-1.30); POTASSIUM 4.5 mmol/L (3.5-5.1)
[2020-07-25 07:50] LABS: PLATELET SUFFICIENCY NORMAL (NORMAL); TOTAL CELLS COUNTED 100 #CELLS
[2020-07-25 07:51] LABS: OVALOCYTES FEW; SCHISTOCYTES FEW
[2020-07-25 08:00] VITALS: BP 147/94
[2020-07-25 08:10] VITALS: BP 158/62
[2020-07-25 12:00] VITALS: BP 103/76
[2020-07-25] MEDS ORDERED: DOXYCYCLINE100 M3 PO ×2 (14:06)
== END 2020-07-25 16:07 | disposition home or self-care (01) | DRG 388 ==
LOC: ED 15:37 → 5E 19:14 → EDHOLD 19:14 → ED 19:14 → EDHOLD 20:43 → 5E 20:43 → EDHOLD 07-20 14:07 → 5E 07-25 16:07
PROVIDERS: Emergency Medicine; Internal Medicine Nephrology; Student in an Organized Health Care Education/Training Program; ADMIT Internal Medicine; ATTEND Internal Medicine
DX: K56.609 Unspecified intestinal obstruction, unspecified as to partial versus complete obstruction (principal); J96.21 Acute and chronic respiratory failure with hypoxia; N17.0 Acute kidney failure with tubular necrosis; J44.1 Chronic obstructive pulmonary disease with (acute) exacerbation; I50.30 Unspecified diastolic (congestive) heart failure; I13.0 Hypertensive heart and chronic kidney disease with heart failure and stage 1 through stage 4 chronic kidney disease, or unspecified chronic kidney disease; N18.30 Chronic kidney disease, stage 3 unspecified; N40.0 Benign prostatic hyperplasia without lower urinary tract symptoms; D64.9 Anemia, unspecified; I73.9 Peripheral vascular disease, unspecified; E87.8 Other disorders of electrolyte and fluid balance, not elsewhere classified; R16.0 Hepatomegaly, not elsewhere classified; I25.84 Coronary atherosclerosis due to calcified coronary lesion; E87.5 Hyperkalemia; G89.29 Other chronic pain; G47.00 Insomnia, unspecified; R26.2 Difficulty in walking, not elsewhere classified; I48.0 Paroxysmal atrial fibrillation; K59.09 Other constipation; Z90.49 Acquired absence of other specified parts of digestive tract; Z88.8 Allergy status to other drugs, medicaments and biological substances; Z93.2 Ileostomy status; Z98.42 Cataract extraction status, left eye; Z98.41 Cataract extraction status, right eye; Z83.6 Family history of other diseases of the respiratory system; Z98.890 Other specified postprocedural states

== ENCOUNTER 2020-08-14 10:24 | Inpatient (IN) | payer MEDICARE, MEDICAID ==
[~2020-08-14] VITALS: Ht 185.4 cm; Wt 101.2 kg
[2020-08-14 10:25] VITALS: BP 152/69
[2020-08-14 11:33] LABS: BASO % 0.6 % (0.0-1.0); EOS # 0.3 10*3/uL (0.0-0.4); EOS % 4.1 % (1.0-4.0); HEMATOCRIT 28.1 % (42.0-52.0); LYMPH # 0.6 10*3/uL (1.3-4.4); LYMPH % 8.2 % (27.0-41.0); MEAN CELL VOLUME 90.9 fl (80.0-94.0); MEAN CORPUSCULAR HGB 27.5 pg (27.0-31.0); MEAN CORPUSCULAR HGB CONC 30.2 g/dl (33.0-37.0); MEAN PLATELET VOLUME 10.2 fl (9.6-12.3); MONO # 0.5 10*3/uL (0.1-1.0); MONO % 7.2 % (3.0-9.0); NEUT # 5.7 10*3/uL (2.3-7.9); NEUT % 79.6 % (47.0-73.0); PLATELET COUNT AUTOMATED 298 10*3/uL (130-400); RED BLOOD COUNT 3.09 10*6/uL (4.50-5.90); RED CELL DISTRI WIDTH 14.5 % (0-14.5); WHITE BLOOD COUNT 7.1 10*3/uL (4.8-10.8)
[2020-08-14 11:51] LABS: ACT PARTIAL THROMBO TIME 26.4 SECONDS (20.0-32.1)
[2020-08-14 11:54] LABS: ALBUMIN 3.1 gm/dl (3.1-4.5); ALKALINE PHOSPHATASE 112 U/L (45-117); BUN 9 mg/dl (7-24); CHLORIDE 106 mmol/L (98-107); CREATININE 1.66 mg/dL (0.70-1.30); LIPASE 42 U/L (73-393); POTASSIUM 3.4 mmol/L (3.5-5.1); SGOT/AST 9 IU/L (3-35); SGPT/ALT 13 U/L (12-78); SODIUM 142 mmol/L (136-145)
[2020-08-14 11:55] LABS: TROPONIN I < 0.015 ng/ml (<0.045)
[2020-08-14 12:00] VITALS: BP 148/90
[2020-08-14 13:30] VITALS: BP 150/88
[2020-08-14 16:00] VITALS: BP 180/84
[2020-08-14] MEDS ORDERED: COMBIVENT RESPIM4 GM INH (16:44)
[2020-08-14] MEDS ORDERED: SYMB160 INH (16:44)
[2020-08-14] MEDS ORDERED: LASIX40 MG PO (16:46)
[2020-08-14 20:03] VITALS: BP 151/76
[2020-08-15] VITALS: BP 147/75
[2020-08-15 12:00] VITALS: BP 129/63
[2020-08-15 16:00] VITALS: BP 154/78
[2020-08-15 20:00] VITALS: BP 142/71
[2020-08-16] VITALS: BP 156/74
[2020-08-16] MEDS ORDERED: HYDRALAZINE HYD50 MG PO (04:26)
[2020-08-16] MEDS ORDERED: XARELTO2.5 MG PO (04:27)
[2020-08-16 06:30] VITALS: BP 130/76
[2020-08-16 08:00] VITALS: BP 167/79
[2020-08-16 12:00] VITALS: BP 151/75
[2020-08-16 16:00] VITALS: BP 150/78
[2020-08-16 20:00] VITALS: BP 153/63
[2020-08-17] VITALS: BP 147/67
[2020-08-17 08:00] VITALS: BP 155/71
[2020-08-17 12:00] VITALS: BP 147/66
[2020-08-17 16:00] VITALS: BP 150/62
[2020-08-17 20:00] VITALS: BP 156/63
[2020-08-18] VITALS: BP 149/66
[2020-08-18 05:43] LABS: CREATININE 1.92 mg/dL (0.70-1.30); POTASSIUM 4.1 mmol/L (3.5-5.1)
[2020-08-18 06:08] LABS: HEMATOCRIT 25.9 % (42.0-52.0); MEAN CELL VOLUME 91.8 fl (80.0-94.0); MEAN CORPUSCULAR HGB 27.3 pg (27.0-31.0); MEAN CORPUSCULAR HGB CONC 29.7 g/dl (33.0-37.0); MEAN PLATELET VOLUME 11.1 fl (9.6-12.3); NUCLEATED RED BLOOD CELL 0.2 % (0.0-0.0); PLATELET COUNT AUTOMATED 308 10*3/uL (130-400); RED BLOOD COUNT 2.82 10*6/uL (4.50-5.90); RED CELL DISTRI WIDTH 14.9 % (0-14.5); WHITE BLOOD COUNT 12.5 10*3/uL (4.8-10.8)
[2020-08-18 07:00] LABS: TOTAL CELLS COUNTED 100 #CELLS
[2020-08-18 07:01] LABS: PLATELET SUFFICIENCY NORMAL (NORMAL); POLYCHROMASIA SLIGHT
[2020-08-18 08:00] VITALS: BP 172/81
[2020-08-18 12:00] VITALS: BP 159/74
[2020-08-18 16:00] VITALS: BP 129/57
[2020-08-18 20:00] VITALS: BP 146/58
[2020-08-19] VITALS: BP 120/56
[2020-08-19] MEDS ORDERED: XARE15TA PO (07:08)
[2020-08-19] MEDS ORDERED: DALI500T PO (07:08)
[2020-08-19] MEDS ORDERED: FLECAINIDE ACE100 M1 PO (07:08)
[2020-08-19] MEDS ORDERED: CARDIZEM CD180 MG PO (07:08)
[2020-08-19 08:00] VITALS: BP 141/61
[2020-08-19 08:32] LABS: CREATININE 1.93 mg/dL (0.70-1.30); POTASSIUM 4.3 mmol/L (3.5-5.1)
== END 2020-08-19 11:49 | DRG 191 ==
LOC: ED 10:24 → EDHOLD 13:38 → 4E 13:38
PROVIDERS: Emergency Medicine; ADMIT Internal Medicine; ATTEND Internal Medicine
DX: J44.1 Chronic obstructive pulmonary disease with (acute) exacerbation (principal); N17.9 Acute kidney failure, unspecified; I13.0 Hypertensive heart and chronic kidney disease with heart failure and stage 1 through stage 4 chronic kidney disease, or unspecified chronic kidney disease; I50.30 Unspecified diastolic (congestive) heart failure; N18.30 Chronic kidney disease, stage 3 unspecified; I48.0 Paroxysmal atrial fibrillation; R62.7 Adult failure to thrive; D64.9 Anemia, unspecified; E87.6 Hypokalemia; I27.81 Cor pulmonale (chronic); F51.01 Primary insomnia; T50.2X5A Adverse effect of carbonic-anhydrase inhibitors, benzothiadiazides and other diuretics, initial encounter; Z20.822 Contact with and (suspected) exposure to COVID-19; Z88.8 Allergy status to other drugs, medicaments and biological substances; Z93.2 Ileostomy status; Z98.42 Cataract extraction status, left eye; Z98.41 Cataract extraction status, right eye; Z90.49 Acquired absence of other specified parts of digestive tract; Z83.6 Family history of other diseases of the respiratory system; Z79.01 Long term (current) use of anticoagulants; Y92.89 Other specified places as the place of occurrence of the external cause; Z68.27 Body mass index [BMI] 27.0-27.9, adult

== ENCOUNTER 2020-09-15 21:11 | Inpatient (IN) | payer MEDICARE, MEDICAID ==
[~2020-09-15] VITALS: Ht 157.4 cm; Wt 96.3 kg
[~2020-09-15 21:11] MED LIST changes: +CARDIZEM CD180 MG PO; +DALI500T PO; +FLECAINIDE ACE100 M1 PO; +XARE15TA PO
[2020-09-15 21:20] VITALS: BP 140/66
[2020-09-15 21:44] LABS: CREATININE 2.39 mg/dL (0.70-1.30); POTASSIUM 3.1 mmol/L (3.5-5.1); TOTAL PROTEIN 7.8 gm/dL (6.4-8.2)
[2020-09-15 22:11] LABS: BASO # 0.1 10*3/uL (0.0-0.1); BASO % 0.4 % (0.0-1.0); EOS % 0.2 % (1.0-4.0); HEMATOCRIT 25.5 % (42.0-52.0); LYMPH # 0.7 10*3/uL (1.3-4.4); LYMPH % 3.3 % (27.0-41.0); MEAN CORPUSCULAR HGB 26.6 pg (27.0-31.0); MEAN CORPUSCULAR HGB CONC 30.6 g/dl (33.0-37.0); MEAN PLATELET VOLUME 9.9 fl (9.6-12.3); MONO # 1.2 10*3/uL (0.1-1.0); NEUT # 17.7 10*3/uL (2.3-7.9); NEUT % 89.4 % (47.0-73.0); PLATELET COUNT AUTOMATED 427 10*3/uL (130-400); RED BLOOD COUNT 2.93 10*6/uL (4.50-5.90); RED CELL DISTRI WIDTH 14.4 % (0-14.5); WHITE BLOOD COUNT 19.8 10*3/uL (4.8-10.8)
[2020-09-15 22:33] LABS: BILIRUBIN Negative (Negative); BLOOD Trace-Lysed (Negative); CLARITY Cloudy (Clear); COLOR Yellow (Yellow); GLUCOSE Negative (Negative); KETONE Negative (Negative); LEUKO ESTERASE 3+ (Negative); NITRITE Positive (Negative); SPECIFIC GRAVITY 1.015 (1.001-1.030); UROBILINOGEN 0.2 E.U./dl (0.0-1.0)
[2020-09-15 22:55] LABS: PH >= 9.0 (4.5-8.0)
[2020-09-15 22:56] LABS: BACTERIA 3+
[2020-09-15 22:57] LABS: WBC 16-20 wbc/hpf (0-5)
[2020-09-15 23:21] VITALS: BP 133/62
[2020-09-16] VITALS (8 sets, daily range): BP systolic 112–145; BP diastolic 55–94
[2020-09-16] MEDS ORDERED: CELEXA20 MG PO (00:42)
[2020-09-16] MEDS ORDERED: FLUTICASONE-SA1 EAC3 INH (00:45)
[2020-09-16] MEDS ORDERED: GENTLE LAXATIVE10 MG R (00:47)
[2020-09-16] MEDS ORDERED: MILK OF MA400 MG/5 M PO (00:50)
[2020-09-16] MEDS ORDERED: NEURONTIN100 MG PO (00:51)
[2020-09-16] MEDS ORDERED: FLEET ENEMA 13133 ML R (00:53)
[2020-09-16] MEDS ORDERED: VOLTAREN100 GM T (00:55)
[2020-09-16] MEDS ORDERED: XANAX0.25 MG PO (00:56)
[2020-09-16] MEDS ORDERED: AMBIEN10 M1 PO (00:57)
[2020-09-16] MEDS ORDERED: ZOFRAN4 MG PO (00:57)
[2020-09-16 01:09] LABS: TROPONIN I < 0.015 ng/ml (<0.045)
[2020-09-16 06:25] LABS: HEMATOCRIT 24.4 % (42.0-52.0); MEAN CELL VOLUME 87.1 fl (80.0-94.0); MEAN CORPUSCULAR HGB 26.1 pg (27.0-31.0); MEAN CORPUSCULAR HGB CONC 29.9 g/dl (33.0-37.0); MEAN PLATELET VOLUME 10.3 fl (9.6-12.3); PLATELET COUNT AUTOMATED 415 10*3/uL (130-400); RED CELL DISTRI WIDTH 14.5 % (0-14.5); WHITE BLOOD COUNT 17.7 10*3/uL (4.8-10.8)
[2020-09-16 06:26] LABS: ACT PARTIAL THROMBO TIME 40.7 SECONDS (20.0-32.1); INTERNATIONAL NORM RATIO 1.2 (2.0-3.5)
[2020-09-16 06:30] LABS: ALBUMIN 2.8 gm/dl (3.1-4.5); CREATININE 2.34 mg/dL (0.70-1.30); POTASSIUM 3.5 mmol/L (3.5-5.1); TOTAL PROTEIN 6.9 gm/dL (6.4-8.2)
[2020-09-16 06:52] LABS: BASOPHILS 1 % (0-1); PLATELET SUFFICIENCY HIGH (NORMAL); POLYCHROMASIA SLIGHT; TOTAL CELLS COUNTED 100 #CELLS
[2020-09-16 06:53] LABS: TOXIC GRANULATION SLIGHT
[2020-09-16 13:26] LABS: BILIRUBIN Negative (Negative); BLOOD 1+ (Negative); CLARITY Cloudy (Clear); COLOR Yellow (Yellow); GLUCOSE Negative (Negative); KETONE Negative (Negative); LEUKO ESTERASE 2+ (Negative); NITRITE Negative (Negative); SPECIFIC GRAVITY 1.015 (1.001-1.030); UROBILINOGEN 0.2 E.U./dl (0.0-1.0)
[2020-09-16 13:39] LABS: BACTERIA 1+; WBC 51-100 wbc/hpf (0-5)
[2020-09-16 13:42] LABS: URINE CHLORIDE, RANDOM < 10 mmol/L
[2020-09-17] VITALS: BP 134/67
[2020-09-17 08:00] VITALS: BP 136/66
[2020-09-17 12:00] VITALS: BP 146/60
[2020-09-17 16:04] VITALS: BP 150/63
[2020-09-17 20:06] VITALS: BP 161/69
[2020-09-18] VITALS (13 sets, daily range): BP systolic 135–174; BP diastolic 56–73
[2020-09-18 12:29] LABS: HEMATOCRIT 23.9 % (42.0-52.0); MEAN CELL VOLUME 90.2 fl (80.0-94.0); MEAN CORPUSCULAR HGB 26.4 pg (27.0-31.0); MEAN CORPUSCULAR HGB CONC 29.3 g/dl (33.0-37.0); MEAN PLATELET VOLUME 10.5 fl (9.6-12.3); PLATELET COUNT AUTOMATED 377 10*3/uL (130-400); RED BLOOD COUNT 2.65 10*6/uL (4.50-5.90); RED CELL DISTRI WIDTH 14.4 % (0-14.5); WHITE BLOOD COUNT 16.4 10*3/uL (4.8-10.8)
[2020-09-18 12:41] LABS: CREATININE 1.83 mg/dL (0.70-1.30)
[2020-09-18 12:46] LABS: TOTAL CELLS COUNTED 100 #CELLS
[2020-09-18 12:47] LABS: POLYCHROMASIA SLIGHT
[2020-09-18 12:48] LABS: PLATELET SUFFICIENCY NORMAL (NORMAL); TOXIC GRANULATION SLIGHT
[2020-09-19] VITALS: BP 153/74
[2020-09-19 06:00] LABS: HEMATOCRIT 25.8 % (42.0-52.0); MEAN CELL VOLUME 87.5 fl (80.0-94.0); MEAN CORPUSCULAR HGB 26.1 pg (27.0-31.0); MEAN CORPUSCULAR HGB CONC 29.8 g/dl (33.0-37.0); MEAN PLATELET VOLUME 10.3 fl (9.6-12.3); NUCLEATED RED BLOOD CELL 0.2 % (0.0-0.0); PLATELET COUNT AUTOMATED 362 10*3/uL (130-400); RED BLOOD COUNT 2.95 10*6/uL (4.50-5.90); RED CELL DISTRI WIDTH 15.1 % (0-14.5); WHITE BLOOD COUNT 11.6 10*3/uL (4.8-10.8)
[2020-09-19 06:26] LABS: CREATININE 1.6 mg/dL (0.70-1.30); POTASSIUM 3.7 mmol/L (3.5-5.1)
[2020-09-19 07:20] LABS: PLATELET SUFFICIENCY NORMAL (NORMAL); POLYCHROMASIA SLIGHT; TOTAL CELLS COUNTED 100 #CELLS
[2020-09-19 08:00] VITALS: BP 152/65
[2020-09-19 12:00] VITALS: BP 133/88
[2020-09-19 16:00] VITALS: BP 148/66
[2020-09-19 20:00] VITALS: BP 150/67
[2020-09-20] VITALS: BP 170/66
[2020-09-20 06:48] LABS: HEMATOCRIT 26.5 % (42.0-52.0); MEAN CELL VOLUME 87.2 fl (80.0-94.0); MEAN CORPUSCULAR HGB 26.3 pg (27.0-31.0); MEAN CORPUSCULAR HGB CONC 30.2 g/dl (33.0-37.0); MEAN PLATELET VOLUME 10.2 fl (9.6-12.3); NUCLEATED RED BLOOD CELL 0.2 % (0.0-0.0); PLATELET COUNT AUTOMATED 349 10*3/uL (130-400); RED BLOOD COUNT 3.04 10*6/uL (4.50-5.90); RED CELL DISTRI WIDTH 15.2 % (0-14.5); WHITE BLOOD COUNT 12.3 10*3/uL (4.8-10.8)
[2020-09-20 07:46] LABS: CREATININE 1.48 mg/dL (0.70-1.30); POTASSIUM 3.6 mmol/L (3.5-5.1)
[2020-09-20 07:51] LABS: PLATELET SUFFICIENCY NORMAL (NORMAL); POLYCHROMASIA SLIGHT; TOTAL CELLS COUNTED 100 #CELLS
[2020-09-20 07:52] LABS: BURR CELLS FEW; OVALOCYTES FEW; SCHISTOCYTES FEW; TOXIC GRANULATION SLIGHT
[2020-09-20 08:00] VITALS: BP 151/67
[2020-09-20 12:00] VITALS: BP 158/75
[2020-09-20] MEDS ORDERED: PREDNISONE10 MG PO (13:46)
[2020-09-20] MEDS ORDERED: AUGMENTIN 875875 MG PO (13:46)
[2020-09-20] MEDS ORDERED: XANAX0.25 MG PO (13:46)
== END 2020-09-20 18:23 | DRG 871 ==
LOC: ED 21:11 → 4E 23:18 → EDHOLD 23:18 → 4E 09-16 07:48
PROVIDERS: Internal Medicine; Student in an Organized Health Care Education/Training Program; ADMIT Internal Medicine; ATTEND Internal Medicine
PROC: 30233N1 Transfusion of Nonautologous Red Blood Cells into Peripheral Vein, Percutaneous Approach (ICD-10-PCS; principal; 2020-09-18)
DX: A41.9 Sepsis, unspecified organism (principal); N17.0 Acute kidney failure with tubular necrosis; J96.21 Acute and chronic respiratory failure with hypoxia; J44.1 Chronic obstructive pulmonary disease with (acute) exacerbation; N39.0 Urinary tract infection, site not specified; E87.1 Hypo-osmolality and hyponatremia; E44.0 Moderate protein-calorie malnutrition; I50.32 Chronic diastolic (congestive) heart failure; N25.81 Secondary hyperparathyroidism of renal origin; I13.0 Hypertensive heart and chronic kidney disease with heart failure and stage 1 through stage 4 chronic kidney disease, or unspecified chronic kidney disease; N17.9 Acute kidney failure, unspecified; Z20.822 Contact with and (suspected) exposure to COVID-19; E86.0 Dehydration; N40.0 Benign prostatic hyperplasia without lower urinary tract symptoms; N18.32 Chronic kidney disease, stage 3b; R65.20 Severe sepsis without septic shock; D47.3 Essential (hemorrhagic) thrombocythemia; I73.9 Peripheral vascular disease, unspecified; E87.6 Hypokalemia; E87.8 Other disorders of electrolyte and fluid balance, not elsewhere classified; D64.9 Anemia, unspecified; W06.XXXA Fall from bed, initial encounter; Y93.89 Activity, other specified; Y92.89 Other specified places as the place of occurrence of the external cause; Y99.8 Other external cause status; Z87.891 Personal history of nicotine dependence; Z88.8 Allergy status to other drugs, medicaments and biological substances; Z79.899 Other long term (current) drug therapy; Z68.34 Body mass index [BMI] 34.0-34.9, adult

== ENCOUNTER 2020-10-27 10:41 | Inpatient (IN) | payer MEDICARE, MEDICAID ==
[~2020-10-27] VITALS: Ht 182.8 cm; Wt 94.6 kg
[2020-10-27] VITALS (12 sets, daily range): BP systolic 117–148; BP diastolic 54–72
[~2020-10-27 10:41] MED LIST changes: +AUGMENTIN 875875 MG PO; +CELEXA20 MG PO; +FLEET ENEMA 13133 ML R; +FLUTICASONE-SA1 EAC3 INH; +GENTLE LAXATIVE10 MG R; +MILK OF MA400 MG/5 M PO; +NEURONTIN100 MG PO; +VOLTAREN100 GM T; +XANAX0.25 MG PO; +ZOFRAN4 MG PO
[2020-10-27 11:21] LABS: BASO % 0.4 % (0.0-1.0); EOS # 0.1 10*3/uL (0.0-0.4); EOS % 0.6 % (1.0-4.0); HEMATOCRIT 24.2 % (42.0-52.0); LYMPH # 0.6 10*3/uL (1.3-4.4); LYMPH % 7.8 % (27.0-41.0); MEAN CELL VOLUME 86.4 fl (80.0-94.0); MEAN CORPUSCULAR HGB 25.7 pg (27.0-31.0); MEAN CORPUSCULAR HGB CONC 29.8 g/dl (33.0-37.0); MEAN PLATELET VOLUME 9.4 fl (9.6-12.3); MONO # 0.9 10*3/uL (0.1-1.0); MONO % 11.6 % (3.0-9.0); NEUT # 6.2 10*3/uL (2.3-7.9); NEUT % 78.6 % (47.0-73.0); PLATELET COUNT AUTOMATED 190 10*3/uL (130-400); RED CELL DISTRI WIDTH 16.8 % (0-14.5); WHITE BLOOD COUNT 7.9 10*3/uL (4.8-10.8)
[2020-10-27 11:38] LABS: CREATININE 1.4 mg/dL (0.70-1.30)
[2020-10-27 11:39] LABS: ALBUMIN 1.9 gm/dl (3.1-4.5); POTASSIUM 4.3 mmol/L (3.5-5.1); TOTAL PROTEIN 5.6 gm/dL (6.4-8.2)
[2020-10-27 18:25] LABS: BASO # 0.1 10*3/uL (0.0-0.1); BASO % 0.8 % (0.0-1.0); EOS # 0.1 10*3/uL (0.0-0.4); EOS % 1.1 % (1.0-4.0); HEMATOCRIT 28.9 % (42.0-52.0); LYMPH # 0.8 10*3/uL (1.3-4.4); LYMPH % 10.2 % (27.0-41.0); MEAN CELL VOLUME 85.8 fl (80.0-94.0); MEAN CORPUSCULAR HGB 25.8 pg (27.0-31.0); MEAN CORPUSCULAR HGB CONC 30.1 g/dl (33.0-37.0); MEAN PLATELET VOLUME 9.1 fl (9.6-12.3); MONO # 0.8 10*3/uL (0.1-1.0); MONO % 11.1 % (3.0-9.0); NEUT # 5.6 10*3/uL (2.3-7.9); NEUT % 75.8 % (47.0-73.0); PLATELET COUNT AUTOMATED 194 10*3/uL (130-400); RED BLOOD COUNT 3.37 10*6/uL (4.50-5.90); RED CELL DISTRI WIDTH 16.6 % (0-14.5); WHITE BLOOD COUNT 7.3 10*3/uL (4.8-10.8)
[2020-10-28] VITALS (11 sets, daily range): BP systolic 118–150; BP diastolic 51–71
[2020-10-28 06:24] LABS: BUN 13 mg/dl (7-24); CHLORIDE 104 mmol/L (98-107); CREATININE 1.14 mg/dL (0.70-1.30); POTASSIUM 4.4 mmol/L (3.5-5.1); SODIUM 137 mmol/L (136-145)
[2020-10-28 06:25] LABS: BASO % 0.6 % (0.0-1.0); EOS # 0.1 10*3/uL (0.0-0.4); EOS % 1.2 % (1.0-4.0); HEMATOCRIT 25.4 % (42.0-52.0); LYMPH # 0.6 10*3/uL (1.3-4.4); LYMPH % 9.3 % (27.0-41.0); MEAN CELL VOLUME 85.5 fl (80.0-94.0); MEAN CORPUSCULAR HGB 25.6 pg (27.0-31.0); MEAN CORPUSCULAR HGB CONC 29.9 g/dl (33.0-37.0); MEAN PLATELET VOLUME 9.6 fl (9.6-12.3); MONO # 0.9 10*3/uL (0.1-1.0); MONO % 13.1 % (3.0-9.0); NEUT # 5.2 10*3/uL (2.3-7.9); NEUT % 74.8 % (47.0-73.0); PLATELET COUNT AUTOMATED 187 10*3/uL (130-400); RED BLOOD COUNT 2.97 10*6/uL (4.50-5.90); RED CELL DISTRI WIDTH 16.6 % (0-14.5); WHITE BLOOD COUNT 6.9 10*3/uL (4.8-10.8)
[2020-10-29] VITALS: BP 134/64
[2020-10-29 06:10] LABS: BASO % 0.5 % (0.0-1.0); EOS # 0.1 10*3/uL (0.0-0.4); EOS % 0.8 % (1.0-4.0); HEMATOCRIT 28.1 % (42.0-52.0); LYMPH # 0.8 10*3/uL (1.3-4.4); LYMPH % 10.5 % (27.0-41.0); MEAN CORPUSCULAR HGB 26.3 pg (27.0-31.0); MEAN CORPUSCULAR HGB CONC 30.2 g/dl (33.0-37.0); MEAN PLATELET VOLUME 9.8 fl (9.6-12.3); MONO % 13.5 % (3.0-9.0); NEUT # 5.6 10*3/uL (2.3-7.9); PLATELET COUNT AUTOMATED 196 10*3/uL (130-400); RED BLOOD COUNT 3.23 10*6/uL (4.50-5.90); RED CELL DISTRI WIDTH 16.6 % (0-14.5); WHITE BLOOD COUNT 7.6 10*3/uL (4.8-10.8)
[2020-10-29 08:06] VITALS: BP 146/61
[2020-10-29 10:49] VITALS: BP 137/56
== END 2020-10-29 13:08 | DRG 377 ==
LOC: ED 10:41 → EDHOLD 11:48 → 5E 11:48
PROVIDERS: Family Medicine; Internal Medicine Gastroenterology; ADMIT Internal Medicine; ATTEND Internal Medicine
PROC: 0DB68ZX Excision of Stomach, Via Natural or Artificial Opening Endoscopic, Diagnostic (ICD-10-PCS; 2020-10-27)
PROC: 30233N1 Transfusion of Nonautologous Red Blood Cells into Peripheral Vein, Percutaneous Approach (ICD-10-PCS; principal; 2020-10-28)
DX: K29.71 Gastritis, unspecified, with bleeding (principal); N17.0 Acute kidney failure with tubular necrosis; E44.0 Moderate protein-calorie malnutrition; I50.30 Unspecified diastolic (congestive) heart failure; J96.10 Chronic respiratory failure, unspecified whether with hypoxia or hypercapnia; I13.0 Hypertensive heart and chronic kidney disease with heart failure and stage 1 through stage 4 chronic kidney disease, or unspecified chronic kidney disease; N25.81 Secondary hyperparathyroidism of renal origin; K25.4 Chronic or unspecified gastric ulcer with hemorrhage; N40.0 Benign prostatic hyperplasia without lower urinary tract symptoms; N18.30 Chronic kidney disease, stage 3 unspecified; N28.1 Cyst of kidney, acquired; J44.9 Chronic obstructive pulmonary disease, unspecified; D50.9 Iron deficiency anemia, unspecified; K31.84 Gastroparesis; G47.00 Insomnia, unspecified; R26.2 Difficulty in walking, not elsewhere classified; Z93.2 Ileostomy status; Z90.49 Acquired absence of other specified parts of digestive tract; Z87.891 Personal history of nicotine dependence; Z88.8 Allergy status to other drugs, medicaments and biological substances; Z79.1 Long term (current) use of non-steroidal anti-inflammatories (NSAID); Z79.899 Other long term (current) drug therapy; Z82.5 Family history of asthma and other chronic lower respiratory diseases; Z79.51 Long term (current) use of inhaled steroids; Z68.28 Body mass index [BMI] 28.0-28.9, adult

== ENCOUNTER → 2020-12-06 | Outpatient (CLI) | payer MEDICARE | END | disposition home or self-care (01) | LOC: MRI 09:00 | PROVIDERS: ATTEND Internal Medicine | DX: M47.812 Spondylosis without myelopathy or radiculopathy, cervical region (principal); M48.02 Spinal stenosis, cervical region; M25.78 Osteophyte, vertebrae; R26.2 Difficulty in walking, not elsewhere classified; R25.1 Tremor, unspecified ==

== ENCOUNTER 2021-03-23 09:52 | Emergency (ER) | payer OTHER ==
[~2021-03-23] VITALS: Wt 90.7 kg
[2021-03-23 10:29] LABS: BASO # 0.1 10*3/uL (0.0-0.1); EOS # 0.5 10*3/uL (0.0-0.4); EOS % 6.1 % (1.0-4.0); HEMATOCRIT 26.3 % (42.0-52.0); LYMPH # 0.9 10*3/uL (1.3-4.4); LYMPH % 12.7 % (27.0-41.0); MEAN CELL VOLUME 91.6 fl (80.0-94.0); MEAN CORPUSCULAR HGB 26.8 pg (27.0-31.0); MEAN CORPUSCULAR HGB CONC 29.3 g/dl (33.0-37.0); MONO # 0.7 10*3/uL (0.1-1.0); MONO % 9.9 % (3.0-9.0); NEUT # 5.1 10*3/uL (2.3-7.9); NEUT % 69.9 % (47.0-73.0); PLATELET COUNT AUTOMATED 268 10*3/uL (130-400); RED BLOOD COUNT 2.87 10*6/uL (4.50-5.90); RED CELL DISTRI WIDTH 15.9 % (0-14.5); WHITE BLOOD COUNT 7.3 10*3/uL (4.8-10.8)
[2021-03-23 10:42] LABS: ACT PARTIAL THROMBO TIME 27.9 SECONDS (20.0-32.1)
[2021-03-23 10:44] LABS: ALBUMIN 2.7 gm/dl (3.1-4.5); CREATININE 1.79 mg/dL (0.70-1.30); TOTAL PROTEIN 7.1 gm/dL (6.4-8.2)
[2021-03-23 10:57] LABS: POTASSIUM 4.9 mmol/L (3.5-5.1)
[2021-03-23 11:14] LABS: BILIRUBIN Negative (Negative); BLOOD Trace-Lysed (Negative); CLARITY Clear (Clear); COLOR Yellow (Yellow); GLUCOSE Negative (Negative); KETONE Negative (Negative); LEUKO ESTERASE 2+ (Negative); NITRITE Negative (Negative); PH 7.5 (4.5-8.0); SPECIFIC GRAVITY 1.015 (1.001-1.030); UROBILINOGEN 0.2 E.U./dl (0.0-1.0)
[2021-03-23 11:36] LABS: BACTERIA 3+; WBC TNTC wbc/hpf (0-5)
[2021-03-23 11:53] LABS: FERRITIN 18.9 ng/mL (22.0-322.0)
== END 2021-03-23 14:47 ==
LOC: ED 09:52
PROVIDERS: Emergency Medicine
DX: D64.9 Anemia, unspecified (principal)

== ENCOUNTER → 2021-04-06 | Outpatient (CLI) | payer OTHER ==
[2021-04-06] VITALS (7 sets, daily range): BP systolic 121–160; BP diastolic 46–72
== END | disposition home or self-care (01) ==
LOC: TRNFUSION 10:18 → EDSTATUS 10:57
PROVIDERS: ATTEND Internal Medicine
DX: D64.9 Anemia, unspecified (principal); I25.10 Atherosclerotic heart disease of native coronary artery without angina pectoris; I11.0 Hypertensive heart disease with heart failure; I50.9 Heart failure, unspecified

== ENCOUNTER 2021-07-12 22:40 | Emergency (ER) | payer OTHER ==
[~2021-07-12] VITALS: Ht 185.4 cm; Wt 90.7 kg
[~2021-07-12 22:40] MED LIST changes: +LORAZEPAM0.5 MG PO
[2021-07-13 00:07] LABS: BASO % 0.5 % (0.0-1.0); EOS # 0.5 10*3/uL (0.0-0.4); EOS % 7.4 % (1.0-4.0); HEMATOCRIT 27.9 % (42.0-52.0); LYMPH # 1.5 10*3/uL (1.3-4.4); MEAN CELL VOLUME 90.3 fl (80.0-94.0); MEAN CORPUSCULAR HGB 27.2 pg (27.0-31.0); MEAN CORPUSCULAR HGB CONC 30.1 g/dl (33.0-37.0); MEAN PLATELET VOLUME 9.7 fl (9.6-12.3); MONO # 0.6 10*3/uL (0.1-1.0); MONO % 9.8 % (3.0-9.0); NEUT # 3.7 10*3/uL (2.3-7.9); NEUT % 58.7 % (47.0-73.0); PLATELET COUNT AUTOMATED 268 10*3/uL (130-400); RED BLOOD COUNT 3.09 10*6/uL (4.50-5.90); RED CELL DISTRI WIDTH 16.2 % (0-14.5); WHITE BLOOD COUNT 6.3 10*3/uL (4.8-10.8)
[2021-07-13 00:22] LABS: ALBUMIN 2.5 gm/dl (3.1-4.5); CREATININE 1.94 mg/dL (0.70-1.30); POTASSIUM 4.7 mmol/L (3.5-5.1); TOTAL PROTEIN 6.9 gm/dL (6.4-8.2)
== END 2021-07-13 05:01 ==
LOC: ED 22:40
PROVIDERS: Emergency Medicine
DX: U07.1 COVID-19 (principal); Z88.8 Allergy status to other drugs, medicaments and biological substances; Z79.899 Other long term (current) drug therapy; Z98.890 Other specified postprocedural states; Z87.891 Personal history of nicotine dependence

== ENCOUNTER → 2021-11-02 | Outpatient (CLI) | payer OTHER | END | disposition home or self-care (01) | LOC: WOUNDCARE 01:48 | PROVIDERS: ATTEND Nurse Practitioner Family | DX: T81.89XA Other complications of procedures, not elsewhere classified, initial encounter (principal); N18.4 Chronic kidney disease, stage 4 (severe); I50.30 Unspecified diastolic (congestive) heart failure; I48.91 Unspecified atrial fibrillation; I73.9 Peripheral vascular disease, unspecified; J44.9 Chronic obstructive pulmonary disease, unspecified; Z87.891 Personal history of nicotine dependence; Z98.49 Cataract extraction status, unspecified eye; Y92.238 Other place in hospital as the place of occurrence of the external cause; Y83.8 Other surgical procedures as the cause of abnormal reaction of the patient, or of later complication, without mention of misadventure at the time of the procedure ==

== ENCOUNTER → 2021-11-09 | Outpatient (CLI) | payer OTHER | END | disposition home or self-care (01) | LOC: WOUNDCARE 00:36 | PROVIDERS: ATTEND Nurse Practitioner Family | DX: T81.89XD Other complications of procedures, not elsewhere classified, subsequent encounter (principal); L98.492 Non-pressure chronic ulcer of skin of other sites with fat layer exposed; N18.4 Chronic kidney disease, stage 4 (severe); I50.30 Unspecified diastolic (congestive) heart failure; I48.91 Unspecified atrial fibrillation; I73.9 Peripheral vascular disease, unspecified; J44.9 Chronic obstructive pulmonary disease, unspecified; Z87.891 Personal history of nicotine dependence; Z98.49 Cataract extraction status, unspecified eye; Y83.8 Other surgical procedures as the cause of abnormal reaction of the patient, or of later complication, without mention of misadventure at the time of the procedure ==

== ENCOUNTER → 2021-11-16 | Outpatient (CLI) | payer OTHER | END | disposition home or self-care (01) | LOC: WOUNDCARE 07:07 | PROVIDERS: ATTEND Nurse Practitioner Family | DX: T81.89XD Other complications of procedures, not elsewhere classified, subsequent encounter (principal); L98.492 Non-pressure chronic ulcer of skin of other sites with fat layer exposed; N18.4 Chronic kidney disease, stage 4 (severe); I50.30 Unspecified diastolic (congestive) heart failure; I48.91 Unspecified atrial fibrillation; I73.9 Peripheral vascular disease, unspecified; Z87.891 Personal history of nicotine dependence; Z98.49 Cataract extraction status, unspecified eye; Y83.8 Other surgical procedures as the cause of abnormal reaction of the patient, or of later complication, without mention of misadventure at the time of the procedure ==

== ENCOUNTER → 2021-11-22 | Outpatient (CLI) | payer OTHER | LOC: WOUNDCARE 03:09 | PROVIDERS: ATTEND Nurse Practitioner Family | DX: T81.89XD Other complications of procedures, not elsewhere classified, subsequent encounter (principal); L98.492 Non-pressure chronic ulcer of skin of other sites with fat layer exposed; N18.4 Chronic kidney disease, stage 4 (severe); I50.30 Unspecified diastolic (congestive) heart failure; I73.9 Peripheral vascular disease, unspecified; I48.91 Unspecified atrial fibrillation; J44.9 Chronic obstructive pulmonary disease, unspecified; Z87.891 Personal history of nicotine dependence; Y83.8 Other surgical procedures as the cause of abnormal reaction of the patient, or of later complication, without mention of misadventure at the time of the procedure ==

== ENCOUNTER → 2021-11-29 | Outpatient (CLI) | payer OTHER | END | disposition home or self-care (01) | LOC: WOUNDCARE 01:25 | PROVIDERS: ATTEND Nurse Practitioner Family | DX: T81.89XD Other complications of procedures, not elsewhere classified, subsequent encounter (principal); L98.491 Non-pressure chronic ulcer of skin of other sites limited to breakdown of skin; N18.4 Chronic kidney disease, stage 4 (severe); I50.30 Unspecified diastolic (congestive) heart failure; I48.91 Unspecified atrial fibrillation; I73.9 Peripheral vascular disease, unspecified; J44.9 Chronic obstructive pulmonary disease, unspecified; Z87.891 Personal history of nicotine dependence; Z98.49 Cataract extraction status, unspecified eye ==

== ENCOUNTER → 2021-12-13 | Outpatient (CLI) | payer OTHER | END | disposition home or self-care (01) | LOC: WOUNDCARE 01:16 | PROVIDERS: ATTEND Nurse Practitioner Family | DX: T81.89XD Other complications of procedures, not elsewhere classified, subsequent encounter (principal); L98.492 Non-pressure chronic ulcer of skin of other sites with fat layer exposed; N18.4 Chronic kidney disease, stage 4 (severe); I50.30 Unspecified diastolic (congestive) heart failure; I48.91 Unspecified atrial fibrillation; I73.9 Peripheral vascular disease, unspecified; J44.9 Chronic obstructive pulmonary disease, unspecified; Z87.891 Personal history of nicotine dependence; Z98.49 Cataract extraction status, unspecified eye; Y83.8 Other surgical procedures as the cause of abnormal reaction of the patient, or of later complication, without mention of misadventure at the time of the procedure ==

== ENCOUNTER → 2021-12-18 | Outpatient (CLI) | payer OTHER | END | disposition home or self-care (01) | LOC: WOUNDCARE 01:31 | PROVIDERS: ATTEND Nurse Practitioner Family | DX: T81.89XD Other complications of procedures, not elsewhere classified, subsequent encounter (principal); L98.492 Non-pressure chronic ulcer of skin of other sites with fat layer exposed; N18.4 Chronic kidney disease, stage 4 (severe); I50.30 Unspecified diastolic (congestive) heart failure; I48.91 Unspecified atrial fibrillation; I73.9 Peripheral vascular disease, unspecified; J44.9 Chronic obstructive pulmonary disease, unspecified; Z87.891 Personal history of nicotine dependence; Z98.49 Cataract extraction status, unspecified eye; Y83.8 Other surgical procedures as the cause of abnormal reaction of the patient, or of later complication, without mention of misadventure at the time of the procedure ==

== ENCOUNTER → 2021-12-26 | Outpatient (CLI) | payer OTHER | END | disposition home or self-care (01) | LOC: WOUNDCARE 01:26 | PROVIDERS: ATTEND Nurse Practitioner Family | DX: T81.89XD Other complications of procedures, not elsewhere classified, subsequent encounter (principal); L98.492 Non-pressure chronic ulcer of skin of other sites with fat layer exposed; N18.4 Chronic kidney disease, stage 4 (severe); I50.30 Unspecified diastolic (congestive) heart failure; I48.91 Unspecified atrial fibrillation; I73.9 Peripheral vascular disease, unspecified; J44.9 Chronic obstructive pulmonary disease, unspecified; Z87.891 Personal history of nicotine dependence; Z98.49 Cataract extraction status, unspecified eye; Y83.8 Other surgical procedures as the cause of abnormal reaction of the patient, or of later complication, without mention of misadventure at the time of the procedure ==

== ENCOUNTER → 2022-01-03 | Outpatient (CLI) | payer OTHER | END | disposition home or self-care (01) | LOC: WOUNDCARE 02:22 | PROVIDERS: ATTEND Nurse Practitioner Family | DX: T81.89XD Other complications of procedures, not elsewhere classified, subsequent encounter (principal); L98.492 Non-pressure chronic ulcer of skin of other sites with fat layer exposed; N18.4 Chronic kidney disease, stage 4 (severe); I50.9 Heart failure, unspecified; I48.91 Unspecified atrial fibrillation; I73.9 Peripheral vascular disease, unspecified; J44.9 Chronic obstructive pulmonary disease, unspecified; Z87.891 Personal history of nicotine dependence; Y83.8 Other surgical procedures as the cause of abnormal reaction of the patient, or of later complication, without mention of misadventure at the time of the procedure ==

== ENCOUNTER → 2022-01-11 | Outpatient (CLI) | payer OTHER | END | disposition home or self-care (01) | LOC: WOUNDCARE 02:05 | PROVIDERS: ATTEND Nurse Practitioner Family | DX: T81.89XD Other complications of procedures, not elsewhere classified, subsequent encounter (principal); L98.492 Non-pressure chronic ulcer of skin of other sites with fat layer exposed; N18.4 Chronic kidney disease, stage 4 (severe); I50.30 Unspecified diastolic (congestive) heart failure; I48.91 Unspecified atrial fibrillation; I73.9 Peripheral vascular disease, unspecified; J44.9 Chronic obstructive pulmonary disease, unspecified; Z87.891 Personal history of nicotine dependence; Z98.49 Cataract extraction status, unspecified eye; Y83.8 Other surgical procedures as the cause of abnormal reaction of the patient, or of later complication, without mention of misadventure at the time of the procedure ==

== ENCOUNTER → 2022-01-17 | Outpatient (CLI) | payer OTHER | END | disposition home or self-care (01) | LOC: WOUNDCARE 01:06 | PROVIDERS: ATTEND Nurse Practitioner Family | DX: T81.89XD Other complications of procedures, not elsewhere classified, subsequent encounter (principal); L98.492 Non-pressure chronic ulcer of skin of other sites with fat layer exposed; N18.4 Chronic kidney disease, stage 4 (severe); I50.30 Unspecified diastolic (congestive) heart failure; I48.91 Unspecified atrial fibrillation; I73.9 Peripheral vascular disease, unspecified; J44.9 Chronic obstructive pulmonary disease, unspecified; Z87.891 Personal history of nicotine dependence; Z98.49 Cataract extraction status, unspecified eye; Y83.8 Other surgical procedures as the cause of abnormal reaction of the patient, or of later complication, without mention of misadventure at the time of the procedure ==

== ENCOUNTER → 2022-01-24 | Outpatient (CLI) | payer MEDICARE, OTHER | END | disposition home or self-care (01) | LOC: WOUNDCARE 00:24 | PROVIDERS: ATTEND Nurse Practitioner Family | DX: T81.89XD Other complications of procedures, not elsewhere classified, subsequent encounter (principal); L98.492 Non-pressure chronic ulcer of skin of other sites with fat layer exposed; N18.4 Chronic kidney disease, stage 4 (severe); I50.30 Unspecified diastolic (congestive) heart failure; I73.9 Peripheral vascular disease, unspecified; I48.91 Unspecified atrial fibrillation; J44.9 Chronic obstructive pulmonary disease, unspecified; Z87.891 Personal history of nicotine dependence; Z98.49 Cataract extraction status, unspecified eye; Y83.8 Other surgical procedures as the cause of abnormal reaction of the patient, or of later complication, without mention of misadventure at the time of the procedure ==

== ENCOUNTER → 2022-01-29 | Outpatient (CLI) | payer MEDICARE, OTHER | END | disposition home or self-care (01) | LOC: WOUNDCARE 01:06 | PROVIDERS: ATTEND Surgery | DX: T81.89XD Other complications of procedures, not elsewhere classified, subsequent encounter (principal); L98.492 Non-pressure chronic ulcer of skin of other sites with fat layer exposed; N18.4 Chronic kidney disease, stage 4 (severe); I50.30 Unspecified diastolic (congestive) heart failure; I48.91 Unspecified atrial fibrillation; I73.9 Peripheral vascular disease, unspecified; J44.9 Chronic obstructive pulmonary disease, unspecified; Z87.891 Personal history of nicotine dependence; Z98.49 Cataract extraction status, unspecified eye; Y83.8 Other surgical procedures as the cause of abnormal reaction of the patient, or of later complication, without mention of misadventure at the time of the procedure ==

== ENCOUNTER → 2022-02-15 | Outpatient (CLI) | payer MEDICARE, OTHER | LOC: WOUNDCARE 07:17 | PROVIDERS: ATTEND Nurse Practitioner Family | DX: T81.89XD Other complications of procedures, not elsewhere classified, subsequent encounter (principal); L98.492 Non-pressure chronic ulcer of skin of other sites with fat layer exposed; N18.4 Chronic kidney disease, stage 4 (severe); I50.30 Unspecified diastolic (congestive) heart failure; I48.91 Unspecified atrial fibrillation; I73.9 Peripheral vascular disease, unspecified; J44.9 Chronic obstructive pulmonary disease, unspecified; Z87.891 Personal history of nicotine dependence; Z98.49 Cataract extraction status, unspecified eye; Y83.8 Other surgical procedures as the cause of abnormal reaction of the patient, or of later complication, without mention of misadventure at the time of the procedure ==

== ENCOUNTER → 2022-02-19 | Outpatient (CLI) | payer MEDICARE, OTHER | LOC: WOUNDCARE 01:12 | PROVIDERS: ATTEND Nurse Practitioner Family | DX: Z53.21 Procedure and treatment not carried out due to patient leaving prior to being seen by health care provider (principal) ==

== ENCOUNTER → 2022-03-01 | Outpatient (CLI) | payer MEDICARE, OTHER ==
[~2022-03-01] MED LIST changes: +ELIQUIS2.5 M1 PO; +PERCOCET 5-3251 EACH PO
== END | disposition home or self-care (01) ==
LOC: WOUNDCARE 01:11
PROVIDERS: ATTEND Nurse Practitioner Family
DX: T81.89XD Other complications of procedures, not elsewhere classified, subsequent encounter (principal); L98.492 Non-pressure chronic ulcer of skin of other sites with fat layer exposed; N18.4 Chronic kidney disease, stage 4 (severe); I50.30 Unspecified diastolic (congestive) heart failure; I48.91 Unspecified atrial fibrillation; I73.9 Peripheral vascular disease, unspecified; J44.9 Chronic obstructive pulmonary disease, unspecified; Z87.891 Personal history of nicotine dependence; Z98.49 Cataract extraction status, unspecified eye; Y83.8 Other surgical procedures as the cause of abnormal reaction of the patient, or of later complication, without mention of misadventure at the time of the procedure

== ENCOUNTER → 2022-03-11 | Day surgery (SDC) | payer MEDICARE, OTHER ==
[~2022-03-11] VITALS: Ht 187.9 cm; Wt 77.1 kg
[2022-03-11 08:40] VITALS: BP 177/69
[2022-03-11 10:43] VITALS: BP 99/34
[2022-03-11 10:58] VITALS: BP 106/37
[2022-03-11 11:15] VITALS: BP 104/37
== END | disposition home or self-care (01) ==
LOC: SDC 03-07 09:30
PROVIDERS: ATTEND Surgery
DX: L98.491 Non-pressure chronic ulcer of skin of other sites limited to breakdown of skin (principal); I13.0 Hypertensive heart and chronic kidney disease with heart failure and stage 1 through stage 4 chronic kidney disease, or unspecified chronic kidney disease; E11.22 Type 2 diabetes mellitus with diabetic chronic kidney disease; I50.9 Heart failure, unspecified; N18.30 Chronic kidney disease, stage 3 unspecified; J44.9 Chronic obstructive pulmonary disease, unspecified; I48.91 Unspecified atrial fibrillation; G47.00 Insomnia, unspecified; Z79.899 Other long term (current) drug therapy

== ENCOUNTER → 2022-03-19 | Outpatient (CLI) | payer MEDICARE, OTHER | END | disposition home or self-care (01) | LOC: WOUNDCARE 02:32 | PROVIDERS: ATTEND Nurse Practitioner Family | DX: T86.828 Other complications of skin graft (allograft) (autograft) (principal); T81.89XD Other complications of procedures, not elsewhere classified, subsequent encounter; L98.492 Non-pressure chronic ulcer of skin of other sites with fat layer exposed; N18.4 Chronic kidney disease, stage 4 (severe); I50.30 Unspecified diastolic (congestive) heart failure; I48.91 Unspecified atrial fibrillation; I73.9 Peripheral vascular disease, unspecified; J44.9 Chronic obstructive pulmonary disease, unspecified; Z87.891 Personal history of nicotine dependence; Z98.49 Cataract extraction status, unspecified eye; Y83.8 Other surgical procedures as the cause of abnormal reaction of the patient, or of later complication, without mention of misadventure at the time of the procedure; Y83.2 Surgical operation with anastomosis, bypass or graft as the cause of abnormal reaction of the patient, or of later complication, without mention of misadventure at the time of the procedure ==

== ENCOUNTER 2022-07-16 16:29 | Emergency (ER) | payer MEDICARE, OTHER ==
[~2022-07-16] VITALS: Ht 185.4 cm; Wt 118.8 kg
[~2022-07-16 16:29] MED LIST changes: +REMERON30 M1 PO; +Rocaltrol0.25 MCG PO; +VIBRAMYCIN100 MG PO
[2022-07-16 16:56] LABS: BASO % 0.1 % (0.0-1.0); EOS # 0.3 10*3/uL (0.0-0.4); EOS % 2.3 % (1.0-4.0); HEMATOCRIT 28.1 % (42.0-52.0); LYMPH # 0.8 10*3/uL (1.3-4.4); LYMPH % 5.7 % (27.0-41.0); MEAN CELL VOLUME 88.6 fl (80.0-94.0); MEAN CORPUSCULAR HGB 26.5 pg (27.0-31.0); MEAN CORPUSCULAR HGB CONC 29.9 g/dl (33.0-37.0); MEAN PLATELET VOLUME 10.8 fl (9.6-12.3); MONO # 1.2 10*3/uL (0.1-1.0); MONO % 9.1 % (3.0-9.0); NEUT # 11.2 10*3/uL (2.3-7.9); PLATELET COUNT AUTOMATED 222 10*3/uL (130-400); RED BLOOD COUNT 3.17 10*6/uL (4.50-5.90); WHITE BLOOD COUNT 13.6 10*3/uL (4.8-10.8)
[2022-07-16 17:11] LABS: POTASSIUM 4.6 mmol/L (3.4-5.1); TOTAL PROTEIN 6.6 gm/dL (6.0-8.0)
[2022-07-16] MEDS ORDERED: VIBRA-TAB100 MG PO (17:21)
[2022-07-16] MEDS ORDERED: PREDNISONE10 MG PO (17:21)
== END 2022-07-16 18:25 ==
LOC: ED 16:29
PROVIDERS: Emergency Medicine
DX: J44.1 Chronic obstructive pulmonary disease with (acute) exacerbation (principal); I50.9 Heart failure, unspecified; Z79.899 Other long term (current) drug therapy; Z87.891 Personal history of nicotine dependence

== ENCOUNTER 2022-08-09 07:47 | Emergency (ER) | payer MEDICARE, OTHER ==
[~2022-08-09] VITALS: Ht 185.4 cm; Wt 112.9 kg
[~2022-08-09 07:47] MED LIST changes: +OMNICEF300 MG PO; +VIBRA-TAB100 MG PO
[2022-08-09 08:09] LABS: HEMATOCRIT 31.6 % (42.0-52.0); MEAN CORPUSCULAR HGB CONC 30.4 g/dl (33.0-37.0); MEAN PLATELET VOLUME 10.9 fl (9.6-12.3); NUCLEATED RED BLOOD CELL 0.1 10*3/uL (0.0-0.0); NUCLEATED RED BLOOD CELL 0.4 % (0.0-0.0); PLATELET COUNT AUTOMATED 221 10*3/uL (130-400); RED BLOOD COUNT 3.55 10*6/uL (4.50-5.90); RED CELL DISTRI WIDTH 20.2 % (0-14.5); WHITE BLOOD COUNT 16.6 10*3/uL (4.8-10.8)
[2022-08-09 08:18] LABS: MANUAL DIFF REFLEX YES
[2022-08-09 08:37] LABS: PLATELET SUFFICIENCY NORMAL (NORMAL); TOTAL CELLS COUNTED 100 #CELLS
[2022-08-09 11:13] LABS: ABG BASE EXCESS 4.9 mmol/L (-2.0-2.0); ARTERIAL BLOOD GAS PH 7.391 (7.35-7.45); ARTERIAL BLOOD GAS PO2 74.8 (80-90)
== END 2022-08-09 13:42 | disposition home or self-care (01) ==
LOC: ED 07:47
PROVIDERS: Emergency Medicine
DX: R06.02 Shortness of breath (principal); J44.9 Chronic obstructive pulmonary disease, unspecified; I48.91 Unspecified atrial fibrillation; I13.0 Hypertensive heart and chronic kidney disease with heart failure and stage 1 through stage 4 chronic kidney disease, or unspecified chronic kidney disease; N18.4 Chronic kidney disease, stage 4 (severe); I50.9 Heart failure, unspecified; Z79.899 Other long term (current) drug therapy; Z98.890 Other specified postprocedural states; Z87.891 Personal history of nicotine dependence; W18.39XA Other fall on same level, initial encounter; Y93.89 Activity, other specified; Y92.89 Other specified places as the place of occurrence of the external cause; Y99.8 Other external cause status

== ENCOUNTER 2023-02-18 20:50 | Emergency (ER) | payer MEDICARE, OTHER ==
[~2023-02-18] VITALS: Ht 185.4 cm; Wt 115.4 kg
[~2023-02-18 20:50] MED LIST changes: +DAILY VITE1 EACH PO; +ERTAPENEM1 GM IV; +IRON325 M1 PO; +PROCRIT20000 UNIT IJ
== END 2023-02-18 22:00 ==
LOC: ED 20:50
DX: I46.9 Cardiac arrest, cause unspecified (principal); D64.9 Anemia, unspecified; I13.0 Hypertensive heart and chronic kidney disease with heart failure and stage 1 through stage 4 chronic kidney disease, or unspecified chronic kidney disease; N18.4 Chronic kidney disease, stage 4 (severe); N17.9 Acute kidney failure, unspecified; N17.0 Acute kidney failure with tubular necrosis; J44.9 Chronic obstructive pulmonary disease, unspecified; F41.9 Anxiety disorder, unspecified; I50.9 Heart failure, unspecified; E87.8 Other disorders of electrolyte and fluid balance, not elsewhere classified; E87.6 Hypokalemia; I48.91 Unspecified atrial fibrillation; E87.1 Hypo-osmolality and hyponatremia; Z98.890 Other specified postprocedural states; Z87.891 Personal history of nicotine dependence